=== PATIENT | male | born 1960 | race Hispanic/Latino ===

== ENCOUNTER → 2023-01-24 | Outpatient (CLI) | payer OTHER ==
[~2023-01-24] MED LIST: AMOX-427 PO; LACT1CAP58 PO
[2023-01-24 16:24] LABS: BASOPHILS % (AUTO) 0.5 % (0.0-5.0); EOSINOPHILS % (AUTO) 1.2 % (0.0-8.0); HEMATOCRIT 41.1 % (42-54); LYMPHOCYTES % (AUTO) 14.3 % (21.0-51.0); MEAN CORPUSCULAR HEMOGLOBIN 30.9 pg (27.0-33.0); MEAN CORPUSCULAR HGB CONC 32.4 g/dL (32.0-36.0); MEAN CORPUSCULAR VOLUME 95.4 fL (79-99); MONOCYTES % (AUTO) 5.9 % (3.0-13.0); NEUTROPHILS % (AUTO) 77.3 % (40.0-77.0); PLATELET COUNT (AUTO) 262 K/uL (130-400); RED BLOOD CELL COUNT(AUTO) 4.31 MIL/uL (4.50-6.20); RED CELL DISTRIBUTION WIDTH 15.2 % (11.0-15.5); WHITE BLOOD COUNT (AUTO) 10.1 K/uL (4.8-10.8)
[2023-01-24 16:42] LABS: CHOLESTEROL 196 mg/dL (<200); HDL CHOLESTEROL 65 mg/dL (29-71); LDL DIRECT 110 mg/dL (0-99); TRIGLYCERIDES 108 mg/dL (30-200)
== END | disposition home or self-care (01) ==
LOC: LAB 08:54
PROVIDERS: ATTEND Internal Medicine Cardiovascular Disease
DX: I10 Essential (primary) hypertension (principal); E78.5 Hyperlipidemia, unspecified; I73.9 Peripheral vascular disease, unspecified
CPT/HCPCS: 36415; 80061; 85025

== ENCOUNTER → 2023-04-28 | Outpatient (CLI) | payer OTHER ==
[2023-04-28 12:44] LABS: ALBUMIN 3.7 g/dL (3.5-5.0); BILIRUBIN,TOTAL 0.7 mg/dL (0.2-1.0); CREATININE 1.1 mg/dL (0.5-1.5); TOTAL PROTEIN, SERUM 7.1 g/dL (6.0-8.3)
== END | disposition home or self-care (01) ==
LOC: LAB 09:32
PROVIDERS: ATTEND Internal Medicine Cardiovascular Disease
DX: I10 Essential (primary) hypertension (principal); E78.5 Hyperlipidemia, unspecified; I73.9 Peripheral vascular disease, unspecified
CPT/HCPCS: 36415; 80053; 80061

== ENCOUNTER → 2023-12-18 | Outpatient (CLI) | payer OTHER ==
[2023-12-18 12:46] LABS: RETICULOCYTE % (AUTO) 2.97 % (0.42-2.23)
[2023-12-18 13:01] LABS: % IRON SATURATION 36.9 % (30-44)
[2023-12-18 13:04] LABS: HEMOGLOBIN A1C 5.7 % (4.0-6.0)
== END | disposition home or self-care (01) ==
LOC: LAB 08:50
PROVIDERS: ATTEND Internal Medicine Cardiovascular Disease
DX: I10 Essential (primary) hypertension (principal); D64.9 Anemia, unspecified; I73.9 Peripheral vascular disease, unspecified
CPT/HCPCS: 36415; 82270; 82728; 83036; 83540; 83550; 85045

== ENCOUNTER → 2024-03-20 | Outpatient (CLI) | payer MEDICARE ==
[2024-03-20 12:11] LABS: BASOPHILS # (AUTO) 0.03 K/uL (0.00-0.20); BASOPHILS % (AUTO) 0.3 % (0.0-5.0); HEMATOCRIT 40.2 % (42-54); IMMATURE GRANULOCYTE ABSOLUTE 0.03 K/uL (0-1); LYMPHOCYTES # (AUTO) 2.5 K/uL (1.0-4.8); LYMPHOCYTES % (AUTO) 25.4 % (21.0-51.0); MEAN CORPUSCULAR HEMOGLOBIN 27.9 pg (27.0-33.0); MEAN CORPUSCULAR HGB CONC 31.6 g/dL (32.0-36.0); MEAN CORPUSCULAR VOLUME 88.4 fL (79-99); MONOCYTES # (AUTO) 0.6 K/uL (0.1-1.0); MONOCYTES % (AUTO) 6.3 % (3.0-13.0); NEUTROPHILS # (AUTO) 6.5 K/uL (1.8-7.7); NEUTROPHILS % (AUTO) 65.7 % (40.0-77.0); PLATELET COUNT (AUTO) 253 K/uL (130-400); RED BLOOD CELL COUNT(AUTO) 4.55 MIL/uL (4.50-6.20); WHITE BLOOD COUNT (AUTO) 9.9 K/uL (4.8-10.8)
[2024-03-20 12:37] LABS: ALBUMIN 3.6 g/dL (3.5-5.0); BILIRUBIN,TOTAL 0.9 mg/dL (0.2-1.0); CREATININE 1.3 mg/dL (0.5-1.3); POTASSIUM 4.5 mmol/L (3.5-5.1); TOTAL PROTEIN, SERUM 7.2 g/dL (6.0-8.3)
== END | disposition home or self-care (01) ==
LOC: LAB 09:13
PROVIDERS: ATTEND Internal Medicine Cardiovascular Disease
DX: I73.9 Peripheral vascular disease, unspecified (principal); E78.5 Hyperlipidemia, unspecified
CPT/HCPCS: 36415; 80053; 80061; 85025

== ENCOUNTER → 2024-09-18 | Outpatient (CLI) | payer MEDICARE ==
[2024-09-18 12:16] LABS: BASOPHILS # (AUTO) 0.05 K/uL (0.00-0.20); BASOPHILS % (AUTO) 0.5 % (0.0-5.0); EOSINOPHILS # (AUTO) 0.12 K/uL (0.00-0.70); EOSINOPHILS % (AUTO) 1.2 % (0.0-8.0); HEMATOCRIT 44.6 % (42-54); IMMATURE GRANULOCYTE ABSOLUTE 0.05 K/uL (0-1); LYMPHOCYTES % (AUTO) 20.8 % (21.0-51.0); MEAN CORPUSCULAR HEMOGLOBIN 31.1 pg (27.0-33.0); MEAN CORPUSCULAR VOLUME 94.5 fL (79-99); MONOCYTES # (AUTO) 0.8 K/uL (0.1-1.0); MONOCYTES % (AUTO) 7.8 % (3.0-13.0); NEUTROPHILS # (AUTO) 6.7 K/uL (1.8-7.7); NEUTROPHILS % (AUTO) 69.2 % (40.0-77.0); PLATELET COUNT (AUTO) 254 K/uL (130-400); RED BLOOD CELL COUNT(AUTO) 4.72 MIL/uL (4.50-6.20); RED CELL DISTRIBUTION WIDTH 15.3 % (11.0-15.5); WHITE BLOOD COUNT (AUTO) 9.8 K/uL (4.8-10.8)
[2024-09-18 12:31] LABS: ALBUMIN 3.7 g/dL (3.5-5.0); BILIRUBIN,TOTAL 0.7 mg/dL (0.2-1.0); TOTAL PROTEIN, SERUM 7.6 g/dL (6.0-8.3)
== END | disposition home or self-care (01) ==
LOC: LAB 09:49
PROVIDERS: ATTEND Internal Medicine Cardiovascular Disease
DX: I10 Essential (primary) hypertension (principal); D64.9 Anemia, unspecified; E78.00 Pure hypercholesterolemia, unspecified; I73.9 Peripheral vascular disease, unspecified
CPT/HCPCS: 36415; 80053; 80061; 85025

== ENCOUNTER 2024-10-05 15:05 | Inpatient (IN) | payer MEDICARE ==
[~2024-10-05] VITALS: Ht 175.3 cm; Wt 117.2 kg
[2024-10-05 15:31] LABS: BASOPHILS # (AUTO) 0.05 K/uL (0.00-0.20); BASOPHILS % (AUTO) 0.4 % (0.0-5.0); EOSINOPHILS # (AUTO) 0.01 K/uL (0.00-0.70); EOSINOPHILS % (AUTO) 0.1 % (0.0-8.0); HEMATOCRIT 42.5 % (42-54); IMMATURE GRANULOCYTE ABSOLUTE 0.14 K/uL (0-1); LYMPHOCYTES # (AUTO) 1.2 K/uL (1.0-4.8); LYMPHOCYTES % (AUTO) 9.3 % (21.0-51.0); MEAN CORPUSCULAR HEMOGLOBIN 31.1 pg (27.0-33.0); MEAN CORPUSCULAR HGB CONC 33.4 g/dL (32.0-36.0); MEAN CORPUSCULAR VOLUME 93.2 fL (79-99); MONOCYTES # (AUTO) 0.7 K/uL (0.1-1.0); MONOCYTES % (AUTO) 5.3 % (3.0-13.0); NEUTROPHILS # (AUTO) 10.6 K/uL (1.8-7.7); NEUTROPHILS % (AUTO) 83.8 % (40.0-77.0); PLATELET COUNT (AUTO) 200 K/uL (130-400); RED BLOOD CELL COUNT(AUTO) 4.56 MIL/uL (4.50-6.20); RED CELL DISTRIBUTION WIDTH 15.5 % (11.0-15.5); WHITE BLOOD COUNT (AUTO) 12.7 K/uL (4.8-10.8)
[2024-10-05 15:46] LABS: CREATININE 2.9 mg/dL (0.5-1.3); POTASSIUM 3.2 mmol/L (3.5-5.1)
[2024-10-05 15:58] LABS: B-TYPE NATRIURETIC PEPTIDE 110 pg/mL (0-100)
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
--- NOTE | 2024-10-05 16:16 | HMCIMG ---
CT ABDOMEN WITHOUT CONTRAST. CT PELVIS WITHOUT CONTRAST. INDICATION: Abdominal pain; No relevant information related to this study was provided in patient's history by the ordering service. TECHNIQUE: Routine transaxial imaging using 5 mm slice thickness through the abdomen and pelvis without the administration of IV contrast. Thin slice reconstructions are also provided. Coronal and sagittal reformatted images acquired for interpretation. CT was performed with one or more of the following dose reduction techniques: Automated exposure control, adjustment of the mA and/or kV according to patient size, or use of iterative reconstruction technique. COMPARISON: None FINDINGS: ON NONCONTRAST IMAGING: ABDOMEN: Examination provided for interpretation at 4:13 PM on 10/05/2024. Heart size is normal. Scarring at both lung bases. No abnormal renal calcifications, hydronephrosis, perinephric inflammation, or proximal hydroureter detected. The liver is normal in size and smooth in contour without biliary duct dilation. The spleen is normal in size and attenuation. The gallbladder appears normal. The pancreas appears normal without pancreatic duct dilation. The adrenal glands appear normal. No significant abdominal, retrocrural or retroperitoneal adenopathy noted. No evidence for intra-abdominal free air or organized fluid collection. No aortic aneurysmal dilation identified. PELVIS: No abnormal calcifications within the urinary bladder or distal ureters. No evidence for free air or organized pelvic fluid collection. No significant pelvic adenopathy detected. Several diverticula along the distal colon and mild to moderate pericolonic inflammatory fat stranding associated, including 3.5 cm aggregate of air and trace fluid along the mesenteric wall of the far proximal sigmoid colon with additional scattered air densities throughout the anterior mid to upper abdomen. Several diverticula along the proximal colon. Terminal ileum appears unremarkable. The appendix appears normal. Visible osseous structures are intact. IMPRESSION: Perforated sigmoid diverticulitis as described, including findings suggesting potential evolving abscess.
[2024-10-05 16:18] LABS: SARS-CoV-2, RNA, NAAT NEGATIVE SARS CoV-2 (NEGATIVE)
[2024-10-05 16:26] LABS: INFLUENZA TYPE A Negative For Type A (NEGATIVE); INFLUENZA TYPE B Negative For Type B (NEGATIVE)
--- NOTE | 2024-10-05 16:44 | HMCIMG ---
PORTABLE CHEST RADIOGRAPH INDICATION: COUGH COMPARISON: 05/16/2017 FINDINGS: cardiac monitor leads overlie the field of view. Heart size is normal. The pulmonary vascularity and jeannie appear normal. No abnormal pulmonary parenchymal opacity or consolidation identified. Bibasilar lung linear scarring. No significant pleural effusion noted. No pneumothorax detected. IMPRESSION: No radiographic evidence for any acute cardiopulmonary process.
[2024-10-05] MEDS: 0.9%NACL 1000ML 2,000 ML IV ONE (16:55)
[2024-10-05] MEDS: 0.9%NACL 1000ML 1,000 ML IV ONE (17:15)
[2024-10-05] MEDS: ZOSYN 3.375GM +NS 50ML IV ONE (17:19)
[2024-10-05 17:20] LABS: APPEARANCE,URINE TURBID (CLEAR); BILIRUBIN,URINE NEGATIVE (NEGATIVE); COLOR,URINE ORANGE (YELLOW); GLUCOSE, URINE (UA) 50 mg/dL (NEGATIVE); KETONES,URINE NEGATIVE (NEGATIVE); LEUKOCYTE ESTERASE ,URINE 25 Leu/uL (NEGATIVE); NITRATE,URINE NEGATIVE (NEGATIVE); OCCULT BLOOD,URINE SMALL (NEGATIVE); PH,URINE 5.5 (5.0-8.0); PROTEIN,URINE 200 mg/dL (NEGATIVE); UROBILINOGEN,URINE 3 mg/dL (0.2-1.0)
[2024-10-05 17:28] LABS: ADD UA MICROSCOPIC YES
[2024-10-05 17:29] LABS: BACTERIA,URINE RARE /HPF (None Seen); MUCUS,URINE RARE LPF (None Seen); SQUAMOUS EPITHELIAL CELL,UR FEW /HPF (0-2); WBC CLUMP FEW /HPF (0-1); YEAST,URINE BUDDING FEW /HPF (None Seen)
[2024-10-05] MEDS ORDERED: chlordiazePOXIDE HCL 25 MG CAP PO PRN (18:00)
[2024-10-05] MEDS ORDERED: LORazepam 2 MG/ML 1 ML VIAL IVP PRN (18:00)
[2024-10-05] MEDS ORDERED: RENAL DOSE IV SCH (18:00)
[2024-10-05] MEDS ORDERED: PHARMACY COMMUNICATION MISC PRN (18:00)
[2024-10-05 18:01] LABS: HEMOGLOBIN A1C 7.1 % (4.0-6.0)
[2024-10-05] MEDS: 0.9% NACL 500ML IV.SOLN 500 ML IV ONE (18:02)
[2024-10-05] MEDS ORDERED: ROSU10TA72 PO (18:07)
[2024-10-05] MEDS ORDERED: EZET10TA48 PO (18:07)
[2024-10-05] MEDS ORDERED: LOSA1TAB42 PO (18:07)
[2024-10-05 18:10] LABS: BILIRUBIN,DIRECT 0.5 mg/dL (0.0-0.3); BILIRUBIN,TOTAL 1.7 mg/dL (0.2-1.0); MAGNESIUM 1.9 mg/dL (1.80-2.40); THYROID STIMULATING HORMONE 4.73 uIU/mL (0.36-3.74); TOTAL PROTEIN, SERUM 7.2 g/dL (6.0-8.3)
[2024-10-05] MEDS: PANTOPrazole 40 MG/VIAL IVP SCH (18:12)
[2024-10-05] MEDS: THIAMINE HCL 100 MG/ML 2ML VIAL IVP SCH (18:12)
[2024-10-05] MEDS: THIAMINE HCL 100 MG, FOLic ACID 5 MG/ML VIAL 1 MG, M.V.I. IV [ADULT] 10 ML in 0.9%NACL ... IV SCH (18:12)
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
[2024-10-05 18:21] LABS: ABG BASE EXCESS -3.6 mmol/L (-2.0-3.0); ABG HCO3 18.7 mmol/L (21.0-28.0); ABG OXYGEN SATURATION 94.4 % (94.0-98.0); ABG PCO2 27 mmHg (35-48); ABG PH 7.459 (7.350-7.450); CARBON MONOXIDE 0.4 % (0.5-1.5); HHb 5.6; PO2, ARTERIAL BG 70.9 mmHg (83.0-108.0); VENT MODE, BG RA (ROOM AIR)
--- NOTE | 2024-10-05 18:25 | NUR ---
JACKSON CATHETER INSERTION INSERTED JACKSON CATHETER, ONLY ABOUT 2 CC OUTPUT AFTER INSERTION BUT PATIENT DENIES PAIN PATIENT RESTING IN BED, CALL LIGHT IN REACH
[2024-10-05 18:29] VITALS: PULSE 119; PULSE 120; RESP 20; RESP 26; O2SAT 98
[2024-10-05] MEDS: BUDESONIDE 0.5 MG/2 ML INH IH SCH (18:29)
--- NOTE | 2024-10-05 18:29 | HMCIMG ---
ULTRASOUND VENOUS DOPPLER, BILATERAL LOWER EXTREMITIES INDICATION: Bilateral lower extremity pain and swelling TECHNIQUE: Routine grayscale and color Doppler ultrasound of the bilateral lower extremity veins performed. COMPARISON: No priors. FINDINGS: The demonstrated veins of the bilateral lower extremity including the common femoral vein, femoral vein, and popliteal vein are associated with normal compressibility, augmentation, and flow. Normal respiratory variation was identified. No evidence for echogenic intraluminal thrombus formation. IMPRESSION: No sonographic evidence for deep venous thrombosis within the bilateral lower extremity veins.
[2024-10-05 18:47] LABS: INR 1.02 (0.85-1.15); PROTHROMBIN TIME 11.4 SEC (9.6-11.6)
[2024-10-05] MEDS: hydroMORPHone 0.5 MG SYG (0.5MG/0.5ML) IVP PRN (19:34)
[2024-10-05] MEDS: PoTASSium chloRIDE 10MEQ/100ML 100 ML IV PRN (19:34)
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
[2024-10-05] MEDS ORDERED: 0.9%NACL 50ML IV SCH (21:00)
[2024-10-05] MEDS: ALBUMIN HUMAN 25% 100 ML IV SCH (21:33)
[2024-10-05 21:36] LABS: CREATININE,URINE RANDOM 331.27 mg/dL (30-135)
[2024-10-05 21:54] LABS: PROTEIN,URINE RANDOM 366.2 mg/dL (0-11.9)
[2024-10-05] MEDS: ZOSYN 3.375GM +NS 50ML IVPB SCH (22:01)
[2024-10-05 22:15] LABS: CREATININE 3.2 mg/dL (0.5-1.3); POTASSIUM 4.1 mmol/L (3.5-5.1)
[2024-10-05 22:47] VITALS: PULSE 112; RESP 25; O2SAT 97
[2024-10-06 01:15] VITALS: PULSE 105; RESP 19; O2SAT 96
[2024-10-06 06:40] VITALS: PULSE 111; RESP 20
[2024-10-06 06:41] VITALS: RESP 20; O2SAT 97
[2024-10-06] MEDS: ALBUMIN HUMAN 25% 100 ML IV SCH (07:02)
[2024-10-06 07:21] LABS: BASOPHILS # (AUTO) 0.03 K/uL (0.00-0.20); BASOPHILS % (AUTO) 0.2 % (0.0-5.0); EOSINOPHILS # (AUTO) 0.04 K/uL (0.00-0.70); EOSINOPHILS % (AUTO) 0.3 % (0.0-8.0); IMMATURE GRANULOCYTE ABSOLUTE 0.08 K/uL (0-1); LYMPHOCYTES # (AUTO) 1.1 K/uL (1.0-4.8); MEAN CORPUSCULAR HGB CONC 32.6 g/dL (32.0-36.0); MEAN CORPUSCULAR VOLUME 95.1 fL (79-99); MONOCYTES # (AUTO) 0.6 K/uL (0.1-1.0); MONOCYTES % (AUTO) 4.9 % (3.0-13.0); NEUTROPHILS # (AUTO) 10.7 K/uL (1.8-7.7); PLATELET COUNT (AUTO) 162 K/uL (130-400); RED BLOOD CELL COUNT(AUTO) 3.68 MIL/uL (4.50-6.20); RED CELL DISTRIBUTION WIDTH 15.8 % (11.0-15.5); WHITE BLOOD COUNT (AUTO) 12.6 K/uL (4.8-10.8)
[2024-10-06 07:42] LABS: ALBUMIN 2.6 g/dL (3.5-5.0); BILIRUBIN,TOTAL 1.8 mg/dL (0.2-1.0); CREATININE 2.4 mg/dL (0.5-1.3); MAGNESIUM 1.9 mg/dL (1.80-2.40); PHOSPHORUS 4.1 mg/dL (2.5-4.9); POTASSIUM 4.2 mmol/L (3.5-5.1); TOTAL PROTEIN, SERUM 6.1 g/dL (6.0-8.3)
[2024-10-06] MEDS: acetaMINOPHEN 325 MG TAB PO PRN (08:31)
[2024-10-06] MEDS: acetaMINOPHEN 1,000 MG/100 ML VIAL IVPB SCH (09:37)
--- NOTE | 2024-10-06 10:09 | HMCIMG ---
ULTRASOUND RENAL COMPLETE INDICATION: Renal failure TECHNIQUE: Routine ultrasound of the kidneys and urinary bladder with grayscale and color Doppler imaging was performed in real-time, and subsequently made available for review. COMPARISON: No prior studies available for comparison. FINDINGS: The right kidney measures 9.3 x 5.7 x 5.7 cm. No abnormal mass demonstrated. No evidence for hydronephrosis or shadowing stone. The left kidney measures 10.9 x 6.3 x 5.1 cm. No abnormal mass demonstrated. No evidence for hydronephrosis or shadowing stone. Empty urinary bladder secondary to Ni catheter placement. No free fluid demonstrated. IMPRESSION: Normal sonographic appearance of the kidneys.
--- NOTE | 2024-10-06 11:28 | PN ---
[facility] PROGRESS NOTE Date of Service: Oct 06, 2024 Time of Service: 11:27 SUBJECTIVE: [ ] 10/06/24 patient was seen and examined. Case discussed with the RN and by the bedside. He reports doing slightly better. Abdominal pain has largely resolved. He denies nausea vomiting fever or chills REVIEW OF SYSTEMS CONSTITUTIONAL: Fevers, chills, asthenia, malaise NEUROLOGICAL: Denies headache, amaurosis fugax, motor weakness, sensory deficit, vertigo/spinning sensation, gait abnormalities, or tremors. ENT: No hearing loss, otalgia, otorrhea, rhinitis, rhinorrhea, hoarseness, or sore throat. CARDIOVASCULAR: Denies any exertional angina, dyspnea on exertion, orthopnea, paroxysmal nocturnal dyspnea, palpitations, life-threatening arrhythmias, claudication. PULMONARY: Denies any shortness of breath, cough, phlegm/sputum, hemoptysis, pleuritic chest pain. SLEEP: Denies morning headaches, daytime somnolence or napping. Denies difficulty falling asleep, staying asleep, waking from sleep. Denies knowledge of snoring. GASTROINTESTINAL: Nausea, vomiting, abdominal pain GENITOURINARY: Denies frequency, urgency, nocturia, hematuria or incontinence (Storage/Irritative symptoms.) Low urinary stream, straining to void, urinary intermittency or hesitancy, splitting of the voiding stream, terminal dribbling. ENDOCRINOLOGIC: Denies polyuria, polydipsia, polyphagia or heat/cold intolerances. HEMATOLOGIC: Denies thrombophilia/previous clots, or coagulopathy/bleeding disorders. ONCOLOGIC: Denies personal history of malignancy. DERMATOLOGIC: Denies rashes or pruritus. PSYCHIATRIC: Denies any suicidal or homicidal ideation. Denies hallucinations. PHYSICAL EXAM GENERAL APPEARANCE: The patient is awake, alert, appears disheveled and ill, tachypneic NEUROLOGICAL: Cranial nerves II-XII grossly intact. Motor is 5/5 in bilateral upper and lower extremities proximal to distal. No sensory deficits. HEENT: Face is symmetric. Pupils are equal and reactive. Extraocular movements are intact. NECK: Supple. No JVD. No thyromegaly. No submental, submandibular, pre-/ postauricular, occipital or supraclavicular lymphadenopathy. CHEST: Normal chest expansion. No Telemetry. LUNGS: Absence of any rales, rhonchi or any wheezing. CARDIOVASCULAR: Regular. S1 and S2 normal. No appreciable rubs, murmurs or gallops. ABDOMEN: Soft, nontender, and nondistended. There is no rebound, voluntary guarding, or rigidity. : Deferred. No Ni. EXTREMITIES: 1+ pitting edema of the bilateral lower extremities, changes of psoriasis noted of the bilateral lower and upper extremities SKIN: No skin breakdown. Vital Signs (last 8hr) Date Time Temp Pulse Resp B/P (MAP) Pulse Ox O2 Delivery O2 Flow Rate FiO2 10/06/24 10:16 99.0 109 22 122/64 96 Room Air* 0 21 10/06/24 08:05 101.5 111 26 113/63 96 Nasal Cannula* 2 28 10/06/24 06:41 20 N/Cannula Low lpm 2.0 28 10/06/24 06:40 111 20 10/06/24 06:28 98.8 109 24 111/62 96 Nasal Cannula* 2 28 10/06/24 05:14 114 22 120/70 96 CPAP+ 21 LABS: Laboratory: Test 10/06/24 06:50 10/05/24 21:53 10/05/24 18:19 10/05/24 17:10 Range/Units White Blood Count 12.6 H 4.8-10.8 K/uL Red Blood Count 3.68 L 4.50-6.20 MIL/uL Hemoglobin 11.4 L 14.0-18.0 g/dL Hematocrit 35.0 L 42-54 % Mean Corpuscular Volume 95.1 79-99 fL Mean Corpuscular Hemoglobin 31.0 27.0-33.0 pg Mean Corpuscular Hemoglobin Concent 32.6 32.0-36.0 g/dL Red Cell Distribution Width 15.8 H 11.0-15.5 % Platelet Count 162 130-400 K/uL Mean Platelet Volume 9.6 7.5-10.5 fL Immature Granulocyte % (Auto) 0.6 0-1 % Neutrophils (%) (Auto) 85.0 H 40.0-77.0 % Lymphocytes (%) (Auto) 9.0 L 21.0-51.0 % Monocytes (%) (Auto) 4.9 3.0-13.0 % Eosinophils (%) (Auto) 0.3 0.0-8.0 % Basophils (%) (Auto) 0.2 0.0-5.0 % Neutrophils # (Auto) 10.7 H 1.8-7.7 K/uL Lymphocytes # (Auto) 1.1 1.0-4.8 K/uL Monocytes # (Auto) 0.6 0.1-1.0 K/uL Eosinophils # (Auto) 0.04 0.00-0.70 K/uL Basophils # (Auto) 0.03 0.00-0.20 K/uL Absolute Immature Granulocyte (auto 0.08 0-1 K/uL Nucleated Red Blood Cells 0.0 0.0-0.19 % Sodium Level 142 136-145 mmol/L Potassium Level 4.2 3.5-5.1 mmol/L Chloride Level 107 101-111 mmol/L Carbon Dioxide Level 22 21-32 mmol/L Blood Urea Nitrogen 28 H 7-18 mg/dL Creatinine 2.4 H 0.5-1.3 mg/dL Glomerular Filtration Rate Calc 29 >90 mL/min Random Glucose 165 H 70-105 mg/dL Total Calcium 8.3 L 8.5-10.1 mg/dL Phosphorus Level 4.1 2.5-4.9 mg/dL Magnesium Level 1.90 1.80-2.40 mg/dL Total Bilirubin 1.8 H 0.2-1.0 mg/dL Aspartate Amino Transf (AST/SGOT) 33 10-37 U/L Alanine Aminotransferase (ALT/SGPT) 27 12-78 U/L Alkaline Phosphatase 77 # 50-136 U/L Total Protein 6.1 6.0-8.3 g/dL Albumin 2.6 L 3.5-5.0 g/dL Lactic Acid Level 1.7 0.8-2.5 mmol/L Blood Gas Specimen Type Arterial Arterial Blood pH 7.459 H 7.350-7.450 Arterial Blood Partial Pressure CO2 27 L 35-48 mmHg Arterial Blood Partial Pressure O2 70.9 L 83.0-108.0 mmHg Arterial Blood HCO3 18.7 L 21.0-28.0 mmol/L Arterial Blood Oxygen Saturation 94.4 94.0-98.0 % Arterial Blood Base Excess -3.6 L -2.0-3.0 mmol/L Hemoglobin (Blood Gas) 13.9 13.5-17.5 g/dL Sodium (Blood Gas) 135 L 136-145 MMOL/L Bedside Potassium (Blood Gas) 3.3 L 3.4-4.5 MMOL/L Bedside Chloride (Blood Gas) 105 98-107 MMOL/L Bedside Glucose (Blood Gas) 155 H 65-95 MG/DL Bedside Ionized Calcium (Blood Gas) 1.14 L 1.15-1.33 MMOL/L Bedside Lactic Acid (Blood Gas) 1.35 H 0.36-0.75 MMOL/L Blood Gas Temperature 37.0 35.5-37.0 CELSIUS Blood Gas Vent Mode RA ROOM AIR FiO2 21.0 % Blood Gas Specimen Comment LR,RNOSCAR Urine Color ORANGE YELLOW Urine Appearance TURBID CLEAR Urine pH 5.5 5.0-8.0 Urine Specific [place] 1.023 1.001-1.031 Urine Protein 200 H NEGATIVE mg/dL Urine Glucose (UA) 50 H NEGATIVE mg/dL Urine Ketones NEGATIVE NEGATIVE mg/dL Urine Occult Blood SMALL H NEGATIVE Urine Nitrate NEGATIVE NEGATIVE Urine Bilirubin NEGATIVE NEGATIVE mg/dL Urine Urobilinogen 3 H 0.2-1.0 mg/dL Urine Leukocyte Esterase 25 H NEGATIVE Ravi/uL Urine RBC 6-10 H 0-1 /HPF Urine WBC 11-25 H 0-1 /HPF Urine WBC Clumps (Auto) FEW 0-1 /HPF Urine Squamous Epithelial Cells FEW 0-2 /HPF Urine Bacteria RARE None Seen /HPF Urine Yeast FEW None Seen /HPF Urine Random Creatinine 331.27 H 30-135 mg/dL Urine Random Total Protein 366.2 H 0-11.9 mg/dL Urine Random Sodium 26 L 40-220 mmol/l Urine Random Potassium 66 25-125 mmol/L Urine Random Chloride 27 L 110-250 mmol/L Test 10/05/24 16:31 10/05/24 15:30 10/05/24 15:22 Range/Units Hemoglobin A1c 7.1 H 4.0-6.0 % Estimated Average Glucose (eAG) 157 H 70-126 mg/dL Direct Bilirubin 0.5 H 0.0-0.3 mg/dL Troponin I High Sensitivity 15 4-75 ng/L Thyroid Stimulating Hormone (TSH) 4.73 H 0.36-3.74 uIU/mL Influenza Type A Antigen Negative For Type A NEGATIVE Influenza Type B Antigen Negative For Type B NEGATIVE SARS-CoV-2, RNA, NAAT NEGATIVE SARS CoV-2 NEGATIVE White Cell Morphology Comment See comments Prothrombin Time 11.4 9.6-11.6 SEC Prothromb Time International Ratio 1.02 0.85-1.15 Activated Partial Thromboplast Time 40.0 H 26.3-35.5 SEC B-Type Natriuretic Peptide 110 H 0-100 pg/mL Lipase 26 16-77 U/L Serum Alcohol < 2 0-10 mg/dL Current Medications Medications (Trade) Dose Ordered Sig/Tim Route PRN Reason Start Time Stop Time Status Last Admin Dose Admin Acetaminophen (TYLenol 325MG TAB) 650 mg Q6H PRN PO MILD PAIN (1-3) 10/05/24 18:30 11/04/24 18:29 Acetaminophen (acetaMINOPHEN) 1,000 mg STAT IVPB 10/06/24 09:00 11/05/24 08:59 10/06/24 09:37 1,000 MG Albumin Human 100 ml @ 100 mls/hr AD IV 10/05/24 21:00 10/06/24 06:01 DC 10/05/24 21:33 100 MLS/HR Albumin Human 100 ml @ 0 mls/hr AD IV 10/06/24 06:00 11/05/24 05:59 10/06/24 07:02 500 MLS/HR Budesonide (Pulmicort 0.5 Mg/2ml) 0.5 mg BIDRESP IH 10/05/24 18:00 11/04/24 17:59 10/06/24 06:38 0.5 MG Chlordiazepoxide HCl (LIBrium 25 MG CAP) 25 mg Q4H PRN PO ALCOHOL WITHDRAWAL PROTOCOL 10/05/24 18:00 10/12/24 17:59 Hydromorphone HCl (DiLAUDid 0.5MG INJ) 0.5 mg Q6H PRN IVP SEVERE PAIN (7-10) 10/05/24 18:00 10/10/24 17:59 10/05/24 19:34 0.5 MG Lorazepam (AtiVAN) 2 mg Q4H PRN IVP ALCOHOL WITHDRAWAL PROTOCOL 10/05/24 18:00 10/12/24 17:59 Pantoprazole Sodium (PROTonix 40MG INJ) 40 mg Q24H IVP 10/05/24 18:00 11/04/24 17:59 10/05/24 18:12 40 MG Pharmacy Profile Note (Pharmacy Communication) 1 each PROTOCOL PRN MISC ETOH Withdrawal Score changes 10/05/24 18:00 10/12/24 17:59 Piperacillin Sod/ Tazobactam Sod (Zosyn 3.375gm+NS 50ml) 3.375 gm Q8H IVPB 10/05/24 23:00 10/15/24 22:59 10/06/24 08:30 3.375 GM Potassium Chloride 100 ml @ 100 mls/hr AD PRN IV POTASSIUM PROTOCOL 10/05/24 18:00 11/04/24 17:59 10/05/24 19:34 100 MLS/HR Sodium Chloride (NS 50ml) 50 ml AD IV 10/05/24 21:00 10/05/24 17:34 DC Thiamine HCl (Vitamin B-1) 100 mg Q24H IVP 10/05/24 18:00 11/04/24 17:59 10/05/24 18:12 100 MG Thiamine HCl 100 mg/Folic Acid 1 mg/Multivitamins/ Minerals 10 ml/ Sodium Chloride 1,011.2 ml @ 100 mls/ hr Q24H IV 10/05/24 18:00 10/08/24 04:07 10/05/24 18:12 75 MLS/HR DIAGNOSTICS / RADIOLOGY: [ ] ASSESSMENT: Severe sepsis, POA, 2/2 perforated sigmoid diverticulitis Perforated sigmoid diverticulitis with developing abscess, POA Moderate lactic acidosis, POA Acute kidney injury, POA Hypokalemia, POA Mild urinary tract infection, POA Alcohol use disorder, POA Morbid obesity, POA Underlying history of hypertension, POA Hyperlipidemia, POA Suspected GREG, POA PLAN: Patient will be admitted to PCCU Continue with IV fluids, patient will receive sepsis bolus of fluid and start maintenance IV fluid with banana bag, 75 mL/hour Patient will be started on daily thiamine supplementation Patient will be kept strictly NPO We will start broad-spectrum antibiotics with IV Zosyn, renally dose Consultation has been requested with Dr. Campbell, with General surgery, appreciate recommendations Monitor lactic acid trend closely, if patient develops hypotension tonight, patient will be transferred to ICU for vasopressors Discussed patient's case with critical Care, we will watch this patient closely for the next 24 hours Ni catheter will be placed and we will monitor urine output closely Discussed patient's case with Dr. Moffett, with Nephrology, appreciate recommendations Monitor urine output closely, avoid NSAIDs, WENDIE inhibitor/ARB, avoid IV contrast until renal function improves Pain control with Tylenol and IV hydromorphone for severe pain Monitor renal function closely, All labs will be repeated in the morning Patient will be started on CPAP therapy tonight for management of suspected obstructive sleep apnea Patient will be placed on alcohol withdrawal protocol with Librium and Ativan, counseled patient to quit alcohol on discharge, patient verbalized understanding Date of service: 10/05/2024 Condition: Critical Anticipate greater than 72 hours of hospitalization for the patient, we will repeat a CT abdomen pelvis in 48-72 hours to assess abscess, patient may need IR evaluation if abscess increases in size Discussed with patient and at bedside, Andrew Najera MD Advanced Care Planning: Which of the following were discussed: Hospice care: Yes __ No _X_ Therapeutic options: Yes _X_ No __ Advance directives: Yes _X_ No __ Other discussions: Discussed with who?: Patient Voluntary nature of this service was explained to the patient? Yes _x_ No __ Amount of time spent: 20 minutes WENDY CROOK MD Oct 06, 2024 11:28
--- NOTE | 2024-10-06 11:57 | PN ---
[facility] PROGRESS NOTE Date Patient Seen: Oct 06, 2024 Time of Visit: 11:57 Supervising Physician: [Dr. Armstrong] Primary Care Physician: Attending team: [facility]ist Team Outpatient Specialists: Inpatient Consults: BIS, Critical care team general surgeon, infectious disease, nephrology PROBLEM LIST: Severe sepsis without septic shock, 2/2 UTI & perforated sigmoid diverticulitis, POA Perforated sigmoid diverticulitis with developing abscess, POA Acute renal failure, GFR 23 POA, (last GFR was 83 on 09/18/2024, prior to that GFR 61 on 03/20/2024) Acute complicated cystitis, POA Lactic acidosis, POA Hypokalemia, POA Alcohol use disorder, POA Morbid obesity, POA Uncontrolled hypertension, POA Hyperlipidemia, POA Suspected GREG, POA INTERVAL HISTORY: [Patient is evaluated at bedside. He was admitted for general body weakness, fever, chills, shortness of breaths and cough associated with left-sided abdominal pain. Sepsis code was activated in the ED at the time of his visit. Patient denies any nausea or vomiting since admission states his last meal was the night before did admit a loose stool in the morning which was nonbloody. Patient also has PERRY on admission improved with IV fluids. Did receive 3 L of NS in the ED. upon evaluation patient is resting comfortably in bed on 2 L nasal cannula. He has [id number] abdominal distention and bilateral lower quadrant pain with palpation. He was evaluated by General surgery, pending formal recommendation. He continues on Zosyn. Of note, patient states was previously on xarelto for a hx of DVT but was discontinued d/t anemia (presumed GI bleed). Currently NPO. Patient is hemodynamically stable.] REVIEW OF SYSTEMS: 12 point ROS reviewed with patient. Pertinent positives mentioned above. Otherwise negative. PHYSICAL EXAM: GENERAL: Alert, weak, awake oriented x 3 HEENT: EOMI, Sclera non icteric, moist mucosa NECK: Supple, no JVD, trachea midline LUNGS: Diminished breath sounds bilaterally. No wheezes HEART: Regular rate and rhythm. Normal S1 and S2, without murmurs ABD: Abdomen firm, generalized tenderness. Bowel sounds present. EXT: No clubbing cyanosis. +3 edema NEURO: Alert and oriented x3, follows commands, no neuro deficits noted. Vital Signs (last 8hr) Date Time Temp Pulse Resp B/P (MAP) Pulse Ox O2 Delivery O2 Flow Rate FiO2 10/06/24 10:16 99.0 109 22 122/64 96 Room Air* 0 21 10/06/24 08:05 101.5 111 26 113/63 96 Nasal Cannula* 2 28 10/06/24 06:41 20 N/Cannula Low lpm 2.0 28 10/06/24 06:40 111 20 10/06/24 06:28 98.8 109 24 111/62 96 Nasal Cannula* 2 28 10/06/24 05:14 114 22 120/70 96 CPAP+ 21 LABS: Hematology Labs: Test 10/06/24 06:50 10/05/24 15:22 Range/Units White Blood Count 12.6 H 4.8-10.8 K/uL Red Blood Count 3.68 L 4.50-6.20 MIL/uL Hemoglobin 11.4 L 14.0-18.0 g/dL Hematocrit 35.0 L 42-54 % Mean Corpuscular Volume 95.1 79-99 fL Mean Corpuscular Hemoglobin 31.0 27.0-33.0 pg Mean Corpuscular Hemoglobin Concent 32.6 32.0-36.0 g/dL Red Cell Distribution Width 15.8 H 11.0-15.5 % Platelet Count 162 130-400 K/uL Mean Platelet Volume 9.6 7.5-10.5 fL Immature Granulocyte % (Auto) 0.6 0-1 % Neutrophils (%) (Auto) 85.0 H 40.0-77.0 % Lymphocytes (%) (Auto) 9.0 L 21.0-51.0 % Monocytes (%) (Auto) 4.9 3.0-13.0 % Eosinophils (%) (Auto) 0.3 0.0-8.0 % Basophils (%) (Auto) 0.2 0.0-5.0 % Neutrophils # (Auto) 10.7 H 1.8-7.7 K/uL Lymphocytes # (Auto) 1.1 1.0-4.8 K/uL Monocytes # (Auto) 0.6 0.1-1.0 K/uL Eosinophils # (Auto) 0.04 0.00-0.70 K/uL Basophils # (Auto) 0.03 0.00-0.20 K/uL Absolute Immature Granulocyte (auto 0.08 0-1 K/uL Nucleated Red Blood Cells 0.0 0.0-0.19 % White Cell Morphology Comment See comments Chemistry Labs: Test 10/06/24 06:50 10/05/24 21:53 10/05/24 16:31 10/05/24 15:22 Range/Units Sodium Level 142 136-145 mmol/L Potassium Level 4.2 3.5-5.1 mmol/L Chloride Level 107 101-111 mmol/L Carbon Dioxide Level 22 21-32 mmol/L Blood Urea Nitrogen 28 H 7-18 mg/dL Creatinine 2.4 H 0.5-1.3 mg/dL Glomerular Filtration Rate Calc 29 >90 mL/min Random Glucose 165 H 70-105 mg/dL Total Calcium 8.3 L 8.5-10.1 mg/dL Phosphorus Level 4.1 2.5-4.9 mg/dL Magnesium Level 1.90 1.80-2.40 mg/dL Total Bilirubin 1.8 H 0.2-1.0 mg/dL Aspartate Amino Transf (AST/SGOT) 33 10-37 U/L Alanine Aminotransferase (ALT/SGPT) 27 12-78 U/L Alkaline Phosphatase 77 # 50-136 U/L Total Protein 6.1 6.0-8.3 g/dL Albumin 2.6 L 3.5-5.0 g/dL Lactic Acid Level 1.7 0.8-2.5 mmol/L Hemoglobin A1c 7.1 H 4.0-6.0 % Estimated Average Glucose (eAG) 157 H 70-126 mg/dL Direct Bilirubin 0.5 H 0.0-0.3 mg/dL Troponin I High Sensitivity 15 4-75 ng/L Thyroid Stimulating Hormone (TSH) 4.73 H 0.36-3.74 uIU/mL B-Type Natriuretic Peptide 110 H 0-100 pg/mL Lipase 26 16-77 U/L Coagulation Labs: Test 10/05/24 15:22 Range/Units Prothrombin Time 11.4 9.6-11.6 SEC Prothromb Time International Ratio 1.02 0.85-1.15 Activated Partial Thromboplast Time 40.0 H 26.3-35.5 SEC DIAGNOSTICS / RADIOLOGY RESULTS: FINDINGS: ON NONCONTRAST IMAGING: ABDOMEN: Examination provided for interpretation at 4:13 PM on 10/05/2024. Heart size is normal. Scarring at both lung bases. No abnormal renal calcifications, hydronephrosis, perinephric inflammation, or proximal hydroureter detected. The liver is normal in size and smooth in contour without biliary duct dilation. The spleen is normal in size and attenuation. The gallbladder appears normal. The pancreas appears normal without pancreatic duct dilation. The adrenal glands appear normal. No significant abdominal, retrocrural or retroperitoneal adenopathy noted. No evidence for intra-abdominal free air or organized fluid collection. No aortic aneurysmal dilation identified. PELVIS: No abnormal calcifications within the urinary bladder or distal ureters. No evidence for free air or organized pelvic fluid collection. No significant pelvic adenopathy detected. Several diverticula along the distal colon and mild to moderate pericolonic inflammatory fat stranding associated, including 3.5 cm aggregate of air and trace fluid along the mesenteric wall of the far proximal sigmoid colon with additional scattered air densities throughout the anterior mid to upper abdomen. Several diverticula along the proximal colon. Terminal ileum appears unremarkable. The appendix appears normal. Visible osseous structures are intact. IMPRESSION: Perforated sigmoid diverticulitis as described, including findings suggesting potential evolving abscess. PLAN Pending general surgery recommendation Follow KUB 1L LR bolus now Repeat labs in AM, monitor creatinine, WBC, lactic acid Order procalcitonin Continue Zosyn, start fluconazole Continue banana bag at 100 mL an hour. Monitor renal and liver function. Monitor electrolytes and treat accordingly. Keep the patient in euvolemic state. Avoid nephrotoxic medications. Follow urine and blood cultures, and temperature turning. Follow Infectious Disease physician's recommendation on antibiotic therapy. DVT and GI prophylaxis. P.r.n. medications for: Pain management, nausea, fever, hypertension. A.m. labs. NEURO: Minimize central acting medications as possible. Maintain fall precautions, adequate lighting during the day PULMONARY: Supplemental 02 as needed. Maintain aspiration precautions at all times CARDIOVASCULAR: Follow hemodynamics. Vital signs per facility protocol GI & NUTRITION: Continue with nutritional support. Continue stool softeners and laxatives as needed. KIDNEYS & ELECTROLYTES: Strict monitoring of intake, output and overall fluid balance. Avoid nephrotoxic medications to the extent possible. Medications to be dosed according to renal function. Monitor electrolytes and replace as needed ENDOCRINE: Maintain blood glucose between 100-180 at all times. Hypoglycemia protocol in place INFECTIOUS DISEASE: Trend temperature, WBC and procalcitonin level Follow cultures, deescalate antibiotics as soon as possible. Panculture if new onset fever ONCOLOGY/HEMATOLOGY/COAGULATION: Monitor for s/s of bleeding Monitor hemoglobin, coagulation studies as needed SKIN: Pressure ulcer prevention per facility protocol Specialty mattress ORTHO/REHAB: Continue PT/OT Prophylaxis: Continue GI and DVT prophylaxis Code Status: Full Resuscitation Disposition: TBD Time spent in the care of this patient exceeds 50 minutes. This does not include any time spent on procedures . LIDIA BUTLER Oct 06, 2024 11:57
[2024-10-06] MEDS ORDERED: NOREPINEPHRIN 4MG/NS 250ML 250 ML IV SCH (12:00)
--- NOTE | 2024-10-06 13:40 | PN ---
NEPHROLOGY PROGRESS NOTE Date/Time Patient Seen: Oct 06, 2024 Reason for Consultation: 13:30 SUBJECTIVE: This is a 64-year-old male with underlying history of hypertension, hyperlipidemia, obesity, chronic alcohol use, who presented to the ER for further evaluation of significant lower abdominal pain with associated fevers and chills CT of the abdomen showed perforated sigmoid diverticulitis suggesting potential evolving abscess. Pending blood culture results He continues on IV antibiotics Pending further surgery recommendations. He was noted to have elevated BUN and creatinine We has been consulted for renal failure. Renal function is improving Electrolytes are stable. He was seen in the emergency room, in no acute distress Continues to complain of abdominal pain Family at the bedside Condition is critical and guarded REVIEW OF SYSTEMS: GENERAL: Positive for abdominal pain NEUROLOGIC: Negative for any blurry vision, blind spots, double vision, facial asymmetry, dysphagia, dysarthria, hemiparesis, hemisensory deficits, vertigo, ataxia. HEENT: Negative for any head trauma, neck trauma, neck stiffness, photophobia, phonophobia, sinusitis, rhinitis. CARDIAC: Negative for any chest pain, dyspnea on exertion, paroxysmal nocturnal dyspnea, peripheral edema. PULMONARY: Negative for any shortness of breath, wheezing, COPD, or TB exposure. GASTROINTESTINAL: Negative for any abdominal pain, nausea, vomiting, bright red blood per rectum, melena. GENITOURINARY: Negative for any dysuria, hematuria, incontinence. INTEGUMENTARY: Negative for any rashes, cuts, insect bites. RHEUMATOLOGIC: Negative for any joint pains, photosensitive rashes, history of vasculitis or kidney problems. HEMATOLOGIC: Negative for any abnormal bruising, frequent infections or bleeding. Vital Signs (last 8hr) Date Time Temp Pulse Resp B/P (MAP) Pulse Ox O2 Delivery O2 Flow Rate FiO2 10/06/24 11:57 99.3 93 21 119/66 98 Room Air* 0 21 10/06/24 10:16 99.0 109 22 122/64 96 Room Air* 0 21 10/06/24 08:05 101.5 111 26 113/63 96 Nasal Cannula* 2 28 10/06/24 06:41 20 N/Cannula Low lpm 2.0 28 10/06/24 06:40 111 20 10/06/24 06:28 98.8 109 24 111/62 96 Nasal Cannula* 2 28 PHYSICAL EXAM: GENERAL: Alert and oriented x 3. No acute distress. Well-nourished. EYES: EOMI. Anicteric. HENT: Moist mucous membranes. No scleral icterus. No cervical lymphadenopathy. LUNGS: Clear to auscultation bilaterally. No accessory muscle use. CARDIOVASCULAR: Regular rate and rhythm. No murmur. No JVD. ABDOMEN: Soft, non-tender and non-distended. No palpable masses. EXTREMITIES: No edema. Non-tender. SKIN: No rashes or lesions. Warm. NEUROLOGIC: No focal neurological deficits. CN II-XII grossly intact, but not individually tested. PSYCHIATRIC: Cooperative. Appropriate mood and affect. Current Medications Medications (Trade) Dose Ordered Sig/Tim Route PRN Reason Start Time Stop Time Status Last Admin Dose Admin Acetaminophen (TYLenol 325MG TAB) 650 mg Q6H PRN PO MILD PAIN (1-3) 10/05/24 18:30 11/04/24 18:29 Acetaminophen (acetaMINOPHEN) 1,000 mg STAT IVPB 10/06/24 09:00 10/06/24 13:02 DC 10/06/24 09:37 1,000 MG Albumin Human 100 ml @ 100 mls/hr AD IV 10/05/24 21:00 10/06/24 06:01 DC 10/05/24 21:33 100 MLS/HR Albumin Human 100 ml @ 0 mls/hr AD IV 10/06/24 06:00 11/05/24 05:59 10/06/24 07:02 500 MLS/HR Budesonide (Pulmicort 0.5 Mg/2ml) 0.5 mg BIDRESP IH 10/05/24 18:00 11/04/24 17:59 10/06/24 06:38 0.5 MG Chlordiazepoxide HCl (LIBrium 25 MG CAP) 25 mg Q4H PRN PO ALCOHOL WITHDRAWAL PROTOCOL 10/05/24 18:00 10/12/24 17:59 Fluconazole/ Sodium Chloride 200 ml @ 100 mls/hr Q24H IV 10/06/24 13:00 11/05/24 12:59 Hydromorphone HCl (DiLAUDid 0.5MG INJ) 0.5 mg Q6H PRN IVP SEVERE PAIN (7-10) 10/05/24 18:00 10/10/24 17:59 10/05/24 19:34 0.5 MG Lorazepam (AtiVAN) 2 mg Q4H PRN IVP ALCOHOL WITHDRAWAL PROTOCOL 10/05/24 18:00 10/12/24 17:59 Norepinephrine 250 ml @ 44.213 mls/ hr PROTOCOL IV 10/06/24 12:00 11/05/24 11:59 Pantoprazole Sodium (PROTonix 40MG INJ) 40 mg Q24H IVP 10/05/24 18:00 11/04/24 17:59 10/05/24 18:12 40 MG Pharmacy Profile Note (Pharmacy Communication) 1 each PROTOCOL PRN MISC ETOH Withdrawal Score changes 10/05/24 18:00 10/12/24 17:59 Piperacillin Sod/ Tazobactam Sod (Zosyn 3.375gm+NS 50ml) 3.375 gm Q8H IVPB 10/05/24 23:00 10/15/24 22:59 10/06/24 08:30 3.375 GM Potassium Chloride 100 ml @ 100 mls/hr AD PRN IV POTASSIUM PROTOCOL 10/05/24 18:00 11/04/24 17:59 10/05/24 19:34 100 MLS/HR Sodium Chloride (NS 50ml) 50 ml AD IV 10/05/24 21:00 10/05/24 17:34 DC Thiamine HCl (Vitamin B-1) 100 mg Q24H IVP 10/05/24 18:00 10/06/24 11:49 DC 10/05/24 18:12 100 MG Thiamine HCl (Vitamin B-1) 300 mg Q24H IVP 10/06/24 18:00 10/09/24 17:59 Thiamine HCl 100 mg/Folic Acid 1 mg/Multivitamins/ Minerals 10 ml/ Sodium Chloride 1,011.2 ml @ 100 mls/ hr Q24H IV 10/05/24 18:00 10/08/24 04:07 10/05/24 18:12 75 MLS/HR LABORATORY: [ ] Hematology Labs: Test 10/06/24 06:50 10/05/24 15:22 Range/Units White Blood Count 12.6 H 4.8-10.8 K/uL Red Blood Count 3.68 L 4.50-6.20 MIL/uL Hemoglobin 11.4 L 14.0-18.0 g/dL Hematocrit 35.0 L 42-54 % Mean Corpuscular Volume 95.1 79-99 fL Mean Corpuscular Hemoglobin 31.0 27.0-33.0 pg Mean Corpuscular Hemoglobin Concent 32.6 32.0-36.0 g/dL Red Cell Distribution Width 15.8 H 11.0-15.5 % Platelet Count 162 130-400 K/uL Mean Platelet Volume 9.6 7.5-10.5 fL Immature Granulocyte % (Auto) 0.6 0-1 % Neutrophils (%) (Auto) 85.0 H 40.0-77.0 % Lymphocytes (%) (Auto) 9.0 L 21.0-51.0 % Monocytes (%) (Auto) 4.9 3.0-13.0 % Eosinophils (%) (Auto) 0.3 0.0-8.0 % Basophils (%) (Auto) 0.2 0.0-5.0 % Neutrophils # (Auto) 10.7 H 1.8-7.7 K/uL Lymphocytes # (Auto) 1.1 1.0-4.8 K/uL Monocytes # (Auto) 0.6 0.1-1.0 K/uL Eosinophils # (Auto) 0.04 0.00-0.70 K/uL Basophils # (Auto) 0.03 0.00-0.20 K/uL Absolute Immature Granulocyte (auto 0.08 0-1 K/uL Nucleated Red Blood Cells 0.0 0.0-0.19 % White Cell Morphology Comment See comments Chemistry Labs: Test 10/06/24 06:50 10/05/24 21:53 10/05/24 16:31 10/05/24 15:22 Range/Units Sodium Level 142 136-145 mmol/L Potassium Level 4.2 3.5-5.1 mmol/L Chloride Level 107 101-111 mmol/L Carbon Dioxide Level 22 21-32 mmol/L Blood Urea Nitrogen 28 H 7-18 mg/dL Creatinine 2.4 H 0.5-1.3 mg/dL Glomerular Filtration Rate Calc 29 >90 mL/min Random Glucose 165 H 70-105 mg/dL Total Calcium 8.3 L 8.5-10.1 mg/dL Phosphorus Level 4.1 2.5-4.9 mg/dL Magnesium Level 1.90 1.80-2.40 mg/dL Total Bilirubin 1.8 H 0.2-1.0 mg/dL Aspartate Amino Transf (AST/SGOT) 33 10-37 U/L Alanine Aminotransferase (ALT/SGPT) 27 12-78 U/L Alkaline Phosphatase 77 # 50-136 U/L Total Protein 6.1 6.0-8.3 g/dL Albumin 2.6 L 3.5-5.0 g/dL Lactic Acid Level 1.7 0.8-2.5 mmol/L Hemoglobin A1c 7.1 H 4.0-6.0 % Estimated Average Glucose (eAG) 157 H 70-126 mg/dL Direct Bilirubin 0.5 H 0.0-0.3 mg/dL Troponin I High Sensitivity 15 4-75 ng/L Thyroid Stimulating Hormone (TSH) 4.73 H 0.36-3.74 uIU/mL B-Type Natriuretic Peptide 110 H 0-100 pg/mL Lipase 26 16-77 U/L Coagulation Labs: Test 10/05/24 15:22 Range/Units Prothrombin Time 11.4 9.6-11.6 SEC Prothromb Time International Ratio 1.02 0.85-1.15 Activated Partial Thromboplast Time 40.0 H 26.3-35.5 SEC DIAGNOSTICS / RADIOLOGY: REASON: renal failue ORDERING PHYSICIAN: KATH ALEMAN PROCEDURE: RENAL - US RENAL SONOGRAM ULTRASOUND RENAL COMPLETE INDICATION: Renal failure TECHNIQUE: Routine ultrasound of the kidneys and urinary bladder with grayscale and color Doppler imaging was performed in real-time, and subsequently made available for review. COMPARISON: No prior studies available for comparison. FINDINGS: The right kidney measures 9.3 x 5.7 x 5.7 cm. No abnormal mass demonstrated. No evidence for hydronephrosis or shadowing stone. The left kidney measures 10.9 x 6.3 x 5.1 cm. No abnormal mass demonstrated. No evidence for hydronephrosis or shadowing stone. Empty urinary bladder secondary to Ni catheter placement. No free fluid demonstrated. IMPRESSION: Normal sonographic appearance of the kidneys. DICTATED BY: WILTON ZAVALA MD DATE: 10/06/24 1006 REASON: R/O dvt OF THE LOWER EXTREMITIES ORDERING PHYSICIAN: EDUARDO ABERNATHY MD PROCEDURE: VENOUS SYL - US VENOUS DOPPLER BILATERAL ULTRASOUND VENOUS DOPPLER, BILATERAL LOWER EXTREMITIES INDICATION: Bilateral lower extremity pain and swelling TECHNIQUE: Routine grayscale and color Doppler ultrasound of the bilateral lower extremity veins performed. COMPARISON: No priors. FINDINGS: The demonstrated veins of the bilateral lower extremity including the common femoral vein, femoral vein, and popliteal vein are associated with normal compressibility, augmentation, and flow. Normal respiratory variation was identified. No evidence for echogenic intraluminal thrombus formation. IMPRESSION: No sonographic evidence for deep venous thrombosis within the bilateral lower extremity veins. DICTATED BY: WILTON ZAVALA MD DATE: 10/05/241825 REASON: ABD PAIN ORDERING PHYSICIAN: MIRIAM RICE NP PROCEDURE: ABD PEL WO - CT ABDOMEN/PELVIS W/O CONTRAST CT ABDOMEN WITHOUT CONTRAST. CT PELVIS WITHOUT CONTRAST. INDICATION: Abdominal pain; No relevant information related to this study was provided in patient's history by the ordering service. TECHNIQUE: Routine transaxial imaging using 5 mm slice thickness through the abdomen and pelvis without the administration of IV contrast. Thin slice reconstructions are also provided. Coronal and sagittal reformatted images acquired for interpretation. CT was performed with one or more of the following dose reduction techniques: Automated exposure control, adjustment of the mA and/or kV according to patient size, or use of iterative reconstruction technique. COMPARISON: None FINDINGS: ON NONCONTRAST IMAGING: ABDOMEN: Examination provided for interpretation at 4:13 PM on 10/05/2024. Heart size is normal. Scarring at both lung bases. No abnormal renal calcifications, hydronephrosis, perinephric inflammation, or proximal hydroureter detected. The liver is normal in size and smooth in contour without biliary duct dilation. The spleen is normal in size and attenuation. The gallbladder appears normal. The pancreas appears normal without pancreatic duct dilation. The adrenal glands appear normal. No significant abdominal, retrocrural or retroperitoneal adenopathy noted. No evidence for intra-abdominal free air or organized fluid collection. No aortic aneurysmal dilation identified. PELVIS: No abnormal calcifications within the urinary bladder or distal ureters. No evidence for free air or organized pelvic fluid collection. No significant pelvic adenopathy detected. Several diverticula along the distal colon and mild to moderate pericolonic inflammatory fat stranding associated, including 3.5 cm aggregate of air and trace fluid along the mesenteric wall of the far proximal sigmoid colon with additional scattered air densities throughout the anterior mid to upper abdomen. Several diverticula along the proximal colon. Terminal ileum appears unremarkable. The appendix appears normal. Visible osseous structures are intact. IMPRESSION: Perforated sigmoid diverticulitis as described, including findings suggesting potential evolving abscess. DICTATED BY: WILTON ZAVALA MD DATE: 10/05/24 1611 REASON: COUGH ORDERING PHYSICIAN: UBALDO MCBRIDE MD PROCEDURE: CXR1VW - CHEST 1VW PORTABLE CHEST RADIOGRAPH INDICATION: COUGH COMPARISON: 05/16/2017 FINDINGS: environmental monitoring technician leads overlie the field of view. Heart size is normal. The pulmonary vascularity and jeannie appear normal. No abnormal pulmonary parenchymal opacity or consolidation identified. Bibasilar lung linear scarring. No significant pleural effusion noted. No pneumothorax detected. IMPRESSION: No radiographic evidence for any acute cardiopulmonary process. DICTATED BY: WILTON ZAVALA MD DATE: 10/05/24 1640 ASSESSMENT: Acute kidney injury Severe sepsis, 2/2 perforated sigmoid diverticulitis Perforated sigmoid diverticulitis with developing abscess Moderate lactic acidosis Hypokalemia Mild urinary tract infection Alcohol use disorder Morbid obesity Underlying history of hypertension Hyperlipidemia Suspected GREG PLAN: Labs, diagnostic, radiologic exams reviewed and interpreted by myself and sup ervising physician. We have reviewed external records in detail Pending further surgery recommendations Start IV thiamine 100 mg IV q.day. Continue with the renally dose antibiotics Require close monitoring of renal function and electrolytes Order CBC, CMP, and electrolytes in am BiPAP as necessary, for respiratory distress Monitor blood pressure adjust medication doses as needed Avoid hypotensive episodes May use Dilaudid 0.5 mg IV every 6 hours as needed for severe pain Monitor blood sugars Strict intake, output, and daily weight should be monitored Please renally adjust medications Avoid nephrotoxic and nonsteroidal drugs Avoid contrast if possible Will continue to monitor renal function, anemia, electrolytes Treatment plan discussed with patient Questions were answered We have discussed with the other team physicians in detail about the care plan We will continue to monitor the patient closely ATTESTATION BY PHYSICIAN I have seen and examined the patient. I reviewed the documentation, medical decision making, and treatment plan as noted by the mid-level provider above. I agree with the findings and plan of care. CAMILA CLEMENS MD, [facility] Oct 06, 2024 13:40
[2024-10-06] MEDS: LACTATED RINGERS 1000ML IV ONE (15:00)
--- NOTE | 2024-10-06 15:54 | NUR ---
SURGICAL CONSULT: DR MONTGOMERY JUST ARRIVED TO SEE/ASSESS/EVALUATE THE PT. DR ABERNATHY W/HIM AT THIS TIME.
--- NOTE | 2024-10-06 16:17 | CONS ---
CONSULT NOTE: This is a 64-year-old male with a history of high blood pressure obesity, and alcohol consumption. He came to the hospital because abdominal pain and fever. Workup showed a diverticulitis with a small perforation in the left side in air in the left para gutter. He has been in the emergency rooms is yesterday. At physical examination patient is in no severe distress. He feels better than yesterday. He is morbidly obese. Abdomen is distended there is no peritoneal signs but tenderness in the lower abdomen. Vital signs is stable however patient had fever in the last 24 hours. He is on IV antibiotics. According to the primary team he is abdomen looks less distended. We have requested a KUB in order to see if patient had ileus that requires an NG-tube. He does not feel nauseous or had vomiting. He is passing gas and he had a bowel movement. We will follow the patient closely. He should remain NPO and I told the patient the still the possibility that he may require surgery for this problem. VICKIE MONTGOMERY MD Oct 06, 2024 16:17
--- NOTE | 2024-10-06 16:56 | HMCIMG ---
ABD 1VW CLINICAL HISTORY: PERFORATED BOWEL/DISTENDED ABD COMPARISON: None FINDINGS: Single view of the abdomen was obtained. There are multiple air-filled loops of bowel. Free air is not definitely identified but could likely not be excluded on this exam. IMPRESSION: Ileus versus small bowel obstruction
--- NOTE | 2024-10-06 17:43 | NUR ---
dr lopez called and made aware of the kub results (ileus vs sbo). orders received to insert ng tube only if patient vomits
[2024-10-06 18:07] VITALS: PULSE 102; PULSE 104; RESP 19; O2SAT 98
[2024-10-06] MEDS: THIAMINE HCL 100 MG/ML 2ML VIAL IVP SCH (18:39)
--- NOTE | 2024-10-06 19:25 | NUR ---
ASSUMED PT CARE
[2024-10-06] MEDS: acetaMINOPHEN 1,000 MG/100 ML VIAL IVPB STA (19:27)
--- NOTE | 2024-10-06 20:30 | NUR ---
CALLED PHARMACY FOR THE NSYTATIN POWDER- STILL AWAITS MEDS
[2024-10-06] MEDS: HEParin 5,000 UNIT VIAL SQ SCH (21:20)
[2024-10-06] MEDS: NYSTatin 15 GM POWDER TP SCH (23:23)
--- NOTE | 2024-10-06 23:51 | NUR ---
PATIENT STILL HAVING FEVERS AFTER TYLENOL IV, PLACED PT ON ACTIVE COOLING
[2024-10-07 02:49] VITALS: PULSE 100; RESP 19; O2SAT 97
--- NOTE | 2024-10-07 06:56 | EKG ---
[facility] Test Date: 2024-10-05 Test Time: 15:23:06 Pat Name: SERGO CENTENO Department: [facility]IP Room: ED 09 Gender: M Display Director: [id number] : 1960 Requested By: EDUARDO ABERNATHY Order Number: [id number] Reading MD: Andres Black Measurements Intervals [place] Rate: 118 P: 30 NV: 165 QRS: -62 QRSD: 90 T: 35 QT: 320 QTc: 447 Interpretive Statements Sinus tachycardia Left anterior fascicular block Compared to ECG 05/16/2017 21:48:26 Left anterior fascicular block now present Sinus rhythm no longer present Electronically Signed On 10-07-2024 16:34:45 SEGMENTAL WALL INSTALLER by Andres Black Please click the below link to view image of tracing.
[2024-10-07 06:57] LABS: BASOPHILS # (AUTO) 0.04 K/uL (0.00-0.20); BASOPHILS % (AUTO) 0.3 % (0.0-5.0); EOSINOPHILS # (AUTO) 0.12 K/uL (0.00-0.70); HEMATOCRIT 34.3 % (42-54); IMMATURE GRANULOCYTE ABSOLUTE 0.12 K/uL (0-1); LYMPHOCYTES # (AUTO) 0.6 K/uL (1.0-4.8); LYMPHOCYTES % (AUTO) 4.7 % (21.0-51.0); MEAN CORPUSCULAR HEMOGLOBIN 31.7 pg (27.0-33.0); MEAN CORPUSCULAR HGB CONC 34.1 g/dL (32.0-36.0); MONOCYTES # (AUTO) 0.5 K/uL (0.1-1.0); MONOCYTES % (AUTO) 4.2 % (3.0-13.0); NEUTROPHILS % (AUTO) 88.8 % (40.0-77.0); PLATELET COUNT (AUTO) 171 K/uL (130-400); RED BLOOD CELL COUNT(AUTO) 3.69 MIL/uL (4.50-6.20); RED CELL DISTRIBUTION WIDTH 15.7 % (11.0-15.5); WHITE BLOOD COUNT (AUTO) 12.4 K/uL (4.8-10.8)
[2024-10-07 07:13] VITALS: PULSE 95; RESP 20
[2024-10-07 07:13] LABS: ALBUMIN 2.6 g/dL (3.5-5.0); BILIRUBIN,TOTAL 1.4 mg/dL (0.2-1.0); CREATININE 1.5 mg/dL (0.5-1.3); MAGNESIUM 1.9 mg/dL (1.80-2.40); PHOSPHORUS 3.7 mg/dL (2.5-4.9); POTASSIUM 3.7 mmol/L (3.5-5.1); TOTAL PROTEIN, SERUM 6.5 g/dL (6.0-8.3)
[2024-10-07 07:46] VITALS: PULSE 95; RESP 20; O2SAT 95
--- NOTE | 2024-10-07 09:12 | PN ---
[facility] PROGRESS NOTE Date of Service: Oct 07, 2024 Time of Service: 09:12 SUBJECTIVE: [ ] 10/06/24 patient was seen and examined. Case discussed with the RN and by the bedside. He reports doing slightly better. Abdominal pain has largely resolved. He denies nausea vomiting fever or chills REVIEW OF SYSTEMS CONSTITUTIONAL: Fevers, chills, asthenia, malaise NEUROLOGICAL: Denies headache, amaurosis fugax, motor weakness, sensory deficit, vertigo/spinning sensation, gait abnormalities, or tremors. ENT: No hearing loss, otalgia, otorrhea, rhinitis, rhinorrhea, hoarseness, or sore throat. CARDIOVASCULAR: Denies any exertional angina, dyspnea on exertion, orthopnea, paroxysmal nocturnal dyspnea, palpitations, life-threatening arrhythmias, claudication. PULMONARY: Denies any shortness of breath, cough, phlegm/sputum, hemoptysis, pleuritic chest pain. SLEEP: Denies morning headaches, daytime somnolence or napping. Denies difficulty falling asleep, staying asleep, waking from sleep. Denies knowledge of snoring. GASTROINTESTINAL: Nausea, vomiting, abdominal pain GENITOURINARY: Denies frequency, urgency, nocturia, hematuria or incontinence (Storage/Irritative symptoms.) Low urinary stream, straining to void, urinary intermittency or hesitancy, splitting of the voiding stream, terminal dribbling. ENDOCRINOLOGIC: Denies polyuria, polydipsia, polyphagia or heat/cold intolerances. HEMATOLOGIC: Denies thrombophilia/previous clots, or coagulopathy/bleeding disorders. ONCOLOGIC: Denies personal history of malignancy. DERMATOLOGIC: Denies rashes or pruritus. PSYCHIATRIC: Denies any suicidal or homicidal ideation. Denies hallucinations. PHYSICAL EXAM GENERAL APPEARANCE: The patient is awake, alert, appears disheveled and ill, tachypneic NEUROLOGICAL: Cranial nerves II-XII grossly intact. Motor is 5/5 in bilateral upper and lower extremities proximal to distal. No sensory deficits. HEENT: Face is symmetric. Pupils are equal and reactive. Extraocular movements are intact. NECK: Supple. No JVD. No thyromegaly. No submental, submandibular, pre- /postauricular, occipital or supraclavicular lymphadenopathy. CHEST: Normal chest expansion. No Telemetry. LUNGS: Absence of any rales, rhonchi or any wheezing. CARDIOVASCULAR: Regular. S1 and S2 normal. No appreciable rubs, murmurs or gallops. ABDOMEN: Soft, nontender, and nondistended. There is no rebound, voluntary guarding, or rigidity. : Deferred. No Ni. EXTREMITIES: 1+ pitting edema of the bilateral lower extremities, changes of psoriasis noted of the bilateral lower and upper extremities SKIN: No skin breakdown. Vital Signs (last 8hr) Date Time Temp Pulse Resp B/P (MAP) Pulse Ox O2 Delivery O2 Flow Rate FiO2 10/07/24 07:55 100.6 99 16 125/75 99 Room Air* 0 21 10/07/24 07:46 95 20 N/A Room Air 21 10/07/24 07:46 95 20 10/07/24 07:13 95 20 10/07/24 05:50 99.7 103 19 130/81 96 Room Air* 0 21 10/07/24 05:04 102.0 10/07/24 03:59 100.0 102 19 132/62 97 Room Air* 0 10/07/24 02:49 100 19 LABS: Laboratory: Test 10/07/24 06:45 10/05/24 20:10 10/05/24 18:19 10/05/24 17:10 Range/Units White Blood Count 12.4 H 4.8-10.8 K/uL Red Blood Count 3.69 L 4.50-6.20 MIL/uL Hemoglobin 11.7 L 14.0-18.0 g/dL Hematocrit 34.3 L 42-54 % Mean Corpuscular Volume 93.0 79-99 fL Mean Corpuscular Hemoglobin 31.7 27.0-33.0 pg Mean Corpuscular Hemoglobin Concent 34.1 32.0-36.0 g/dL Red Cell Distribution Width 15.7 H 11.0-15.5 % Platelet Count 171 130-400 K/uL Mean Platelet Volume 9.4 7.5-10.5 fL Immature Granulocyte % (Auto) 1.0 0-1 % Neutrophils (%) (Auto) 88.8 H 40.0-77.0 % Lymphocytes (%) (Auto) 4.7 L 21.0-51.0 % Monocytes (%) (Auto) 4.2 3.0-13.0 % Eosinophils (%) (Auto) 1.0 0.0-8.0 % Basophils (%) (Auto) 0.3 0.0-5.0 % Neutrophils # (Auto) 11.0 H 1.8-7.7 K/uL Lymphocytes # (Auto) 0.6 L 1.0-4.8 K/uL Monocytes # (Auto) 0.5 0.1-1.0 K/uL Eosinophils # (Auto) 0.12 0.00-0.70 K/uL Basophils # (Auto) 0.04 0.00-0.20 K/uL Absolute Immature Granulocyte (auto 0.12 0-1 K/uL Nucleated Red Blood Cells 0.0 0.0-0.19 % Sodium Level 142 136-145 mmol/L Potassium Level 3.7 3.5-5.1 mmol/L Chloride Level 107 101-111 mmol/L Carbon Dioxide Level 20 L 21-32 mmol/L Blood Urea Nitrogen 20 H 7-18 mg/dL Creatinine 1.5 H 0.5-1.3 mg/dL Glomerular Filtration Rate Calc 51 >90 mL/min Random Glucose 143 H 70-105 mg/dL Lactic Acid Level 0.9 0.8-2.5 mmol/L Total Calcium 8.6 8.5-10.1 mg/dL Phosphorus Level 3.7 2.5-4.9 mg/dL Magnesium Level 1.90 1.80-2.40 mg/dL Total Bilirubin 1.4 #H 0.2-1.0 mg/dL Aspartate Amino Transf (AST/SGOT) 29 10-37 U/L Alanine Aminotransferase (ALT/SGPT) 27 12-78 U/L Alkaline Phosphatase 75 50-136 U/L Total Protein 6.5 6.0-8.3 g/dL Albumin 2.6 L 3.5-5.0 g/dL Procalcitonin 2.98 H 0.05-0.5 ng/mL Urine Osmolality 312 50-1200 mOsm/kg Blood Gas Specimen Type Arterial Arterial Blood pH 7.459 H 7.350-7.450 Arterial Blood Partial Pressure CO2 27 L 35-48 mmHg Arterial Blood Partial Pressure O2 70.9 L 83.0-108.0 mmHg Arterial Blood HCO3 18.7 L 21.0-28.0 mmol/L Arterial Blood Oxygen Saturation 94.4 94.0-98.0 % Arterial Blood Base Excess -3.6 L -2.0-3.0 mmol/L Hemoglobin (Blood Gas) 13.9 13.5-17.5 g/dL Sodium (Blood Gas) 135 L 136-145 MMOL/L Bedside Potassium (Blood Gas) 3.3 L 3.4-4.5 MMOL/L Bedside Chloride (Blood Gas) 105 98-107 MMOL/L Bedside Glucose (Blood Gas) 155 H 65-95 MG/DL Bedside Ionized Calcium (Blood Gas) 1.14 L 1.15-1.33 MMOL/L Bedside Lactic Acid (Blood Gas) 1.35 H 0.36-0.75 MMOL/L Blood Gas Temperature 37.0 35.5-37.0 CELSIUS Blood Gas Vent Mode RA ROOM AIR FiO2 21.0 % Blood Gas Specimen Comment LR,RNOSCAR Urine Color ORANGE YELLOW Urine Appearance TURBID CLEAR Urine pH 5.5 5.0-8.0 Urine Specific [place] 1.023 1.001-1.031 Urine Protein 200 H NEGATIVE mg/dL Urine Glucose (UA) 50 H NEGATIVE mg/dL Urine Ketones NEGATIVE NEGATIVE mg/dL Urine Occult Blood SMALL H NEGATIVE Urine Nitrate NEGATIVE NEGATIVE Urine Bilirubin NEGATIVE NEGATIVE mg/dL Urine Urobilinogen 3 H 0.2-1.0 mg/dL Urine Leukocyte Esterase 25 H NEGATIVE Ravi/uL Urine RBC 6-10 H 0-1 /HPF Urine WBC 11-25 H 0-1 /HPF Urine WBC Clumps (Auto) FEW 0-1 /HPF Urine Squamous Epithelial Cells FEW 0-2 /HPF Urine Bacteria RARE None Seen /HPF Urine Yeast FEW None Seen /HPF Urine Random Creatinine 331.27 H 30-135 mg/dL Urine Random Total Protein 366.2 H 0-11.9 mg/dL Urine Random Sodium 26 L 40-220 mmol/l Urine Random Potassium 66 25-125 mmol/L Urine Random Chloride 27 L 110-250 mmol/L Test 10/05/24 16:31 10/05/24 15:30 10/05/24 15:22 Range/Units Hemoglobin A1c 7.1 H 4.0-6.0 % Estimated Average Glucose (eAG) 157 H 70-126 mg/dL Direct Bilirubin 0.5 H 0.0-0.3 mg/dL Troponin I High Sensitivity 15 4-75 ng/L Thyroid Stimulating Hormone (TSH) 4.73 H 0.36-3.74 uIU/mL Influenza Type A Antigen Negative For Type A NEGATIVE Influenza Type B Antigen Negative For Type B NEGATIVE SARS-CoV-2, RNA, NAAT NEGATIVE SARS CoV-2 NEGATIVE White Cell Morphology Comment See comments Prothrombin Time 11.4 9.6-11.6 SEC Prothromb Time International Ratio 1.02 0.85-1.15 Activated Partial Thromboplast Time 40.0 H 26.3-35.5 SEC B-Type Natriuretic Peptide 110 H 0-100 pg/mL Lipase 26 16-77 U/L Serum Alcohol < 2 0-10 mg/dL Current Medications Medications (Trade) Dose Ordered Sig/Tim Route PRN Reason Start Time Stop Time Status Last Admin Dose Admin Acetaminophen (TYLenol 325MG TAB) 650 mg Q6H PRN PO MILD PAIN (1-3) 10/05/24 18:30 11/04/24 18:29 10/07/24 05:04 650 MG Acetaminophen (TYLenol 650MG SUPPOSITORY) 650 mg Q4H PRN RC TEMPERATURE GREATER THAN 101.5 10/07/24 05:30 11/06/24 05:29 Acetaminophen (acetaMINOPHEN) 1,000 mg ONCE STAT IVPB 10/06/24 17:17 10/06/24 17:19 DC 10/06/24 19:27 1,000 MG Acetaminophen (acetaMINOPHEN) 1,000 mg STAT IVPB 10/06/24 09:00 10/06/24 13:02 DC 10/06/24 09:37 1,000 MG Albumin Human 100 ml @ 100 mls/hr AD IV 10/05/24 21:00 10/06/24 06:01 DC 10/05/24 21:33 100 MLS/HR Albumin Human 100 ml @ 0 mls/hr AD IV 10/06/24 06:00 11/05/24 05:59 10/06/24 07:02 500 MLS/HR Budesonide (Pulmicort 0.5 Mg/2ml) 0.5 mg BIDRESP IH 10/05/24 18:00 11/04/24 17:59 10/07/24 07:45 0.5 MG Chlordiazepoxide HCl (LIBrium 25 MG CAP) 25 mg Q4H PRN PO ALCOHOL WITHDRAWAL PROTOCOL 10/05/24 18:00 10/12/24 17:59 Fluconazole/ Sodium Chloride 200 ml @ 100 mls/hr Q24H IV 10/06/24 13:00 11/05/24 12:59 10/06/24 14:59 100 MLS/HR Heparin Sodium (Porcine) (HEParin 5,000 UNIT VIAL) 5,000 unit TID SQ 10/06/24 21:00 11/05/24 20:59 10/07/24 08:45 5,000 UNIT Hydromorphone HCl (DiLAUDid 0.5MG INJ) 0.5 mg Q6H PRN IVP SEVERE PAIN (7-10) 10/05/24 18:00 10/10/24 17:59 10/05/24 19:34 0.5 MG Lorazepam (AtiVAN) 2 mg Q4H PRN IVP ALCOHOL WITHDRAWAL PROTOCOL 10/05/24 18:00 10/12/24 17:59 Norepinephrine 250 ml @ 44.213 mls/ hr PROTOCOL IV 10/06/24 12:00 11/05/24 11:59 Nystatin (NystOP 15 GM POWDER) 1 APPLICATION BID TP 10/06/24 21:00 11/05/24 20:59 10/06/24 23:23 1 APPL Pantoprazole Sodium (PROTonix 40MG INJ) 40 mg Q24H IVP 10/05/24 18:00 11/04/24 17:59 10/06/24 18:38 40 MG Pharmacy Profile Note (Pharmacy Communication) 1 each PROTOCOL PRN MISC ETOH Withdrawal Score changes 10/05/24 18:00 10/12/24 17:59 Piperacillin Sod/ Tazobactam Sod (Zosyn 3.375gm+NS 50ml) 3.375 gm Q8H IVPB 10/05/24 23:00 10/15/24 22:59 10/07/24 07:00 3.375 GM Potassium Chloride 100 ml @ 100 mls/hr AD PRN IV POTASSIUM PROTOCOL 10/05/24 18:00 11/04/24 17:59 10/05/24 19:34 100 MLS/HR Sodium Chloride (NS 50ml) 50 ml AD IV 10/05/24 21:00 10/05/24 17:34 DC Thiamine HCl (Vitamin B-1) 100 mg Q24H IVP 10/05/24 18:00 10/06/24 11:49 DC 10/05/24 18:12 100 MG Thiamine HCl (Vitamin B-1) 300 mg Q24H IVP 10/06/24 18:00 10/09/24 17:59 10/06/24 18:39 300 MG Thiamine HCl 100 mg/Folic Acid 1 mg/Multivitamins/ Minerals 10 ml/ Sodium Chloride 1,011.2 ml @ 100 mls/ hr Q24H IV 10/05/24 18:00 10/08/24 04:07 10/06/24 19:26 100 MLS/HR DIAGNOSTICS / RADIOLOGY: [ ] ASSESSMENT: Severe sepsis, POA, 2/2 perforated sigmoid diverticulitis Perforated sigmoid diverticulitis with developing abscess, POA Moderate lactic acidosis, POA Acute kidney injury, POA Hypokalemia, POA Mild urinary tract infection, POA Alcohol use disorder, POA Morbid obesity, POA Underlying history of hypertension, POA Hyperlipidemia, POA Suspected GREG, POA PLAN: Patient will be admitted to PCCU Continue with IV fluids, patient will receive sepsis bolus of fluid and start maintenance IV fluid with banana bag, 75 mL/hour Patient will be started on daily thiamine supplementation Patient will be kept strictly NPO We will start broad-spectrum antibiotics with IV Zosyn, renally dose Consultation has been requested with Dr. Campbell, with General surgery, appreciate recommendations Monitor lactic acid trend closely, if patient develops hypotension tonight, patient will be transferred to ICU for vasopressors Discussed patient's case with critical Care, we will watch this patient closely for the next 24 hours Ni catheter will be placed and we will monitor urine output closely Discussed patient's case with Dr. Moffett, with Nephrology, appreciate recommendations Monitor urine output closely, avoid NSAIDs, WENDIE inhibitor/ARB, avoid IV contrast until renal function improves Pain control with Tylenol and IV hydromorphone for severe pain Monitor renal function closely, All labs will be repeated in the morning Patient will be started on CPAP therapy tonight for management of suspected obstructive sleep apnea Patient will be placed on alcohol withdrawal protocol with Librium and Ativan, counseled patient to quit alcohol on discharge, patient verbalized understanding Date of service: 10/05/2024 Condition: Critical Anticipate greater than 72 hours of hospitalization for the patient, we will repeat a CT abdomen pelvis in 48-72 hours to assess abscess, patient may need IR evaluation if abscess increases in size Discussed with patient and at bedside, Andrew Najera MD Advanced Care Planning: Which of the following were discussed: Hospice care: Yes __ No _X_ Therapeutic options: Yes _X_ No __ Advance directives: Yes _X_ No __ Other discussions: Discussed with who?: Patient Voluntary nature of this service was explained to the patient? Yes _x_ No __ Amount of time spent: 20 minutes BERNADETTE SAVAGE MD Oct 07, 2024 09:12
[2024-10-07] MEDS ORDERED: DEXTROSE 50%-WATER 50 ML DISP.SYRIN IV PRN (09:30)
[2024-10-07] MEDS ORDERED: GLUCAGON 1MG KIT 1 MG ML IM PRN (09:30)
[2024-10-07] MEDS ORDERED: PoTASSium chl 10% ELIXIR 20MEQ 20 MEQ/15 ML UDCUP PO PRN (09:30)
[2024-10-07] MEDS ORDERED: PoTASSium chloRIDE 20MEQ/100ML 100 ML IV PRN (09:30)
--- NOTE | 2024-10-07 09:35 | PN ---
Patient admitted with a diverticulitis with localized perforation. Patient remained in the emergency room all day. His vital signs are stable. He is still having fever to 102 max. His white count is stable 12.6. He feels better. Abdomen is less distended than yesterday. He is on IV antibiotics. There is no peritoneal signs. At this point I think that the patient should continue with the medical treatment of diverticulitis. He will need to have a CT scan repeated in order to assess the perforation. We will follow with you Vitals/Labs Vital Signs Date Time Temp Pulse Resp B/P (MAP) Pulse Ox O2 Delivery O2 Flow Rate FiO2 10/07/24 07:55 100.6 99 16 125/75 99 Room Air* 0 21 Laboratory Tests 10/07/24 06:45 VICKIE MONTGOMERY MD Oct 07, 2024 09:35
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
[2024-10-07] MEDS: INSULIN humuLIN R 100 UNIT/ML 3ML SQ SCH (11:30)
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
[2024-10-07] MEDS: acetaMINOPHEN 650 MG SUPPOSITORY RC PRN (12:31)
--- NOTE | 2024-10-07 13:11 | NUR ---
DCP: HOME SW spoke to pt's Marisa Scales [phone]. She reports prior to admission pt was driving, active and able to complete ADLS on his own. Pt uses a cane as needed for knee pain, no HH or Hd services. PCP is Aleida Quezada and uses [facility] for rx. Pt denied need for SNF or referral. Pt to [facility] with family Addendum: 10/07/24 at 1315 by MARLEEN CARRASCO SS Amended: Links added.
[2024-10-07] MEDS: LINEZOLID 600 MG/ISO-OSM 300 ML IV SCH (13:36)
--- NOTE | 2024-10-07 13:42 | PN ---
NEPHROLOGY PROGRESS NOTE Date/Time Patient Seen: Oct 07, 2024 Reason for Consultation: 13:42 SUBJECTIVE: This is a 64-year-old male with underlying history of hypertension, hyperlipidemia, obesity, chronic alcohol use, who presented to the ER for further evaluation of significant lower abdominal pain with associated fevers and chills CT of the abdomen showed perforated sigmoid diverticulitis suggesting potential evolving abscess. Blood cultures has been negative He continues on IV antibiotics No surgical interventions planned at this time He was noted to have elevated BUN and creatinine We has been consulted for renal failure. Renal function is improving Electrolytes are stable. He was seen in the emergency room, in no acute distress Family at the bedside Condition is critical and guarded REVIEW OF SYSTEMS: GENERAL: Positive for abdominal pain NEUROLOGIC: Negative for any blurry vision, blind spots, double vision, facial asymmetry, dysphagia, dysarthria, hemiparesis, hemisensory deficits, vertigo, ataxia. HEENT: Negative for any head trauma, neck trauma, neck stiffness, photophobia, phonophobia, sinusitis, rhinitis. CARDIAC: Negative for any chest pain, dyspnea on exertion, paroxysmal nocturnal dyspnea, peripheral edema. PULMONARY: Negative for any shortness of breath, wheezing, COPD, or TB exposure. GASTROINTESTINAL: Negative for any abdominal pain, nausea, vomiting, bright red blood per rectum, melena. GENITOURINARY: Negative for any dysuria, hematuria, incontinence. INTEGUMENTARY: Negative for any rashes, cuts, insect bites. RHEUMATOLOGIC: Negative for any joint pains, photosensitive rashes, history of vasculitis or kidney problems. HEMATOLOGIC: Negative for any abnormal bruising, frequent infections or bleeding. Vital Signs (last 8hr) Date Time Temp Pulse Resp B/P (MAP) Pulse Ox O2 Delivery O2 Flow Rate FiO2 10/06/24 11:57 99.3 93 21 119/66 98 Room Air* 0 21 10/06/24 10:16 99.0 109 22 122/64 96 Room Air* 0 21 10/06/24 08:05 101.5 111 26 113/63 96 Nasal Cannula* 2 28 10/06/24 06:41 20 N/Cannula Low lpm 2.0 28 10/06/24 06:40 111 20 10/06/24 06:28 98.8 109 24 111/62 96 Nasal Cannula* 2 28 PHYSICAL EXAM: GENERAL: Alert and oriented x 3. No acute distress. Well-nourished. EYES: EOMI. Anicteric. HENT: Moist mucous membranes. No scleral icterus. No cervical lymphadenopathy. LUNGS: Clear to auscultation bilaterally. No accessory muscle use. CARDIOVASCULAR: Regular rate and rhythm. No murmur. No JVD. ABDOMEN: Soft, non-tender and non-distended. No palpable masses. EXTREMITIES: No edema. Non-tender. SKIN: No rashes or lesions. Warm. NEUROLOGIC: No focal neurological deficits. CN II-XII grossly intact, but not individually tested. PSYCHIATRIC: Cooperative. Appropriate mood and affect. Current Medications Medications (Trade) Dose Ordered Sig/Tim Route PRN Reason Start Time Stop Time Status Last Admin Dose Admin Acetaminophen (TYLenol 325MG TAB) 650 mg Q6H PRN PO MILD PAIN (1-3) 10/05/24 18:30 11/04/24 18:29 Acetaminophen (acetaMINOPHEN) 1,000 mg STAT IVPB 10/06/24 09:00 10/06/24 13:02 DC 10/06/24 09:37 1,000 MG Albumin Human 100 ml @ 100 mls/hr AD IV 10/05/24 21:00 10/06/24 06:01 DC 10/05/24 21:33 100 MLS/HR Albumin Human 100 ml @ 0 mls/hr AD IV 10/06/24 06:00 11/05/24 05:59 10/06/24 07:02 500 MLS/HR Budesonide (Pulmicort 0.5 Mg/2ml) 0.5 mg BIDRESP IH 10/05/24 18:00 11/04/24 17:59 10/06/24 06:38 0.5 MG Chlordiazepoxide HCl (LIBrium 25 MG CAP) 25 mg Q4H PRN PO ALCOHOL WITHDRAWAL PROTOCOL 10/05/24 18:00 10/12/24 17:59 Fluconazole/ Sodium Chloride 200 ml @ 100 mls/hr Q24H IV 10/06/24 13:00 11/05/24 12:59 Hydromorphone HCl (DiLAUDid 0.5MG INJ) 0.5 mg Q6H PRN IVP SEVERE PAIN (7-10) 10/05/24 18:00 10/10/24 17:59 10/05/24 19:34 0.5 MG Lorazepam (AtiVAN) 2 mg Q4H PRN IVP ALCOHOL WITHDRAWAL PROTOCOL 10/05/24 18:00 10/12/24 17:59 Norepinephrine 250 ml @ 44.213 mls/ hr PROTOCOL IV 10/06/24 12:00 11/05/24 11:59 Pantoprazole Sodium (PROTonix 40MG INJ) 40 mg Q24H IVP 10/05/24 18:00 11/04/24 17:59 10/05/24 18:12 40 MG Pharmacy Profile Note (Pharmacy Communication) 1 each PROTOCOL PRN MISC ETOH Withdrawal Score changes 10/05/24 18:00 10/12/24 17:59 Piperacillin Sod/ Tazobactam Sod (Zosyn 3.375gm+NS 50ml) 3.375 gm Q8H IVPB 10/05/24 23:00 10/15/24 22:59 10/06/24 08:30 3.375 GM Potassium Chloride 100 ml @ 100 mls/hr AD PRN IV POTASSIUM PROTOCOL 10/05/24 18:00 11/04/24 17:59 10/05/24 19:34 100 MLS/HR Sodium Chloride (NS 50ml) 50 ml AD IV 10/05/24 21:00 10/05/24 17:34 DC Thiamine HCl (Vitamin B-1) 100 mg Q24H IVP 10/05/24 18:00 10/06/24 11:49 DC 10/05/24 18:12 100 MG Thiamine HCl (Vitamin B-1) 300 mg Q24H IVP 10/06/24 18:00 10/09/24 17:59 Thiamine HCl 100 mg/Folic Acid 1 mg/Multivitamins/ Minerals 10 ml/ Sodium Chloride 1,011.2 ml @ 100 mls/ hr Q24H IV 10/05/24 18:00 10/08/24 04:07 10/05/24 18:12 75 MLS/HR LABORATORY: [ ] Hematology Labs: Test 10/07/24 06:45 10/05/24 15:22 Range/Units White Blood Count 12.4 H 4.8-10.8 K/uL Red Blood Count 3.69 L 4.50-6.20 MIL/uL Hemoglobin 11.7 L 14.0-18.0 g/dL Hematocrit 34.3 L 42-54 % Mean Corpuscular Volume 93.0 79-99 fL Mean Corpuscular Hemoglobin 31.7 27.0-33.0 pg Mean Corpuscular Hemoglobin Concent 34.1 32.0-36.0 g/dL Red Cell Distribution Width 15.7 H 11.0-15.5 % Platelet Count 171 130-400 K/uL Mean Platelet Volume 9.4 7.5-10.5 fL Immature Granulocyte % (Auto) 1.0 0-1 % Neutrophils (%) (Auto) 88.8 H 40.0-77.0 % Lymphocytes (%) (Auto) 4.7 L 21.0-51.0 % Monocytes (%) (Auto) 4.2 3.0-13.0 % Eosinophils (%) (Auto) 1.0 0.0-8.0 % Basophils (%) (Auto) 0.3 0.0-5.0 % Neutrophils # (Auto) 11.0 H 1.8-7.7 K/uL Lymphocytes # (Auto) 0.6 L 1.0-4.8 K/uL Monocytes # (Auto) 0.5 0.1-1.0 K/uL Eosinophils # (Auto) 0.12 0.00-0.70 K/uL Basophils # (Auto) 0.04 0.00-0.20 K/uL Absolute Immature Granulocyte (auto 0.12 0-1 K/uL Nucleated Red Blood Cells 0.0 0.0-0.19 % White Cell Morphology Comment See comments Chemistry Labs: Test 10/07/24 11:39 10/07/24 06:45 10/05/24 16:31 10/05/24 15:22 Range/Units Whole Blood Glucose 162 H 70-110 MG/DL Bedside Glucose Comment Notified Nurse Sodium Level 142 136-145 mmol/L Potassium Level 3.7 3.5-5.1 mmol/L Chloride Level 107 101-111 mmol/L Carbon Dioxide Level 20 L 21-32 mmol/L Blood Urea Nitrogen 20 H 7-18 mg/dL Creatinine 1.5 H 0.5-1.3 mg/dL Glomerular Filtration Rate Calc 51 >90 mL/min Random Glucose 143 H 70-105 mg/dL Lactic Acid Level 0.9 0.8-2.5 mmol/L Total Calcium 8.6 8.5-10.1 mg/dL Phosphorus Level 3.7 2.5-4.9 mg/dL Magnesium Level 1.90 1.80-2.40 mg/dL Total Bilirubin 1.4 #H 0.2-1.0 mg/dL Aspartate Amino Transf (AST/SGOT) 29 10-37 U/L Alanine Aminotransferase (ALT/SGPT) 27 12-78 U/L Alkaline Phosphatase 75 50-136 U/L Total Protein 6.5 6.0-8.3 g/dL Albumin 2.6 L 3.5-5.0 g/dL Procalcitonin 2.98 H 0.05-0.5 ng/mL Hemoglobin A1c 7.1 H 4.0-6.0 % Estimated Average Glucose (eAG) 157 H 70-126 mg/dL Direct Bilirubin 0.5 H 0.0-0.3 mg/dL Troponin I High Sensitivity 15 4-75 ng/L Thyroid Stimulating Hormone (TSH) 4.73 H 0.36-3.74 uIU/mL B-Type Natriuretic Peptide 110 H 0-100 pg/mL Lipase 26 16-77 U/L Coagulation Labs: Test 10/05/24 15:22 Range/Units Prothrombin Time 11.4 9.6-11.6 SEC Prothromb Time International Ratio 1.02 0.85-1.15 Activated Partial Thromboplast Time 40.0 H 26.3-35.5 SEC DIAGNOSTICS / RADIOLOGY: REASON: PERFORATED BOWEL/DISTENDED ABD ORDERING PHYSICIAN: VICKIE MONTGOMERY MD PROCEDURE: ABD 1VW - ABD 1VW ABD 1VW CLINICAL HISTORY: PERFORATED BOWEL/DISTENDED ABD COMPARISON: None FINDINGS: Single view of the abdomen was obtained. There are multiple air-filled loops of bowel. Free air is not definitely identified but could likely not be excluded on this exam. IMPRESSION: Ileus versus small bowel obstruction DICTATED BY: MISSY FALK DO DATE: 10/06/24 1659 REASON: renal failue ORDERING PHYSICIAN: KATH ALEMAN PROCEDURE: RENAL - US RENAL SONOGRAM ULTRASOUND RENAL COMPLETE INDICATION: Renal failure TECHNIQUE: Routine ultrasound of the kidneys and urinary bladder with grayscale and color Doppler imaging was performed in real-time, and subsequently made available for review. COMPARISON: No prior studies available for comparison. FINDINGS: The right kidney measures 9.3 x 5.7 x 5.7 cm. No abnormal mass demonstrated. No evidence for hydronephrosis or shadowing stone. The left kidney measures 10.9 x 6.3 x 5.1 cm. No abnormal mass demonstrated. No evidence for hydronephrosis or shadowing stone. Empty urinary bladder secondary to Ni catheter placement. No free fluid demonstrated. IMPRESSION: Normal sonographic appearance of the kidneys. DICTATED BY: WILTON ZAVALA MD DATE: 10/06/24 1006 REASON: R/O dvt OF THE LOWER EXTREMITIES ORDERING PHYSICIAN: EDUARDO ABERNATHY MD PROCEDURE: VENOUS SYL - US VENOUS DOPPLER BILATERAL ULTRASOUND VENOUS DOPPLER, BILATERAL LOWER EXTREMITIES INDICATION: Bilateral lower extremity pain and swelling TECHNIQUE: Routine grayscale and color Doppler ultrasound of the bilateral lower extremity veins performed. COMPARISON: No priors. FINDINGS: The demonstrated veins of the bilateral lower extremity including the common femoral vein, femoral vein, and popliteal vein are associated with normal compressibility, augmentation, and flow. Normal respiratory variation was identified. No evidence for echogenic intraluminal thrombus formation. IMPRESSION: No sonographic evidence for deep venous thrombosis within the bilateral lower extremity veins. DICTATED BY: WILTON ZAVALA MD DATE: 10/05/24 1826 REASON: ABD PAIN ORDERING PHYSICIAN: MIRIAM RICE NP PROCEDURE: ABD PEL WO - CT ABDOMEN/PELVIS W/O CONTRAST CT ABDOMEN WITHOUT CONTRAST. CT PELVIS WITHOUT CONTRAST. INDICATION: Abdominal pain; No relevant information related to this study was provided in patient's history by the ordering service. TECHNIQUE: Routine transaxial imaging using 5 mm slice thickness through the abdomen and pelvis without the administration of IV contrast. Thin slice reconstructions are also provided. Coronal and sagittal reformatted images acquired for interpretation. CT was performed with one or more of the following dose reduction techniques: Automated exposure control, adjustment of the mA and/or kV according to patient size, or use of iterative reconstruction technique. COMPARISON: None FINDINGS: ON NONCONTRAST IMAGING: ABDOMEN: Examination provided for interpretation at 4:13 PM on 10/05/2024. Heart size is normal. Scarring at both lung bases. No abnormal renal calcifications, hydronephrosis, perinephric inflammation, or proximal hydroureter detected. The liver is normal in size and smooth in contour without biliary duct dilation. The spleen is normal in size and attenuation. The gallbladder appears normal. The pancreas appears normal without pancreatic duct dilation. The adrenal glands appear normal. No significant abdominal, retrocrural or retroperitoneal adenopathy noted. No evidence for intra-abdominal free air or organized fluid collection. No aortic aneurysmal dilation identified. PELVIS: No abnormal calcifications within the urinary bladder or distal ureters. No evidence for free air or organized pelvic fluid collection. No significant pelvic adenopathy detected. Several diverticula along the distal colon and mild to moderate pericolonic inflammatory fat stranding associated, including 3.5 cm aggregate of air and trace fluid along the mesenteric wall of the far proximal sigmoid colon with additional scattered air densities throughout the anterior mid to upper abdomen. Several diverticula along the proximal colon. Terminal ileum appears unremarkable. The appendix appears normal. Visible osseous structures are intact. IMPRESSION: Perforated sigmoid diverticulitis as described, including findings suggesting potential evolving abscess. DICTATED BY: WILTON ZAVALA MD DATE: 10/05/24 1611 REASON: COUGH ORDERING PHYSICIAN: UBALDO MCBRIDE MD PROCEDURE: CXR1VW - CHEST 1VW PORTABLE CHEST RADIOGRAPH INDICATION: COUGH COMPARISON: 05/16/2017 FINDINGS: surveillance system monitor leads overlie the field of view. Heart size is normal. The pulmonary vascularity and jeannie appear normal. No abnormal pulmonary parenchymal opacity or consolidation identified. Bibasilar lung linear scarring. No significant pleural effusion noted. No pneumothorax detected. IMPRESSION: No radiographic evidence for any acute cardiopulmonary process. DICTATED BY: WILTON ZAVALA MD DATE: 10/05/24 1640 ASSESSMENT: Acute kidney injury Severe sepsis, 2/2 perforated sigmoid diverticulitis Perforated sigmoid diverticulitis with developing abscess Moderate lactic acidosis Hypokalemia Mild urinary tract infection Alcohol use disorder Morbid obesity Underlying history of hypertension Hyperlipidemia Suspected GREG PLAN: Labs, diagnostic, radiologic exams reviewed and interpreted by myself and supervising physician. We have reviewed external records in detail There is no need for emergent renal replacement therapy at this time We will continue to monitor the patient closely Follow surgery recommendations Continue with the renally dose antibiotics Require close monitoring of renal function and electrolytes Order CBC, CMP, and electrolytes in am BiPAP as necessary, for respiratory distress Monitor blood pressure adjust medication doses as needed Avoid hypotensive episodes May use Dilaudid 0.5 mg IV every 6 hours as needed for severe pain Monitor blood sugars Strict intake, output, and daily weight should be monitored Please renally adjust medications Avoid nephrotoxic and nonsteroidal drugs Avoid contrast if possible Will continue to monitor renal function, anemia, electrolytes Treatment plan discussed with patient Questions were answered We have discussed with the other team physicians in detail about the care plan We will continue to monitor the patient closely ATTESTATION BY PHYSICIAN I have seen and examined the patient. I reviewed the documentation, medical decision making, and treatment plan as noted by the mid-level provider above. I agree with the findings and plan of care. CAMILA CLEMENS MD, [facility] Oct 07, 2024 13:42
--- NOTE | 2024-10-07 14:19 | NUR ---
JAYLEEN AT BEDSIDE
[2024-10-07] MEDS: LACTATED RINGERS 1000ML IV ONE (14:29)
--- NOTE | 2024-10-07 14:53 | PN ---
[facility] PROGRESS NOTE Date Patient Seen: Oct 07, 2024 Time of Visit: 14:53 Supervising Physician: [Dr. Armstrong] Primary Care Physician: Attending team: [facility]ist Team Outpatient Specialists: Inpatient Consults: BIS, Critical care team general surgeon, infectious disease, nephrology PROBLEM LIST: Severe sepsis without septic shock, 2/2 UTI & perforated sigmoid diverticulitis, POA Perforated sigmoid diverticulitis with developing abscess, POA Acute renal failure, GFR 23 POA, (last GFR was 83 on 09/18/2024, prior to that GFR 61 on 03/20/2024) Acute complicated cystitis, POA Lactic acidosis, POA Hypokalemia, POA Alcohol use disorder, POA Morbid obesity, POA Uncontrolled hypertension, POA Hyperlipidemia, POA Suspected GREG, POA INTERVAL HISTORY: [Patient is evaluated at bedside. He was admitted for general body weakness, fever, chills, shortness of breaths and cough associated with left-sided abdominal pain. Sepsis code was activated in the ED at the time of his visit. Patient denies any nausea or vomiting since admission states his last meal was the night before did admit a loose stool in the morning which was nonbloody. Patient also has PERRY on admission improved with IV fluids. Did receive 3 L of NS in the ED. upon evaluation patient is resting comfortably in bed on 2 L nasal cannula. He has [id number] abdominal distention and bilateral lower quadrant pain with palpation. He was evaluated by General surgery, pending formal recommendation. He continues on Zosyn. Of note, patient states was previously on xarelto for a hx of DVT but was discontinued d/t anemia (presumed GI bleed). Currently NPO. Patient is hemodynamically stable.] 10/07 Patient has been spiking fevers to 102F despite aggressive anti-pyretic methods. He is not in any distress. Denies abdominal pain at rest but is painful with movement and palpation. His abdomen is moderate to severely distended, worsened from previous. WBC is stable and unchanged at 12. ID has added linezolid in addition to Zosyn and fluconazole. General surgery is fo llowing and recommending medical management for now. He is hemodynamically stable without vasopressor. Creatinine is much improved from admission. Will continue aggressive fluid resuscitation and antibiotic regimen, pending further recommendation from general surgery. REVIEW OF SYSTEMS: 12 point ROS reviewed with patient. Pertinent positives mentioned above. Otherwise negative. PHYSICAL EXAM: GENERAL: Alert, weak, awake oriented x 3 HEENT: EOMI, Sclera non icteric, moist mucosa NECK: Supple, no JVD, trachea midline LUNGS: Diminished breath sounds bilaterally. No wheezes HEART: Regular rate and rhythm. Normal S1 and S2, without murmurs ABD: Abdomen firm, generalized tenderness. Bowel sounds present. EXT: No clubbing cyanosis. +3 edema NEURO: Alert and oriented x3, follows commands, no neuro deficits noted. Vital Signs (last 8hr) Date Time Temp Pulse Resp B/P (MAP) Pulse Ox O2 Delivery O2 Flow Rate FiO2 10/07/24 14:04 101.8 108 20 139/86 100 Nasal Cannula* 2.0 N/A 10/07/24 12:31 102.4 10/07/24 12:22 102.4 115 22 123/64 95 Room Air* 0 21 10/07/24 10:18 100.8 109 16 132/73 96 Room Air* 0 21 10/07/24 07:55 100.6 99 16 125/75 99 Room Air* 0 21 10/07/24 07:46 95 20 N/A Room Air 21 10/07/24 07:46 95 20 10/07/24 07:13 95 20 LABS: Hematology Labs: Test 10/07/24 06:45 10/05/24 15:22 Range/Units White Blood Count 12.4 H 4.8-10.8 K/uL Red Blood Count 3.69 L 4.50-6.20 MIL/uL Hemoglobin 11.7 L 14.0-18.0 g/dL Hematocrit 34.3 L 42-54 % Mean Corpuscular Volume 93.0 79-99 fL Mean Corpuscular Hemoglobin 31.7 27.0-33.0 pg Mean Corpuscular Hemoglobin Concent 34.1 32.0-36.0 g/dL Red Cell Distribution Width 15.7 H 11.0-15.5 % Platelet Count 171 130-400 K/uL Mean Platelet Volume 9.4 7.5-10.5 fL Immature Granulocyte % (Auto) 1.0 0-1 % Neutrophils (%) (Auto) 88.8 H 40.0-77.0 % Lymphocytes (%) (Auto) 4.7 L 21.0-51.0 % Monocytes (%) (Auto) 4.2 3.0-13.0 % Eosinophils (%) (Auto) 1.0 0.0-8.0 % Basophils (%) (Auto) 0.3 0.0-5.0 % Neutrophils # (Auto) 11.0 H 1.8-7.7 K/uL Lymphocytes # (Auto) 0.6 L 1.0-4.8 K/uL Monocytes # (Auto) 0.5 0.1-1.0 K/uL Eosinophils # (Auto) 0.12 0.00-0.70 K/uL Basophils # (Auto) 0.04 0.00-0.20 K/uL Absolute Immature Granulocyte (auto 0.12 0-1 K/uL Nucleated Red Blood Cells 0.0 0.0-0.19 % White Cell Morphology Comment See comments Chemistry Labs: Test 10/07/24 11:39 10/07/24 06:45 10/05/24 16:31 10/05/24 15:22 Range/Units Whole Blood Glucose 162 H 70-110 MG/DL Bedside Glucose Comment Notified Nurse Sodium Level 142 136-145 mmol/L Potassium Level 3.7 3.5-5.1 mmol/L Chloride Level 107 101-111 mmol/L Carbon Dioxide Level 20 L 21-32 mmol/L Blood Urea Nitrogen 20 H 7-18 mg/dL Creatinine 1.5 H 0.5-1.3 mg/dL Glomerular Filtration Rate Calc 51 >90 mL/min Random Glucose 143 H 70-105 mg/dL Lactic Acid Level 0.9 0.8-2.5 mmol/L Total Calcium 8.6 8.5-10.1 mg/dL Phosphorus Level 3.7 2.5-4.9 mg/dL Magnesium Level 1.90 1.80-2.40 mg/dL Total Bilirubin 1.4 #H 0.2-1.0 mg/dL Aspartate Amino Transf (AST/SGOT) 29 10-37 U/L Alanine Aminotransferase (ALT/SGPT) 27 12-78 U/L Alkaline Phosphatase 75 50-136 U/L Total Protein 6.5 6.0-8.3 g/dL Albumin 2.6 L 3.5-5.0 g/dL Procalcitonin 2.98 H 0.05-0.5 ng/mL Hemoglobin A1c 7.1 H 4.0-6.0 % Estimated Average Glucose (eAG) 157 H 70-126 mg/dL Direct Bilirubin 0.5 H 0.0-0.3 mg/dL Troponin I High Sensitivity 15 4-75 ng/L Thyroid Stimulating Hormone (TSH) 4.73 H 0.36-3.74 uIU/mL B-Type Natriuretic Peptide 110 H 0-100 pg/mL Lipase 26 16-77 U/L Coagulation Labs: Test 10/05/24 15:22 Range/Units Prothrombin Time 11.4 9.6-11.6 SEC Prothromb Time International Ratio 1.02 0.85-1.15 Activated Partial Thromboplast Time 40.0 H 26.3-35.5 SEC DIAGNOSTICS / RADIOLOGY RESULTS: [Reviewed] PLAN Pending general surgery recommendation Follow KUB 1L LR bolus now Repeat labs in AM, monitor creatinine, WBC, lactic acid Order procalcitonin Continue Zosyn, fluconazole and linezolid Continue banana bag at 100 mL an hour. Monitor renal and liver function. Monitor electrolytes and treat accordingly. Keep the patient in euvolemic state. Avoid nephrotoxic medications. Follow urine and blood cultures, and temperature turning. Follow Infectious Disease physician's recommendation on antibiotic therapy. DVT and GI prophylaxis. P.r.n. medications for: Pain management, nausea, fever, hypertension. A.m. labs. NEURO: Minimize central acting medications as possible. Maintain fall precautions, adequate lighting during the day PULMONARY: Supplemental 02 as needed. Maintain aspiration precautions at all times CARDIOVASCULAR: Follow hemodynamics. Vital signs per facility protocol GI & NUTRITION: Continue with nutritional support. Continue stool softeners and laxatives as needed. KIDNEYS & ELECTROLYTES: Strict monitoring of intake, output and overall fluid balance. Avoid nephrotoxic medications to the extent possible. Medications to be dosed according to renal function. Monitor electrolytes and replace as needed ENDOCRINE: Maintain blood glucose between 100-180 at all times. Hypoglycemia protocol in place INFECTIOUS DISEASE: Trend temperature, WBC and procalcitonin level Follow cultures, deescalate antibiotics as soon as possible. Panculture if new onset fever ONCOLOGY/HEMATOLOGY/COAGULATION: Monitor for s/s of bleeding Monitor hemoglobin, coagulation studies as needed SKIN: Pressure ulcer prevention per facility protocol Specialty mattress ORTHO/REHAB: Continue PT/OT Prophylaxis: Continue GI and DVT prophylaxis Code Status: Full Resuscitation Disposition: TBD Time spent in the care of this patient exceeds 50 minutes. This does not include any time spent on procedures . LIDIA BUTLER Oct 07, 2024 14:53
[2024-10-07 14:57] LABS: ABG BASE EXCESS -3.7 mmol/L (-2.0-3.0); ABG OXYGEN SATURATION 97.6 % (94.0-98.0); ABG PCO2 29 mmHg (35-48); ABG PH 7.438 (7.350-7.450); PO2, ARTERIAL BG 95.5 mmHg (83.0-108.0); VENT MODE, BG NC (ROOM AIR)
--- NOTE | 2024-10-07 15:03 | NUR ---
CALL RETURNED FROM DR. VALENTINA ELLIOTT CT W/ ORAL CONTRAST
[2024-10-07 15:04] VITALS: PULSE 107; RESP 28; O2SAT 99
--- NOTE | 2024-10-07 15:05 | NUR ---
RT WILL PLACE PT BACK ON BIPAP, ABN BICARB
--- NOTE | 2024-10-07 15:53 | PN ---
[facility] PROGRESS NOTE Date of Service: Oct 07, 2024 Time of Service: 15:41 SUBJECTIVE: 64-year-old male with underlying history of hypertension, hyperlipidemia, obesity, chronic alcohol use, who presented to the ER for further evaluation of significant lower abdominal pain with associated fevers and chills. Symptoms have been ongoing for the past two days and patient reports having nausea, vomiting and poor oral intake. Reports having pain involving the lower abdomen is moderate to severe in intensity and localized to the left lower quadrant. Patient denies any history of diverticulosis or diverticulitis. Last colonoscopy was about five years ago. Patient is unsure of the results. Patient does have underlying history of hypertension but does not recall the n yuriy of antihypertensive that he takes. Denies any previous history of cardiac or pulmonary comorbidities or renal abnormalities. On presentation to the hospital, patient was noted to be febrile with T-max of 101 F, tachycardic with heart rate of 125 and soft blood pressure with BP of 94/55. Labs [place] [address] with neutrophilia, hemoglobin of 14.2, platelet count of 909931. BMP remarkable for sodium 137, potassium 3.2, chloride of 99, CO2 of 25, creatinine of 2.9, BUN of 24, lactic acid of 4.3. Patient underwent further evaluation with CT abdomen pelvis without contrast which showed findings of per perforated sigmoid diverticulitis with signs of developing abscess. Consultation with General surgery with Dr. Campbell was requested in the ER recommended IV fluids, IV antibiotics and NPO status. Patient will be admitted under hospitalist service and will receive sepsis bolus of fluid, broad-spectrum antibiotics with IV Zosyn, and lactic acid and blood pressure will be monitored closely tonight. Condition remains critical. 10/06/24 patient was seen and examined. Case discussed with the RN and by the bedside. He reports doing slightly better. Abdominal pain has largely resolved. He denies nausea vomiting fever or chills 10/07/2024 - patient was seen in ED 9, patient is resting in the bed , patient denies pain, nausea, vomitings. Patient is currently continued on pantoprazole, Dilaudid, Zosyn, fluconazole, heparin, linezolid . Patient's vitals show temperature 101.8, pulse 108, respiratory rate 20, blood pressure 139/86, saturating at 100% on2 L nasal cannula. Patient's labs shows WBC down to 12.4 from 12.6, hemoglobin 11.7 In the chemistries show sodium 142, potassium 3.7, creatinine improved to 1.5 from 2.4, BUN 20, procalcitonin elevated at 2.98. Case is being followed by infectious Disease, Nephrology, General surgery. Infectious disease recommended starting linezolid and fluconazole on the patient, general surgery have plan to get a CT abdomen with oral contrast. Patient will be followed closely as he has high risk of decompensation. Preliminary blood culture showed Gram-negative rods, final result unclear. REVIEW OF SYSTEMS CONSTITUTIONAL: Fevers, chills, asthenia, malaise NEUROLOGICAL: Denies headache, amaurosis fugax, motor weakness, sensory deficit, vertigo/spinning sensation, gait abnormalities, or tremors. ENT: No hearing loss, otalgia, otorrhea, rhinitis, rhinorrhea, hoarseness, or sore throat. CARDIOVASCULAR: Denies any exertional angina, dyspnea on exertion, orthopnea, paroxysmal nocturnal dyspnea, palpitations, life-threatening arrhythmias, claudication. PULMONARY: Denies any shortness of breath, cough, phlegm/sputum, hemoptysis, pleuritic chest pain. SLEEP: Denies morning headaches, daytime somnolence or napping. Denies difficulty falling asleep, staying asleep, waking from sleep. Denies knowledge of snoring. GASTROINTESTINAL: Nausea, vomiting, abdominal pain GENITOURINARY: Denies frequency, urgency, nocturia, hematuria or incontinence (Storage/Irritative symptoms.) Low urinary stream, straining to void, urinary intermittency or hesitancy, splitting of the voiding stream, terminal dribbling. ENDOCRINOLOGIC: Denies polyuria, polydipsia, polyphagia or heat/cold intolerances. HEMATOLOGIC: Denies thrombophilia/previous clots, or coagulopathy/bleeding disorders. ONCOLOGIC: Denies personal history of malignancy. DERMATOLOGIC: Denies rashes or pruritus. PSYCHIATRIC: Denies any suicidal or homicidal ideation. Denies hallucinations. PHYSICAL EXAM GENERAL APPEARANCE: The patient is awake, alert, appears disheveled and ill, tachypneic NEUROLOGICAL: Cranial nerves II-XII grossly intact. Motor is 5/5 in bilateral upper and lower extremities proximal to distal. No sensory deficits. HEENT: Face is symmetric. Pupils are equal and reactive. Extraocular movements are intact. NECK: Supple. No JVD. No thyromegaly. No submental, submandibular, pre-/postauricular, occipital or supraclavicular lymphadenopathy. CHEST: Normal chest expansion. No Telemetry. LUNGS: Absence of any rales, rhonchi or any wheezing. CARDIOVASCULAR: Regular. S1 and S2 normal. No appreciable rubs, murmurs or gallops. ABDOMEN: Soft, nontender, and nondistended. There is no rebound, voluntary guarding, or rigidity. : Deferred. No Ni. EXTREMITIES: 1+ pitting edema of the bilateral lower extremities, changes of psoriasis noted of the bilateral lower and upper extremities SKIN: No skin breakdown. Vital Signs (last 8hr) Date Time Temp Pulse Resp B/P (MAP) Pulse Ox O2 Delivery O2 Flow Rate FiO2 10/07/24 15:36 99.0 114 26 139/86 97 Nasal Cannula* 2.0 N/A 10/07/24 15:04 107 28 32 10/07/24 14:04 101.8 108 20 139/86 100 Nasal Cannula* 2.0 N/A 10/07/24 12:31 102.4 10/07/24 12:22 102.4 115 22 123/64 95 Room Air* 0 21 10/07/24 10:18 100.8 109 16 132/73 96 Room Air* 0 21 10/07/24 07:55 100.6 99 16 125/75 99 Room Air* 0 21 10/07/24 07:46 95 20 N/A Room Air 21 10/07/24 07:46 95 20 LABS: Laboratory: Test 10/07/24 15:00 10/07/24 14:56 10/07/24 11:39 10/07/24 06:45 Range/Units Whole Blood Ketones Quantitative 0.9 H 0.0-0.6 mmol/L Blood Gas Specimen Type Arterial Arterial Blood pH 7.438 7.350-7.450 Arterial Blood Partial Pressure CO2 29 L 35-48 mmHg Arterial Blood Partial Pressure O2 95.5 83.0-108.0 mmHg Arterial Blood HCO3 19.0 L 21.0-28.0 mmol/L Arterial Blood Oxygen Saturation 97.6 94.0-98.0 % Arterial Blood Base Excess -3.7 L -2.0-3.0 mmol/L Blood Gas Temperature 37.0 35.5-37.0 CELSIUS Blood Gas Flow-by 3.00 0.00-15.00 L/min Blood Gas Vent Mode NC ROOM AIR FiO2 32.0 % Blood Gas Specimen Comment RR,TAZ Whole Blood Glucose 162 H 70-110 MG/DL Bedside Glucose Comment Notified Nurse White Blood Count 12.4 H 4.8-10.8 K/uL Red Blood Count 3.69 L 4.50-6.20 MIL/uL Hemoglobin 11.7 L 14.0-18.0 g/dL Hematocrit 34.3 L 42-54 % Mean Corpuscular Volume 93.0 79-99 fL Mean Corpuscular Hemoglobin 31.7 27.0-33.0 pg Mean Corpuscular Hemoglobin Concent 34.1 32.0-36.0 g/dL Red Cell Distribution Width 15.7 H 11.0-15.5 % Platelet Count 171 130-400 K/uL Mean Platelet Volume 9.4 7.5-10.5 fL Immature Granulocyte % (Auto) 1.0 0-1 % Neutrophils (%) (Auto) 88.8 H 40.0-77.0 % Lymphocytes (%) (Auto) 4.7 L 21.0-51.0 % Monocytes (%) (Auto) 4.2 3.0-13.0 % Eosinophils (%) (Auto) 1.0 0.0-8.0 % Basophils (%) (Auto) 0.3 0.0-5.0 % Neutrophils # (Auto) 11.0 H 1.8-7.7 K/uL Lymphocytes # (Auto) 0.6 L 1.0-4.8 K/uL Monocytes # (Auto) 0.5 0.1-1.0 K/uL Eosinophils # (Auto) 0.12 0.00-0.70 K/uL Basophils # (Auto) 0.04 0.00-0.20 K/uL Absolute Immature Granulocyte (auto 0.12 0-1 K/uL Nucleated Red Blood Cells 0.0 0.0-0.19 % Sodium Level 142 136-145 mmol/L Potassium Level 3.7 3.5-5.1 mmol/L Chloride Level 107 101-111 mmol/L Carbon Dioxide Level 20 L 21-32 mmol/L Blood Urea Nitrogen 20 H 7-18 mg/dL Creatinine 1.5 H 0.5-1.3 mg/dL Glomerular Filtration Rate Calc 51 >90 mL/min Random Glucose 143 H 70-105 mg/dL Lactic Acid Level 0.9 0.8-2.5 mmol/L Total Calcium 8.6 8.5-10.1 mg/dL Phosphorus Level 3.7 2.5-4.9 mg/dL Magnesium Level 1.90 1.80-2.40 mg/dL Total Bilirubin 1.4 #H 0.2-1.0 mg/dL Aspartate Amino Transf (AST/SGOT) 29 10-37 U/L Alanine Aminotransferase (ALT/SGPT) 27 12-78 U/L Alkaline Phosphatase 75 50-136 U/L Total Protein 6.5 6.0-8.3 g/dL Albumin 2.6 L 3.5-5.0 g/dL Procalcitonin 2.98 H 0.05-0.5 ng/mL Test 10/05/24 20:10 10/05/24 18:19 10/05/24 17:10 10/05/24 16:31 Range/Units Urine Osmolality 312 50-1200 mOsm/kg Hemoglobin (Blood Gas) 13.9 13.5-17.5 g/dL Sodium (Blood Gas) 135 L 136-145 MMOL/L Bedside Potassium (Blood Gas) 3.3 L 3.4-4.5 MMOL/L Bedside Chloride (Blood Gas) 105 98-107 MMOL/L Bedside Glucose (Blood Gas) 155 H 65-95 MG/DL Bedside Ionized Calcium (Blood Gas) 1.14 L 1.15-1.33 MMOL/L Bedside Lactic Acid (Blood Gas) 1.35 H 0.36-0.75 MMOL/L Urine Color ORANGE YELLOW Urine Appearance TURBID CLEAR Urine pH 5.5 5.0-8.0 Urine Specific [place] 1.023 1.001-1.031 Urine Protein 200 H NEGATIVE mg/dL Urine Glucose (UA) 50 H NEGATIVE mg/dL Urine Ketones NEGATIVE NEGATIVE mg/dL Urine Occult Blood SMALL H NEGATIVE Urine Nitrate NEGATIVE NEGATIVE Urine Bilirubin NEGATIVE NEGATIVE mg/dL Urine Urobilinogen 3 H 0.2-1.0 mg/dL Urine Leukocyte Esterase 25 H NEGATIVE Ravi/uL Urine RBC 6-10 H 0-1 /HPF Urine WBC 11-25 H 0-1 /HPF Urine WBC Clumps (Auto) FEW 0-1 /HPF Urine Squamous Epithelial Cells FEW 0-2 /HPF Urine Bacteria RARE None Seen /HPF Urine Yeast FEW None Seen /HPF Urine Random Creatinine 331.27 H 30-135 mg/dL Urine Random Total Protein 366.2 H 0-11.9 mg/dL Urine Random Sodium 26 L 40-220 mmol/l Urine Random Potassium 66 25-125 mmol/L Urine Random Chloride 27 L 110-250 mmol/L Hemoglobin A1c 7.1 H 4.0-6.0 % Estimated Average Glucose (eAG) 157 H 70-126 mg/dL Direct Bilirubin 0.5 H 0.0-0.3 mg/dL Troponin I High Sensitivity 15 4-75 ng/L Thyroid Stimulating Hormone (TSH) 4.73 H 0.36-3.74 uIU/mL Current Medications Medications (Trade) Dose Ordered Sig/Tim Route PRN Reason Start Time Stop Time Status Last Admin Dose Admin Acetaminophen (TYLenol 325MG TAB) 650 mg Q6H PRN PO MILD PAIN (1-3) 10/05/24 18:30 11/04/24 18:29 10/07/24 05:04 650 MG Acetaminophen (TYLenol 650MG SUPPOSITORY) 650 mg Q4H PRN RC TEMPERATURE GREATER THAN 101.5 10/07/24 05:30 11/06/24 05:29 10/07/24 12:31 650 MG Acetaminophen (acetaMINOPHEN) 1,000 mg ONCE STAT IVPB 10/06/24 17:17 10/06/24 17:19 DC 10/06/24 19:27 1,000 MG Acetaminophen (acetaMINOPHEN) 1,000 mg STAT IVPB 10/06/24 09:00 10/06/24 13:02 DC 10/06/24 09:37 1,000 MG Albumin Human 100 ml @ 100 mls/hr AD IV 10/05/24 21:00 10/06/24 06:01 DC 10/05/24 21:33 100 MLS/HR Albumin Human 100 ml @ 0 mls/hr AD IV 10/06/24 06:00 10/07/24 12:38 DC 10/06/24 07:02 500 MLS/HR Budesonide (Pulmicort 0.5 Mg/2ml) 0.5 mg BIDRESP IH 10/05/24 18:00 11/04/24 17:59 10/07/24 07:45 0.5 MG Chlordiazepoxide HCl (LIBrium 25 MG CAP) 25 mg Q4H PRN PO ALCOHOL WITHDRAWAL PROTOCOL 10/05/24 18:00 10/12/24 17:59 Dextrose (D50w) 50 ml AD PRN IV HYPOGLYCEMIA PROTOCOL 10/07/24 09:30 11/06/24 09:29 Fluconazole/ Sodium Chloride 200 ml @ 100 mls/hr Q24H IV 10/06/24 13:00 11/05/24 12:59 10/07/24 13:28 100 MLS/HR Glucagon (Glucagon 1mg Kit) 1 mg AD PRN IM HYPOGLYCEMIA PROTOCOL 10/07/24 09:30 11/06/24 09:29 Heparin Sodium (Porcine) (HEParin 5,000 UNIT VIAL) 5,000 unit TID SQ 10/06/24 21:00 11/05/24 20:59 10/07/24 14:52 5,000 UNIT Hydromorphone HCl (DiLAUDid 0.5MG INJ) 0.5 mg Q6H PRN IVP SEVERE PAIN (7-10) 10/05/24 18:00 10/10/24 17:59 10/05/24 19:34 0.5 MG Insulin Human Regular (humuLIN R 100 UNIT/ML 3ML) INSULIN SLIDING SCAL... ACHS SQ 10/07/24 11:30 11/06/24 11:29 Linezolid 300 ml @ 150 mls/hr Q12H IV 10/07/24 13:30 10/17/24 13:29 10/07/24 13:36 150 MLS/HR Lorazepam (AtiVAN) 2 mg Q4H PRN IVP ALCOHOL WITHDRAWAL PROTOCOL 10/05/24 18:00 10/12/24 17:59 Magnesium Sulfate 50 ml @ 0 mls/hr PROTOCOL PRN IV MAGNESIUM PROTOCOL 10/07/24 09:30 11/06/24 09:29 Norepinephrine 250 ml @ 44.213 mls/ hr PROTOCOL IV 10/06/24 12:00 11/05/24 11:59 Nystatin (NystOP 15 GM POWDER) 1 APPLICATION BID TP 10/06/24 21:00 11/05/24 20:59 10/07/24 13:25 1 APPL Pantoprazole Sodium (PROTonix 40MG INJ) 40 mg Q24H IVP 10/05/24 18:00 11/04/24 17:59 10/06/24 18:38 40 MG Pharmacy Profile Note (Pharmacy Communication) 1 each PROTOCOL PRN MISC ETOH Withdrawal Score changes 10/05/24 18:00 10/12/24 17:59 Piperacillin Sod/ Tazobactam Sod (Zosyn 3.375gm+NS 50ml) 3.375 gm Q8H IVPB 10/05/24 23:00 10/15/24 22:59 10/07/24 07:00 3.375 GM Potassium Chloride 100 ml @ 100 mls/hr AD PRN IV POTASSIUM PROTOCOL 10/07/24 09:30 11/06/24 09:29 Potassium Chloride 100 ml @ 100 mls/hr AD PRN IV POTASSIUM PROTOCOL 10/05/24 18:00 11/04/24 17:59 10/05/24 19:34 100 MLS/HR Potassium Chloride (K-Dur/Klor-Con 20meq) 20 meq AD PRN PO POTASSIUM PROTOCOL 10/07/24 09:30 11/06/24 09:29 Potassium Chloride (KCl 10% Elixir 20meq/15ml) 20 meq AD PRN PO POTASSIUM PROTOCOL 10/07/24 09:30 11/06/24 09:29 Sodium Chloride (NS 50ml) 50 ml AD IV 10/05/24 21:00 10/05/24 17:34 DC Thiamine HCl (Vitamin B-1) 100 mg Q24H IVP 10/05/24 18:00 10/06/24 11:49 DC 10/05/24 18:12 100 MG Thiamine HCl (Vitamin B-1) 300 mg Q24H IVP 10/06/24 18:00 10/09/24 17:59 10/06/24 18:39 300 MG Thiamine HCl 100 mg/Folic Acid 1 mg/Multivitamins/ Minerals 10 ml/ Sodium Chloride 1,011.2 ml @ 100 mls/ hr Q24H IV 10/05/24 18:00 10/08/24 04:07 10/06/24 19:26 100 MLS/HR DIAGNOSTICS / RADIOLOGY: PATIENT: SERGO CENTENO MR#: [id number] : 1960 SEX: M AGE: 64 LOCATION: [facility] ORDER 56 STATUS: ADM IN REPORT#: [id number] SERVICE REASON: PERFORATED BOWEL/DISTENDED ABD ORDERING PHYSICIAN: VICKIE CAMPBELL MD PROCEDURE: ABD 1VW - ABD 1VW ABD 1VW CLINICAL HISTORY: PERFORATED BOWEL/DISTENDED ABD COMPARISON: None FINDINGS: Single view of the abdomen was obtained. There are multiple air-filled loops of bowel. Free air is not definitely identified but could likely not be excluded on this exam. IMPRESSION: Ileus versus small bowel obstruction DICTATED BY: MISSY FALK DO DATE: 10/06/241652 ELECTRONICALLY SIGNED BY: MISSY FALK DO DATE: 10/06/241655 ASSESSMENT: Severe sepsis, POA, 2/2 perforated sigmoid diverticulitis Perforated sigmoid diverticulitis with developing abscess, POA Moderate lactic acidosis, POA Acute kidney injury, POA resolving Hypokalemia, POA Mild urinary tract infection, POA Alcohol use disorder, POA Morbid obesity, POA Underlying history of hypertension, POA Hyperlipidemia, POA Suspected GREG, POA PLAN: Patient will be admitted to PCCU Continue with IV fluids, patient will receive sepsis bolus of fluid and start maintenance IV fluid with banana bag, 75 mL/hour Patient will be started on daily thiamine supplementation Patient will be kept strictly NPO We will start broad-spectrum antibiotics with IV Zosyn, renally dose Consultation has been requested with Dr. Campbell, with General surgery, appreciate recommendations Monitor lactic acid trend closely, if patient develops hypotension tonight, patient will be transferred to ICU for vasopressors Discussed patient's case with critical Care, we will watch this patient closely for the next 24 hours Ni catheter will be placed and we will monitor urine output closely Discussed patient's case with Dr. Moffett, with Nephrology, appreciate recommendations Monitor urine output closely, avoid NSAIDs, WENDIE inhibitor/ARB, avoid IV contrast until renal function improves Pain control with Tylenol and IV hydromorphone for severe pain Monitor renal function closely, All labs will be repeated in the morning Patient will be started on CPAP therapy tonight for management of suspected obstructive sleep apnea Patient will be placed on alcohol withdrawal protocol with Librium and Ativan, counseled patient to quit alcohol on discharge, patient verbalized understanding Continue antibiotics linezolid, fluconazole according to Infectious Disease recommendations Follow up with surgery recommendations ATTESTATION BY PHYSICIAN I have seen and examined the patient. I reviewed the documentation, medical decision making, and treatment plan as noted by the mid-level provider above. I agree with the findings and plan of care. Brigido Whittaker MD, KEERTI K MD Oct 07, 2024 15:53
--- NOTE | 2024-10-07 16:34 | NUR ---
PT REMOVED BIPAP, STATES UNABLE TO TOLERATE
[2024-10-07] MEDS ORDERED: DIATR MEGLU/DIATRIZOATE SODIUM 30 ML BOTTLE ONE (18:30)
[2024-10-07 18:33] VITALS: PULSE 110; RESP 18; O2SAT 99
[2024-10-07 20:09] VITALS: TEMP 102.6
--- NOTE | 2024-10-07 20:10 | HMCIMG ---
ABD 1VW HISTORY: Peritoneal COMPARISON: None FINDINGS: A frontal projection of the abdomen was obtained. Small bowel dilatation is seen. Fecal material is seen in the colon. Degenerative changes of the thoracolumbar spine are noted. IMPRESSION: 1. Small bowel dilatation.
--- NOTE | 2024-10-07 21:02 | PN ---
INFECTIOUS DISEASE FOLLOWUP NOTE DATE OF SERVICE: 10/07/2024 SUBJECTIVE: The patient is seen and examined at bedside today. The patient has no fever or chills. No nausea, no vomiting, no abdominal pain. No sore throat. No rhinorrhea. No bleeding tendency. Remained on a BiPAP therapy for respiratory failure. The patient is on multiple antibiotics. No rashes or itchiness. Family was updated at the bedside. PHYSICAL EXAMINATION: VITAL SIGNS: Temperature 98.5. EYES: No icterus. Pupils equal and reactive. HENT: No oral thrush seen. Moist oral mucosa. NECK: Supple, no JVD or thyromegaly. LUNGS: Good air entry. No rales, no rhonchi. CARDIOVASCULAR: S1, S2 regular. No murmur heard. ABDOMEN: Full, soft, nontender. Bowel sound is present. CENTRAL NERVOUS SYSTEM: The patient is awake, alert, oriented x 3, bedbound debility. SKIN: No rashes, no itchiness. LYMPHATIC: No peripheral lymphadenopathy. BACK: No deformity, no pressure ulcer. MUSCULOSKELETAL: No joint swelling, erythema or tenderness. LABORATORY DATA: Blood culture, no growth. ASSESSMENT: A 64-year-old male with multiple problems, which include: * Septic shock. * Diverticulitis, perforation and abscess. * Acute renal failure. * Hypoxic respiratory failure. * Obesity. * Anemia. * Dehydration. * Alcohol abuse. PLAN: * Continue linezolid. * Continue Zosyn. * Continue fluconazole. * Continue pain management. * Continue BiPAP therapy. * Monitor electrolytes. * Continue DVT prophylaxis. TID: [id number] RECEIPT: [id number]
[2024-10-07] MEDS: atorVAStatin 40 MG TABLET PO SCH (21:03)
--- NOTE | 2024-10-07 22:04 | HMCIMG ---
CT ABDOMEN/PELVIS W/O CONTRAST HISTORY: Abdominal distention COMPARISON: 10/05/2024 TECHNIQUE: Multiple sequential axial images of the abdomen and pelvis were obtained from the dome of the diaphragm through symphysis pubis. Patient was not given contrast through intravenous route. Oral contrast was given. FINDINGS: There are bilateral interstitial fibrosis. Tiny pericardial effusion is seen. No pleural effusion is seen bilaterally. There is no evidence of parenchymal disease or pulmonary nodule of the visualized lower lungs. Degenerative changes of the thoracolumbar spine are present. The heart is not enlarged. The liver measured 20 cm. There is contrast material stomach and small bowel loops. There is sigmoid colon wall thickening with adjacent fat stranding consistent with acute sigmoid diverticulitis. Extensive adjacent mesenteric fat stranding is seen in the pelvis. There is small diverticular abscess in the left anterior pelvis measuring 3 x 3.5 cm. Amorphous air collection is seen consistent with walled off perforation. No definite free intraperitoneal air is seen. There is diverticulosis. The liver, spleen, adrenal glands and pancreas are unremarkable. There is no evidence of hydronephrosis bilaterally. No evidence of renal stone is seen. Fecal material is seen in the colon. There are normal size retroperitoneal and mesenteric lymph nodes. No ascites is seen. Atherosclerotic changes are present. Appendix is not well visualized. Pelvic sidewalls are symmetric bilaterally. Bladder is poorly distended. There is fluid-filled small bowel loops and colon. IMPRESSION: 1. There is contrast material stomach and small bowel loops. There is sigmoid colon wall thickening with adjacent fat stranding consistent with acute sigmoid diverticulitis. Extensive adjacent mesenteric fat stranding is seen in the pelvis. There is small diverticular abscess in the left anterior pelvis measuring 3 x 3.5 cm. Amorphous air collection is seen consistent with walled off perforation. No definite free intraperitoneal air is seen. There is diverticulosis. CT was performed with one or more following dose reduction techniques: automated exposure control, adjustment of the mA and kv according to patient's size, or use of a iterative reconstruction technique.
[2024-10-08] VITALS (13 sets, daily range): BP systolic 130–155; BP diastolic 78–89; PULSE 91–113; RESP 18–27; TEMP 98.2–99.7; O2SAT 98–99
--- NOTE | 2024-10-08 01:00 | NUR ---
Pt arrives. Banana bag running. Abx running. Pt aax3. Denies any N/V at this time. No abd pain at this time. Pt had diarrheal episode in RR. at bedside. Education done and pt oriented to room.
[2024-10-08 04:04] LABS: BASOPHILS # (AUTO) 0.05 K/uL (0.00-0.20); BASOPHILS % (AUTO) 0.4 % (0.0-5.0); EOSINOPHILS # (AUTO) 0.14 K/uL (0.00-0.70); HEMATOCRIT 33.5 % (42-54); IMMATURE GRANULOCYTE ABSOLUTE 0.16 K/uL (0-1); LYMPHOCYTES # (AUTO) 0.6 K/uL (1.0-4.8); LYMPHOCYTES % (AUTO) 4.2 % (21.0-51.0); MEAN CORPUSCULAR HGB CONC 33.4 g/dL (32.0-36.0); MEAN CORPUSCULAR VOLUME 92.8 fL (79-99); MONOCYTES # (AUTO) 0.8 K/uL (0.1-1.0); MONOCYTES % (AUTO) 5.6 % (3.0-13.0); NEUTROPHILS # (AUTO) 12.1 K/uL (1.8-7.7); NEUTROPHILS % (AUTO) 87.6 % (40.0-77.0); PLATELET COUNT (AUTO) 174 K/uL (130-400); RED BLOOD CELL COUNT(AUTO) 3.61 MIL/uL (4.50-6.20); RED CELL DISTRIBUTION WIDTH 15.6 % (11.0-15.5); WHITE BLOOD COUNT (AUTO) 13.9 K/uL (4.8-10.8)
[2024-10-08 04:31] LABS: CREATININE 1.5 mg/dL (0.5-1.3); POTASSIUM 3.5 mmol/L (3.5-5.1)
[2024-10-08] MEDS: LoSARTan 100 MG TABLET PO SCH (09:00)
[2024-10-08] MEDS: EZETIMIBE 10 MG TAB PO SCH (09:00)
[2024-10-08] MEDS: hydroCHLOROthiazide 25 MG TABLET PO SCH (09:00)
[2024-10-08] MEDS: PoTASSium chloRIDE 20MEQ ER 20 MEQ ERTAB PO PRN (14:41)
--- NOTE | 2024-10-08 14:46 | PN ---
[facility] PROGRESS NOTE Date of Service: Oct 08, 2024 Time of Service: 14:41 SUBJECTIVE: 64-year-old male with underlying history of hypertension, hyperlipidemia, obesity, chronic alcohol use, who presented to the ER for further evaluation of significant lower abdominal pain with associated fevers and chills. Symptoms have been ongoing for the past two days and patient reports having nausea, vomiting and poor oral intake. Reports having pain involving the lower abdomen is moderate to severe in intensity and localized to the left lower quadrant. Patient denies any history of diverticulosis or diverticulitis. Last colonoscopy was about five years ago. Patient is unsure of the results. Patient does have underlying history of hypertension but does not recall the n yuriy of antihypertensive that he takes. Denies any previous history of cardiac or pulmonary comorbidities or renal abnormalities. On presentation to the hospital, patient was noted to be febrile with T-max of 101 F, tachycardic with heart rate of 125 and soft blood pressure with BP of 94/55. [place] [address] with neutrophilia, hemoglobin of 14.2, platelet count of [id number]. BMP remarkable for sodium 137, potassium 3.2, chloride of 99, CO2 of 25, creatinine of 2.9, BUN of 24, lactic acid of 4.3. Patient underwent further evaluation with CT abdomen pelvis without contrast which showed findings of per perforated sigmoid diverticulitis with signs of developing abscess. Consultation with General surgery with Dr. Campbell was requested in the ER recommended IV fluids, IV antibiotics and NPO status. Patient will be admitted under hospitalist service and will receive sepsis bolus of fluid, broad-spectrum antibiotics with IV Zosyn, and lactic acid and blood pressure will be monitored closely tonight. Condition remains critical. 10/06/24 patient was seen and examined. Case discussed with the RN and by the bedside. He reports doing slightly better. Abdominal pain has largely resolved. He denies nausea vomiting fever or chills 10/07/2024 - patient was seen in ED 9, patient is resting in the bed , patient denies pain, nausea, vomitings. Patient is currently continued on pantoprazole, Dilaudid, Zosyn, fluconazole, heparin, linezolid . Patient's vitals show temperature 101.8, pulse 108, respiratory rate 20, blood pressure 139/86, saturating at 100% on2 L nasal cannula. Patient's labs shows WBC down to 12.4 from 12.6, hemoglobin 11.7 In the chemistries show sodium 142, potassium 3.7, creatinine improved to 1.5 from 2.4, BUN 20, procalcitonin elevated at 2.98. Case is being followed by infectious Disease, Nephrology, General surgery. Infectious disease recommended starting linezolid and fluconazole on the patient, general surgery have plan to get a CT abdomen with oral contrast. Patient will be followed closely as he has high risk of decompensation. Preliminary blood culture showed Gram-negative rods, final result unclear. 10/08/2024 - patient is seen in room 230, patient is resting in the bed comfortably, says he feels better compared to yesterday and denies nausea, vomitings. Patient had a CT abdomen pelvis with oral contrast which showed acu te sigmoid diverticulitis,3 x 3.5 cm diverticular abscess, amorphous air collection within walled-off perforation. And there is no intraperitoneal air or free air in the abdomen . Pending further directions from surgery. Patient is currently hemodynamically stable with temperature 98.8, pulse 98, blood pressure 130/83, respiratory rate 18, saturating at 99% on room air. Patient's labs shows WBC elevated to 13.9 from 12.4, hemoglobin 11.2 And chemistries show sodium 141, potassium 3.5, creatinine stable at 1.5, BUN 20. Patient is currently continuing on linezolid, fluconazole, Zosyn. Patient will be monitored closely REVIEW OF SYSTEMS CONSTITUTIONAL: Fevers, chills, asthenia, malaise NEUROLOGICAL: Denies headache, amaurosis fugax, motor weakness, sensory deficit, vertigo/spinning sensation, gait abnormalities, or tremors. ENT: No hearing loss, otalgia, otorrhea, rhinitis, rhinorrhea, hoarseness, or sore throat. CARDIOVASCULAR: Denies any exertional angina, dyspnea on exertion, orthopnea, paroxysmal nocturnal dyspnea, palpitations, life-threatening arrhythmias, claudication. PULMONARY: Denies any shortness of breath, cough, phlegm/sputum, hemoptysis, pleuritic chest pain. SLEEP: Denies morning headaches, daytime somnolence or napping. Denies difficulty falling asleep, staying asleep, waking from sleep. Denies knowledge of snoring. GASTROINTESTINAL: Nausea, vomiting, abdominal pain GENITOURINARY: Denies frequency, urgency, nocturia, hematuria or incontinence (Storage/Irritative symptoms.) Low urinary stream, straining to void, urinary intermittency or hesitancy, splitting of the voiding stream, terminal dribbling. ENDOCRINOLOGIC: Denies polyuria, polydipsia, polyphagia or heat/cold intolerances. HEMATOLOGIC: Denies thrombophilia/previous clots, or coagulopathy/bleeding disorders. ONCOLOGIC: Denies personal history of malignancy. DERMATOLOGIC: Denies rashes or pruritus. PSYCHIATRIC: Denies any suicidal or homicidal ideation. Denies hallucinations. PHYSICAL EXAM GENERAL APPEARANCE: The patient is awake, alert, appears disheveled and ill, tachypneic NEUROLOGICAL: Cranial nerves II-XII grossly intact. Motor is 5/5 in bilateral upper and lower extremities proximal to distal. No sensory deficits. HEENT: Face is symmetric. Pupils are equal and reactive. Extraocular movements are intact. NECK: Supple. No JVD. No thyromegaly. No submental, submandibular, pre- /postauricular, occipital or supraclavicular lymphadenopathy. CHEST: Normal chest expansion. No Telemetry. LUNGS: Absence of any rales, rhonchi or any wheezing. CARDIOVASCULAR: Regular. S1 and S2 normal. No appreciable rubs, murmurs or gallops. ABDOMEN: Soft, nontender, and nondistended. There is no rebound, voluntary guarding, or rigidity. : Deferred. No Ni. EXTREMITIES: 1+ pitting edema of the bilateral lower extremities, changes of psoriasis noted of the bilateral lower and upper extremities SKIN: No skin breakdown. Vital Signs (last 8hr) Date Time Temp Pulse Resp B/P (MAP) Pulse Ox O2 Delivery O2 Flow Rate FiO2 10/08/24 12:30 98.8 98 18 130/83 99 Room Air 10/08/24 08:17 98.2 102 18 133/78 97 Room Air 10/08/24 08:00 98 Nasal Cannula* 2 28 10/08/24 07:09 102 18 10/08/24 07:08 102 18 N/Cannula Low lpm 3.0 32 LABS: Laboratory: Test 10/08/24 11:56 10/08/24 03:49 10/07/24 16:16 10/07/24 15:00 Range/Units Whole Blood Glucose 123 H 70-110 MG/DL White Blood Count 13.9 H 4.8-10.8 K/uL Red Blood Count 3.61 L 4.50-6.20 MIL/uL Hemoglobin 11.2 L 14.0-18.0 g/dL Hematocrit 33.5 L 42-54 % Mean Corpuscular Volume 92.8 79-99 fL Mean Corpuscular Hemoglobin 31.0 27.0-33.0 pg Mean Corpuscular Hemoglobin Concent 33.4 32.0-36.0 g/dL Red Cell Distribution Width 15.6 H 11.0-15.5 % Platelet Count 174 130-400 K/uL Mean Platelet Volume 9.7 7.5-10.5 fL Immature Granulocyte % (Auto) 1.2 H 0-1 % Neutrophils (%) (Auto) 87.6 H 40.0-77.0 % Lymphocytes (%) (Auto) 4.2 L 21.0-51.0 % Monocytes (%) (Auto) 5.6 3.0-13.0 % Eosinophils (%) (Auto) 1.0 0.0-8.0 % Basophils (%) (Auto) 0.4 0.0-5.0 % Neutrophils # (Auto) 12.1 H 1.8-7.7 K/uL Lymphocytes # (Auto) 0.6 L 1.0-4.8 K/uL Monocytes # (Auto) 0.8 0.1-1.0 K/uL Eosinophils # (Auto) 0.14 0.00-0.70 K/uL Basophils # (Auto) 0.05 0.00-0.20 K/uL Absolute Immature Granulocyte (auto 0.16 0-1 K/uL Nucleated Red Blood Cells 0.0 0.0-0.19 % Sodium Level 141 136-145 mmol/L Potassium Level 3.5 3.5-5.1 mmol/L Chloride Level 106 101-111 mmol/L Carbon Dioxide Level 18 L 21-32 mmol/L Blood Urea Nitrogen 20 H 7-18 mg/dL Creatinine 1.5 H 0.5-1.3 mg/dL Glomerular Filtration Rate Calc 51 >90 mL/min Random Glucose 183 H 70-105 mg/dL Total Calcium 8.6 8.5-10.1 mg/dL Bedside Glucose Comment Notified Nurse Whole Blood Ketones Quantitative 0.9 H 0.0-0.6 mmol/L Test 10/07/24 14:56 10/07/24 06:45 Range/Units Blood Gas Specimen Type Arterial Arterial Blood pH 7.438 7.350-7.450 Arterial Blood Partial Pressure CO2 29 L 35-48 mmHg Arterial Blood Partial Pressure O2 95.5 83.0-108.0 mmHg Arterial Blood HCO3 19.0 L 21.0-28.0 mmol/L Arterial Blood Oxygen Saturation 97.6 94.0-98.0 % Arterial Blood Base Excess -3.7 L -2.0-3.0 mmol/L Blood Gas Temperature 37.0 35.5-37.0 CELSIUS Blood Gas Flow-by 3.00 0.00-15.00 L/min Blood Gas Vent Mode NC ROOM AIR FiO2 32.0 % Blood Gas Specimen Comment RR,TAZ Lactic Acid Level 0.9 0.8-2.5 mmol/L Phosphorus Level 3.7 2.5-4.9 mg/dL Magnesium Level 1.90 1.80-2.40 mg/dL Total Bilirubin 1.4 #H 0.2-1.0 mg/dL Aspartate Amino Transf (AST/SGOT) 29 10-37 U/L Alanine Aminotransferase (ALT/SGPT) 27 12-78 U/L Alkaline Phosphatase 75 50-136 U/L Total Protein 6.5 6.0-8.3 g/dL Albumin 2.6 L 3.5-5.0 g/dL Procalcitonin 2.98 H 0.05-0.5 ng/mL Current Medications Medications (Trade) Dose Ordered Sig/Tim Route PRN Reason Start Time Stop Time Status Last Admin Dose Admin Acetaminophen (TYLenol 325MG TAB) 650 mg Q6H PRN PO MILD PAIN (1-3) 10/05/24 18:30 11/04/24 18:29 10/07/24 19:02 650 MG Acetaminophen (TYLenol 650MG SUPPOSITORY) 650 mg Q4H PRN RC TEMPERATURE GREATER THAN 101.5 10/07/24 05:30 11/06/24 05:29 10/07/24 12:31 650 MG Acetaminophen (acetaMINOPHEN) 1,000 mg ONCE STAT IVPB 10/06/24 17:17 10/06/24 17:19 DC 10/06/24 19:27 1,000 MG Acetaminophen (acetaMINOPHEN) 1,000 mg STAT IVPB 10/06/24 09:00 10/06/24 13:02 DC 10/06/24 09:37 1,000 MG Albumin Human 100 ml @ 100 mls/hr AD IV 10/05/24 21:00 10/06/24 06:01 DC 10/05/24 21:33 100 MLS/HR Albumin Human 100 ml @ 0 mls/hr AD IV 10/06/24 06:00 10/07/24 12:38 DC 10/06/24 07:02 500 MLS/HR Atorvastatin Calcium (LIPItor 40MG) 40 mg HS PO 10/07/24 21:00 11/06/24 20:59 10/07/24 21:03 40 MG Budesonide (Pulmicort 0.5 Mg/2ml) 0.5 mg BIDRESP IH 10/05/24 18:00 11/04/24 17:59 10/08/24 07:08 0.5 MG Chlordiazepoxide HCl (LIBrium 25 MG CAP) 25 mg Q4H PRN PO ALCOHOL WITHDRAWAL PROTOCOL 10/05/24 18:00 10/12/24 17:59 Dextrose (D50w) 50 ml AD PRN IV HYPOGLYCEMIA PROTOCOL 10/07/24 09:30 11/06/24 09:29 EZETIMIBE (Zetia) 10 mg DAILY PO 10/08/24 09:00 11/07/24 08:59 Fluconazole/ Sodium Chloride 200 ml @ 100 mls/hr Q24H IV 10/06/24 13:00 11/05/24 12:59 10/08/24 12:33 100 MLS/HR Glucagon (Glucagon 1mg Kit) 1 mg AD PRN IM HYPOGLYCEMIA PROTOCOL 10/07/24 09:30 11/06/24 09:29 Heparin Sodium (Porcine) (HEParin 5,000 UNIT VIAL) 5,000 unit TID SQ 10/06/24 21:00 11/05/24 20:59 10/08/24 09:27 5,000 UNIT Hydrochlorothiazide (hydroCHLOROthiazide 25MG) 12.5 mg DAILY PO 10/08/24 09:00 11/07/24 08:59 Hydromorphone HCl (DiLAUDid 0.5MG INJ) 0.5 mg Q6H PRN IVP SEVERE PAIN (7-10) 10/05/24 18:00 10/10/24 17:59 10/05/24 19:34 0.5 MG Insulin Human Regular (humuLIN R 100 UNIT/ML 3ML) INSULIN SLIDING SCAL... ACHS SQ 10/07/24 11:30 11/06/24 11:29 Linezolid 300 ml @ 150 mls/hr Q12H IV 10/07/24 13:30 10/17/24 13:29 10/08/24 12:34 150 MLS/HR Lorazepam (AtiVAN) 2 mg Q4H PRN IVP ALCOHOL WITHDRAWAL PROTOCOL 10/05/24 18:00 10/12/24 17:59 Losartan Potassium (CozAAR 100MG TAB) 100 mg DAILY PO 10/08/24 09:00 11/07/24 08:59 Magnesium Sulfate 50 ml @ 0 mls/hr PROTOCOL PRN IV MAGNESIUM PROTOCOL 10/07/24 09:30 11/06/24 09:29 Norepinephrine 250 ml @ 44.213 mls/ hr PROTOCOL IV 10/06/24 12:00 11/05/24 11:59 Nystatin (NystOP 15 GM POWDER) 1 APPLICATION BID TP 10/06/24 21:00 11/05/24 20:59 10/07/24 21:03 1 APPL Pantoprazole Sodium (PROTonix 40MG INJ) 40 mg Q24H IVP 10/05/24 18:00 11/04/24 17:59 10/07/24 18:02 40 MG Pharmacy Profile Note (Pharmacy Communication) 1 each PROTOCOL PRN MISC ETOH Withdrawal Score changes 10/05/24 18:00 10/12/24 17:59 Piperacillin Sod/ Tazobactam Sod (Zosyn 3.375gm+NS 50ml) 3.375 gm Q8H IVPB 10/05/24 23:00 10/15/24 22:59 10/08/24 06:15 3.375 GM Potassium Chloride 100 ml @ 100 mls/hr AD PRN IV POTASSIUM PROTOCOL 10/07/24 09:30 11/06/24 09:29 Potassium Chloride 100 ml @ 100 mls/hr AD PRN IV POTASSIUM PROTOCOL 10/05/24 18:00 11/04/24 17:59 10/05/24 19:34 100 MLS/HR Potassium Chloride (K-Dur/Klor-Con 20meq) 20 meq AD PRN PO POTASSIUM PROTOCOL 10/07/24 09:30 11/06/24 09:29 Potassium Chloride (KCl 10% Elixir 20meq/15ml) 20 meq AD PRN PO POTASSIUM PROTOCOL 10/07/24 09:30 11/06/24 09:29 Sodium Chloride (NS 50ml) 50 ml AD IV 10/05/24 21:00 10/05/24 17:34 DC Thiamine HCl (Vitamin B-1) 100 mg Q24H IVP 10/05/24 18:00 10/06/24 11:49 DC 10/05/24 18:12 100 MG Thiamine HCl (Vitamin B-1) 300 mg Q24H IVP 10/06/24 18:00 10/09/24 17:59 10/07/24 18:05 300 MG Thiamine HCl 100 mg/Folic Acid 1 mg/Multivitamins/ Minerals 10 ml/ Sodium Chloride 1,011.2 ml @ 100 mls/ hr Q24H IV 10/05/24 18:00 10/08/24 04:07 DC 10/07/24 18:17 100 MLS/HR DIAGNOSTICS / RADIOLOGY: PATIENT: SERGO CENTENO MR#: [id number] : 1960 SEX: M AGE: 64 LOCATION: [facility] ORDER 17 STATUS: ADM IN REPORT#: [id number] SERVICE 16 REASON: ABD DISTENTION ORDERING PHYSICIAN: EDUARDO ABERNATHY MD PROCEDURE: ABD PEL WO - CT ABDOMEN/PELVIS W/O CONTRAST CT ABDOMEN/PELVIS W/O CONTRAST HISTORY: Abdominal distention COMPARISON: 10/05/2024 TECHNIQUE: Multiple sequential axial images of the abdomen and pelvis were obtained from the dome of the diaphragm through symphysis pubis. Patient was not given contrast through intravenous route. Oral contrast was given. FINDINGS: There are bilateral interstitial fibrosis. Tiny pericardial effusion is seen. No pleural effusion is seen bilaterally. There is no evidence of parenchymal disease or pulmonary nodule of the visualized lower lungs. Degenerative changes of the thoracolumbar spine are present. The heart is not enlarged. The liver measured 20 cm. There is contrast material stomach and small bowel loops. There is sigmoid colon wall thickening with adjacent fat stranding consistent with acute sigmoid diverticulitis. Extensive adjacent mesenteric fat stranding is seen in the pelvis. There is small diverticular abscess in the left anterior pelvis measuring 3 x 3.5 cm. Amorphous air collection is seen consistent with walled off perforation. No definite free intraperitoneal air is seen. There is diverticulosis. The liver, spleen, adrenal glands and pancreas are unremarkable. There is no evidence of hydronephrosis bilaterally. No evidence of renal stone is seen. Fecal material is seen in the colon. There are normal size retroperitoneal and mesenteric lymph nodes. No ascites is seen. Atherosclerotic changes are present. Appendix is not well visualized. Pelvic sidewalls are symmetric bilaterally. Bladder is poorly distended. There is fluid-filled small bowel loops and colon. IMPRESSION: 1. There is contrast material stomach and small bowel loops. There is sigmoid colon wall thickening with adjacent fat stranding consistent with acute sigmoid diverticulitis. Extensive adjacent mesenteric fat stranding is seen in the pelvis. There is small diverticular abscess in the left anterior pelvis measuring 3 x 3.5 cm. Amorphous air collection is seen consistent with walled off perforation. No definite free intraperitoneal air is seen. There is diverticulosis. CT was performed with one or more following dose reduction techniques: automated exposure control, adjustment of the mA and kv according to patient's size, or use of a iterative reconstruction technique. DICTATED BY: KIM MADSEN MD DATE: 10/07/242152 ELECTRONICALLY SIGNED BY: KIM MADSEN MD DATE: 10/07/242203 ASSESSMENT: Severe sepsis, POA, 2/2 perforated sigmoid diverticulitis Perforated sigmoid diverticulitis with developing abscess, POA Moderate lactic acidosis, POA Acute kidney injury, POA resolving Hypokalemia, POA Mild urinary tract infection, POA Alcohol use disorder, POA Morbid obesity, POA Underlying history of hypertension, POA Hyperlipidemia, POA Suspected GREG, POA PLAN: Patient will be admitted to PCCU Continue with IV fluids, patient will receive sepsis bolus of fluid and start maintenance IV fluid with banana bag, 75 mL/hour Patient will be started on daily thiamine supplementation Patient will be kept strictly NPO We will start broad-spectrum antibiotics with IV Zosyn, renally dose Consultation has been requested with Dr. Campbell, with General surgery, appreciate recommendations Monitor lactic acid trend closely, if patient develops hypotension tonight, patient will be transferred to ICU for vasopressors Discussed patient's case with critical Care, we will watch this patient closely for the next 24 hours Ni catheter will be placed and we will monitor urine output closely Discussed patient's case with Dr. Moffett, with Nephrology, appreciate recommendations Monitor urine output closely, avoid NSAIDs, WENDIE inhibitor/ARB, avoid IV contrast until renal function improves Pain control with Tylenol and IV hydromorphone for severe pain Monitor renal function closely, All labs will be repeated in the morning Patient will be started on CPAP therapy tonight for management of suspected obstructive sleep apnea Patient will be placed on alcohol withdrawal protocol with Librium and Ativan, counseled patient to quit alcohol on discharge, patient verbalized understanding Continue antibiotics linezolid, fluconazole according to Infectious Disease recommendations Follow up with surgery recommendations ATTESTATION BY PHYSICIAN I have seen and examined the patient. I reviewed the documentation, medical decision making, and treatment plan as noted by the mid-level provider above. I agree with the findings and plan of care. Brigido Whittaker MD, KEERTI K MD Oct 08, 2024 14:46
--- NOTE | 2024-10-08 15:00 | PN ---
This is a 64-year-old male with concerns diverticulitis with perforation and abscess formation Interval history: This 64-year-old male seen in his room resting No significant abdominal pain reported today WBCs 13.9 with a hemoglobin of 11.2 Patient currently NPO Repeat CT concerning for extensive adjacent mesenteric fat stranding within the pelvis with a small diverticular abscess in the left anterior pelvis measuring 3 x 3.5 cm. Physical exam General: Awake alert and oriented Heart: Regular rate and rhythm} Lungs: Clear to auscultation no distress Abdomen: [Soft, nontender, nondistended Assessment : This is a 64-year-old male with concerns of diverticular abscess Plan: IR to be consulted for evaluation of diverticular abscess and possible percutaneous drainage Patient to remain NPO for today Continue with the IV fluids and IV antibiotics No immediate surgical intervention at this time Nursing to report any further acute events. Thank you Vitals/Labs Vital Signs Date Time Temp Pulse Resp B/P (MAP) Pulse Ox O2 Delivery O2 Flow Rate FiO2 10/08/24 12:30 98.8 98 18 130/83 99 Room Air 10/08/24 08:00 2 28 Laboratory Tests 10/08/24 03:49 Medications Current Medications Sodium Chloride 2,000 ml @ 0 mls/hr ONCE ONCE IV Last administered on 10/05/24at 17:19; Start 10/05/24 at 17:00; Stop 10/05/24 at 17:01; Status DC Piperacillin Sod/ Tazobactam Sod 3.375 gm ONCE ONCE IV Last administered on 10/05/24at 17:19; Start 10/05/24 at 17:00; Stop 10/05/24 at 17:01; Status DC Sodium Chloride 1,000 ml @ 0 mls/hr ONCE ONCE IV; Start 10/05/24 at 17:00; Stop 10/05/24 at 17:01; Status DC Piperacillin Sod/ Tazobactam Sod 3.375 gm Q8H IVPB Last administered on 10/08/24at 14:32; Start 10/05/24 at 23:00; Stop 10/15/24 at 22:59 Sodium Chloride 50 ml AD IV; Start 10/05/24 at 21:00; Stop 10/05/24 at 17:34; Status DC Sodium Chloride 500 ml @ 0 mls/hr ONCE ONCE IV Last administered on 10/05/24at 18:02; Start 10/05/24 at 18:00; Stop 10/05/24 at 18:01; Status DC Pantoprazole Sodium 40 mg Q24H IVP Last administered on 10/07/24at 18:02; Start 10/05/24 at 18:00; Stop 11/04/24 at 17:59 Thiamine HCl 100 mg Q24H IVP Last administered on 10/05/24at 18:12; Start 10/05/24 at 18:00; Stop 10/06/24 at 11:49; Status DC Chlordiazepoxide HCl 25 mg Q4H PRN PO; Start 10/05/24 at 18:00; Stop 10/12/24 at 17:59 Lorazepam 2 mg Q4H PRN IVP; Start 10/05/24 at 18:00; Stop 10/12/24 at 17:59 Thiamine HCl 100 mg/Folic Acid 1 mg/Multivitamins/ Minerals 10 ml/ Sodium Chloride 1,011.2 ml @ 100 mls/ hr Q24H IV Last administered on 10/07/24at 18:17; Start 10/05/24 at 18:00; Stop 10/08/24 at 04:07; Status DC Pharmacy Profile Note 1 each PROTOCOL PRN MISC; Start 10/05/24 at 18:00; Stop 10/12/24 at 17:59 Budesonide 0.5 mg BIDRESP IH Last administered on 10/08/24at 07:08; Start 10/05/24 at 18:00; Stop 11/04/24 at 17:59 Potassium Chloride 100 ml @ 100 mls/hr AD PRN IV Last administered on 10/05/24at 19:34; Start 10/05/24 at 18:00; Stop 11/04/24 at 17:59 Hydromorphone HCl 0.5 mg Q6H PRN IVP Last administered on 10/05/24at 19:34; Start 10/05/24 at 18:00; Stop 10/10/24 at 17:59 Acetaminophen 650 mg Q6H PRN PO Last administered on 10/07/24at 19:02; Start 10/05/24 at 18:30; Stop 11/04/24 at 18:29 Albumin Human 100 ml @ 100 mls/hr AD IV Last administered on 10/05/24at 21:33; Start 10/05/24 at 21:00; Stop 10/06/24 at 06:01; Status DC Albumin Human 100 ml @ 0 mls/hr AD IV Last administered on 10/06/24at 07:02; Start 10/06/24 at 06:00; Stop 10/07/24 at 12:38; Status DC Acetaminophen 1,000 mg STAT IVPB Last administered on 10/06/24at 09:37; Start 10/06/24 at 09:00; Stop 10/06/24 at 13:02; Status DC Thiamine HCl 300 mg Q24H IVP Last administered on 10/07/24at 18:05; Start 10/06/24 at 18:00; Stop 10/09/24 at 17:59 Norepinephrine 250 ml @ 44.213 mls/ hr PROTOCOL IV; Start 10/06/24 at 12:00; Stop 11/05/24 at 11:59 Fluconazole/ Sodium Chloride 200 ml @ 100 mls/hr Q24H IV Last administered on 10/08/24at 12:33; Start 10/06/24 at 13:00; Stop 11/05/24 at 12:59 Nystatin 1 APPLICATION BID TP Last administered on 10/07/24at 21:03; Start 10/06/24 at 21:00; Stop 11/05/24 at 20:59 Lactated Ringer's 1,000 ml BOLUS ONCE IV Last administered on 10/06/24at 15:00; Start 10/06/24 at 15:00; Stop 10/06/24 at 15:01; Status DC Acetaminophen 1,000 mg ONCE STAT IVPB Last administered on 10/06/24at 19:27; Start 10/06/24 at 17:17; Stop 10/06/24 at 17:19; Status DC Heparin Sodium (Porcine) 5,000 unit TID SQ Last administered on 10/08/24at 14:33; Start 10/06/24 at 21:00; Stop 11/05/24 at 20:59 Acetaminophen 650 mg Q4H PRN RC Last administered on 10/07/24at 12:31; Start 10/07/24 at 05:30; Stop 11/06/24 at 05:29 Potassium Chloride 100 ml @ 100 mls/hr AD PRN IV; Start 10/07/24 at 09:30; Stop 11/06/24 at 09:29 Potassium Chloride 20 meq AD PRN PO; Start 10/07/24 at 09:30; Stop 11/06/24 at 09:29 Potassium Chloride 20 meq AD PRN PO Last administered on 10/08/24at 14:41; Start 10/07/24 at 09:30; Stop 11/06/24 at 09:29 Dextrose 50 ml AD PRN IV; Start 10/07/24 at 09:30; Stop 11/06/24 at 09:29 Glucagon 1 mg AD PRN IM; Start 10/07/24 at 09:30; Stop 11/06/24 at 09:29 Insulin Human Regular INSULIN SLIDING SCAL... ACHS SQ; Start 10/07/24 at 11:30; Stop 11/06/24 at 11:29 Magnesium Sulfate 50 ml @ 0 mls/hr PROTOCOL PRN IV; Start 10/07/24 at 09:30; Stop 11/06/24 at 09:29 Linezolid 300 ml @ 150 mls/hr Q12H IV Last administered on 10/08/24at 12:34; Start 10/07/24 at 13:30; Stop 10/17/24 at 13:29 Lactated Ringer's 1,000 ml ONCE ONCE IV Last administered on 10/07/24at 14:29; Start 10/07/24 at 14:30; Stop 10/07/24 at 14:31; Status DC EZETIMIBE 10 mg DAILY PO; Start 10/08/24 at 09:00; Stop 11/07/24 at 08:59 Hydrochlorothiazide 12.5 mg DAILY PO; Start 10/08/24 at 09:00; Stop 11/07/24 at 08:59 Atorvastatin Calcium 40 mg HS PO Last administered on 10/07/24at 21:03; Start 10/07/24 at 21:00; Stop 11/06/24 at 20:59 Losartan Potassium 100 mg DAILY PO; Start 10/08/24 at 09:00; Stop 11/07/24 at 08:59 Diatrizoate Meglum/ Diatrizoate Sod 30 ml STK-MED ONCE .ROUTE; Start 10/07/24 at 18:30; Stop 10/07/24 at 18:30; Status DC PILLO GARCIA Jr. Oct 08, 2024 15:00
--- NOTE | 2024-10-08 15:32 | NUR ---
RE:DIVERTICULAR ABSCESS DRAIN PLACEMENT BY IR DR Jase FIGUEROA NOTIFIED OF PROCEDURE AND IS UNABLE TO REVIEW IMAGES AT THIS TIME AND HE IS AT ANOTHER HOSPITAL PERFORMING PROCEDURES. DR Jase FIGUEROA STATED HE IS UNABLE TO PERFORM PROCEDURE TODAY. PROCEDURE RESCHEDULED FOR TOMORROW. Yoana MCKENNA RN NOTIFIED OF PROCEDURE OUTCOME.
--- NOTE | 2024-10-08 17:54 | PN ---
[facility] PROGRESS NOTE Date Patient Seen: Oct 08, 2024 Time of Visit: 14:46 Supervising Physician: EMILY Primary Care Physician: Attending team: [facility] Hospitalist Team Outpatient Specialists: Inpatient Consults: EMILY, Critical care team general surgeon, infectious disease, nephrology PROBLEM LIST: Severe sepsis without septic shock, 2/2 UTI & perforated sigmoid diverticulitis, POA Perforated sigmoid diverticulitis with developing abscess, POA Acute renal failure, GFR 23 POA, (last GFR was 83 on 09/18/2024, prior to that GFR 61 on 03/20/2024) Acute complicated cystitis, POA Lactic acidosis, POA Hypokalemia, POA Alcohol use disorder, POA Morbid obesity, POA Uncontrolled hypertension, POA Hyperlipidemia, POA Suspected GREG, POA INTERVAL HISTORY: [Patient is evaluated at bedside. He was admitted for general body weakness, fever, chills, shortness of breaths and cough associated with left-sided abdominal pain. Sepsis code was activated in the ED at the time of his visit. Patient denies any nausea or vomiting since admission states his last meal was the night before did admit a loose stool in the morning which was nonbloody. Patient also has PERRY on admission improved with IV fluids. Did receive 3 L of NS in the ED. upon evaluation patient is resting comfortably in bed on 2 L nasal cannula. He has [id number] abdominal distention and bilateral lower quadrant pain with palpation. He was evaluated by General surgery, pending formal recommendation. He continues on Zosyn. Of note, patient states was previously on xarelto for a hx of DVT but was discontinued d/t anemia (presumed GI bleed). Currently NPO. Patient is hemodynamically stable.] 10/07 Patient has been spiking fevers to 102F despite aggressive anti-pyretic methods. He is not in any distress. Denies abdominal pain at rest but is painful with movement and palpation. His abdomen is moderate to severely distended, worsened from previous. WBC is stable and unchanged at 12. ID has added linezolid in addition to Zosyn and fluconazole. General surgery is following and recommending medical management for now. He is hemodynamically stable without vasopressor. Creatinine is much improved from admission. Will continue aggressive fluid resuscitation and antibiotic regimen, pending further recommendation from general surgery. 10/08 Patient is a 64 year old man still on antibiotic therapy, awake , alert, denies nausea or vomiting, Abdomen very distended, tender, No fevers pending IR evaluation for possible drainage of abscess, we will continue monitoring closely and follow up surgical recommendations. REVIEW OF SYSTEMS: 12 point ROS reviewed with patient. Pertinent positives mentioned above. Otherwise negative. PHYSICAL EXAM: GENERAL: Alert, weak, awake oriented x 3 HEENT: EOMI, Sclera non icteric, moist mucosa NECK: Supple, no JVD, trachea midline LUNGS: Diminished breath sounds bilaterally. No wheezes HEART: Regular rate and rhythm. Normal S1 and S2, without murmurs ABD: Abdomen firm, generalized tenderness. Bowel sounds present. EXT: No clubbing cyanosis. +3 edema NEURO: Alert and oriented x3, follows commands, no neuro deficits noted. Vital Signs (last 8hr) Date Time Temp Pulse Resp B/P (MAP) Pulse Ox O2 Delivery O2 Flow Rate FiO2 10/08/24 16:35 98.2 92 18 139/82 99 Room Air 10/08/24 12:30 98.8 98 18 130/83 99 Room Air LABS: Hematology Labs: Test 10/08/24 03:49 Range/Units White Blood Count 13.9 H 4.8-10.8 K/uL Red Blood Count 3.61 L 4.50-6.20 MIL/uL Hemoglobin 11.2 L 14.0-18.0 g/dL Hematocrit 33.5 L 42-54 % Mean Corpuscular Volume 92.8 79-99 fL Mean Corpuscular Hemoglobin 31.0 27.0-33.0 pg Mean Corpuscular Hemoglobin Concent 33.4 32.0-36.0 g/dL Red Cell Distribution Width 15.6 H 11.0-15.5 % Platelet Count 174 130-400 K/uL Mean Platelet Volume 9.7 7.5-10.5 fL Immature Granulocyte % (Auto) 1.2 H 0-1 % Neutrophils (%) (Auto) 87.6 H 40.0-77.0 % Lymphocytes (%) (Auto) 4.2 L 21.0-51.0 % Monocytes (%) (Auto) 5.6 3.0-13.0 % Eosinophils (%) (Auto) 1.0 0.0-8.0 % Basophils (%) (Auto) 0.4 0.0-5.0 % Neutrophils # (Auto) 12.1 H 1.8-7.7 K/uL Lymphocytes # (Auto) 0.6 L 1.0-4.8 K/uL Monocytes # (Auto) 0.8 0.1-1.0 K/uL Eosinophils # (Auto) 0.14 0.00-0.70 K/uL Basophils # (Auto) 0.05 0.00-0.20 K/uL Absolute Immature Granulocyte (auto 0.16 0-1 K/uL Nucleated Red Blood Cells 0.0 0.0-0.19 % Chemistry Labs: Test 10/08/24 15:36 10/08/24 03:49 10/07/24 16:16 10/07/24 15:00 Range/Units Whole Blood Glucose 134 H 70-110 MG/DL Sodium Level 141 136-145 mmol/L Potassium Level 3.5 3.5-5.1 mmol/L Chloride Level 106 101-111 mmol/L Carbon Dioxide Level 18 L 21-32 mmol/L Blood Urea Nitrogen 20 H 7-18 mg/dL Creatinine 1.5 H 0.5-1.3 mg/dL Glomerular Filtration Rate Calc 51 >90 mL/min Random Glucose 183 H 70-105 mg/dL Total Calcium 8.6 8.5-10.1 mg/dL Bedside Glucose Comment Notified Nurse Whole Blood Ketones Quantitative 0.9 H 0.0-0.6 mmol/L Test 10/07/24 06:45 Range/Units Lactic Acid Level 0.9 0.8-2.5 mmol/L Phosphorus Level 3.7 2.5-4.9 mg/dL Magnesium Level 1.90 1.80-2.40 mg/dL Total Bilirubin 1.4 #H 0.2-1.0 mg/dL Aspartate Amino Transf (AST/SGOT) 29 10-37 U/L Alanine Aminotransferase (ALT/SGPT) 27 12-78 U/L Alkaline Phosphatase 75 50-136 U/L Total Protein 6.5 6.0-8.3 g/dL Albumin 2.6 L 3.5-5.0 g/dL Procalcitonin 2.98 H 0.05-0.5 ng/mL DIAGNOSTICS / RADIOLOGY RESULTS: [ ] PLAN Continue Zosyn, fluconazole and linezolid Monitor renal and liver function. Monitor electrolytes and treat accordingly. Avoid nephrotoxic medications. DVT and GI prophylaxis. P.r.n. medications for: Pain management NEURO: Minimize central acting medications as possible. Maintain fall precautions, adequate lighting during the day PULMONARY: Supplemental 02 as needed. Maintain aspiration precautions at all times CARDIOVASCULAR: Follow hemodynamics. Vital signs per facility protocol GI & NUTRITION: Continue with nutritional support. Continue stool softeners and laxatives as needed. KIDNEYS & ELECTROLYTES: Strict monitoring of intake, output and overall fluid balance. Avoid nephrotoxic medications to the extent possible. Medications to be dosed according to renal function. Monitor electrolytes and replace as needed ENDOCRINE: Maintain blood glucose between 100-180 at all times. Hypoglycemia protocol in place INFECTIOUS DISEASE: Trend temperature, WBC and procalcitonin level Follow cultures, deescalate antibiotics as soon as possible. Panculture if new onset fever ONCOLOGY/HEMATOLOGY/COAGULATION: Monitor for s/s of bleeding Monitor hemoglobin, coagulation studies as needed SKIN: Pressure ulcer prevention per facility protocol Specialty mattress ORTHO/REHAB: Continue PT/OT Prophylaxis: Continue GI and DVT prophylaxis Code Status: Full Resuscitation Disposition: TBD ATTESTATION BY PHYSICIAN Documentation assistance provided by a scribe, information recorded by the scribe was done at my direction and has been reviewed and validated by me." MILTON RIVERA MD I personally scribed for NICOLE ROSE MD ([email or web address]) on 10/08/24 at 17:54. Electronically submitted by Kristy Pascual ([email or web address]). NICOLE ROSE MD Oct 08, 2024 17:54
--- NOTE | 2024-10-08 21:42 | PN ---
INFECTIOUS DISEASE FOLLOWUP NOTE DATE OF SERVICE: 10/08/2024 SUBJECTIVE: The patient is seen and examined at bedside today. No fever or chills. Continued abdominal pain. No neck pain or neck swelling. Repeat CT of the abdomen shows diverticulitis with perforation and abscess. No free air found. No joint swelling, no redness. The patient tolerated antibiotic. No nausea or vomiting. No diarrhea. No dysuria or urinary frequency. PHYSICAL EXAMINATION: VITAL SIGNS: Temperature 99.0. EYES: No icterus. Pupils equal and reactive. HENT: No oral lesions seen. Moist oral mucosa. NECK: Supple. No JVD or thyromegaly. LUNGS: Good air entry. Few crackles. CARDIOVASCULAR: S1, S2 regular. No murmur heard. ABDOMEN: Obese, soft. Bowel sound is present. Tender right lower quadrant. CENTRAL NERVOUS SYSTEM: Awake, alert, oriented x 3. No focal deficits. SKIN: No rashes, no itchiness. LYMPHATIC: No peripheral lymphadenopathy. BACK: No deformity, no pressure ulcer. MUSCULOSKELETAL: No joint swelling, erythema, or tenderness. ASSESSMENT: A 64-year-old male admitted with nausea, vomiting, or abdominal pain. CURRENT PROBLEMS: Include: * Septic shock. * Diverticulitis perforation. * Intra-abdominal abscess. * Chronic alcohol abuse. * Hypoxic respiratory failure. * Morbid obesity. PLAN: * Continue linezolid. * Continue Zosyn. * Continue fluconazole. * Continue pain management. * Continue antiemetics. * Monitor electrolytes. * Continue CIWA protocol. TID: [id number] RECEIPT: [id number]
--- NOTE | 2024-10-08 21:50 | PN ---
SUBJECTIVE: This patient has renal failure, anemia, multiple other comorbidities. No fever, chills or rigors. The patient has morbid obesity. He has sepsis, perforated sigmoid diverticula with abscess development. The patient is pending surgical evaluation. The patient has underlying hypokalemia, previous alcohol abuse history of hypertension, suspected sleep apnea and hyperlipidemia. He has some abdominal pain. He remains on broad-spectrum antibiotic. He has elevated BNP. He has a history of DVT in the past. All the other system unchanged. REVIEW OF SYSTEMS: CONSTITUTIONAL: No fever or chills. HEENT: With no headache, oral ulcers, sore throat or difficulty swallowing. RESPIRATORY: With no cough, expectoration, hemoptysis, or pleuritic pain. CARDIOVASCULAR: Has shortness of breath. No orthopnea or PND. GASTROINTESTINAL: Negative for nausea, vomiting or diarrhea reported, but abdominal pain present. GENITOURINARY: Negative for dysuria or hematuria. DERMATOLOGICAL: With no rashes, pruritus or skin lesion. ENDOCRINE: No polyuria, polydipsia or polyphagia. PHYSICAL EXAMINATION: GENERAL: Pale, no other distress or deformities, lying in bed. VITAL SIGNS: Blood pressure is 130/83, pulse 98, respiratory rate is 18, afebrile. HEENT: Head is atraumatic. Pupils are round and reactive. Sclerae are anicteric. Conjunctivae not pale. Oral mucosa is not dry. NECK: Supple, No masses, bruits. Thyroid is palpable. Neck has no bruits. CHEST: Shows equal thoracic percussion note being resonant in all areas. CARDIAC: Regular rhythm, no rub, no S3, S4. No parasternal heave. ABDOMEN: With no guarding or tenderness. Bowel sounds are normoactive. No free fluid. EXTREMITIES: No edema. No cyanosis, clubbing. BACK: No tenderness. The patient's labs have been reviewed and the patient has white cell count 13,000, hemoglobin 11. Creatinine still remains elevated at 1.0, BUN of 20, low CO2 of 18. The patient's imaging studies are personally reviewed. PROBLEMS: Acute renal failure, abdominal abscess, diverticulitis, sepsis. The patient is on IV Dilaudid for pain. Intake, output, weight will be monitored. Condition is critical, guarded. Renal failure, anemia, abdominal abscess, underlying diabetes, hypertension, obesity and other comorbidities. PLAN: The patient remains on Zyvox. The patient may need to stop losartan. If the patient is n.p.o. or blood pressure decreases, blood pressure medicines to be modified. Nonsteroidal drugs to be avoided. Dose of medicine to be adjusted. IV pressors as needed. We will continue followup. Contrast to be avoided. I have discussed with other team members. We reviewed the labs, x-rays personally. Old records, external records have been reviewed and we will be following up closely. Condition is critical. TID: [id number] RECEIPT: [id number]
[2024-10-09] VITALS (19 sets, daily range): BP systolic 136–162; BP diastolic 82–99; PULSE 71–110; RESP 18–22; TEMP 97.5–99.4; O2SAT 97–100
[2024-10-09 04:04] LABS: BASOPHILS # (AUTO) 0.04 K/uL (0.00-0.20); BASOPHILS % (AUTO) 0.3 % (0.0-5.0); EOSINOPHILS # (AUTO) 0.23 K/uL (0.00-0.70); HEMATOCRIT 34.5 % (42-54); IMMATURE GRANULOCYTE ABSOLUTE 0.11 K/uL (0-1); LYMPHOCYTES # (AUTO) 0.8 K/uL (1.0-4.8); LYMPHOCYTES % (AUTO) 6.6 % (21.0-51.0); MEAN CORPUSCULAR HEMOGLOBIN 31.3 pg (27.0-33.0); MEAN CORPUSCULAR HGB CONC 33.3 g/dL (32.0-36.0); MONOCYTES # (AUTO) 0.8 K/uL (0.1-1.0); MONOCYTES % (AUTO) 7.3 % (3.0-13.0); NEUTROPHILS # (AUTO) 9.5 K/uL (1.8-7.7); NEUTROPHILS % (AUTO) 82.8 % (40.0-77.0); PLATELET COUNT (AUTO) 206 K/uL (130-400); RED BLOOD CELL COUNT(AUTO) 3.67 MIL/uL (4.50-6.20); RED CELL DISTRIBUTION WIDTH 15.9 % (11.0-15.5); WHITE BLOOD COUNT (AUTO) 11.4 K/uL (4.8-10.8)
[2024-10-09 04:23] LABS: ALBUMIN 2.3 g/dL (3.5-5.0); BILIRUBIN,TOTAL 1.5 mg/dL (0.2-1.0); CREATININE 1.5 mg/dL (0.5-1.3); PHOSPHORUS 3.4 mg/dL (2.5-4.9); POTASSIUM 3.6 mmol/L (3.5-5.1); TOTAL PROTEIN, SERUM 6.7 g/dL (6.0-8.3)
--- NOTE | 2024-10-09 09:22 | NUR ---
scheduled for CT guided drainage of abscess. medications held at this time. Patient has elevated BUN and creatinine and K of 3.6. Patient had one potassium 20meq @ 0603 and a diagnosis of acute kidney injury. Any additional potassium coverage to be held at this time.
[2024-10-09] MEDS ORDERED: MIDAZOLAM HCL 1 MG/ML 2ML VIAL ONE (11:08)
[2024-10-09] MEDS ORDERED: FENTanyl CITRate PF 50 MCG/1 ML 2ML VIAL ONE (11:08)
--- NOTE | 2024-10-09 12:18 | NUR ---
CT GD DRAINAGE CATHETER PLACEMENT PROCEDURE PERFORMED BY DR Jase FIGUEROA. PUNCTURE SITE LLQ. PATIENT TOLERATED PROCEDURE WELL. 8FR PIGTAIL CATHETER PLACED TO SIGMOID ABSCESS AND CONNECTED TO ACCORDION BAG. CATHETER SUTURED IN PLACE AND DRESSING APPLIED. SPECIMEN COLLECTED AND SENT TO LAB. END OF PROCEDURE AT 1155. REPORT GIVEN TO Shereen PRAJAPATI RN AND PATIENT TRANSPORTED TO [facility] VIA BED AT 1215. AAO X3 WITH NO C/O PAIN.
--- NOTE | 2024-10-09 13:32 | PN ---
NEPHROLOGY PROGRESS NOTE Date/Time Patient Seen: Oct 09, 2024 Reason for Consultation: 13:32 SUBJECTIVE: This is a 64-year-old male with underlying history of hypertension, hyperlipidemia, obesity, chronic alcohol use, who presented to the ER for further evaluation of significant lower abdominal pain with associated fevers and chills CT of the abdomen showed perforated sigmoid diverticulitis suggesting potential evolving abscess. Blood cultures are positive for prevotella oralis He continues on IV antibiotics as per ID S/P sigmoid abscess drain placement He was noted to have elevated BUN and creatinine We has been consulted for renal failure. Renal function is stable Electrolytes are stable. He was seen in the medical floor, in no acute distress Family at the bedside Condition is critical and guarded REVIEW OF SYSTEMS: GENERAL: Positive for abdominal pain NEUROLOGIC: Negative for any blurry vision, blind spots, double vision, facial asymmetry, dysphagia, dysarthria, hemiparesis, hemisensory deficits, vertigo, ataxia. HEENT: Negative for any head trauma, neck trauma, neck stiffness, photophobia, phonophobia, sinusitis, rhinitis. CARDIAC: Negative for any chest pain, dyspnea on exertion, paroxysmal nocturnal dyspnea, peripheral edema. PULMONARY: Negative for any shortness of breath, wheezing, COPD, or TB exposure. GASTROINTESTINAL: Negative for any abdominal pain, nausea, vomiting, bright red blood per rectum, melena. GENITOURINARY: Negative for any dysuria, hematuria, incontinence. INTEGUMENTARY: Negative for any rashes, cuts, insect bites. RHEUMATOLOGIC: Negative for any joint pains, photosensitive rashes, history of vasculitis or kidney problems. HEMATOLOGIC: Negative for any abnormal bruising, frequent infections or bleeding. Vital Signs (last 8hr) Date Time Temp Pulse Resp B/P (MAP) Pulse Ox O2 Delivery O2 Flow Rate FiO2 10/06/24 11:57 99.3 93 21 119/66 98 Room Air* 0 21 10/06/24 10:16 99.0 109 22 122/64 96 Room Air* 0 21 10/06/24 08:05 101.5 111 26 113/63 96 Nasal Cannula* 2 28 10/06/24 06:41 20 N/Cannula Low lpm 2.0 28 10/06/24 06:40 111 20 10/06/24 06:28 98.8 109 24 111/62 96 Nasal Cannula* 2 28 PHYSICAL EXAM: GENERAL: Alert and oriented x 3. No acute distress. Well-nourished. EYES: EOMI. Anicteric. HENT: Moist mucous membranes. No scleral icterus. No cervical lymphadenopathy. LUNGS: Clear to auscultation bilaterally. No accessory muscle use. CARDIOVASCULAR: Regular rate and rhythm. No murmur. No JVD. ABDOMEN: Soft, non-tender and non-distended. No palpable masses. EXTREMITIES: No edema. Non-tender. SKIN: No rashes or lesions. Warm. NEUROLOGIC: No focal neurological deficits. CN II-XII grossly intact, but not individually tested. PSYCHIATRIC: Cooperative. Appropriate mood and affect. Current Medications Medications (Trade) Dose Ordered Sig/Tim Route PRN Reason Start Time Stop Time Status Last Admin Dose Admin Acetaminophen (TYLenol 325MG TAB) 650 mg Q6H PRN PO MILD PAIN (1-3) 10/05/24 18:30 11/04/24 18:29 Acetaminophen (acetaMINOPHEN) 1,000 mg STAT IVPB 10/06/24 09:00 10/06/24 13:02 DC 10/06/24 09:37 1,000 MG Albumin Human 100 ml @ 100 mls/hr AD IV 10/05/24 21:00 10/06/24 06:01 DC 10/05/24 21:33 100 MLS/HR Albumin Human 100 ml @ 0 mls/hr AD IV 10/06/24 06:00 11/05/24 05:59 10/06/24 07:02 500 MLS/HR Budesonide (Pulmicort 0.5 Mg/2ml) 0.5 mg BIDRESP IH 10/05/24 18:00 11/04/24 17:59 10/06/24 06:38 0.5 MG Chlordiazepoxide HCl (LIBrium 25 MG CAP) 25 mg Q4H PRN PO ALCOHOL WITHDRAWAL PROTOCOL 10/05/24 18:00 10/12/24 17:59 Fluconazole/ Sodium Chloride 200 ml @ 100 mls/hr Q24H IV 10/06/24 13:00 11/05/24 12:59 Hydromorphone HCl (DiLAUDid 0.5MG INJ) 0.5 mg Q6H PRN IVP SEVERE PAIN (7-10) 10/05/24 18:00 10/10/24 17:59 10/05/24 19:34 0.5 MG Lorazepam (AtiVAN) 2 mg Q4H PRN IVP ALCOHOL WITHDRAWAL PROTOCOL 10/05/24 18:00 10/12/24 17:59 Norepinephrine 250 ml @ 44.213 mls/ hr PROTOCOL IV 10/06/24 12:00 11/05/24 11:59 Pantoprazole Sodium (PROTonix 40MG INJ) 40 mg Q24H IVP 10/05/24 18:00 11/04/24 17:59 10/05/24 18:12 40 MG Pharmacy Profile Note (Pharmacy Communication) 1 each PROTOCOL PRN MISC ETOH Withdrawal Score changes 10/05/24 18:00 10/12/24 17:59 Piperacillin Sod/ Tazobactam Sod (Zosyn 3.375gm+NS 50ml) 3.375 gm Q8H IVPB 10/05/24 23:00 10/15/24 22:59 10/06/24 08:30 3.375 GM Potassium Chloride 100 ml @ 100 mls/hr AD PRN IV POTASSIUM PROTOCOL 10/05/24 18:00 11/04/24 17:59 10/05/24 19:34 100 MLS/HR Sodium Chloride (NS 50ml) 50 ml AD IV 10/05/24 21:00 10/05/24 17:34 DC Thiamine HCl (Vitamin B-1) 100 mg Q24H IVP 10/05/24 18:00 10/06/24 11:49 DC 10/05/24 18:12 100 MG Thiamine HCl (Vitamin B-1) 300 mg Q24H IVP 10/06/24 18:00 10/09/24 17:59 Thiamine HCl 100 mg/Folic Acid 1 mg/Multivitamins/ Minerals 10 ml/ Sodium Chloride 1,011.2 ml @ 100 mls/ hr Q24H IV 10/05/24 18:00 10/08/24 04:07 10/05/24 18:12 75 MLS/HR LABORATORY: [ ] Hematology Labs: Test 10/09/24 03:28 Range/Units White Blood Count 11.4 H 4.8-10.8 K/uL Red Blood Count 3.67 L 4.50-6.20 MIL/uL Hemoglobin 11.5 L 14.0-18.0 g/dL Hematocrit 34.5 L 42-54 % Mean Corpuscular Volume 94.0 79-99 fL Mean Corpuscular Hemoglobin 31.3 27.0-33.0 pg Mean Corpuscular Hemoglobin Concent 33.3 32.0-36.0 g/dL Red Cell Distribution Width 15.9 H 11.0-15.5 % Platelet Count 206 130-400 K/uL Mean Platelet Volume 9.6 7.5-10.5 fL Immature Granulocyte % (Auto) 1.0 0-1 % Neutrophils (%) (Auto) 82.8 H 40.0-77.0 % Lymphocytes (%) (Auto) 6.6 L 21.0-51.0 % Monocytes (%) (Auto) 7.3 3.0-13.0 % Eosinophils (%) (Auto) 2.0 0.0-8.0 % Basophils (%) (Auto) 0.3 0.0-5.0 % Neutrophils # (Auto) 9.5 H 1.8-7.7 K/uL Lymphocytes # (Auto) 0.8 L 1.0-4.8 K/uL Monocytes # (Auto) 0.8 0.1-1.0 K/uL Eosinophils # (Auto) 0.23 0.00-0.70 K/uL Basophils # (Auto) 0.04 0.00-0.20 K/uL Absolute Immature Granulocyte (auto 0.11 0-1 K/uL Nucleated Red Blood Cells 0.0 0.0-0.19 % Chemistry Labs: Test 10/09/24 11:02 10/09/24 03:28 10/07/24 16:16 10/07/24 15:00 Range/Units Whole Blood Glucose 132 H 70-110 MG/DL Sodium Level 138 136-145 mmol/L Potassium Level 3.6 3.5-5.1 mmol/L Chloride Level 102 101-111 mmol/L Carbon Dioxide Level 22 21-32 mmol/L Blood Urea Nitrogen 19 H 7-18 mg/dL Creatinine 1.5 H 0.5-1.3 mg/dL Glomerular Filtration Rate Calc 51 >90 mL/min Random Glucose 155 H 70-105 mg/dL Total Calcium 8.7 8.5-10.1 mg/dL Phosphorus Level 3.4 2.5-4.9 mg/dL Magnesium Level 2.00 1.80-2.40 mg/dL Total Bilirubin 1.5 H 0.2-1.0 mg/dL Aspartate Amino Transf (AST/SGOT) 31 10-37 U/L Alanine Aminotransferase (ALT/SGPT) 30 12-78 U/L Alkaline Phosphatase 78 50-136 U/L Total Protein 6.7 6.0-8.3 g/dL Albumin 2.3 L 3.5-5.0 g/dL Bedside Glucose Comment Notified Nurse Whole Blood Ketones Quantitative 0.9 H 0.0-0.6 mmol/L DIAGNOSTICS / RADIOLOGY: REASON: ABD DISTENTION ORDERING PHYSICIAN: EDUARDO ABERNATHY MD PROCEDURE: ABD PEL WO - CT ABDOMEN/PELVIS W/O CONTRAST CT ABDOMEN/PELVIS W/O CONTRAST HISTORY: Abdominal distention COMPARISON: 10/05/2024 TECHNIQUE: Multiple sequential axial images of the abdomen and pelvis were obtained from the dome of the diaphragm through symphysis pubis. Patient was not given contrast through intravenous route. Oral contrast was given. FINDINGS: There are bilateral interstitial fibrosis. Tiny pericardial effusion is seen. No pleural effusion is seen bilaterally. There is no evidence of parenchymal disease or pulmonary nodule of the visualized lower lungs. Degenerative changes of the thoracolumbar spine are present. The heart is not enlarged. The liver measured 20 cm. There is contrast material stomach and small bowel loops. There is sigmoid colon wall thickening with adjacent fat stranding consistent with acute sigmoid diverticulitis. Extensive adjacent mesenteric fat stranding is seen in the pelvis. There is small diverticular abscess in the left anterior pelvis measuring 3 x 3.5 cm. Amorphous air collection is seen consistent with walled off perforation. No definite free intraperitoneal air is seen. There is diverticulosis. The liver, spleen, adrenal glands and pancreas are unremarkable. There is no evidence of hydronephrosis bilaterally. No evidence of renal stone is seen. Fecal material is seen in the colon. There are normal size retroperitoneal and mesenteric lymph nodes. No ascites is seen. Atherosclerotic changes are present. Appendix is not well visualized. Pelvic sidewalls are symmetric bilaterally. Bladder is poorly distended. There is fluid-filled small bowel loops and colon. IMPRESSION: 1. There is contrast material stomach and small bowel loops. There is sigmoid colon wall thickening with adjacent fat stranding consistent with acute sigmoid diverticulitis. Extensive adjacent mesenteric fat stranding is seen in the pelvis. There is small diverticular abscess in the left anterior pelvis measuring 3 x 3.5 cm. Amorphous air collection is seen consistent with walled off perforation. No definite free intraperitoneal air is seen. There is diverticulosis. CT was performed with one or more following dose reduction techniques: automated exposure control, adjustment of the mA and kv according to patient's size, or use of a iterative reconstruction technique. DICTATED BY: KIM MADSEN MD DATE: 10/07/242152 REASON: peritoneum ORDERING PHYSICIAN: LIDIA BUTLER PROCEDURE: ABD 1VW - ABD 1VW ABD 1VW HISTORY: Peritoneal COMPARISON: None FINDINGS: A frontal projection of the abdomen was obtained. Small bowel dilatation is seen. Fecal material is seen in the colon. Degenerative changes of the thoracolumbar spine are noted. IMPRESSION: 1. Small bowel dilatation. DICTATED BY: KIM MADSEN MD DATE: 10/07/242005 REASON: PERFORATED BOWEL/DISTENDED ABD ORDERING PHYSICIAN: VICKIE MONTGOMERY MD PROCEDURE: ABD 1VW - ABD 1VW ABD 1VW CLINICAL HISTORY: PERFORATED BOWEL/DISTENDED ABD COMPARISON: None FINDINGS: Single view of the abdomen was obtained. There are multiple air-filled loops of bowel. Free air is not definitely identified but could likely not be excluded on this exam. IMPRESSION: Ileus versus small bowel obstruction DICTATED BY: MISSY FALK DO DATE: 10/06/24 165 REASON: renal failue ORDERING PHYSICIAN: KATH ALEMAN PROCEDURE: RENAL - US RENAL SONOGRAM ULTRASOUND RENAL COMPLETE INDICATION: Renal failure TECHNIQUE: Routine ultrasound of the kidneys and urinary bladder with grayscale and color Doppler imaging was performed in real-time, and subsequently made available for review. COMPARISON: No prior studies available for comparison. FINDINGS: The right kidney measures 9.3 x 5.7 x 5.7 cm. No abnormal mass demonstrated. No evidence for hydronephrosis or shadowing stone. The left kidney measures 10.9 x 6.3 x 5.1 cm. No abnormal mass demonstrated. No evidence for hydronephrosis or shadowing stone. Empty urinary bladder secondary to Ni catheter placement. No free fluid demonstrated. IMPRESSION: Normal sonographic appearance of the kidneys. DICTATED BY: WILTON ZAVALA MD DATE: 10/06/24 1006 REASON: R/O dvt OF THE LOWER EXTREMITIES ORDERING PHYSICIAN: EDUARDO ABERNATHY MD PROCEDURE: VENOUS SYL - US VENOUS DOPPLER BILATERAL ULTRASOUND VENOUS DOPPLER, BILATERAL LOWER EXTREMITIES INDICATION: Bilateral lower extremity pain and swelling TECHNIQUE: Routine grayscale and color Doppler ultrasound of the bilateral lower extremity veins performed. COMPARISON: No priors. FINDINGS: The demonstrated veins of the bilateral lower extremity including the common femoral vein, femoral vein, and popliteal vein are associated with normal compressibility, augmentation, and flow. Normal respiratory variation was identified. No evidence for echogenic intraluminal thrombus formation. IMPRESSION: No sonographic evidence for deep venous thrombosis within the bilateral lower extremity veins. DICTATED BY: WILTON ZAVALA MD DATE: 10/05/241825 REASON: ABD PAIN ORDERING PHYSICIAN: MIRIAM RICE NP PROCEDURE: ABD PEL WO - CT ABDOMEN/PELVIS W/O CONTRAST CT ABDOMEN WITHOUT CONTRAST. CT PELVIS WITHOUT CONTRAST. INDICATION: Abdominal pain; No relevant information related to this study was provided in patient's history by the ordering service. TECHNIQUE: Routine transaxial imaging using 5 mm slice thickness through the abdomen and pelvis without the administration of IV contrast. Thin slice reconstructions are also provided. Coronal and sagittal reformatted images acquired for interpretation. CT was performed with one or more of the following dose reduction techniques: Automated exposure control, adjustment of the mA and/or kV according to patient size, or use of iterative reconstruction technique. COMPARISON: None FINDINGS: ON NONCONTRAST IMAGING: ABDOMEN: Examination provided for interpretation at 4:13 PM on 10/05/2024. Heart size is normal. Scarring at both lung bases. No abnormal renal calcifications, hydronephrosis, perinephric inflammation, or proximal hydroureter detected. The liver is normal in size and smooth in contour without biliary duct dilation. The spleen is normal in size and attenuation. The gallbladder appears normal. The pancreas appears normal without pancreatic duct dilation. The adrenal glands appear normal. No significant abdominal, retrocrural or retroperitoneal adenopathy noted. No evidence for intra-abdominal free air or organized fluid collection. No aortic aneurysmal dilation identified. PELVIS: No abnormal calcifications within the urinary bladder or distal ureters. No evidence for free air or organized pelvic fluid collection. No significant pelvic adenopathy detected. Several diverticula along the distal colon and mild to moderate pericolonic inflammatory fat stranding associated, including 3.5 cm aggregate of air and trace fluid along the mesenteric wall of the far proximal sigmoid colon with additional scattered air densities throughout the anterior mid to upper abdomen. Several diverticula along the proximal colon. Terminal ileum appears unremarkable. The appendix appears normal. Visible osseous structures are intact. IMPRESSION: Perforated sigmoid diverticulitis as described, including findings suggesting potential evolving abscess. DICTATED BY: WILTON ZAVALA MD DATE: 10/05/24 1611 REASON: COUGH ORDERING PHYSICIAN: UBALDO MCBRIDE MD PROCEDURE: CXR1VW - CHEST 1VW PORTABLE CHEST RADIOGRAPH INDICATION: COUGH COMPARISON: 05/16/2017 FINDINGS: laboratory monitor leads overlie the field of view. Heart size is normal. The pulmonary vascularity and jeannie appear normal. No abnormal pulmonary parenchymal opacity or consolidation identified. Bibasilar lung linear scarring. No significant pleural effusion noted. No pneumothorax detected. IMPRESSION: No radiographic evidence for any acute cardiopulmonary process. DICTATED BY: WILTON ZAVALA MD DATE: 10/05/24 1640 ASSESSMENT: Acute kidney injury Severe sepsis, 2/2 perforated sigmoid diverticulitis Perforated sigmoid diverticulitis with developing abscess Moderate lactic acidosis Hypokalemia Mild urinary tract infection Alcohol use disorder Morbid obesity Underlying history of hypertension Hyperlipidemia Suspected GREG PLAN: Labs, diagnostic, radiologic exams reviewed and interpreted by myself and supervising physician. We have reviewed external records in detail There is no need for emergent renal replacement therapy at this time We will continue to monitor the patient closely Continue with the renally dose antibiotics as per ID Require close monitoring of renal function and electrolytes Order CBC, CMP, and electrolytes in am BiPAP as necessary, for respiratory distress Monitor blood pressure adjust medication doses as needed Avoid hypotensive episodes May use Dilaudid 0.5 mg IV every 6 hours as needed for severe pain Monitor blood sugars Strict intake, output, and daily weight should be monitored Please renally adjust medications Avoid nephrotoxic and nonsteroidal drugs Avoid contrast if possible Will continue to monitor renal function, anemia, electrolytes Treatment plan discussed with patient Questions were answered We have discussed with the other team physicians in detail about the care plan We will continue to monitor the patient closely ATTESTATION BY PHYSICIAN I have seen and examined the patient. I reviewed the documentation, medical decision making, and treatment plan as noted by the mid-level provider above. I agree with the findings and plan of care. CAMILA CLEMENS MD, [facility] Oct 09, 2024 13:32
--- NOTE | 2024-10-09 16:36 | PN ---
This is a 64-year-old male with concerns of diverticulitis with perforated abscess with recent percutaneous drain placed by IR Interval history: This 64-year-old male seen in his room resting telemetry Patient with percutaneous drainage is placed Patient is still NPO pending diet WBCs 11 with a hemoglobin of No reports of abdominal pain at this time Physical exam General: Awake alert and oriented Heart: Regular rate and rhythm} Lungs: Clear to auscultation no distress Abdomen: [Soft, nontender, nondistended percutaneous drain in place Assessment : This is a 64-year-old male perforated diverticulitis with development of abscess with recent IR drain placed Plan: Patient to continue with conservative management Continue with the IV fluids and IV antibiotics No surgical intervention at this time Strict I's and O's of percutaneous drainage Patient to be allowed diet at this time Dr. Campbell to be updated in patient's status Vitals/Labs Vital Signs Date Time Temp Pulse Resp B/P (MAP) Pulse Ox O2 Delivery O2 Flow Rate FiO2 10/09/24 15:15 95 22 143/96 100 Nasal Cannula 2.0 10/09/24 12:30 98.6 10/09/24 06:47 28 Laboratory Tests 10/09/24 03:28 Medications Current Medications Sodium Chloride 2,000 ml @ 0 mls/hr ONCE ONCE IV Last administered on 10/05/24at 17:19; Start 10/05/24 at 17:00; Stop 10/05/24 at 17:01; Status DC Piperacillin Sod/ Tazobactam Sod 3.375 gm ONCE ONCE IV Last administered on 10/05/24at 17:19; Start 10/05/24 at 17:00; Stop 10/05/24 at 17:01; Status DC Sodium Chloride 1,000 ml @ 0 mls/hr ONCE ONCE IV; Start 10/05/24 at 17:00; Stop 10/05/24 at 17:01; Status DC Piperacillin Sod/ Tazobactam Sod 3.375 gm Q8H IVPB Last administered on 10/09/24at 16:21; Start 10/05/24 at 23:00; Stop 10/15/24 at 22:59 Sodium Chloride 50 ml AD IV; Start 10/05/24 at 21:00; Stop 10/05/24 at 17:34; Status DC Sodium Chloride 500 ml @ 0 mls/hr ONCE ONCE IV Last administered on 10/05/24at 18:02; Start 10/05/24 at 18:00; Stop 10/05/24 at 18:01; Status DC Pantoprazole Sodium 40 mg Q24H IVP Last administered on 10/09/24at 16:21; Start 10/05/24 at 18:00; Stop 11/04/24 at 17:59 Thiamine HCl 100 mg Q24H IVP Last administered on 10/05/24at 18:12; Start 10/05/24 at 18:00; Stop 10/06/24 at 11:49; Status DC Chlordiazepoxide HCl 25 mg Q4H PRN PO; Start 10/05/24 at 18:00; Stop 10/12/24 at 17:59 Lorazepam 2 mg Q4H PRN IVP; Start 10/05/24 at 18:00; Stop 10/12/24 at 17:59 Thiamine HCl 100 mg/Folic Acid 1 mg/Multivitamins/ Minerals 10 ml/ Sodium Chloride 1,011.2 ml @ 100 mls/ hr Q24H IV Last administered on 10/07/24at 18:17; Start 10/05/24 at 18:00; Stop 10/08/24 at 04:07; Status DC Pharmacy Profile Note 1 each PROTOCOL PRN MISC; Start 10/05/24 at 18:00; Stop 10/12/24 at 17:59 Budesonide 0.5 mg BIDRESP IH Last administered on 10/09/24at 06:46; Start 10/05/24 at 18:00; Stop 11/04/24 at 17:59 Potassium Chloride 100 ml @ 100 mls/hr AD PRN IV Last administered on 10/05/24at 19:34; Start 10/05/24 at 18:00; Stop 11/04/24 at 17:59 Hydromorphone HCl 0.5 mg Q6H PRN IVP Last administered on 10/05/24at 19:34; Start 10/05/24 at 18:00; Stop 10/10/24 at 17:59 Acetaminophen 650 mg Q6H PRN PO Last administered on 10/07/24at 19:02; Start 10/05/24 at 18:30; Stop 11/04/24 at 18:29 Albumin Human 100 ml @ 100 mls/hr AD IV Last administered on 10/05/24at 21:33; Start 10/05/24 at 21:00; Stop 10/06/24 at 06:01; Status DC Albumin Human 100 ml @ 0 mls/hr AD IV Last administered on 10/06/24at 07:02; Start 10/06/24 at 06:00; Stop 10/07/24 at 12:38; Status DC Acetaminophen 1,000 mg STAT IVPB Last administered on 10/06/24at 09:37; Start 10/06/24 at 09:00; Stop 10/06/24 at 13:02; Status DC Thiamine HCl 300 mg Q24H IVP Last administered on 10/09/24at 16:21; Start 10/06/24 at 18:00; Stop 10/09/24 at 17:59 Norepinephrine 250 ml @ 44.213 mls/ hr PROTOCOL IV; Start 10/06/24 at 12:00; Stop 11/05/24 at 11:59 Fluconazole/ Sodium Chloride 200 ml @ 100 mls/hr Q24H IV Last administered on 10/09/24at 16:20; Start 10/06/24 at 13:00; Stop 11/05/24 at 12:59 Nystatin 1 APPLICATION BID TP Last administered on 10/08/24at 20:36; Start 10/06/24 at 21:00; Stop 11/05/24 at 20:59 Lactated Ringer's 1,000 ml BOLUS ONCE IV Last administered on 10/06/24at 15:00; Start 10/06/24 at 15:00; Stop 10/06/24 at 15:01; Status DC Acetaminophen 1,000 mg ONCE STAT IVPB Last administered on 10/06/24at 19:27; Start 10/06/24 at 17:17; Stop 10/06/24 at 17:19; Status DC Heparin Sodium (Porcine) 5,000 unit TID SQ Last administered on 10/08/24at 20:13; Start 10/06/24 at 21:00; Stop 11/05/24 at 20:59 Acetaminophen 650 mg Q4H PRN RC Last administered on 10/07/24at 12:31; Start 10/07/24 at 05:30; Stop 11/06/24 at 05:29 Potassium Chloride 100 ml @ 100 mls/hr AD PRN IV; Start 10/07/24 at 09:30; Stop 11/06/24 at 09:29 Potassium Chloride 20 meq AD PRN PO; Start 10/07/24 at 09:30; Stop 11/06/24 at 09:29 Potassium Chloride 20 meq AD PRN PO Last administered on 10/09/24at 06:03; Start 10/07/24 at 09:30; Stop 11/06/24 at 09:29 Dextrose 50 ml AD PRN IV; Start 10/07/24 at 09:30; Stop 11/06/24 at 09:29 Glucagon 1 mg AD PRN IM; Start 10/07/24 at 09:30; Stop 11/06/24 at 09:29 Insulin Human Regular INSULIN SLIDING SCAL... ACHS SQ; Start 10/07/24 at 11:30; Stop 11/06/24 at 11:29 Magnesium Sulfate 50 ml @ 0 mls/hr PROTOCOL PRN IV; Start 10/07/24 at 09:30; Stop 11/06/24 at 09:29 Linezolid 300 ml @ 150 mls/hr Q12H IV Last administered on 10/09/24at 16:21; Start 10/07/24 at 13:30; Stop 10/17/24 at 13:29 Lactated Ringer's 1,000 ml ONCE ONCE IV Last administered on 10/07/24at 14:29; Start 10/07/24 at 14:30; Stop 10/07/24 at 14:31; Status DC EZETIMIBE 10 mg DAILY PO; Start 10/08/24 at 09:00; Stop 11/07/24 at 08:59 Hydrochlorothiazide 12.5 mg DAILY PO; Start 10/08/24 at 09:00; Stop 11/07/24 at 08:59 Atorvastatin Calcium 40 mg HS PO Last administered on 10/08/24at 20:11; Start 10/07/24 at 21:00; Stop 11/06/24 at 20:59 Losartan Potassium 100 mg DAILY PO; Start 10/08/24 at 09:00; Stop 11/07/24 at 08:59 Diatrizoate Meglum/ Diatrizoate Sod 30 ml STK-MED ONCE .ROUTE; Start 10/07/24 at 18:30; Stop 10/07/24 at 18:30; Status DC Fentanyl Citrate 100 mcg STK-MED ONCE .ROUTE; Start 10/09/24 at 11:08; Stop 10/09/24 at 11:08; Status DC Midazolam HCl 2 mg STK-MED ONCE .ROUTE; Start 10/09/24 at 11:08; Stop 10/09/24 at 11:08; Status DC PILLO GARCIA Jr. Oct 09, 2024 16:36
--- NOTE | 2024-10-09 16:50 | PN ---
[facility] PROGRESS NOTE Date of Service: Oct 09, 2024 Time of Service: 16:42 SUBJECTIVE: 64-year-old male with underlying history of hypertension, hyperlipidemia, obesity, chronic alcohol use, who presented to the ER for further evaluation of significant lower abdominal pain with associated fevers and chills. Symptoms have been ongoing for the past two days and patient reports having nausea, vomiting and poor oral intake. Reports having pain involving the lower abdomen is moderate to severe in intensity and localized to the left lower quadrant. Patient denies any history of diverticulosis or diverticulitis. Last colonoscopy was about five years ago. Patient is unsure of the results. Patient does have underlying history of hypertension but does not recall the n yuriy of antihypertensive that he takes. Denies any previous history of cardiac or pulmonary comorbidities or renal abnormalities. On presentation to the hospital, patient was noted to be febrile with T-max of 101 F, tachycardic with heart rate of 125 and soft blood pressure with BP of 94/55. [place] [address] with neutrophilia, hemoglobin of 14.2, platelet count of 182731. BMP remarkable for sodium 137, potassium 3.2, chloride of 99, CO2 of 25, creatinine of 2.9, BUN of 24, lactic acid of 4.3. Patient underwent further evaluation with CT abdomen pelvis without contrast which showed findings of per perforated sigmoid diverticulitis with signs of developing abscess. Consultation with General surgery with Dr. Campbell was requested in the ER recommended IV fluids, IV antibiotics and NPO status. Patient will be admitted under hospitalist service and will receive sepsis bolus of fluid, broad-spectrum antibiotics with IV Zosyn, and lactic acid and blood pressure will be monitored closely tonight. Condition remains critical. 10/06/24 patient was seen and examined. Case discussed with the RN and by the bedside. He reports doing slightly better. Abdominal pain has largely resolved. He denies nausea vomiting fever or chills 10/07/2024 - patient was seen in ED 9, patient is resting in the bed , patient denies pain, nausea, vomitings. Patient is currently continued on pantoprazole, Dilaudid, Zosyn, fluconazole, heparin, linezolid . Patient's vitals show temperature 101.8, pulse 108, respiratory rate 20, blood pressure 139/86, saturating at 100% on2 L nasal cannula. Patient's labs shows WBC down to 12.4 from 12.6, hemoglobin 11.7 In the chemistries show sodium 142, potassium 3.7, creatinine improved to 1.5 from 2.4, BUN 20, procalcitonin elevated at 2.98. Case is being followed by infectious Disease, Nephrology, General surgery. Infectious disease recommended starting linezolid and fluconazole on the patient, general surgery have plan to get a CT abdomen with oral contrast. Patient will be followed closely as he has high risk of decompensation. Preliminary blood culture showed Gram-negative rods, final result unclear. 10/08/2024 - patient is seen in room 230, patient is resting in the bed comfortably, says he feels better compared to yesterday and denies nausea, vomitings. Patient had a CT abdomen pelvis with oral contrast which showed acu te sigmoid diverticulitis,3 x 3.5 cm diverticular abscess, amorphous air collection within walled-off perforation. And there is no intraperitoneal air or free air in the abdomen . Pending further directions from surgery. Patient is currently hemodynamically stable with temperature 98.8, pulse 98, blood pressure 130/83, respiratory rate 18, saturating at 99% on room air. Patient's labs shows WBC elevated to 13.9 from 12.4, hemoglobin 11.2 And chemistries show sodium 141, potassium 3.5, creatinine stable at 1.5, BUN 20. Patient is currently continuing on linezolid, fluconazole, Zosyn. Patient will be monitored closely 10/09/2024 - patient is seen at bedside in room 230, patient is resting comfortably in the bed patient went through the percutaneous drainage by IR and the fluid is sent for culture. Patient denies any symptoms, any pain in the abdomen. Patient's blood culture yielded a prevotella oralis, patient is currently continuing on linezolid, Zosyn, fluconazole. Id is following the case closely. Patient has been started on consistent carb diet. Patient is currently hemodynamically stable with pulse 95, blood pressure 143/96, saturating at 100% on2 L oxygen. Patient's labs shows sodium 138, potassium 3.6, creatinine 1.5, BUN 19, hematology shows WBC trended down to 11.4 from 13.9, hemoglobin 11.5. Patient will be continued on conservative management without any surgical intervention at this time according to the surgeon Dr. Campbell. Patient will be followed closely. Patient downgraded to med surg REVIEW OF SYSTEMS CONSTITUTIONAL: Fevers, chills, asthenia, malaise NEUROLOGICAL: Denies headache, amaurosis fugax, motor weakness, sensory deficit, vertigo/spinning sensation, gait abnormalities, or tremors. ENT: No hearing loss, otalgia, otorrhea, rhinitis, rhinorrhea, hoarseness, or sore throat. CARDIOVASCULAR: Denies any exertional angina, dyspnea on exertion, orthopnea, paroxysmal nocturnal dyspnea, palpitations, life-threatening arrhythmias, claudication. PULMONARY: Denies any shortness of breath, cough, phlegm/sputum, hemoptysis, pleuritic chest pain. SLEEP: Denies morning headaches, daytime somnolence or napping. Denies difficulty falling asleep, staying asleep, waking from sleep. Denies knowledge of snoring. GASTROINTESTINAL: Nausea, vomiting, abdominal pain GENITOURINARY: Denies frequency, urgency, nocturia, hematuria or incontinence (Storage/Irritative symptoms.) Low urinary stream, straining to void, urinary intermittency or hesitancy, splitting of the voiding stream, terminal dribbling. ENDOCRINOLOGIC: Denies polyuria, polydipsia, polyphagia or heat/cold intolerances. HEMATOLOGIC: Denies thrombophilia/previous clots, or coagulopathy/bleeding disorders. ONCOLOGIC: Denies personal history of malignancy. DERMATOLOGIC: Denies rashes or pruritus. PSYCHIATRIC: Denies any suicidal or homicidal ideation. Denies hallucinations. PHYSICAL EXAM GENERAL APPEARANCE: The patient is awake, alert, appears disheveled and ill, tachypneic NEUROLOGICAL: Cranial nerves II-XII grossly intact. Motor is 5/5 in bilateral upper and lower extremities proximal to distal. No sensory deficits. HEENT: Face is symmetric. Pupils are equal and reactive. Extraocular movements are intact. NECK: Supple. No JVD. No thyromegaly. No submental, submandibular, pre- /postauricular, occipital or supraclavicular lymphadenopathy. CHEST: Normal chest expansion. No Telemetry. LUNGS: Absence of any rales, rhonchi or any wheezing. CARDIOVASCULAR: Regular. S1 and S2 normal. No appreciable rubs, murmurs or gallops. ABDOMEN: Soft, nontender, and nondistended. There is no rebound, voluntary guarding, or rigidity. : Deferred. No Ni. EXTREMITIES: 1+ pitting edema of the bilateral lower extremities, changes of ps oriasis noted of the bilateral lower and upper extremities SKIN: No skin breakdown. Vital Signs (last 8hr) Date Time Temp Pulse Resp B/P (MAP) Pulse Ox O2 Delivery O2 Flow Rate FiO2 10/09/24 15:15 95 22 143/96 100 Nasal Cannula 2.0 10/09/24 14:15 90 22 154/91 99 Nasal Cannula 2.0 10/09/24 13:45 94 22 160/96 100 Nasal Cannula 2.0 10/09/24 13:15 81 22 153/96 100 Nasal Cannula 2.0 10/09/24 13:00 82 22 149/94 100 Nasal Cannula 2.0 10/09/24 12:45 83 20 147/87 100 Nasal Cannula 2.0 10/09/24 12:30 98.6 92 18 136/89 98 Nasal Cannula 2.0 LABS: Laboratory: Test 10/09/24 16:01 10/09/24 03:28 Range/Units Whole Blood Glucose 108 70-110 MG/DL White Blood Count 11.4 H 4.8-10.8 K/uL Red Blood Count 3.67 L 4.50-6.20 MIL/uL Hemoglobin 11.5 L 14.0-18.0 g/dL Hematocrit 34.5 L 42-54 % Mean Corpuscular Volume 94.0 79-99 fL Mean Corpuscular Hemoglobin 31.3 27.0-33.0 pg Mean Corpuscular Hemoglobin Concent 33.3 32.0-36.0 g/dL Red Cell Distribution Width 15.9 H 11.0-15.5 % Platelet Count 206 130-400 K/uL Mean Platelet Volume 9.6 7.5-10.5 fL Immature Granulocyte % (Auto) 1.0 0-1 % Neutrophils (%) (Auto) 82.8 H 40.0-77.0 % Lymphocytes (%) (Auto) 6.6 L 21.0-51.0 % Monocytes (%) (Auto) 7.3 3.0-13.0 % Eosinophils (%) (Auto) 2.0 0.0-8.0 % Basophils (%) (Auto) 0.3 0.0-5.0 % Neutrophils # (Auto) 9.5 H 1.8-7.7 K/uL Lymphocytes # (Auto) 0.8 L 1.0-4.8 K/uL Monocytes # (Auto) 0.8 0.1-1.0 K/uL Eosinophils # (Auto) 0.23 0.00-0.70 K/uL Basophils # (Auto) 0.04 0.00-0.20 K/uL Absolute Immature Granulocyte (auto 0.11 0-1 K/uL Nucleated Red Blood Cells 0.0 0.0-0.19 % Sodium Level 138 136-145 mmol/L Potassium Level 3.6 3.5-5.1 mmol/L Chloride Level 102 101-111 mmol/L Carbon Dioxide Level 22 21-32 mmol/L Blood Urea Nitrogen 19 H 7-18 mg/dL Creatinine 1.5 H 0.5-1.3 mg/dL Glomerular Filtration Rate Calc 51 >90 mL/min Random Glucose 155 H 70-105 mg/dL Total Calcium 8.7 8.5-10.1 mg/dL Phosphorus Level 3.4 2.5-4.9 mg/dL Magnesium Level 2.00 1.80-2.40 mg/dL Total Bilirubin 1.5 H 0.2-1.0 mg/dL Aspartate Amino Transf (AST/SGOT) 31 10-37 U/L Alanine Aminotransferase (ALT/SGPT) 30 12-78 U/L Alkaline Phosphatase 78 50-136 U/L Total Protein 6.7 6.0-8.3 g/dL Albumin 2.3 L 3.5-5.0 g/dL Current Medications Medications (Trade) Dose Ordered Sig/Tim Route PRN Reason Start Time Stop Time Status Last Admin Dose Admin Acetaminophen (TYLenol 325MG TAB) 650 mg Q6H PRN PO MILD PAIN (1-3) 10/05/24 18:30 11/04/24 18:29 10/07/24 19:02 650 MG Acetaminophen (TYLenol 650MG SUPPOSITORY) 650 mg Q4H PRN RC TEMPERATURE GREATER THAN 101.5 10/07/24 05:30 11/06/24 05:29 10/07/24 12:31 650 MG Acetaminophen (acetaMINOPHEN) 1,000 mg ONCE STAT IVPB 10/06/24 17:17 10/06/24 17:19 DC 10/06/24 19:27 1,000 MG Acetaminophen (acetaMINOPHEN) 1,000 mg STAT IVPB 10/06/24 09:00 10/06/24 13:02 DC 10/06/24 09:37 1,000 MG Albumin Human 100 ml @ 100 mls/hr AD IV 10/05/24 21:00 10/06/24 06:01 DC 10/05/24 21:33 100 MLS/HR Albumin Human 100 ml @ 0 mls/hr AD IV 10/06/24 06:00 10/07/24 12:38 DC 10/06/24 07:02 500 MLS/HR Atorvastatin Calcium (LIPItor 40MG) 40 mg HS PO 10/07/24 21:00 11/06/24 20:59 10/08/24 20:11 40 MG Budesonide (Pulmicort 0.5 Mg/2ml) 0.5 mg BIDRESP IH 10/05/24 18:00 11/04/24 17:59 10/09/24 06:46 0.5 MG Chlordiazepoxide HCl (LIBrium 25 MG CAP) 25 mg Q4H PRN PO ALCOHOL WITHDRAWAL PROTOCOL 10/05/24 18:00 10/12/24 17:59 Dextrose (D50w) 50 ml AD PRN IV HYPOGLYCEMIA PROTOCOL 10/07/24 09:30 11/06/24 09:29 EZETIMIBE (Zetia) 10 mg DAILY PO 10/08/24 09:00 11/07/24 08:59 Fluconazole/ Sodium Chloride 200 ml @ 100 mls/hr Q24H IV 10/06/24 13:00 11/05/24 12:59 10/09/24 16:20 100 MLS/HR Glucagon (Glucagon 1mg Kit) 1 mg AD PRN IM HYPOGLYCEMIA PROTOCOL 10/07/24 09:30 11/06/24 09:29 Heparin Sodium (Porcine) (HEParin 5,000 UNIT VIAL) 5,000 unit TID SQ 10/06/24 21:00 11/05/24 20:59 10/08/24 20:13 5,000 UNIT Hydrochlorothiazide (hydroCHLOROthiazide 25MG) 12.5 mg DAILY PO 10/08/24 09:00 11/07/24 08:59 Hydromorphone HCl (DiLAUDid 0.5MG INJ) 0.5 mg Q6H PRN IVP SEVERE PAIN (7-10) 10/05/24 18:00 10/10/24 17:59 10/05/24 19:34 0.5 MG Insulin Human Regular (humuLIN R 100 UNIT/ML 3ML) INSULIN SLIDING SCAL... ACHS SQ 10/07/24 11:30 11/06/24 11:29 Linezolid 300 ml @ 150 mls/hr Q12H IV 10/07/24 13:30 10/17/24 13:29 10/09/24 16:21 150 MLS/HR Lorazepam (AtiVAN) 2 mg Q4H PRN IVP ALCOHOL WITHDRAWAL PROTOCOL 10/05/24 18:00 10/12/24 17:59 Losartan Potassium (CozAAR 100MG TAB) 100 mg DAILY PO 10/08/24 09:00 11/07/24 08:59 Magnesium Sulfate 50 ml @ 0 mls/hr PROTOCOL PRN IV MAGNESIUM PROTOCOL 10/07/24 09:30 11/06/24 09:29 Norepinephrine 250 ml @ 44.213 mls/ hr PROTOCOL IV 10/06/24 12:00 11/05/24 11:59 Nystatin (NystOP 15 GM POWDER) 1 APPLICATION BID TP 10/06/24 21:00 11/05/24 20:59 10/08/24 20:36 1 APPL Pantoprazole Sodium (PROTonix 40MG INJ) 40 mg Q24H IVP 10/05/24 18:00 11/04/24 17:59 10/09/24 16:21 40 MG Pharmacy Profile Note (Pharmacy Communication) 1 each PROTOCOL PRN MISC ETOH Withdrawal Score changes 10/05/24 18:00 10/12/24 17:59 Piperacillin Sod/ Tazobactam Sod (Zosyn 3.375gm+NS 50ml) 3.375 gm Q8H IVPB 10/05/24 23:00 10/15/24 22:59 10/09/24 16:21 3.375 GM Potassium Chloride 100 ml @ 100 mls/hr AD PRN IV POTASSIUM PROTOCOL 10/07/24 09:30 11/06/24 09:29 Potassium Chloride 100 ml @ 100 mls/hr AD PRN IV POTASSIUM PROTOCOL 10/05/24 18:00 11/04/24 17:59 10/05/24 19:34 100 MLS/HR Potassium Chloride (K-Dur/Klor-Con 20meq) 20 meq AD PRN PO POTASSIUM PROTOCOL 10/07/24 09:30 11/06/24 09:29 10/09/24 06:03 20 MEQ Potassium Chloride (KCl 10% Elixir 20meq/15ml) 20 meq AD PRN PO POTASSIUM PROTOCOL 10/07/24 09:30 11/06/24 09:29 Sodium Chloride (NS 50ml) 50 ml AD IV 10/05/24 21:00 10/05/24 17:34 DC Thiamine HCl (Vitamin B-1) 100 mg Q24H IVP 10/05/24 18:00 10/06/24 11:49 DC 10/05/24 18:12 100 MG Thiamine HCl (Vitamin B-1) 300 mg Q24H IVP 10/06/24 18:00 10/09/24 17:59 10/09/24 16:21 300 MG Thiamine HCl 100 mg/Folic Acid 1 mg/Multivitamins/ Minerals 10 ml/ Sodium Chloride 1,011.2 ml @ 100 mls/ hr Q24H IV 10/05/24 18:00 10/08/24 04:07 DC 10/07/24 18:17 100 MLS/HR DIAGNOSTICS / RADIOLOGY: [ ] ASSESSMENT: Severe sepsis, POA, 2/2 perforated sigmoid diverticulitis Perforated sigmoid diverticulitis with developing abscess, POA Moderate lactic acidosis, POA Acute kidney injury, POA resolving Hypokalemia, POA Mild urinary tract infection, POA Alcohol use disorder, POA Morbid obesity, POA Underlying history of hypertension, POA Hyperlipidemia, POA Suspected GREG, POA PLAN: Patient will be admitted to PCCU Continue with IV fluids, patient will receive sepsis bolus of fluid and start maintenance IV fluid with banana bag, 75 mL/hour Patient will be started on daily thiamine supplementation Patient will be kept strictly NPO We will start broad-spectrum antibiotics with IV Zosyn, renally dose Consultation has been requested with Dr. Campbell, with General surgery, appreciate recommendations Monitor lactic acid trend closely, if patient develops hypotension tonight, patient will be transferred to ICU for vasopressors Discussed patient's case with critical Care, we will watch this patient closely for the next 24 hours Ni catheter will be placed and we will monitor urine output closely Discussed patient's case with Dr. Moffett, with Nephrology, appreciate recommendations Monitor urine output closely, avoid NSAIDs, WENDIE inhibitor/ARB, avoid IV contrast until renal function improves Pain control with Tylenol and IV hydromorphone for severe pain Monitor renal function closely, All labs will be repeated in the morning Patient will be started on CPAP therapy tonight for management of suspected obstructive sleep apnea Patient will be placed on alcohol withdrawal protocol with Librium and Ativan, counseled patient to quit alcohol on discharge, patient verbalized understanding Continue antibiotics linezolid, fluconazole according to Infectious Disease recommendations Follow up with surgery recommendations ATTESTATION BY PHYSICIAN I have seen and examined the patient. I reviewed the documentation, medical decision making, and treatment plan as noted by the mid-level provider above. I agree with the findings and plan of care. Brigido Whittaker MD, KEERTI K MD Oct 09, 2024 16:50
[2024-10-09 20:12] LABS: ALBUMIN 2.5 g/dL (3.5-5.0); BILIRUBIN,TOTAL 2.2 mg/dL (0.2-1.0); CREATININE 1.5 mg/dL (0.5-1.3); POTASSIUM 3.6 mmol/L (3.5-5.1); TOTAL PROTEIN, SERUM 7.6 g/dL (6.0-8.3)
--- NOTE | 2024-10-09 22:40 | PN ---
[facility] PROGRESS NOTE Date Patient Seen: Oct 09, 2024 Time of Visit: 13:37 Supervising Physician: DR. LUCIAN LUDWIG Primary Care Physician: Attending team: [facility] Hospitalist Team Outpatient Specialists: Inpatient Consults: BIS, Critical care team general surgeon, infectious disease, nephrology PROBLEM LIST: Severe sepsis without septic shock, 2/2 UTI & perforated sigmoid diverticulitis, POA Perforated sigmoid diverticulitis with developing abscess, POA Acute renal failure, GFR 23 POA, (last GFR was 83 on 09/18/2024, prior to that GFR 61 on 03/20/2024) Acute complicated cystitis, POA Lactic acidosis, POA Hypokalemia, POA Alcohol use disorder, POA Morbid obesity, POA Uncontrolled hypertension, POA Hyperlipidemia, POA Suspected GREG, POA INTERVAL HISTORY: [Patient is evaluated at bedside. He was admitted for general body weakness, fever, chills, shortness of breaths and cough associated with left-sided abdominal pain. Sepsis code was activated in the ED at the time of his visit. Patient denies any nausea or vomiting since admission states his last meal was the night before did admit a loose stool in the morning which was nonbloody. Patient also has PERRY on admission improved with IV fluids. Did receive 3 L of NS in the ED. upon evaluation patient is resting comfortably in bed on 2 L nasal cannula. He has [id number] abdominal distention and bilateral lower quadrant pain with palpation. He was evaluated by General surgery, pending formal recommendation. He continues on Zosyn. Of note, patient states was previously on xarelto for a hx of DVT but was discontinued d/t anemia (presumed GI bleed). Currently NPO. Patient is hemodynamically stable.] 10/07 Patient has been spiking fevers to 102F despite aggressive anti-pyretic methods. He is not in any distress. Denies abdominal pain at rest but is painful with movement and palpation. His abdomen is moderate to severely distended, worsened from previous. WBC is stable and unchanged at 12. ID has added linezolid in addition to Zosyn and fluconazole. General surgery is following and recommending medical management for now. He is hemodynamically stable without vasopressor. Creatinine is much improved from admission. Will continue aggressive fluid resuscitation and antibiotic regimen, pending further recommendation from general surgery. 10/08 Patient is a 64 year old man still on antibiotic therapy, awake , alert, denies nausea or vomiting, Abdomen very distended, tender, No fevers pending IR evaluation for possible drainage of abscess, we will continue monitoring closely and follow up surgical recommendations. 10/09 Patient is a 64 year old, awake, alert, well oriented, not in distress, denies new issues continues to be on antibiotic therapy he will be follow up by surgery for further recommendations, no new issues , from pulmonary stand point of view no further recommendations plan is sign off this case. REVIEW OF SYSTEMS: 12 point ROS reviewed with patient. Pertinent positives mentioned above. Otherwise negative. PHYSICAL EXAM: GENERAL: Alert, weak, awake oriented x 3 HEENT: EOMI, Sclera non icteric, moist mucosa NECK: Supple, no JVD, trachea midline LUNGS: Diminished breath sounds bilaterally. No wheezes HEART: Regular rate and rhythm. Normal S1 and S2, without murmurs ABD: Abdomen firm, generalized tenderness. Bowel sounds present. EXT: No clubbing cyanosis. +3 edema NEURO: Alert and oriented x3, follows commands, no neuro deficits noted. Vital Signs (last 8hr) Date Time Temp Pulse Resp B/P (MAP) Pulse Ox O2 Delivery O2 Flow Rate FiO2 10/09/24 19:21 110 20 N/Cannula Low lpm 2.0 28 10/09/24 19:20 110 20 10/09/24 19:00 98.2 97 18 157/98 97 Nasal Cannula 2.5 10/09/24 16:00 99.3 71 20 162/95 99 Nasal Cannula 2.0 10/09/24 15:15 95 22 143/96 100 Nasal Cannula 2.0 LABS: Hematology Labs: Test 10/09/24 03:28 Range/Units White Blood Count 11.4 H 4.8-10.8 K/uL Red Blood Count 3.67 L 4.50-6.20 MIL/uL Hemoglobin 11.5 L 14.0-18.0 g/dL Hematocrit 34.5 L 42-54 % Mean Corpuscular Volume 94.0 79-99 fL Mean Corpuscular Hemoglobin 31.3 27.0-33.0 pg Mean Corpuscular Hemoglobin Concent 33.3 32.0-36.0 g/dL Red Cell Distribution Width 15.9 H 11.0-15.5 % Platelet Count 206 130-400 K/uL Mean Platelet Volume 9.6 7.5-10.5 fL Immature Granulocyte % (Auto) 1.0 0-1 % Neutrophils (%) (Auto) 82.8 H 40.0-77.0 % Lymphocytes (%) (Auto) 6.6 L 21.0-51.0 % Monocytes (%) (Auto) 7.3 3.0-13.0 % Eosinophils (%) (Auto) 2.0 0.0-8.0 % Basophils (%) (Auto) 0.3 0.0-5.0 % Neutrophils # (Auto) 9.5 H 1.8-7.7 K/uL Lymphocytes # (Auto) 0.8 L 1.0-4.8 K/uL Monocytes # (Auto) 0.8 0.1-1.0 K/uL Eosinophils # (Auto) 0.23 0.00-0.70 K/uL Basophils # (Auto) 0.04 0.00-0.20 K/uL Absolute Immature Granulocyte (auto 0.11 0-1 K/uL Nucleated Red Blood Cells 0.0 0.0-0.19 % Chemistry Labs: Test 10/09/24 19:24 10/09/24 19:15 10/09/24 03:28 Range/Units Whole Blood Glucose 163 #H 70-110 MG/DL Sodium Level 138 136-145 mmol/L Potassium Level 3.6 3.5-5.1 mmol/L Chloride Level 103 101-111 mmol/L Carbon Dioxide Level 22 21-32 mmol/L Blood Urea Nitrogen 22 H 7-18 mg/dL Creatinine 1.5 H 0.5-1.3 mg/dL Glomerular Filtration Rate Calc 51 >90 mL/min Random Glucose 177 H 70-105 mg/dL Total Calcium 8.9 8.5-10.1 mg/dL Total Bilirubin 2.2 #H 0.2-1.0 mg/dL Aspartate Amino Transf (AST/SGOT) 32 10-37 U/L Alanine Aminotransferase (ALT/SGPT) 35 12-78 U/L Alkaline Phosphatase 88 50-136 U/L Total Protein 7.6 6.0-8.3 g/dL Albumin 2.5 L 3.5-5.0 g/dL Phosphorus Level 3.4 2.5-4.9 mg/dL Magnesium Level 2.00 1.80-2.40 mg/dL DIAGNOSTICS / RADIOLOGY RESULTS: [ ] PLAN Plan is to sign off this case , do not hesitate to contact us if necessary Continue Zosyn, fluconazole and linezolid Avoid nephrotoxic medications. DVT and GI prophylaxis. P.r.n. medications for: Pain management NEURO: Minimize central acting medications as possible. Maintain fall precautions, adequate lighting during the day PULMONARY: Supplemental 02 as needed. Maintain aspiration precautions at all times CARDIOVASCULAR: Follow hemodynamics. Vital signs per facility protocol GI & NUTRITION: Continue with nutritional support. Continue stool softeners and laxatives as needed. KIDNEYS & ELECTROLYTES: Strict monitoring of intake, output and overall fluid balance. Avoid nephrotoxic medications to the extent possible. Medications to be dosed according to renal function. Monitor electrolytes and replace as needed ENDOCRINE: Maintain blood glucose between 100-180 at all times. Hypoglycemia protocol in place INFECTIOUS DISEASE: Trend temperature, WBC and procalcitonin level Follow cultures, deescalate antibiotics as soon as possible. Panculture if new onset fever ONCOLOGY/HEMATOLOGY/COAGULATION: Monitor for s/s of bleeding Monitor hemoglobin, coagulation studies as needed SKIN: Pressure ulcer prevention per facility protocol Specialty mattress ORTHO/REHAB: Continue PT/OT Prophylaxis: Continue GI and DVT prophylaxis Code Status: Full Resuscitation Disposition: TBD ATTESTATION BY PHYSICIAN Documentation assistance provided by a scribe, information recorded by the scribe was done at my direction and has been reviewed and validated by me." LUCIAN NEUMANN MD I personally scribed for LUCIAN NEUMANN MD ([email or web address]) on 10/09/24 at 22:40. Electronically submitted by Kristy Pascual ([email or web address]). LUCIAN NEUMANN MD Oct 09, 2024 22:40
[2024-10-10] VITALS (13 sets, daily range): BP systolic 128–151; BP diastolic 74–91; PULSE 96–119; RESP 18–23; TEMP 97.7–98.8; O2SAT 96–99
--- NOTE | 2024-10-10 00:41 | PN ---
INFECTIOUS DISEASE FOLLOWUP NOTE DATE OF SERVICE: 10/09/2024 SUBJECTIVE: The patient is seen and examined at bedside today. The patient has no fever, no chills. No sore throat, no rhinorrhea. No neck pain, no neck swelling. No depression. No suicidal ideation. No bleeding tendency. No rash is present. The patient underwent percutaneous drainage of pelvic abscess. PHYSICAL EXAMINATION: VITAL SIGNS: Temperature 97.6. EYES: No icterus. Pupils are equal and reactive. HENT: No oral lesions seen. Moist oral mucosa. NECK: Supple, no JVD or thyromegaly. LUNGS: Good air entry. No rales, no rhonchi. CARDIOVASCULAR: S1, S2 regular. No murmur heard. ABDOMEN: Obese, bowel sounds are present. ____ tenderness in the left lower quadrant ____. CENTRAL NERVOUS SYSTEM: Awake, alert, oriented x 3. No focal deficits. SKIN: No rashes, no itchiness. LYMPHATIC: No peripheral lymphadenopathy. BACK: No deformity, no pressure ulcer. MUSCULOSKELETAL: No joint swelling, erythema or tenderness. ASSESSMENT: A 64-year-old male with the following: * Septic shock. * Diverticulitis with perforation. * Intra-abdominal abscess, status post catheter placement. * Obesity. * Hypoxic respiratory failure. * Debility. PLAN: * Continue Zosyn. * Continue linezolid. * Continue fluconazole. * Continue pain management. * Monitor electrolytes. * Continue DVT prophylaxis. * Continue oxygen. TID: [id number] RECEIPT: [id number]
[2024-10-10 05:03] LABS: BASOPHILS # (AUTO) 0.04 K/uL (0.00-0.20); BASOPHILS % (AUTO) 0.4 % (0.0-5.0); EOSINOPHILS # (AUTO) 0.12 K/uL (0.00-0.70); EOSINOPHILS % (AUTO) 1.3 % (0.0-8.0); HEMATOCRIT 34.4 % (42-54); LYMPHOCYTES # (AUTO) 0.8 K/uL (1.0-4.8); LYMPHOCYTES % (AUTO) 8.1 % (21.0-51.0); MEAN CORPUSCULAR HEMOGLOBIN 31.1 pg (27.0-33.0); MEAN CORPUSCULAR HGB CONC 32.8 g/dL (32.0-36.0); MEAN CORPUSCULAR VOLUME 94.8 fL (79-99); MONOCYTES # (AUTO) 0.6 K/uL (0.1-1.0); MONOCYTES % (AUTO) 6.5 % (3.0-13.0); NEUTROPHILS # (AUTO) 7.6 K/uL (1.8-7.7); NEUTROPHILS % (AUTO) 82.6 % (40.0-77.0); PLATELET COUNT (AUTO) 251 K/uL (130-400); RED BLOOD CELL COUNT(AUTO) 3.63 MIL/uL (4.50-6.20); RED CELL DISTRIBUTION WIDTH 16.2 % (11.0-15.5); WHITE BLOOD COUNT (AUTO) 9.2 K/uL (4.8-10.8)
[2024-10-10 05:22] LABS: CREATININE 1.7 mg/dL (0.5-1.3); POTASSIUM 3.9 mmol/L (3.5-5.1)
[2024-10-10] MEDS: ZOSYN 3.375GM +NS 50ML IVPB SCH ×2 (08:40→20:52)
--- NOTE | 2024-10-10 13:00 | PN ---
NEPHROLOGY PROGRESS NOTE Date/Time Patient Seen: Oct 10, 2024 Reason for Consultation: 12:59 SUBJECTIVE: This is a 64-year-old male with underlying history of hypertension, hyperlipidemia, obesity, chronic alcohol use, who presented to the ER for further evaluation of significant lower abdominal pain with associated fevers and chills CT of the abdomen showed perforated sigmoid diverticulitis suggesting potential evolving abscess. Blood cultures are positive for prevotella oralis He continues on IV antibiotics as per ID S/P percutaneous drain by IR on 10/09 Tolerating diet well. At this time there is no surgical interventions planned. He was noted to have elevated BUN and creatinine We has been consulted for renal failure. Renal function is stable Electrolytes are stable. He was seen in the medical floor, in no acute distress Family at the bedside Condition is critical and guarded REVIEW OF SYSTEMS: GENERAL: Positive for abdominal pain NEUROLOGIC: Negative for any blurry vision, blind spots, double vision, facial asymmetry, dysphagia, dysarthria, hemiparesis, hemisensory deficits, vertigo, ataxia. HEENT: Negative for any head trauma, neck trauma, neck stiffness, photophobia, phonophobia, sinusitis, rhinitis. CARDIAC: Negative for any chest pain, dyspnea on exertion, paroxysmal nocturnal dyspnea, peripheral edema. PULMONARY: Negative for any shortness of breath, wheezing, COPD, or TB exposure. GASTROINTESTINAL: Negative for any abdominal pain, nausea, vomiting, bright red blood per rectum, melena. GENITOURINARY: Negative for any dysuria, hematuria, incontinence. INTEGUMENTARY: Negative for any rashes, cuts, insect bites. RHEUMATOLOGIC: Negative for any joint pains, photosensitive rashes, history of vasculitis or kidney problems. HEMATOLOGIC: Negative for any abnormal bruising, frequent infections or bleeding . Vital Signs (last 8hr) Date Time Temp Pulse Resp B/P (MAP) Pulse Ox O2 Delivery O2 Flow Rate FiO2 10/06/24 11:57 99.3 93 21 119/66 98 Room Air* 0 21 10/06/24 10:16 99.0 109 22 122/64 96 Room Air* 0 21 10/06/24 08:05 101.5 111 26 113/63 96 Nasal Cannula* 2 28 10/06/24 06:41 20 N/Cannula Low lpm 2.0 28 10/06/24 06:40 111 20 10/06/24 06:28 98.8 109 24 111/62 96 Nasal Cannula* 2 28 PHYSICAL EXAM: GENERAL: Alert and oriented x 3. No acute distress. Well-nourished. EYES: EOMI. Anicteric. HENT: Moist mucous membranes. No scleral icterus. No cervical lymphadenopathy. LUNGS: Clear to auscultation bilaterally. No accessory muscle use. CARDIOVASCULAR: Regular rate and rhythm. No murmur. No JVD. ABDOMEN: Soft, non-tender and non-distended. No palpable masses. EXTREMITIES: No edema. Non-tender. SKIN: No rashes or lesions. Warm. NEUROLOGIC: No focal neurological deficits. CN II-XII grossly intact, but not individually tested. PSYCHIATRIC: Cooperative. Appropriate mood and affect. Current Medications Medications (Trade) Dose Ordered Sig/Tim Route PRN Reason Start Time Stop Time Status Last Admin Dose Admin Acetaminophen (TYLenol 325MG TAB) 650 mg Q6H PRN PO MILD PAIN (1-3) 10/05/24 18:30 11/04/24 18:29 Acetaminophen (acetaMINOPHEN) 1,000 mg STAT IVPB 10/06/24 09:00 10/06/24 13:02 DC 10/06/24 09:37 1,000 MG Albumin Human 100 ml @ 100 mls/hr AD IV 10/05/24 21:00 10/06/24 06:01 DC 10/05/24 21:33 100 MLS/HR Albumin Human 100 ml @ 0 mls/hr AD IV 10/06/24 06:00 11/05/24 05:59 10/06/24 07:02 500 MLS/HR Budesonide (Pulmicort 0.5 Mg/2ml) 0.5 mg BIDRESP IH 10/05/24 18:00 11/04/24 17:59 10/06/24 06:38 0.5 MG Chlordiazepoxide HCl (LIBrium 25 MG CAP) 25 mg Q4H PRN PO ALCOHOL WITHDRAWAL PROTOCOL 10/05/24 18:00 10/12/24 17:59 Fluconazole/ Sodium Chloride 200 ml @ 100 mls/hr Q24H IV 10/06/24 13:00 11/05/24 12:59 Hydromorphone HCl (DiLAUDid 0.5MG INJ) 0.5 mg Q6H PRN IVP SEVERE PAIN (7-10) 10/05/24 18:00 10/10/24 17:59 10/05/24 19:34 0.5 MG Lorazepam (AtiVAN) 2 mg Q4H PRN IVP ALCOHOL WITHDRAWAL PROTOCOL 10/05/24 18:00 10/12/24 17:59 Norepinephrine 250 ml @ 44.213 mls/ hr PROTOCOL IV 10/06/24 12:00 11/05/24 11:59 Pantoprazole Sodium (PROTonix 40MG INJ) 40 mg Q24H IVP 10/05/24 18:00 11/04/24 17:59 10/05/24 18:12 40 MG Pharmacy Profile Note (Pharmacy Communication) 1 each PROTOCOL PRN MISC ETOH Withdrawal Score changes 10/05/24 18:00 10/12/24 17:59 Piperacillin Sod/ Tazobactam Sod (Zosyn 3.375gm+NS 50ml) 3.375 gm Q8H IVPB 10/05/24 23:00 10/15/24 22:59 10/06/24 08:30 3.375 GM Potassium Chloride 100 ml @ 100 mls/hr AD PRN IV POTASSIUM PROTOCOL 10/05/24 18:00 11/04/24 17:59 10/05/24 19:34 100 MLS/HR Sodium Chloride (NS 50ml) 50 ml AD IV 10/05/24 21:00 10/05/24 17:34 DC Thiamine HCl (Vitamin B-1) 100 mg Q24H IVP 10/05/24 18:00 10/06/24 11:49 DC 10/05/24 18:12 100 MG Thiamine HCl (Vitamin B-1) 300 mg Q24H IVP 10/06/24 18:00 10/09/24 17:59 Thiamine HCl 100 mg/Folic Acid 1 mg/Multivitamins/ Minerals 10 ml/ Sodium Chloride 1,011.2 ml @ 100 mls/ hr Q24H IV 10/05/24 18:00 10/08/24 04:07 10/05/24 18:12 75 MLS/HR LABORATORY: [ ] Hematology Labs: Test 10/10/24 04:55 Range/Units White Blood Count 9.2 4.8-10.8 K/uL Red Blood Count 3.63 L 4.50-6.20 MIL/uL Hemoglobin 11.3 L 14.0-18.0 g/dL Hematocrit 34.4 L 42-54 % Mean Corpuscular Volume 94.8 79-99 fL Mean Corpuscular Hemoglobin 31.1 27.0-33.0 pg Mean Corpuscular Hemoglobin Concent 32.8 32.0-36.0 g/dL Red Cell Distribution Width 16.2 H 11.0-15.5 % Platelet Count 251 130-400 K/uL Mean Platelet Volume 9.6 7.5-10.5 fL Immature Granulocyte % (Auto) 1.1 H 0-1 % Neutrophils (%) (Auto) 82.6 H 40.0-77.0 % Lymphocytes (%) (Auto) 8.1 L 21.0-51.0 % Monocytes (%) (Auto) 6.5 3.0-13.0 % Eosinophils (%) (Auto) 1.3 0.0-8.0 % Basophils (%) (Auto) 0.4 0.0-5.0 % Neutrophils # (Auto) 7.6 1.8-7.7 K/uL Lymphocytes # (Auto) 0.8 L 1.0-4.8 K/uL Monocytes # (Auto) 0.6 0.1-1.0 K/uL Eosinophils # (Auto) 0.12 0.00-0.70 K/uL Basophils # (Auto) 0.04 0.00-0.20 K/uL Absolute Immature Granulocyte (auto 0.10 0-1 K/uL Nucleated Red Blood Cells 0.0 0.0-0.19 % Chemistry Labs: Test 10/10/24 11:53 10/10/24 04:55 10/09/24 19:15 10/09/24 03:28 Range/Units Whole Blood Glucose 157 H 70-110 MG/DL Sodium Level 137 136-145 mmol/L Potassium Level 3.9 3.5-5.1 mmol/L Chloride Level 103 101-111 mmol/L Carbon Dioxide Level 21 21-32 mmol/L Blood Urea Nitrogen 23 H 7-18 mg/dL Creatinine 1.7 H 0.5-1.3 mg/dL Glomerular Filtration Rate Calc 44 >90 mL/min Random Glucose 174 H 70-105 mg/dL Total Calcium 8.5 8.5-10.1 mg/dL Total Bilirubin 2.2 #H 0.2-1.0 mg/dL Aspartate Amino Transf (AST/SGOT) 32 10-37 U/L Alanine Aminotransferase (ALT/SGPT) 35 12-78 U/L Alkaline Phosphatase 88 50-136 U/L Total Protein 7.6 6.0-8.3 g/dL Albumin 2.5 L 3.5-5.0 g/dL Phosphorus Level 3.4 2.5-4.9 mg/dL Magnesium Level 2.00 1.80-2.40 mg/dL DIAGNOSTICS / RADIOLOGY: REASON: ABD DISTENTION ORDERING PHYSICIAN: EDUARDO ABERNATHY MD PROCEDURE: ABD PEL WO - CT ABDOMEN/PELVIS W/O CONTRAST CT ABDOMEN/PELVIS W/O CONTRAST HISTORY: Abdominal distention COMPARISON: 10/05/2024 TECHNIQUE: Multiple sequential axial images of the abdomen and pelvis were obtained from the dome of the diaphragm through symphysis pubis. Patient was not given contrast through intravenous route. Oral contrast was given. FINDINGS: There are bilateral interstitial fibrosis. Tiny pericardial effusion is seen. No pleural effusion is seen bilaterally. There is no evidence of parenchymal disease or pulmonary nodule of the visualized lower lungs. Degenerative changes of the thoracolumbar spine are present. The heart is not enlarged. The liver measured 20 cm. There is contrast material stomach and small bowel loops. There is sigmoid colon wall thickening with adjacent fat stranding consistent with acute sigmoid diverticulitis. Extensive adjacent mesenteric fat stranding is seen in the pelvis. There is small diverticular abscess in the left anterior pelvis measuring 3 x 3.5 cm. Amorphous air collection is seen consistent with walled off perforation. No definite free intraperitoneal air is seen. There is diverticulosis. The liver, spleen, adrenal glands and pancreas are unremarkable. There is no evidence of hydronephrosis bilaterally. No evidence of renal stone is seen. Fecal material is seen in the colon. There are normal size retroperitoneal and mesenteric lymph nodes. No ascites is seen. Atherosclerotic changes are present. Appendix is not well visualized. Pelvic sidewalls are symmetric bilaterally. Bladder is poorly distended. There is fluid-filled small bowel loops and colon. IMPRESSION: 1. There is contrast material stomach and small bowel loops. There is sigmoid colon wall thickening with adjacent fat stranding consistent with acute sigmoid diverticulitis. Extensive adjacent mesenteric fat stranding is seen in the pelvis. There is small diverticular abscess in the left anterior pelvis measuring 3 x 3.5 cm. Amorphous air collection is seen consistent with walled off perforation. No definite free intraperitoneal air is seen. There is diverticulosis. CT was performed with one or more following dose reduction techniques: automated exposure control, adjustment of the mA and kv according to patient's size, or use of a iterative reconstruction technique. DICTATED BY: KIM MADSEN MD DATE: 10/07/242152 REASON: peritoneum ORDERING PHYSICIAN: LIDIA BUTLER PROCEDURE: ABD 1VW - ABD 1VW ABD 1VW HISTORY: Peritoneal COMPARISON: None FINDINGS: A frontal projection of the abdomen was obtained. Small bowel dilatation is seen. Fecal material is seen in the colon. Degenerative changes of the thoracolumbar spine are noted. IMPRESSION: 1. Small bowel dilatation. DICTATED BY: KIM MADSEN MD DATE: 10/07/242005 REASON: PERFORATED BOWEL/DISTENDED ABD ORDERING PHYSICIAN: VICKIE MONTGOMERY MD PROCEDURE: ABD 1VW - ABD 1VW ABD 1VW CLINICAL HISTORY: PERFORATED BOWEL/DISTENDED ABD COMPARISON: None FINDINGS: Single view of the abdomen was obtained. There are multiple air-filled loops of bowel. Free air is not definitely identified but could likely not be excluded on this exam. IMPRESSION: Ileus versus small bowel obstruction DICTATED BY: MISSY FALK DO DATE: 10/06/24 1653 REASON: renal failue ORDERING PHYSICIAN: KATH ALEMAN SHELLFISH MANAGER PROCEDURE: RENAL - US RENAL SONOGRAM ULTRASOUND RENAL COMPLETE INDICATION: Renal failure TECHNIQUE: Routine ultrasound of the kidneys and urinary bladder with grayscale and color Doppler imaging was performed in real-time, and subsequently made available for review. COMPARISON: No prior studies available for comparison. FINDINGS: The right kidney measures 9.3 x 5.7 x 5.7 cm. No abnormal mass demonstrated. No evidence for hydronephrosis or shadowing stone. The left kidney measures 10.9 x 6.3 x 5.1 cm. No abnormal mass demonstrated. No evidence for hydronephrosis or shadowing stone. Empty urinary bladder secondary to Ni catheter placement. No free fluid demonstrated. IMPRESSION: Normal sonographic appearance of the kidneys. DICTATED BY: WILTON ZAVALA MD DATE: 10/06/24 1006 REASON: R/O dvt OF THE LOWER EXTREMITIES ORDERING PHYSICIAN: EDUARDO ABERNATHY MD PROCEDURE: VENOUS SYL - US VENOUS DOPPLER BILATERAL ULTRASOUND VENOUS DOPPLER, BILATERAL LOWER EXTREMITIES INDICATION: Bilateral lower extremity pain and swelling TECHNIQUE: Routine grayscale and color Doppler ultrasound of the bilateral lower extremity veins performed. COMPARISON: No priors. FINDINGS: The demonstrated veins of the bilateral lower extremity including the common femoral vein, femoral vein, and popliteal vein are associated with normal compressibility, augmentation, and flow. Normal respiratory variation was identified. No evidence for echogenic intraluminal thrombus formation. IMPRESSION: No sonographic evidence for deep venous thrombosis within the bilateral lower extremity veins. DICTATED BY: WILTON ZAVALA MD DATE: 10/05/241825 REASON: ABD PAIN ORDERING PHYSICIAN: MIRIAM RICE NP PROCEDURE: ABD PEL WO - CT ABDOMEN/PELVIS W/O CONTRAST CT ABDOMEN WITHOUT CONTRAST. CT PELVIS WITHOUT CONTRAST. INDICATION: Abdominal pain; No relevant information related to this study was provided in patient's history by the ordering service. TECHNIQUE: Routine transaxial imaging using 5 mm slice thickness through the abdomen and pelvis without the administration of IV contrast. Thin slice reconstructions are also provided. Coronal and sagittal reformatted images acquired for interpretation. CT was performed with one or more of the following dose reduction techniques: Automated exposure control, adjustment of the mA and/or kV according to patient size, or use of iterative reconstruction technique. COMPARISON: None FINDINGS: ON NONCONTRAST IMAGING: ABDOMEN: Examination provided for interpretation at 4:13 PM on 10/05/2024. Heart size is normal. Scarring at both lung bases. No abnormal renal calcifications, hydronephrosis, perinephric inflammation, or proximal hydroureter detected. The liver is normal in size and smooth in contour without biliary duct dilation. The spleen is normal in size and attenuation. The gallbladder appears normal. The pancreas appears normal without pancreatic duct dilation. The adrenal glands appear normal. No significant abdominal, retrocrural or retroperitoneal adenopathy noted. No evidence for intra-abdominal free air or organized fluid collection. No aortic aneurysmal dilation identified. PELVIS: No abnormal calcifications within the urinary bladder or distal ureters. No evidence for free air or organized pelvic fluid collection. No significant pelvic adenopathy detected. Several diverticula along the distal colon and mild to moderate pericolonic inflammatory fat stranding associated, including 3.5 cm aggregate of air and trace fluid along the mesenteric wall of the far proximal sigmoid colon with additional scattered air densities throughout the anterior mid to upper abdomen. Several diverticula along the proximal colon. Terminal ileum appears unremarkable. The appendix appears normal. Visible osseous structures are intact. IMPRESSION: Perforated sigmoid diverticulitis as described, including findings suggesting potential evolving abscess. DICTATED BY: WILTON ZAVALA MD DATE: 10/05/24 1611 REASON: COUGH ORDERING PHYSICIAN: UBALDO MCBRIDE MD PROCEDURE: CXR1VW - CHEST 1VW PORTABLE CHEST RADIOGRAPH INDICATION: COUGH COMPARISON: 05/16/2017 FINDINGS: nuclear monitoring technician leads overlie the field of view. Heart size is normal. The pulmonary vascularity and jeannie appear normal. No abnormal pulmonary parenchymal opacity or consolidation identified. Bibasilar lung linear scarring. No significant pleural effusion noted. No pneumothorax detected. IMPRESSION: No radiographic evidence for any acute cardiopulmonary process. DICTATED BY: WILTON ZAVALA MD DATE: 10/05/24 1640 ASSESSMENT: Acute kidney injury Severe sepsis, 2/2 perforated sigmoid diverticulitis Perforated sigmoid diverticulitis with developing abscess Moderate lactic acidosis Hypokalemia Mild urinary tract infection Alcohol use disorder Morbid obesity Underlying history of hypertension Hyperlipidemia Suspected GREG PLAN: Labs, diagnostic, radiologic exams reviewed and interpreted by myself and supervising physician. We have reviewed external records in detail We will continue to monitor the patient closely Continue with the renally dose antibiotics as per ID Require close monitoring of renal function and electrolytes Order CBC, CMP, and electrolytes in am BiPAP as necessary, for respiratory distress Monitor blood pressure adjust medication doses as needed Avoid hypotensive episodes May use Dilaudid 0.5 mg IV every 6 hours as needed for severe pain Monitor blood sugars Strict intake, output, and daily weight should be monitored Please renally adjust medications Avoid nephrotoxic and nonsteroidal drugs Avoid contrast if possible Will continue to monitor renal function, anemia, electrolytes Treatment plan discussed with patient Questions were answered We have discussed with the other team physicians in detail about the care plan We will continue to monitor the patient closely ATTESTATION BY PHYSICIAN I have seen and examined the patient. I reviewed the documentation, medical decision making, and treatment plan as noted by the mid-level provider above. I agree with the findings and plan of care. CAMILA CLEMENS MD, ELIZABETH FNP Oct 10, 2024 13:00
--- NOTE | 2024-10-10 13:44 | PN ---
[facility] PROGRESS NOTE Date of Service: Oct 10, 2024 Time of Service: 13:32 SUBJECTIVE: 64-year-old male with underlying history of hypertension, hyperlipidemia, obesity, chronic alcohol use, who presented to the ER for further evaluation of significant lower abdominal pain with associated fevers and chills. Symptoms have been ongoing for the past two days and patient reports having nausea, vomiting and poor oral intake. Reports having pain involving the lower abdomen is moderate to severe in intensity and localized to the left lower quadrant. Patient denies any history of diverticulosis or diverticulitis. Last colonoscopy was about five years ago. Patient is unsure of the results. Patient does have underlying history of hypertension but does not recall the n yuriy of antihypertensive that he takes. Denies any previous history of cardiac or pulmonary comorbidities or renal abnormalities. On presentation to the hospital, patient was noted to be febrile with T-max of 101 F, tachycardic with heart rate of 125 and soft blood pressure with BP of 94/55. [place] [id number] with neutrophilia, hemoglobin of 14.2, platelet count of [id number]. BMP remarkable for sodium 137, potassium 3.2, chloride of 99, CO2 of 25, creatinine of 2.9, BUN of 24, lactic acid of 4.3. Patient underwent further evaluation with CT abdomen pelvis without contrast which showed findings of per perforated sigmoid diverticulitis with signs of developing abscess. Consultation with General surgery with Dr. Campbell was requested in the ER recommended IV fluids, IV antibiotics and NPO status. Patient will be admitted under hospitalist service and will receive sepsis bolus of fluid, broad-spectrum antibiotics with IV Zosyn, and lactic acid and blood pressure will be monitored closely tonight. Condition remains critical. 10/06/24 patient was seen and examined. Case discussed with the RN and by the bedside. He reports doing slightly better. Abdominal pain has largely resolved. He denies nausea vomiting fever or chills 10/07/2024 - patient was seen in ED 9, patient is resting in the bed , patient denies pain, nausea, vomitings. Patient is currently continued on pantoprazole, Dilaudid, Zosyn, fluconazole, heparin, linezolid . Patient's vitals show temperature 101.8, pulse 108, respiratory rate 20, blood pressure 139/86, saturating at 100% on2 L nasal cannula. Patient's labs shows WBC down to 12.4 from 12.6, hemoglobin 11.7 In the chemistries show sodium 142, potassium 3.7, creatinine improved to 1.5 from 2.4, BUN 20, procalcitonin elevated at 2.98. Case is being followed by infectious Disease, Nephrology, General surgery. Infectious disease recommended starting linezolid and fluconazole on the patient, general surgery have plan to get a CT abdomen with oral contrast. Patient will be followed closely as he has high risk of decompensation. Preliminary blood culture showed Gram-negative rods, final result unclear. 10/08/2024 - patient is seen in room 230, patient is resting in the bed comfortably, says he feels better compared to yesterday and denies nausea, vomitings. Patient had a CT abdomen pelvis with oral contrast which showed acu te sigmoid diverticulitis,3 x 3.5 cm diverticular abscess, amorphous air collection within walled-off perforation. And there is no intraperitoneal air or free air in the abdomen . Pending further directions from surgery. Patient is currently hemodynamically stable with temperature 98.8, pulse 98, blood pressure 130/83, respiratory rate 18, saturating at 99% on room air. Patient's labs shows WBC elevated to 13.9 from 12.4, hemoglobin 11.2 And chemistries show sodium 141, potassium 3.5, creatinine stable at 1.5, BUN 20. Patient is currently continuing on linezolid, fluconazole, Zosyn. Patient will be monitored closely 10/09/2024 - patient is seen at bedside in room 230, patient is resting comfortably in the bed patient went through the percutaneous drainage by IR and the fluid is sent for culture. Patient denies any symptoms, any pain in the abdomen. Patient's blood culture yielded a prevotella oralis, patient is currently continuing on linezolid, Zosyn, fluconazole. Id is following the case closely. Patient has been started on consistent carb diet. Patient is currently hemodynamically stable with pulse 95, blood pressure 143/96, saturating at 100% on2 L oxygen. Patient's labs shows sodium 138, potassium 3.6, creatinine 1.5, BUN 19, hematology shows WBC trended down to 11.4 from 13.9, hemoglobin 11.5. Patient will be continued on conservative management without any surgical intervention at this time according to the surgeon Dr. Campbell. Patient will be followed closely. Patient downgraded to med surg. 10/10/2024 - patient is seen bedside in room 321, patient is resting comfortably. Patient mentioned about having 1 episode of green color diarrhea. Patient was started on consistent carb diet yesterday and has been tolerating it well. Patient's vitals show temperature 97.9, pulse 103, respiratory rate 18, blood pressure 128/74, saturating at 98% on 1 L nasal cannula. Patient's labs shows WBC trended down to 9.2 from 11.4 and hemoglobin 11.3 and chemistries show sodium 137, potassium 3.9, creatinine elevated to 1.7, BUN 23. Infectious disease ordered Zosyn Q 8. Pulmonology has signed off the case with no further recommendations as he is stable from their standpoint. Awaiting further recommendations from other consults REVIEW OF SYSTEMS CONSTITUTIONAL: Fevers, chills, asthenia, malaise NEUROLOGICAL: Denies headache, amaurosis fugax, motor weakness, sensory deficit, vertigo/spinning sensation, gait abnormalities, or tremors. ENT: No hearing loss, otalgia, otorrhea, rhinitis, rhinorrhea, hoarseness, or sore throat. CARDIOVASCULAR: Denies any exertional angina, dyspnea on exertion, orthopnea, paroxysmal nocturnal dyspnea, palpitations, life-threatening arrhythmias, claudication. PULMONARY: Denies any shortness of breath, cough, phlegm/sputum, hemoptysis, pl euritic chest pain. SLEEP: Denies morning headaches, daytime somnolence or napping. Denies difficulty falling asleep, staying asleep, waking from sleep. Denies knowledge of snoring. GASTROINTESTINAL: Nausea, vomiting, abdominal pain GENITOURINARY: Denies frequency, urgency, nocturia, hematuria or incontinence (Storage/Irritative symptoms.) Low urinary stream, straining to void, urinary intermittency or hesitancy, splitting of the voiding stream, terminal dribbling. ENDOCRINOLOGIC: Denies polyuria, polydipsia, polyphagia or heat/cold intolerances. HEMATOLOGIC: Denies thrombophilia/previous clots, or coagulopathy/bleeding disorders. ONCOLOGIC: Denies personal history of malignancy. DERMATOLOGIC: Denies rashes or pruritus. PSYCHIATRIC: Denies any suicidal or homicidal ideation. Denies hallucinations. PHYSICAL EXAM GENERAL APPEARANCE: The patient is awake, alert, appears disheveled and ill, tachypneic NEUROLOGICAL: Cranial nerves II-XII grossly intact. Motor is 5/5 in bilateral upper and lower extremities proximal to distal. No sensory deficits. HEENT: Face is symmetric. Pupils are equal and reactive. Extraocular movements are intact. NECK: Supple. No JVD. No thyromegaly. No submental, submandibular, pre- /postauricular, occipital or supraclavicular lymphadenopathy. CHEST: Normal chest expansion. No Telemetry. LUNGS: Absence of any rales, rhonchi or any wheezing. CARDIOVASCULAR: Regular. S1 and S2 normal. No appreciable rubs, murmurs or gallops. ABDOMEN: Soft, nontender, and nondistended. There is no rebound, voluntary guarding, or rigidity. : Deferred. No Ni. EXTREMITIES: 1+ pitting edema of the bilateral lower extremities, changes of psoriasis noted of the bilateral lower and upper extremities SKIN: No skin breakdown. Vital Signs (last 8hr) Date Time Temp Pulse Resp B/P (MAP) Pulse Ox O2 Delivery O2 Flow Rate FiO2 10/10/24 12:13 97.9 103 18 128/74 98 Nasal Cannula 0.5 10/10/24 08:11 97.7 100 18 151/90 96 Nasal Cannula 2.5 10/10/24 07:17 103 20 LABS: Laboratory: Test 10/10/24 11:53 10/10/24 04:55 10/09/24 19:15 10/09/24 03:28 Range/Units Whole Blood Glucose 157 H 70-110 MG/DL White Blood Count 9.2 4.8-10.8 K/uL Red Blood Count 3.63 L 4.50-6.20 MIL/uL Hemoglobin 11.3 L 14.0-18.0 g/dL Hematocrit 34.4 L 42-54 % Mean Corpuscular Volume 94.8 79-99 fL Mean Corpuscular Hemoglobin 31.1 27.0-33.0 pg Mean Corpuscular Hemoglobin Concent 32.8 32.0-36.0 g/dL Red Cell Distribution Width 16.2 H 11.0-15.5 % Platelet Count 251 130-400 K/uL Mean Platelet Volume 9.6 7.5-10.5 fL Immature Granulocyte % (Auto) 1.1 H 0-1 % Neutrophils (%) (Auto) 82.6 H 40.0-77.0 % Lymphocytes (%) (Auto) 8.1 L 21.0-51.0 % Monocytes (%) (Auto) 6.5 3.0-13.0 % Eosinophils (%) (Auto) 1.3 0.0-8.0 % Basophils (%) (Auto) 0.4 0.0-5.0 % Neutrophils # (Auto) 7.6 1.8-7.7 K/uL Lymphocytes # (Auto) 0.8 L 1.0-4.8 K/uL Monocytes # (Auto) 0.6 0.1-1.0 K/uL Eosinophils # (Auto) 0.12 0.00-0.70 K/uL Basophils # (Auto) 0.04 0.00-0.20 K/uL Absolute Immature Granulocyte (auto 0.10 0-1 K/uL Nucleated Red Blood Cells 0.0 0.0-0.19 % Sodium Level 137 136-145 mmol/L Potassium Level 3.9 3.5-5.1 mmol/L Chloride Level 103 101-111 mmol/L Carbon Dioxide Level 21 21-32 mmol/L Blood Urea Nitrogen 23 H 7-18 mg/dL Creatinine 1.7 H 0.5-1.3 mg/dL Glomerular Filtration Rate Calc 44 >90 mL/min Random Glucose 174 H 70-105 mg/dL Total Calcium 8.5 8.5-10.1 mg/dL Total Bilirubin 2.2 #H 0.2-1.0 mg/dL Aspartate Amino Transf (AST/SGOT) 32 10-37 U/L Alanine Aminotransferase (ALT/SGPT) 35 12-78 U/L Alkaline Phosphatase 88 50-136 U/L Total Protein 7.6 6.0-8.3 g/dL Albumin 2.5 L 3.5-5.0 g/dL Phosphorus Level 3.4 2.5-4.9 mg/dL Magnesium Level 2.00 1.80-2.40 mg/dL Current Medications Medications (Trade) Dose Ordered Sig/Tim Route PRN Reason Start Time Stop Time Status Last Admin Dose Admin Acetaminophen (TYLenol 325MG TAB) 650 mg Q6H PRN PO MILD PAIN (1-3) 10/05/24 18:30 11/04/24 18:29 10/07/24 19:02 650 MG Acetaminophen (TYLenol 650MG SUPPOSITORY) 650 mg Q4H PRN RC TEMPERATURE GREATER THAN 101.5 10/07/24 05:30 11/06/24 05:29 10/07/24 12:31 650 MG Acetaminophen (acetaMINOPHEN) 1,000 mg ONCE STAT IVPB 10/06/24 17:17 10/06/24 17:19 DC 10/06/24 19:27 1,000 MG Acetaminophen (acetaMINOPHEN) 1,000 mg STAT IVPB 10/06/24 09:00 10/06/24 13:02 DC 10/06/24 09:37 1,000 MG Albumin Human 100 ml @ 100 mls/hr AD IV 10/05/24 21:00 10/06/24 06:01 DC 10/05/24 21:33 100 MLS/HR Albumin Human 100 ml @ 0 mls/hr AD IV 10/06/24 06:00 10/07/24 12:38 DC 10/06/24 07:02 500 MLS/HR Atorvastatin Calcium (LIPItor 40MG) 40 mg HS PO 10/07/24 21:00 11/06/24 20:59 10/09/24 21:27 40 MG Budesonide (Pulmicort 0.5 Mg/2ml) 0.5 mg BIDRESP IH 10/05/24 18:00 11/04/24 17:59 10/10/24 07:17 0.5 MG Chlordiazepoxide HCl (LIBrium 25 MG CAP) 25 mg Q4H PRN PO ALCOHOL WITHDRAWAL PROTOCOL 10/05/24 18:00 10/12/24 17:59 Dextrose (D50w) 50 ml AD PRN IV HYPOGLYCEMIA PROTOCOL 10/07/24 09:30 11/06/24 09:29 EZETIMIBE (Zetia) 10 mg DAILY PO 10/08/24 09:00 11/07/24 08:59 10/10/24 08:33 10 MG Fluconazole/ Sodium Chloride 200 ml @ 100 mls/hr Q24H IV 10/06/24 13:00 11/05/24 12:59 10/10/24 12:13 100 MLS/HR Glucagon (Glucagon 1mg Kit) 1 mg AD PRN IM HYPOGLYCEMIA PROTOCOL 10/07/24 09:30 11/06/24 09:29 Heparin Sodium (Porcine) (HEParin 5,000 UNIT VIAL) 5,000 unit TID SQ 10/06/24 21:00 11/05/24 20:59 10/10/24 08:45 5,000 UNIT Hydrochlorothiazide (hydroCHLOROthiazide 25MG) 12.5 mg DAILY PO 10/08/24 09:00 11/07/24 08:59 10/10/24 08:33 12.5 MG Hydromorphone HCl (DiLAUDid 0.5MG INJ) 0.5 mg Q6H PRN IVP SEVERE PAIN (7-10) 10/05/24 18:00 10/10/24 17:59 10/05/24 19:34 0.5 MG Insulin Human Regular (humuLIN R 100 UNIT/ML 3ML) INSULIN SLIDING SCAL... ACHS SQ 10/07/24 11:30 11/06/24 11:29 Linezolid 300 ml @ 150 mls/hr Q12H IV 10/07/24 13:30 10/17/24 13:29 10/10/24 02:44 150 MLS/HR Lorazepam (AtiVAN) 2 mg Q4H PRN IVP ALCOHOL WITHDRAWAL PROTOCOL 10/05/24 18:00 10/12/24 17:59 Losartan Potassium (CozAAR 100MG TAB) 100 mg DAILY PO 10/08/24 09:00 11/07/24 08:59 10/10/24 08:33 100 MG Magnesium Sulfate 50 ml @ 0 mls/hr PROTOCOL PRN IV MAGNESIUM PROTOCOL 10/07/24 09:30 11/06/24 09:29 Norepinephrine 250 ml @ 44.213 mls/ hr PROTOCOL IV 10/06/24 12:00 11/05/24 11:59 Nystatin (NystOP 15 GM POWDER) 1 APPLICATION BID TP 10/06/24 21:00 11/05/24 20:59 10/10/24 08:37 1 APPL Pantoprazole Sodium (PROTonix 40MG INJ) 40 mg Q24H IVP 10/05/24 18:00 11/04/24 17:59 10/09/24 16:21 40 MG Pharmacy Profile Note (Pharmacy Communication) 1 each PROTOCOL PRN MISC ETOH Withdrawal Score changes 10/05/24 18:00 10/12/24 17:59 Piperacillin Sod/ Tazobactam Sod (Zosyn 3.375gm+NS 50ml) 3.375 gm Q8H IVPB 10/10/24 08:00 10/20/24 07:59 10/10/24 08:40 3.375 GM Piperacillin Sod/ Tazobactam Sod (Zosyn 3.375gm+NS 50ml) 3.375 gm Q8H IVPB 10/05/24 23:00 10/10/24 05:21 DC 10/10/24 00:26 3.375 GM Potassium Chloride 100 ml @ 100 mls/hr AD PRN IV POTASSIUM PROTOCOL 10/07/24 09:30 11/06/24 09:29 Potassium Chloride 100 ml @ 100 mls/hr AD PRN IV POTASSIUM PROTOCOL 10/05/24 18:00 11/04/24 17:59 10/05/24 19:34 100 MLS/HR Potassium Chloride (K-Dur/Klor-Con 20meq) 20 meq AD PRN PO POTASSIUM PROTOCOL 10/07/24 09:30 11/06/24 09:29 10/09/24 21:33 20 MEQ Potassium Chloride (KCl 10% Elixir 20meq/15ml) 20 meq AD PRN PO POTASSIUM PROTOCOL 10/07/24 09:30 11/06/24 09:29 Sodium Chloride (NS 50ml) 50 ml AD IV 10/05/24 21:00 10/05/24 17:34 DC Thiamine HCl (Vitamin B-1) 100 mg Q24H IVP 10/05/24 18:00 10/06/24 11:49 DC 10/05/24 18:12 100 MG Thiamine HCl (Vitamin B-1) 300 mg Q24H IVP 10/06/24 18:00 10/09/24 17:59 DC 10/09/24 16:21 300 MG Thiamine HCl 100 mg/Folic Acid 1 mg/Multivitamins/ Minerals 10 ml/ Sodium Chloride 1,011.2 ml @ 100 mls/ hr Q24H IV 10/05/24 18:00 10/08/24 04:07 DC 10/07/24 18:17 100 MLS/HR DIAGNOSTICS / RADIOLOGY: [ ] ASSESSMENT: Severe sepsis, POA, 2/2 perforated sigmoid diverticulitis Perforated sigmoid diverticulitis with developing abscess, POA Moderate lactic acidosis, POA Acute kidney injury, POA resolving Hypokalemia, POA Mild urinary tract infection, POA Alcohol use disorder, POA Morbid obesity, POA Underlying history of hypertension, POA Hyperlipidemia, POA Status post percutaneous drain placement by IR Suspected GREG, POA PLAN: Patient will be admitted to PCCU Continue with IV fluids, patient will receive sepsis bolus of fluid and start maintenance IV fluid with banana bag, 75 mL/hour Patient will be started on daily thiamine supplementation Patient will be kept strictly NPO We will start broad-spectrum antibiotics with IV Zosyn, renally dose Consultation has been requested with Dr. Campbell, with General surgery, appreciate recommendations Monitor lactic acid trend closely, if patient develops hypotension tonight, patient will be transferred to ICU for vasopressors Discussed patient's case with critical Care, we will watch this patient closely for the next 24 hours Ni catheter will be placed and we will monitor urine output closely Discussed patient's case with Dr. Moffett, with Nephrology, appreciate recommendations Monitor urine output closely, avoid NSAIDs, WENDIE inhibitor/ARB, avoid IV contrast until renal function improves Pain control with Tylenol and IV hydromorphone for severe pain Monitor renal function closely, All labs will be repeated in the morning Patient will be started on CPAP therapy tonight for management of suspected obstructive sleep apnea Patient will be placed on alcohol withdrawal protocol with Librium and Ativan, counseled patient to quit alcohol on discharge, patient verbalized understanding Continue antibiotics Zosyn, linezolid, fluconazole according to Infectious Disease recommendations Follow up with surgery recommendations ATTESTATION BY PHYSICIAN I have seen and examined the patient. I reviewed the documentation, medical decision making, and treatment plan as noted by the mid-level provider above. I agree with the findings and plan of care. Brigido Whittaker MD, KEERTI K MD Oct 10, 2024 13:44
--- NOTE | 2024-10-10 14:22 | PN ---
This is a 64-year-old male with concerns of diverticulitis with perforated abscess with recent percutaneous drain placed by IR Interval history: This 64-year-old male seen in his room resting Patient tolerating diet Patient continues with IV antibiotics No acute events reported overnight Patient is slightly tachycardic Patient overall doing well Minimal percutaneous drainage at this time Physical exam General: Awake alert and oriented Heart: Regular rate and rhythm} Lungs: Clear to auscultation no distress Abdomen: [Soft, nontender, nondistended percutaneous drain in place Assessment : This is a 64-year-old male with concerns of diverticulitis with perforated abscess with recent percutaneous drain placed by IR Plan: No surgical intervention plan Patient to continue with IV fluids IV antibiotics Patient will still benefit from outpatient colonoscopy Patient to continue with diet as tolerated Dr. Campbell to be updated on patient's status Vitals/Labs Vital Signs Date Time Temp Pulse Resp B/P (MAP) Pulse Ox O2 Delivery O2 Flow Rate FiO2 10/10/24 12:13 97.9 103 18 128/74 98 Nasal Cannula 0.5 10/10/24 04:00 28 Laboratory Tests 10/09/24 19:15 10/10/24 04:55 Medications Current Medications Sodium Chloride 2,000 ml @ 0 mls/hr ONCE ONCE IV Last administered on 10/05/24at 17:19; Start 10/05/24 at 17:00; Stop 10/05/24 at 17:01; Status DC Piperacillin Sod/ Tazobactam Sod 3.375 gm ONCE ONCE IV Last administered on 10/05/24at 17:19; Start 10/05/24 at 17:00; Stop 10/05/24 at 17:01; Status DC Sodium Chloride 1,000 ml @ 0 mls/hr ONCE ONCE IV; Start 10/05/24 at 17:00; Stop 10/05/24 at 17:01; Status DC Piperacillin Sod/ Tazobactam Sod 3.375 gm Q8H IVPB Last administered on 10/10/24at 00:26; Start 10/05/24 at 23:00; Stop 10/10/24 at 05:21; Status DC Sodium Chloride 50 ml AD IV; Start 10/05/24 at 21:00; Stop 10/05/24 at 17:34; Status DC Sodium Chloride 500 ml @ 0 mls/hr ONCE ONCE IV Last administered on 10/05/24at 18:02; Start 10/05/24 at 18:00; Stop 10/05/24 at 18:01; Status DC Pantoprazole Sodium 40 mg Q24H IVP Last administered on 10/09/24at 16:21; Start 10/05/24 at 18:00; Stop 11/04/24 at 17:59 Thiamine HCl 100 mg Q24H IVP Last administered on 10/05/24at 18:12; Start 10/05/24 at 18:00; Stop 10/06/24 at 11:49; Status DC Chlordiazepoxide HCl 25 mg Q4H PRN PO; Start 10/05/24 at 18:00; Stop 10/12/24 at 17:59 Lorazepam 2 mg Q4H PRN IVP; Start 10/05/24 at 18:00; Stop 10/12/24 at 17:59 Thiamine HCl 100 mg/Folic Acid 1 mg/Multivitamins/ Minerals 10 ml/ Sodium Chloride 1,011.2 ml @ 100 mls/ hr Q24H IV Last administered on 10/07/24at 18:17; Start 10/05/24 at 18:00; Stop 10/08/24 at 04:07; Status DC Pharmacy Profile Note 1 each PROTOCOL PRN MISC; Start 10/05/24 at 18:00; Stop 10/12/24 at 17:59 Budesonide 0.5 mg BIDRESP IH Last administered on 10/10/24at 07:17; Start 10/05/24 at 18:00; Stop 11/04/24 at 17:59 Potassium Chloride 100 ml @ 100 mls/hr AD PRN IV Last administered on 10/05/24at 19:34; Start 10/05/24 at 18:00; Stop 11/04/24 at 17:59 Hydromorphone HCl 0.5 mg Q6H PRN IVP Last administered on 10/05/24at 19:34; Start 10/05/24 at 18:00; Stop 10/10/24 at 17:59 Acetaminophen 650 mg Q6H PRN PO Last administered on 10/07/24at 19:02; Start 10/05/24 at 18:30; Stop 11/04/24 at 18:29 Albumin Human 100 ml @ 100 mls/hr AD IV Last administered on 10/05/24at 21:33; Start 10/05/24 at 21:00; Stop 10/06/24 at 06:01; Status DC Albumin Human 100 ml @ 0 mls/hr AD IV Last administered on 10/06/24at 07:02; Start 10/06/24 at 06:00; Stop 10/07/24 at 12:38; Status DC Acetaminophen 1,000 mg STAT IVPB Last administered on 10/06/24at 09:37; Start 10/06/24 at 09:00; Stop 10/06/24 at 13:02; Status DC Thiamine HCl 300 mg Q24H IVP Last administered on 10/09/24at 16:21; Start 10/06/24 at 18:00; Stop 10/09/24 at 17:59; Status DC Norepinephrine 250 ml @ 44.213 mls/ hr PROTOCOL IV; Start 10/06/24 at 12:00; Stop 11/05/24 at 11:59 Fluconazole/ Sodium Chloride 200 ml @ 100 mls/hr Q24H IV Last administered on 10/10/24at 12:13; Start 10/06/24 at 13:00; Stop 11/05/24 at 12:59 Nystatin 1 APPLICATION BID TP Last administered on 10/10/24at 08:37; Start 10/06/24 at 21:00; Stop 11/05/24 at 20:59 Lactated Ringer's 1,000 ml BOLUS ONCE IV Last administered on 10/06/24at 15:00; Start 10/06/24 at 15:00; Stop 10/06/24 at 15:01; Status DC Acetaminophen 1,000 mg ONCE STAT IVPB Last administered on 10/06/24at 19:27; Start 10/06/24 at 17:17; Stop 10/06/24 at 17:19; Status DC Heparin Sodium (Porcine) 5,000 unit TID SQ Last administered on 10/10/24at 08:45; Start 10/06/24 at 21:00; Stop 11/05/24 at 20:59 Acetaminophen 650 mg Q4H PRN RC Last administered on 10/07/24at 12:31; Start 10/07/24 at 05:30; Stop 11/06/24 at 05:29 Potassium Chloride 100 ml @ 100 mls/hr AD PRN IV; Start 10/07/24 at 09:30; Stop 11/06/24 at 09:29 Potassium Chloride 20 meq AD PRN PO; Start 10/07/24 at 09:30; Stop 11/06/24 at 09:29 Potassium Chloride 20 meq AD PRN PO Last administered on 10/09/24at 21:33; Start 10/07/24 at 09:30; Stop 11/06/24 at 09:29 Dextrose 50 ml AD PRN IV; Start 10/07/24 at 09:30; Stop 11/06/24 at 09:29 Glucagon 1 mg AD PRN IM; Start 10/07/24 at 09:30; Stop 11/06/24 at 09:29 Insulin Human Regular INSULIN SLIDING SCAL... ACHS SQ; Start 10/07/24 at 11:30; Stop 11/06/24 at 11:29 Magnesium Sulfate 50 ml @ 0 mls/hr PROTOCOL PRN IV; Start 10/07/24 at 09:30; Stop 11/06/24 at 09:29 Linezolid 300 ml @ 150 mls/hr Q12H IV Last administered on 10/10/24at 02:44; Start 10/07/24 at 13:30; Stop 10/17/24 at 13:29 Lactated Ringer's 1,000 ml ONCE ONCE IV Last administered on 10/07/24at 14:29; Start 10/07/24 at 14:30; Stop 10/07/24 at 14:31; Status DC EZETIMIBE 10 mg DAILY PO Last administered on 10/10/24at 08:33; Start 10/08/24 at 09:00; Stop 11/07/24 at 08:59 Hydrochlorothiazide 12.5 mg DAILY PO Last administered on 10/10/24at 08:33; Start 10/08/24 at 09:00; Stop 11/07/24 at 08:59 Atorvastatin Calcium 40 mg HS PO Last administered on 10/09/24at 21:27; Start 10/07/24 at 21:00; Stop 11/06/24 at 20:59 Losartan Potassium 100 mg DAILY PO Last administered on 10/10/24at 08:33; Start 10/08/24 at 09:00; Stop 11/07/24 at 08:59 Diatrizoate Meglum/ Diatrizoate Sod 30 ml STK-MED ONCE .ROUTE; Start 10/07/24 at 18:30; Stop 10/07/24 at 18:30; Status DC Fentanyl Citrate 100 mcg STK-MED ONCE .ROUTE; Start 10/09/24 at 11:08; Stop 10/09/24 at 11:08; Status DC Midazolam HCl 2 mg STK-MED ONCE .ROUTE; Start 10/09/24 at 11:08; Stop 10/09/24 at 11:08; Status DC Piperacillin Sod/ Tazobactam Sod 3.375 gm Q8H IVPB Last administered on 10/10/24at 08:40; Start 10/10/24 at 08:00; Stop 10/20/24 at 07:59 PILLO GARCIA Jr. Oct 10, 2024 14:22
--- NOTE | 2024-10-10 17:33 | PN ---
DATE OF SERVICE: 10/10/2024 SUBJECTIVE: The patient is ____. The patient has no fever, no chills. No nausea, vomiting. Abdominal pain is better. No cough, no shortness of breath, no palpitation or orthopnea. The patient has been started on clear liquid diet. No dysuria or hematuria. Denies slurred speech and limb weakness. PHYSICAL EXAMINATION: VITAL SIGNS: Temperature today is 98.3. EYES: No icterus. Pupils equal and reactive. HENT: No oral thrush seen. Moist oral mucosa. NECK: Supple, no JVD or thyromegaly. LUNGS: Good air entry. No rales, no rhonchi. CARDIOVASCULAR: S1, S2 regular. No murmur heard. ABDOMEN: Morbidly obese, soft. Bowel sound is present. Drainage catheter in the left lower quadrant draining purulent fluid. CENTRAL NERVOUS SYSTEM: Awake, alert, oriented x3. No focal deficits. SKIN: No rashes, no itchiness. LYMPHATIC: No peripheral lymphadenopathy. BACK: No deformity, no pressure ulcer. MUSCULOSKELETAL: No joint swelling, erythema, or tenderness. ASSESSMENT: A 64-year-old male presenting with abdominal pain. Current problems include: * Septic shock, which is resolved. * Acute diverticulitis with perforation. * Intra-abdominal abscess, status post catheter placement. * Acute renal failure, which is better. * Morbid obesity. * Chronic tobacco use. * Respiratory failure. * Alcoholism. PLAN: * Continue thiamine. * Continue folic acid. * Continue linezolid. * Continue Zosyn. * Continue fluconazole. * Follow up cultures. * Continue pain management. * Continue oxygen. TID: [id number] RECEIPT: [id number]
[2024-10-10] MEDS ORDERED: ondanSETRON 4MG INJ IVP PRN (19:30)
[2024-10-10] MEDS: ondanSETRON 4MG INJ ONE (19:52)
[2024-10-11] VITALS (12 sets, daily range): BP systolic 105–155; BP diastolic 65–94; PULSE 78–112; RESP 17–21; TEMP 97.7–99.6; O2SAT 95–99
[2024-10-11 05:45] LABS: BASOPHILS # (AUTO) 0.05 K/uL (0.00-0.20); BASOPHILS % (AUTO) 0.5 % (0.0-5.0); EOSINOPHILS # (AUTO) 0.12 K/uL (0.00-0.70); EOSINOPHILS % (AUTO) 1.2 % (0.0-8.0); IMMATURE GRANULOCYTE ABSOLUTE 0.14 K/uL (0-1); LYMPHOCYTES % (AUTO) 10.1 % (21.0-51.0); MEAN CORPUSCULAR HEMOGLOBIN 31.1 pg (27.0-33.0); MEAN CORPUSCULAR HGB CONC 33.5 g/dL (32.0-36.0); MEAN CORPUSCULAR VOLUME 92.8 fL (79-99); MONOCYTES # (AUTO) 0.4 K/uL (0.1-1.0); MONOCYTES % (AUTO) 4.2 % (3.0-13.0); NEUTROPHILS # (AUTO) 8.2 K/uL (1.8-7.7); NEUTROPHILS % (AUTO) 82.6 % (40.0-77.0); PLATELET COUNT (AUTO) 343 K/uL (130-400); RED BLOOD CELL COUNT(AUTO) 3.34 MIL/uL (4.50-6.20); RED CELL DISTRIBUTION WIDTH 16.1 % (11.0-15.5)
[2024-10-11 05:54] LABS: INR 0.98 (0.85-1.15)
[2024-10-11 06:06] LABS: ALBUMIN 2.1 g/dL (3.5-5.0); BILIRUBIN,TOTAL 2.1 mg/dL (0.2-1.0); CREATININE 2.5 mg/dL (0.5-1.3); MAGNESIUM 1.7 mg/dL (1.80-2.40); POTASSIUM 3.6 mmol/L (3.5-5.1); TOTAL PROTEIN, SERUM 6.3 g/dL (6.0-8.3)
[2024-10-11 06:18] LABS: EOSINOPHILS % (MANUAL) 2 % (1-6); LYMPHOCYTES % (MANUAL) 8 % (22-44); MAN.DIFF COMMENT-IMPRESSION MANUAL DIFFERENTIAL; MONOCYTES % (MANUAL) 3 % (2-9); PLATELET MORPHOLOGY COMMENT ADEQUATE; REACTIVE LYMPHOCYTES 2 % (0-0); SEGMENTED NEUTROPHILS % 85 % (40-70); TOTAL CELLS COUNTED 100; WBC MORPHOLOGY REACTIVE LYMPHS 1+
--- NOTE | 2024-10-11 07:00 | NUR ---
PATIENT UPDATE PT HAD ONE VOMITING EPISODE LAST NIGHT AFTER EATING SOMETHING FROM THE DINNER TRAY, BLOOD SUGAR UP TO 188 COVERED PER SLIDING SCALE. MEDICATED WITH ZOFRAN AND PT ENCOURAGED TO TAKE A SHOWER, LAST BATH HE SAID WAS MONDAY LAST WEEK. ONE PIV CAME OFF. WENT AHEAD AND CALLED DR. URRUTIA FOR POSSIBLE PICC LINE PLACEMENT SINCE PT IS SUPPOSED TO BE ON 3 ANTIBIOTICS FOR A LONG TIME. AGREED WITH THE PLAN, PT SIGNED THE CONSENT, LAB DRAWN FOR PT/INR, PICC LINE TO BE INSERTED TODAY. SLEPT WELL AFTER THE SHOWER, TOLERATED THE CPAP AT HS AND WAS SWITCHED TO NASAL CANNULA THIS AM DURING WAKING HOURS. PERCUTANEOUS DRAIN FROM THE LEFT LOWER QUADRANT DRAINING BET 60 TO 100 CC'S OF PURULENT FOUL SMELLING DRAINAGE. PT STILL HAS THE JACKSON CATH IN PLACE WITHE TURBID LOOKING ORANGE COLORED URINE. NO COMPLAINTS OF ANY DISCOMFORT OVERNIGHT. AT THE BEDSIDE. VITAL SIGNS STABLE.
--- NOTE | 2024-10-11 09:11 | HMCIMG ---
CHEST 1VW HISTORY: PICC line placement COMPARISON: 10/05/2024 FINDINGS: A frontal projection of the chest was obtained. Mild bilateral pulmonary infiltrates are seen may be related to mild pulmonary vascular congestion with possible superimposed pneumonitis. The heart is borderline enlarged. Right venous catheter is seen with distal tip in the plane of the superior vena cava. No evidence of aortic calcification is seen. IMPRESSION: 1. Mild bilateral pulmonary infiltrates are seen may be related to mild pulmonary vascular congestion with possible superimposed pneumonitis.
--- NOTE | 2024-10-11 12:56 | PN ---
NEPHROLOGY PROGRESS NOTE Date/Time Patient Seen: Oct 11, 2024 Reason for Consultation: 12:55 SUBJECTIVE: This is a 64-year-old male with underlying history of hypertension, hyperlipidemia, obesity, chronic alcohol use, who presented to the ER for further evaluation of significant lower abdominal pain with associated fevers and chills CT of the abdomen showed perforated sigmoid diverticulitis suggesting potential evolving abscess. Blood cultures are positive for prevotella oralis He continues on IV antibiotics as per ID S/P percutaneous drain by IR on 10/09 Tolerating diet well. At this time there is no surgical interventions planned. He was noted to have elevated BUN and creatinine We has been consulted for renal failure. Renal function worsened today Electrolytes are stable. He continues on losartan. He was seen in the medical floor, in no acute distress Family at the bedside Condition is critical and guarded REVIEW OF SYSTEMS: GENERAL: Positive for abdominal pain NEUROLOGIC: Negative for any blurry vision, blind spots, double vision, facial asymmetry, dysphagia, dysarthria, hemiparesis, hemisensory deficits, vertigo, ataxia. HEENT: Negative for any head trauma, neck trauma, neck stiffness, photophobia, phonophobia, sinusitis, rhinitis. CARDIAC: Negative for any chest pain, dyspnea on exertion, paroxysmal nocturnal dyspnea, peripheral edema. PULMONARY: Negative for any shortness of breath, wheezing, COPD, or TB exposure. GASTROINTESTINAL: Negative for any abdominal pain, nausea, vomiting, bright red blood per rectum, melena. GENITOURINARY: Negative for any dysuria, hematuria, incontinence. INTEGUMENTARY: Negative for any rashes, cuts, insect bites. RHEUMATOLOGIC: Negative for any joint pains, photosensitive rashes, history of vasculitis or kidney problems. HEMATOLOGIC: Negative for any abnormal bruising, frequent infections or bleeding. Vital Signs (last 8hr) Date Time Temp Pulse Resp B/P (MAP) Pulse Ox O2 Delivery O2 Flow Rate FiO2 10/06/24 11:57 99.3 93 21 119/66 98 Room Air* 0 21 10/06/24 10:16 99.0 109 22 122/64 96 Room Air* 0 21 10/06/24 08:05 101.5 111 26 113/63 96 Nasal Cannula* 2 28 10/06/24 06:41 20 N/Cannula Low lpm 2.0 28 10/06/24 06:40 111 20 10/06/24 06:28 98.8 109 24 111/62 96 Nasal Cannula* 2 28 PHYSICAL EXAM: GENERAL: Alert and oriented x 3. No acute distress. Well-nourished. EYES: EOMI. Anicteric. HENT: Moist mucous membranes. No scleral icterus. No cervical lymphadenopathy. LUNGS: Clear to auscultation bilaterally. No accessory muscle use. CARDIOVASCULAR: Regular rate and rhythm. No murmur. No JVD. ABDOMEN: Soft, non-tender and non-distended. No palpable masses. EXTREMITIES: No edema. Non-tender. SKIN: No rashes or lesions. Warm. NEUROLOGIC: No focal neurological deficits. CN II-XII grossly intact, but not individually tested. PSYCHIATRIC: Cooperative. Appropriate mood and affect. Current Medications Medications (Trade) Dose Ordered Sig/Tim Route PRN Reason Start Time Stop Time Status Last Admin Dose Admin Acetaminophen (TYLenol 325MG TAB) 650 mg Q6H PRN PO MILD PAIN (1-3) 10/05/24 18:30 11/04/24 18:29 Acetaminophen (acetaMINOPHEN) 1,000 mg STAT IVPB 10/06/24 09:00 10/06/24 13:02 DC 10/06/24 09:37 1,000 MG Albumin Human 100 ml @ 100 mls/hr AD IV 10/05/24 21:00 10/06/24 06:01 DC 10/05/24 21:33 100 MLS/HR Albumin Human 100 ml @ 0 mls/hr AD IV 10/06/24 06:00 11/05/24 05:59 10/06/24 07:02 500 MLS/HR Budesonide (Pulmicort 0.5 Mg/2ml) 0.5 mg BIDRESP IH 10/05/24 18:00 11/04/24 17:59 10/06/24 06:38 0.5 MG Chlordiazepoxide HCl (LIBrium 25 MG CAP) 25 mg Q4H PRN PO ALCOHOL WITHDRAWAL PROTOCOL 10/05/24 18:00 10/12/24 17:59 Fluconazole/ Sodium Chloride 200 ml @ 100 mls/hr Q24H IV 10/06/24 13:00 11/05/24 12:59 Hydromorphone HCl (DiLAUDid 0.5MG INJ) 0.5 mg Q6H PRN IVP SEVERE PAIN (7-10) 10/05/24 18:00 10/10/24 17:59 10/05/24 19:34 0.5 MG Lorazepam (AtiVAN) 2 mg Q4H PRN IVP ALCOHOL WITHDRAWAL PROTOCOL 10/05/24 18:00 10/12/24 17:59 Norepinephrine 250 ml @ 44.213 mls/ hr PROTOCOL IV 10/06/24 12:00 11/05/24 11:59 Pantoprazole Sodium (PROTonix 40MG INJ) 40 mg Q24H IVP 10/05/24 18:00 11/04/24 17:59 10/05/24 18:12 40 MG Pharmacy Profile Note (Pharmacy Communication) 1 each PROTOCOL PRN MISC ETOH Withdrawal Score changes 10/05/24 18:00 10/12/24 17:59 Piperacillin Sod/ Tazobactam Sod (Zosyn 3.375gm+NS 50ml) 3.375 gm Q8H IVPB 10/05/24 23:00 10/15/24 22:59 10/06/24 08:30 3.375 GM Potassium Chloride 100 ml @ 100 mls/hr AD PRN IV POTASSIUM PROTOCOL 10/05/24 18:00 11/04/24 17:59 10/05/24 19:34 100 MLS/HR Sodium Chloride (NS 50ml) 50 ml AD IV 10/05/24 21:00 10/05/24 17:34 DC Thiamine HCl (Vitamin B-1) 100 mg Q24H IVP 10/05/24 18:00 10/06/24 11:49 DC 10/05/24 18:12 100 MG Thiamine HCl (Vitamin B-1) 300 mg Q24H IVP 10/06/24 18:00 10/09/24 17:59 Thiamine HCl 100 mg/Folic Acid 1 mg/Multivitamins/ Minerals 10 ml/ Sodium Chloride 1,011.2 ml @ 100 mls/ hr Q24H IV 10/05/24 18:00 10/08/24 04:07 10/05/24 18:12 75 MLS/HR LABORATORY: [ ] Hematology Labs: Test 10/11/24 05:30 Range/Units White Blood Count 10.0 4.8-10.8 K/uL Red Blood Count 3.34 L 4.50-6.20 MIL/uL Hemoglobin 10.4 L 14.0-18.0 g/dL Hematocrit 31.0 L 42-54 % Mean Corpuscular Volume 92.8 79-99 fL Mean Corpuscular Hemoglobin 31.1 27.0-33.0 pg Mean Corpuscular Hemoglobin Concent 33.5 32.0-36.0 g/dL Red Cell Distribution Width 16.1 H 11.0-15.5 % Platelet Count 343 # 130-400 K/uL Mean Platelet Volume 9.6 7.5-10.5 fL Immature Granulocyte % (Auto) 1.4 H 0-1 % Neutrophils (%) (Auto) 82.6 H 40.0-77.0 % Lymphocytes (%) (Auto) 10.1 L 21.0-51.0 % Monocytes (%) (Auto) 4.2 3.0-13.0 % Eosinophils (%) (Auto) 1.2 0.0-8.0 % Basophils (%) (Auto) 0.5 0.0-5.0 % Neutrophils # (Auto) 8.2 H 1.8-7.7 K/uL Lymphocytes # (Auto) 1.0 1.0-4.8 K/uL Monocytes # (Auto) 0.4 0.1-1.0 K/uL Eosinophils # (Auto) 0.12 0.00-0.70 K/uL Basophils # (Auto) 0.05 0.00-0.20 K/uL Absolute Immature Granulocyte (auto 0.14 0-1 K/uL Segmented Neutrophils % 85 H 40-70 % Lymphocytes % (Manual) 8 L 22-44 % Monocytes % (Manual) 3 2-9 % Eosinophils % (Manual) 2 1-6 % Nucleated Red Blood Cells 0.0 0.0-0.19 % Differential Comment MANUAL DIFFERENTIAL Reactive Lymphocytes 2 H 0-0 % White Cell Morphology Comment REACTIVE LYMPHS 1+ Platelet Morphology Comment ADEQUATE Red Blood Cell Morphology See comments Chemistry Labs: Test 10/11/24 11:50 10/11/24 05:30 Range/Units Whole Blood Glucose 118 H 70-110 MG/DL Sodium Level 135 L 136-145 mmol/L Potassium Level 3.6 3.5-5.1 mmol/L Chloride Level 101 101-111 mmol/L Carbon Dioxide Level 18 L 21-32 mmol/L Blood Urea Nitrogen 29 H 7-18 mg/dL Creatinine 2.5 H 0.5-1.3 mg/dL Glomerular Filtration Rate Calc 28 >90 mL/min Random Glucose 169 H 70-105 mg/dL Total Calcium 8.5 8.5-10.1 mg/dL Magnesium Level 1.70 L 1.80-2.40 mg/dL Total Bilirubin 2.1 H 0.2-1.0 mg/dL Aspartate Amino Transf (AST/SGOT) 31 10-37 U/L Alanine Aminotransferase (ALT/SGPT) 30 12-78 U/L Alkaline Phosphatase 90 50-136 U/L Total Protein 6.3 6.0-8.3 g/dL Albumin 2.1 L 3.5-5.0 g/dL Coagulation Labs: Test 10/11/24 05:30 Range/Units Prothrombin Time 11.0 9.6-11.6 SEC Prothromb Time International Ratio 0.98 0.85-1.15 DIAGNOSTICS / RADIOLOGY: REASON: picc LINE PLACEMENT ORDERING PHYSICIAN: MICHEAL URRUTIA MD PROCEDURE: CXR1VW - CHEST 1VW CHEST 1VW HISTORY: PICC line placement COMPARISON: 10/05/2024 FINDINGS: A frontal projection of the chest was obtained. Mild bilateral pulmonary infiltrates are seen may be related to mild pulmonary vascular congestion with possible superimposed pneumonitis. The heart is borderline enlarged. Right venous catheter is seen with distal tip in the plane of the superior vena cava. No evidence of aortic calcification is seen. IMPRESSION: 1. Mild bilateral pulmonary infiltrates are seen may be related to mild pulmonary vascular congestion with possible superimposed pneumonitis. DICTATED BY: KIM MADSEN MD DATE: 10/11/24 0908 REASON: ABD DISTENTION ORDERING PHYSICIAN: EDUARDO ABERNATHY MD PROCEDURE: ABD PEL WO - CT ABDOMEN/PELVIS W/O CONTRAST CT ABDOMEN/PELVIS W/O CONTRAST HISTORY: Abdominal distention COMPARISON: 10/05/2024 TECHNIQUE: Multiple sequential axial images of the abdomen and pelvis were obtained from the dome of the diaphragm through symphysis pubis. Patient was not given contrast through intravenous route. Oral contrast was given. FINDINGS: There are bilateral interstitial fibrosis. Tiny pericardial effusion is seen. No pleural effusion is seen bilaterally. There is no evidence of parenchymal disease or pulmonary nodule of the visualized lower lungs. Degenerative changes of the thoracolumbar spine are present. The heart is not enlarged. The liver measured 20 cm. There is contrast material stomach and small bowel loops. There is sigmoid colon wall thickening with adjacent fat stranding consistent with acute sigmoid diverticulitis. Extensive adjacent mesenteric fat stranding is seen in the pelvis. There is small diverticular abscess in the left anterior pelvis measuring 3 x 3.5 cm. Amorphous air collection is seen consistent with walled off perforation. No definite free intraperitoneal air is seen. There is diverticulosis. The liver, spleen, adrenal glands and pancreas are unremarkable. There is no evidence of hydronephrosis bilaterally. No evidence of renal stone is seen. Fecal material is seen in the colon. There are normal size retroperitoneal and mesenteric lymph nodes. No ascites is seen. Atherosclerotic changes are present. Appendix is not well visualized. Pelvic sidewalls are symmetric bilaterally. Bladder is poorly distended. There is fluid-filled small bowel loops and colon. IMPRESSION: 1. There is contrast material stomach and small bowel loops. There is sigmoid colon wall thickening with adjacent fat stranding consistent with acute sigmoid diverticulitis. Extensive adjacent mesenteric fat stranding is seen in the pelvis. There is small diverticular abscess in the left anterior pelvis measuring 3 x 3.5 cm. Amorphous air collection is seen consistent with walled off perforation. No definite free intraperitoneal air is seen. There is diverticulosis. CT was performed with one or more following dose reduction techniques: automated exposure control, adjustment of the mA and kv according to patient's size, or use of a iterative reconstruction technique. DICTATED BY: KIM MADSEN MD DATE: 10/07/242152 REASON: peritoneum ORDERING PHYSICIAN: LIDIA BUTLER PROCEDURE: ABD 1VW - ABD 1VW ABD 1VW HISTORY: Peritoneal COMPARISON: None FINDINGS: A frontal projection of the abdomen was obtained. Small bowel dilatation is seen. Fecal material is seen in the colon. Degenerative changes of the thoracolumbar spine are noted. IMPRESSION: 1. Small bowel dilatation. DICTATED BY: KIM MADSEN MD DATE: 10/07/242005 REASON: PERFORATED BOWEL/DISTENDED ABD ORDERING PHYSICIAN: VICKIE MONTGOMERY MD PROCEDURE: ABD 1VW - ABD 1VW ABD 1VW CLINICAL HISTORY: PERFORATED BOWEL/DISTENDED ABD COMPARISON: None FINDINGS: Single view of the abdomen was obtained. There are multiple air-filled loops of bowel. Free air is not definitely identified but could likely not be excluded on this exam. IMPRESSION: Ileus versus small bowel obstruction DICTATED BY: MISSY FALK DO DATE: 10/06/24 1653 REASON: renal failue ORDERING PHYSICIAN: KATH ALEMAN PROCEDURE: RENAL - US RENAL SONOGRAM ULTRASOUND RENAL COMPLETE INDICATION: Renal failure TECHNIQUE: Routine ultrasound of the kidneys and urinary bladder with grayscale and color Doppler imaging was performed in real-time, and subsequently made available for review. COMPARISON: No prior studies available for comparison. FINDINGS: The right kidney measures 9.3 x 5.7 x 5.7 cm. No abnormal mass demonstrated. No evidence for hydronephrosis or shadowing stone. The left kidney measures 10.9 x 6.3 x 5.1 cm. No abnormal mass demonstrated. No evidence for hydronephrosis or shadowing stone. Empty urinary bladder secondary to Ni catheter placement. No free fluid demonstrated. IMPRESSION: Normal sonographic appearance of the kidneys. DICTATED BY: WILTON ZAVALA MD DATE: 10/06/24 1006 REASON: R/O dvt OF THE LOWER EXTREMITIES ORDERING PHYSICIAN: EDUARDO ABERNATHY MD PROCEDURE: VENOUS SYL - US VENOUS DOPPLER BILATERAL ULTRASOUND VENOUS DOPPLER, BILATERAL LOWER EXTREMITIES INDICATION: Bilateral lower extremity pain and swelling TECHNIQUE: Routine grayscale and color Doppler ultrasound of the bilateral lower extremity veins performed. COMPARISON: No priors. FINDINGS: The demonstrated veins of the bilateral lower extremity including the common femoral vein, femoral vein, and popliteal vein are associated with normal compressibility, augmentation, and flow. Normal respiratory variation was identified. No evidence for echogenic intraluminal thrombus formation. IMPRESSION: No sonographic evidence for deep venous thrombosis within the bilateral lower extremity veins. DICTATED BY: WILTON ZAVALA MD DATE: 10/05/24 1826 REASON: ABD PAIN ORDERING PHYSICIAN: MIRIAM RICE NP PROCEDURE: ABD PEL WO - CT ABDOMEN/PELVIS W/O CONTRAST CT ABDOMEN WITHOUT CONTRAST. CT PELVIS WITHOUT CONTRAST. INDICATION: Abdominal pain; No relevant information related to this study was provided in patient's history by the ordering service. TECHNIQUE: Routine transaxial imaging using 5 mm slice thickness through the abdomen and pelvis without the administration of IV contrast. Thin slice reconstructions are also provided. Coronal and sagittal reformatted images acquired for interpretation. CT was performed with one or more of the following dose reduction techniques: Automated exposure control, adjustment of the mA and/or kV according to patient size, or use of iterative reconstruction technique. COMPARISON: None FINDINGS: ON NONCONTRAST IMAGING: ABDOMEN: Examination provided for interpretation at 4:13 PM on 10/05/2024. Heart size is normal. Scarring at both lung bases. No abnormal renal calcifications, hydronephrosis, perinephric inflammation, or proximal hydroureter detected. The liver is normal in size and smooth in contour without biliary duct dilation. The spleen is normal in size and attenuation. The gallbladder appears normal. The pancreas appears normal without pancreatic duct dilation. The adrenal glands appear normal. No significant abdominal, retrocrural or retroperitoneal adenopathy noted. No evidence for intra-abdominal free air or organized fluid collection. No aortic aneurysmal dilation identified. PELVIS: No abnormal calcifications within the urinary bladder or distal ureters. No evidence for free air or organized pelvic fluid collection. No significant pelvic adenopathy detected. Several diverticula along the distal colon and mild to moderate pericolonic inflammatory fat stranding associated, including 3.5 cm aggregate of air and trace fluid along the mesenteric wall of the far proximal sigmoid colon with additional scattered air densities throughout the anterior mid to upper abdomen. Several diverticula along the proximal colon. Terminal ileum appears unremarkable. The appendix appears normal. Visible osseous structures are intact. IMPRESSION: Perforated sigmoid diverticulitis as described, including findings suggesting potential evolving abscess. DICTATED BY: WILTON ZAVALA MD DATE: 10/05/24 1611 REASON: COUGH ORDERING PHYSICIAN: UBALDO MCBRIDE MD PROCEDURE: CXR1VW - CHEST 1VW PORTABLE CHEST RADIOGRAPH INDICATION: COUGH COMPARISON: 05/16/2017 FINDINGS: media monitor leads overlie the field of view. Heart size is normal. The pulmonary vascularity and jeannie appear normal. No abnormal pulmonary parenchymal opacity or consolidation identified. Bibasilar lung linear scarring. No significant pleural effusion noted. No pneumothorax detected. IMPRESSION: No radiographic evidence for any acute cardiopulmonary process. DICTATED BY: WILTON ZAVALA MD DATE: 10/05/24 1640 ASSESSMENT: Acute kidney injury Severe sepsis, 2/2 perforated sigmoid diverticulitis Perforated sigmoid diverticulitis with developing abscess Moderate lactic acidosis Hypokalemia Mild urinary tract infection Alcohol use disorder Morbid obesity Underlying history of hypertension Hyperlipidemia Suspected GREG PLAN: Labs, diagnostic, radiologic exams reviewed and interpreted by myself and supervising physician. We have reviewed external records in detail Discontinue losartan, use alternative antihypertensive medication May start amlodipine if needed We will continue to monitor the patient closely Continue with the renally dose antibiotics as per ID Require close monitoring of renal function and electrolytes Order CBC, CMP, and electrolytes in am BiPAP as necessary, for respiratory distress Monitor blood pressure adjust medication doses as needed Avoid hypotensive episodes May use Dilaudid 0.5 mg IV every 6 hours as needed for severe pain Monitor blood sugars Strict intake, output, and daily weight should be monitored Please renally adjust medications Avoid nephrotoxic and nonsteroidal drugs Avoid contrast if possible Will continue to monitor renal function, anemia, electrolytes Treatment plan discussed with patient Questions were answered We have discussed with the other team physicians in detail about the care plan We will continue to monitor the patient closely ATTESTATION BY PHYSICIAN I have seen and examined the patient. I reviewed the documentation, medical decision making, and treatment plan as noted by the mid-level provider above. I agree with the findings and plan of care. CAMILA CLEMENS MD, [facility] Oct 11, 2024 12:56
--- NOTE | 2024-10-11 15:50 | PN ---
Interval history: This is a 56-year-old male resting in his room comfortably Aspirated fluid cultures from percutaneous drain still pending Labs unremarkable Vitals stable Patient tolerating diet Patient continues IV fluids and IV antibiotics Physical exam General: Awake alert and oriented Heart: Regular rate and rhythm} Lungs: Clear to auscultation no distress Abdomen: [Soft, nontender, nondistended Percutaneous drain in place Assessment : This is a 64-year-old male with diverticular abscess with recent percutaneous drain placement by IR Plan: Continue with conservative management No immediate surgical intervention at this time Dr. Campbell to be updated in patient's status Surgical team to follow patient closely Nursing to report any further acute events Vitals/Labs Vital Signs Date Time Temp Pulse Resp B/P (MAP) Pulse Ox O2 Delivery O2 Flow Rate FiO2 10/11/24 12:00 99.7 92 19 121/69 97 10/11/24 07:17 N/Cannula Low lpm 28 10/11/24 04:00 2.0 Laboratory Tests 10/11/24 05:30 Medications Current Medications Sodium Chloride 2,000 ml @ 0 mls/hr ONCE ONCE IV Last administered on 10/05/24at 17:19; Start 10/05/24 at 17:00; Stop 10/05/24 at 17:01; Status DC Piperacillin Sod/ Tazobactam Sod 3.375 gm ONCE ONCE IV Last administered on 10/05/24at 17:19; Start 10/05/24 at 17:00; Stop 10/05/24 at 17:01; Status DC Sodium Chloride 1,000 ml @ 0 mls/hr ONCE ONCE IV; Start 10/05/24 at 17:00; Stop 10/05/24 at 17:01; Status DC Piperacillin Sod/ Tazobactam Sod 3.375 gm Q8H IVPB Last administered on 10/10/24at 00:26; Start 10/05/24 at 23:00; Stop 10/10/24 at 05:21; Status DC Sodium Chloride 50 ml AD IV; Start 10/05/24 at 21:00; Stop 10/05/24 at 17:34; Status DC Sodium Chloride 500 ml @ 0 mls/hr ONCE ONCE IV Last administered on 10/05/24at 18:02; Start 10/05/24 at 18:00; Stop 10/05/24 at 18:01; Status DC Pantoprazole Sodium 40 mg Q24H IVP Last administered on 10/10/24at 17:26; Start 10/05/24 at 18:00; Stop 11/04/24 at 17:59 Thiamine HCl 100 mg Q24H IVP Last administered on 10/05/24at 18:12; Start 10/05/24 at 18:00; Stop 10/06/24 at 11:49; Status DC Chlordiazepoxide HCl 25 mg Q4H PRN PO; Start 10/05/24 at 18:00; Stop 10/12/24 at 17:59 Lorazepam 2 mg Q4H PRN IVP; Start 10/05/24 at 18:00; Stop 10/12/24 at 17:59 Thiamine HCl 100 mg/Folic Acid 1 mg/Multivitamins/ Minerals 10 ml/ Sodium Chloride 1,011.2 ml @ 100 mls/ hr Q24H IV Last administered on 10/07/24at 18:17; Start 10/05/24 at 18:00; Stop 10/08/24 at 04:07; Status DC Pharmacy Profile Note 1 each PROTOCOL PRN MISC; Start 10/05/24 at 18:00; Stop 10/12/24 at 17:59 Budesonide 0.5 mg BIDRESP IH Last administered on 10/11/24at 07:15; Start 10/05/24 at 18:00; Stop 11/04/24 at 17:59 Potassium Chloride 100 ml @ 100 mls/hr AD PRN IV Last administered on 10/05/24at 19:34; Start 10/05/24 at 18:00; Stop 11/04/24 at 17:59 Hydromorphone HCl 0.5 mg Q6H PRN IVP Last administered on 10/05/24at 19:34; Start 10/05/24 at 18:00; Stop 10/10/24 at 17:59; Status DC Acetaminophen 650 mg Q6H PRN PO Last administered on 10/07/24at 19:02; Start 10/05/24 at 18:30; Stop 11/04/24 at 18:29 Albumin Human 100 ml @ 100 mls/hr AD IV Last administered on 10/05/24at 21:33; Start 10/05/24 at 21:00; Stop 10/06/24 at 06:01; Status DC Albumin Human 100 ml @ 0 mls/hr AD IV Last administered on 10/06/24at 07:02; Start 10/06/24 at 06:00; Stop 10/07/24 at 12:38; Status DC Acetaminophen 1,000 mg STAT IVPB Last administered on 10/06/24at 09:37; Start 10/06/24 at 09:00; Stop 10/06/24 at 13:02; Status DC Thiamine HCl 300 mg Q24H IVP Last administered on 10/09/24at 16:21; Start 10/06/24 at 18:00; Stop 10/09/24 at 17:59; Status DC Norepinephrine 250 ml @ 44.213 mls/ hr PROTOCOL IV; Start 10/06/24 at 12:00; Stop 11/05/24 at 11:59 Fluconazole/ Sodium Chloride 200 ml @ 100 mls/hr Q24H IV Last administered on 10/11/24at 12:59; Start 10/06/24 at 13:00; Stop 11/05/24 at 12:59 Nystatin 1 APPLICATION BID TP Last administered on 10/11/24at 11:25; Start 10/06/24 at 21:00; Stop 11/05/24 at 20:59 Lactated Ringer's 1,000 ml BOLUS ONCE IV Last administered on 10/06/24at 15:00; Start 10/06/24 at 15:00; Stop 10/06/24 at 15:01; Status DC Acetaminophen 1,000 mg ONCE STAT IVPB Last administered on 10/06/24at 19:27; Start 10/06/24 at 17:17; Stop 10/06/24 at 17:19; Status DC Heparin Sodium (Porcine) 5,000 unit TID SQ Last administered on 10/11/24at 14:59; Start 10/06/24 at 21:00; Stop 11/05/24 at 20:59 Acetaminophen 650 mg Q4H PRN RC Last administered on 10/07/24at 12:31; Start 10/07/24 at 05:30; Stop 11/06/24 at 05:29 Potassium Chloride 100 ml @ 100 mls/hr AD PRN IV; Start 10/07/24 at 09:30; Stop 11/06/24 at 09:29 Potassium Chloride 20 meq AD PRN PO; Start 10/07/24 at 09:30; Stop 11/06/24 at 09:29 Potassium Chloride 20 meq AD PRN PO Last administered on 10/09/24at 21:33; Start 10/07/24 at 09:30; Stop 11/06/24 at 09:29 Dextrose 50 ml AD PRN IV; Start 10/07/24 at 09:30; Stop 11/06/24 at 09:29 Glucagon 1 mg AD PRN IM; Start 10/07/24 at 09:30; Stop 11/06/24 at 09:29 Insulin Human Regular INSULIN SLIDING SCAL... ACHS SQ Last administered on 10/10/24at 20:50; Start 10/07/24 at 11:30; Stop 11/06/24 at 11:29 Magnesium Sulfate 50 ml @ 0 mls/hr PROTOCOL PRN IV; Start 10/07/24 at 09:30; Stop 11/06/24 at 09:29 Linezolid 300 ml @ 150 mls/hr Q12H IV Last administered on 10/11/24at 13:00; Start 10/07/24 at 13:30; Stop 10/17/24 at 13:29 Lactated Ringer's 1,000 ml ONCE ONCE IV Last administered on 10/07/24at 14:29; Start 10/07/24 at 14:30; Stop 10/07/24 at 14:31; Status DC EZETIMIBE 10 mg DAILY PO Last administered on 10/11/24at 10:53; Start 10/08/24 at 09:00; Stop 11/07/24 at 08:59 Hydrochlorothiazide 12.5 mg DAILY PO Last administered on 10/11/24at 10:52; Start 10/08/24 at 09:00; Stop 11/07/24 at 08:59 Atorvastatin Calcium 40 mg HS PO Last administered on 10/10/24at 20:51; Start 10/07/24 at 21:00; Stop 11/06/24 at 20:59 Losartan Potassium 100 mg DAILY PO Last administered on 10/11/24at 10:53; Start 10/08/24 at 09:00; Stop 11/07/24 at 08:59 Diatrizoate Meglum/ Diatrizoate Sod 30 ml STK-MED ONCE .ROUTE; Start 10/07/24 at 18:30; Stop 10/07/24 at 18:30; Status DC Fentanyl Citrate 100 mcg STK-MED ONCE .ROUTE; Start 10/09/24 at 11:08; Stop 10/09/24 at 11:08; Status DC Midazolam HCl 2 mg STK-MED ONCE .ROUTE; Start 10/09/24 at 11:08; Stop 10/09/24 at 11:08; Status DC Piperacillin Sod/ Tazobactam Sod 3.375 gm Q8H IVPB Last administered on 10/10/24at 08:40; Start 10/10/24 at 08:00; Stop 10/10/24 at 16:16; Status DC Piperacillin Sod/ Tazobactam Sod 3.375 gm Q8H IVPB Last administered on 10/11/24at 13:01; Start 10/10/24 at 21:00; Stop 10/20/24 at 20:59 Ondansetron HCl 4 mg STK-MED ONCE .ROUTE Last administered on 10/10/24at 19:52; Start 10/10/24 at 19:11; Stop 10/10/24 at 19:12; Status DC Ondansetron HCl 4 mg Q8H PRN IVP; Start 10/10/24 at 19:30; Stop 11/09/24 at 19:29 PILLO GARCIA Jr. Oct 11, 2024 15:50
--- NOTE | 2024-10-11 16:01 | PN ---
[facility] PROGRESS NOTE Date of Service: Oct 11, 2024 Time of Service: 15:54 SUBJECTIVE: 64-year-old male with underlying history of hypertension, hyperlipidemia, obesity, chronic alcohol use, who presented to the ER for further evaluation of significant lower abdominal pain with associated fevers and chills. Symptoms have been ongoing for the past two days and patient reports having nausea, vomiting and poor oral intake. Reports having pain involving the lower abdomen is moderate to severe in intensity and localized to the left lower quadrant. Patient denies any history of diverticulosis or diverticulitis. Last colonoscopy was about five years ago. Patient is unsure of the results. Patient does have underlying history of hypertension but does not recall the n yuriy of antihypertensive that he takes. Denies any previous history of cardiac or pulmonary comorbidities or renal abnormalities. On presentation to the hospital, patient was noted to be febrile with T-max of 101 F, tachycardic with heart rate of 125 and soft blood pressure with BP of 94/55. [place] [address] with neutrophilia, hemoglobin of 14.2, platelet count of 633531. BMP remarkable for sodium 137, potassium 3.2, chloride of 99, CO2 of 25, creatinine of 2.9, BUN of 24, lactic acid of 4.3. Patient underwent further evaluation with CT abdomen pelvis without contrast which showed findings of per perforated sigmoid diverticulitis with signs of developing abscess. Consultation with General surgery with Dr. Campbell was requested in the ER recommended IV fluids, IV antibiotics and NPO status. Patient will be admitted under hospitalist service and will receive sepsis bolus of fluid, broad-spectrum antibiotics with IV Zosyn, and lactic acid and blood pressure will be monitored closely tonight. Condition remains critical. 10/06/24 patient was seen and examined. Case discussed with the RN and by the bedside. He reports doing slightly better. Abdominal pain has largely resolved. He denies nausea vomiting fever or chills 10/07/2024 - patient was seen in ED 9, patient is resting in the bed , patient denies pain, nausea, vomitings. Patient is currently continued on pantoprazole, Dilaudid, Zosyn, fluconazole, heparin, linezolid . Patient's vitals show temperature 101.8, pulse 108, respiratory rate 20, blood pressure 139/86, saturating at 100% on2 L nasal cannula. Patient's labs shows WBC down to 12.4 from 12.6, hemoglobin 11.7 In the chemistries show sodium 142, potassium 3.7, creatinine improved to 1.5 from 2.4, BUN 20, procalcitonin elevated at 2.98. Case is being followed by infectious Disease, Nephrology, General surgery. Infectious disease recommended starting linezolid and fluconazole on the patient, general surgery have plan to get a CT abdomen with oral contrast. Patient will be followed closely as he has high risk of decompensation. Preliminary blood culture showed Gram-negative rods, final result unclear. 10/08/2024 - patient is seen in room 230, patient is resting in the bed comfortably, says he feels better compared to yesterday and denies nausea, vomitings. Patient had a CT abdomen pelvis with oral contrast which showed acu te sigmoid diverticulitis,3 x 3.5 cm diverticular abscess, amorphous air collection within walled-off perforation. And there is no intraperitoneal air or free air in the abdomen . Pending further directions from surgery. Patient is currently hemodynamically stable with temperature 98.8, pulse 98, blood pressure 130/83, respiratory rate 18, saturating at 99% on room air. Patient's labs shows WBC elevated to 13.9 from 12.4, hemoglobin 11.2 And chemistries show sodium 141, potassium 3.5, creatinine stable at 1.5, BUN 20. Patient is currently continuing on linezolid, fluconazole, Zosyn. Patient will be monitored closely 10/09/2024 - patient is seen at bedside in room 230, patient is resting comfortably in the bed patient went through the percutaneous drainage by IR and the fluid is sent for culture. Patient denies any symptoms, any pain in the abdomen. Patient's blood culture yielded a prevotella oralis, patient is currently continuing on linezolid, Zosyn, fluconazole. Id is following the case closely. Patient has been started on consistent carb diet. Patient is currently hemodynamically stable with pulse 95, blood pressure 143/96, saturating at 100% on2 L oxygen. Patient's labs shows sodium 138, potassium 3.6, creatinine 1.5, BUN 19, hematology shows WBC trended down to 11.4 from 13.9, hemoglobin 11.5. Patient will be continued on conservative management without any surgical intervention at this time according to the surgeon Dr. Campbell. Patient will be followed closely. Patient downgraded to med surg. 10/10/2024 - patient is seen bedside in room 321, patient is resting comfortably. Patient mentioned about having 1 episode of green color diarrhea. Patient was started on consistent carb diet yesterday and has been tolerating it well. Patient's vitals show temperature 97.9, pulse 103, respiratory rate 18, blood pressure 128/74, saturating at 98% on 1 L nasal cannula. Patient's labs shows WBC trended down to 9.2 from 11.4 and hemoglobin 11.3 and chemistries show sodium 137, potassium 3.9, creatinine elevated to 1.7, BUN 23. Infectious disease ordered Zosyn Q 8. Pulmonology has signed off the case with no further recommendations as he is stable from their standpoint. Awaiting further recommendations from other consults 10/11/2024 - patient is seen in room 321. Patient is sitting in chair when I visited the room, patient is continuing on consistent carb diet. Nurse informed about patient having 1 episode of vomiting, patient denies having nausea, pain. The IR drain had about 60 - 100 mL of drainage of abscess. Patient is currently hemodynamically stable with temperature 99.7, respiratory rate 19, pulse 92, blood pressure 121/69. Patient labs show WBC 10, hemoglobin 10.4 And chemistries show sodium 135, potassium 3.6, creatinine elevated to 2.5, BUN 29, magnesium 1.7. Abscess fluid culture reveals Gram-negative rods, Gram-positive cocci in clusters, budding yeast. Patient is currently continued on fluconazole, linezolid, Zosyn, ID is following the case closely. Waiting for further recommendations and clearance from surgery. Patient had new PICC line placed. Patient will be reassessed tomorrow. REVIEW OF SYSTEMS CONSTITUTIONAL: Fevers, chills, asthenia, malaise NEUROLOGICAL: Denies headache, amaurosis fugax, motor weakness, sensory deficit, vertigo/spinning sensation, gait abnormalities, or tremors. ENT: No hearing loss, otalgia, otorrhea, rhinitis, rhinorrhea, hoarseness, or sore throat. CARDIOVASCULAR: Denies any exertional angina, dyspnea on exertion, orthopnea, paroxysmal nocturnal dyspnea, palpitations, life-threatening arrhythmias, claudication. PULMONARY: Denies any shortness of breath, cough, phlegm/sputum, hemoptysis, pleuritic chest pain. SLEEP: Denies morning headaches, daytime somnolence or napping. Denies diff iculty falling asleep, staying asleep, waking from sleep. Denies knowledge of snoring. GASTROINTESTINAL: Nausea, vomiting, abdominal pain GENITOURINARY: Denies frequency, urgency, nocturia, hematuria or incontinence (Storage/Irritative symptoms.) Low urinary stream, straining to void, urinary intermittency or hesitancy, splitting of the voiding stream, terminal dribbling. ENDOCRINOLOGIC: Denies polyuria, polydipsia, polyphagia or heat/cold intolera nces. HEMATOLOGIC: Denies thrombophilia/previous clots, or coagulopathy/bleeding disorders. ONCOLOGIC: Denies personal history of malignancy. DERMATOLOGIC: Denies rashes or pruritus. PSYCHIATRIC: Denies any suicidal or homicidal ideation. Denies hallucinations. PHYSICAL EXAM GENERAL APPEARANCE: The patient is awake, alert, appears disheveled and ill, tachypneic NEUROLOGICAL: Cranial nerves II-XII grossly intact. Motor is 5/5 in bilateral upper and lower extremities proximal to distal. No sensory deficits. HEENT: Face is symmetric. Pupils are equal and reactive. Extraocular movements are intact. NECK: Supple. No JVD. No thyromegaly. No submental, submandibular, pre- /postauricular, occipital or supraclavicular lymphadenopathy. CHEST: Normal chest expansion. No Telemetry. LUNGS: Absence of any rales, rhonchi or any wheezing. CARDIOVASCULAR: Regular. S1 and S2 normal. No appreciable rubs, murmurs or gallops. ABDOMEN: Soft, nontender, and nondistended. There is no rebound, voluntary guarding, or rigidity. : Deferred. No Ni. EXTREMITIES: 1+ pitting edema of the bilateral lower extremities, changes of psoriasis noted of the bilateral lower and upper extremities SKIN: No skin breakdown. Vital Signs (last 8hr) Date Time Temp Pulse Resp B/P (MAP) Pulse Ox O2 Delivery O2 Flow Rate FiO2 10/11/24 12:00 99.7 92 19 121/69 97 10/11/24 08:18 98.2 78 19 155/94 100 LABS: Laboratory: Test 10/11/24 11:50 10/11/24 05:30 Range/Units Whole Blood Glucose 118 H 70-110 MG/DL White Blood Count 10.0 4.8-10.8 K/uL Red Blood Count 3.34 L 4.50-6.20 MIL/uL Hemoglobin 10.4 L 14.0-18.0 g/dL Hematocrit 31.0 L 42-54 % Mean Corpuscular Volume 92.8 79-99 fL Mean Corpuscular Hemoglobin 31.1 27.0-33.0 pg Mean Corpuscular Hemoglobin Concent 33.5 32.0-36.0 g/dL Red Cell Distribution Width 16.1 H 11.0-15.5 % Platelet Count 343 # 130-400 K/uL Mean Platelet Volume 9.6 7.5-10.5 fL Immature Granulocyte % (Auto) 1.4 H 0-1 % Neutrophils (%) (Auto) 82.6 H 40.0-77.0 % Lymphocytes (%) (Auto) 10.1 L 21.0-51.0 % Monocytes (%) (Auto) 4.2 3.0-13.0 % Eosinophils (%) (Auto) 1.2 0.0-8.0 % Basophils (%) (Auto) 0.5 0.0-5.0 % Neutrophils # (Auto) 8.2 H 1.8-7.7 K/uL Lymphocytes # (Auto) 1.0 1.0-4.8 K/uL Monocytes # (Auto) 0.4 0.1-1.0 K/uL Eosinophils # (Auto) 0.12 0.00-0.70 K/uL Basophils # (Auto) 0.05 0.00-0.20 K/uL Absolute Immature Granulocyte (auto 0.14 0-1 K/uL Segmented Neutrophils % 85 H 40-70 % Lymphocytes % (Manual) 8 L 22-44 % Monocytes % (Manual) 3 2-9 % Eosinophils % (Manual) 2 1-6 % Nucleated Red Blood Cells 0.0 0.0-0.19 % Differential Comment MANUAL DIFFERENTIAL Reactive Lymphocytes 2 H 0-0 % White Cell Morphology Comment REACTIVE LYMPHS 1+ Platelet Morphology Comment ADEQUATE Red Blood Cell Morphology See comments Prothrombin Time 11.0 9.6-11.6 SEC Prothromb Time International Ratio 0.98 0.85-1.15 Sodium Level 135 L 136-145 mmol/L Potassium Level 3.6 3.5-5.1 mmol/L Chloride Level 101 101-111 mmol/L Carbon Dioxide Level 18 L 21-32 mmol/L Blood Urea Nitrogen 29 H 7-18 mg/dL Creatinine 2.5 H 0.5-1.3 mg/dL Glomerular Filtration Rate Calc 28 >90 mL/min Random Glucose 169 H 70-105 mg/dL Total Calcium 8.5 8.5-10.1 mg/dL Magnesium Level 1.70 L 1.80-2.40 mg/dL Total Bilirubin 2.1 H 0.2-1.0 mg/dL Aspartate Amino Transf (AST/SGOT) 31 10-37 U/L Alanine Aminotransferase (ALT/SGPT) 30 12-78 U/L Alkaline Phosphatase 90 50-136 U/L Total Protein 6.3 6.0-8.3 g/dL Albumin 2.1 L 3.5-5.0 g/dL Current Medications Medications (Trade) Dose Ordered Sig/Tim Route PRN Reason Start Time Stop Time Status Last Admin Dose Admin Acetaminophen (TYLenol 325MG TAB) 650 mg Q6H PRN PO MILD PAIN (1-3) 10/05/24 18:30 11/04/24 18:29 10/07/24 19:02 650 MG Acetaminophen (TYLenol 650MG SUPPOSITORY) 650 mg Q4H PRN RC TEMPERATURE GREATER THAN 101.5 10/07/24 05:30 11/06/24 05:29 10/07/24 12:31 650 MG Acetaminophen (acetaMINOPHEN) 1,000 mg ONCE STAT IVPB 10/06/24 17:17 10/06/24 17:19 DC 10/06/24 19:27 1,000 MG Acetaminophen (acetaMINOPHEN) 1,000 mg STAT IVPB 10/06/24 09:00 10/06/24 13:02 DC 10/06/24 09:37 1,000 MG Albumin Human 100 ml @ 100 mls/hr AD IV 10/05/24 21:00 10/06/24 06:01 DC 10/05/24 21:33 100 MLS/HR Albumin Human 100 ml @ 0 mls/hr AD IV 10/06/24 06:00 10/07/24 12:38 DC 10/06/24 07:02 500 MLS/HR Atorvastatin Calcium (LIPItor 40MG) 40 mg HS PO 10/07/24 21:00 11/06/24 20:59 10/10/24 20:51 40 MG Budesonide (Pulmicort 0.5 Mg/2ml) 0.5 mg BIDRESP IH 10/05/24 18:00 11/04/24 17:59 10/11/24 07:15 0.5 MG Chlordiazepoxide HCl (LIBrium 25 MG CAP) 25 mg Q4H PRN PO ALCOHOL WITHDRAWAL PROTOCOL 10/05/24 18:00 10/12/24 17:59 Dextrose (D50w) 50 ml AD PRN IV HYPOGLYCEMIA PROTOCOL 10/07/24 09:30 11/06/24 09:29 EZETIMIBE (Zetia) 10 mg DAILY PO 10/08/24 09:00 11/07/24 08:59 10/11/24 10:53 10 MG Fluconazole/ Sodium Chloride 200 ml @ 100 mls/hr Q24H IV 10/06/24 13:00 11/05/24 12:59 10/11/24 12:59 100 MLS/HR Glucagon (Glucagon 1mg Kit) 1 mg AD PRN IM HYPOGLYCEMIA PROTOCOL 10/07/24 09:30 11/06/24 09:29 Heparin Sodium (Porcine) (HEParin 5,000 UNIT VIAL) 5,000 unit TID SQ 10/06/24 21:00 11/05/24 20:59 10/11/24 14:59 5,000 UNIT Hydrochlorothiazide (hydroCHLOROthiazide 25MG) 12.5 mg DAILY PO 10/08/24 09:00 11/07/24 08:59 10/11/24 10:52 12.5 MG Hydromorphone HCl (DiLAUDid 0.5MG INJ) 0.5 mg Q6H PRN IVP SEVERE PAIN (7-10) 10/05/24 18:00 10/10/24 17:59 DC 10/05/24 19:34 0.5 MG Insulin Human Regular (humuLIN R 100 UNIT/ML 3ML) INSULIN SLIDING SCAL... ACHS SQ 10/07/24 11:30 11/06/24 11:29 10/10/24 20:50 2 UNIT Linezolid 300 ml @ 150 mls/hr Q12H IV 10/07/24 13:30 10/17/24 13:29 10/11/24 13:00 150 MLS/HR Lorazepam (AtiVAN) 2 mg Q4H PRN IVP ALCOHOL WITHDRAWAL PROTOCOL 10/05/24 18:00 10/12/24 17:59 Losartan Potassium (CozAAR 100MG TAB) 100 mg DAILY PO 10/08/24 09:00 11/07/24 08:59 10/11/24 10:53 100 MG Magnesium Sulfate 50 ml @ 0 mls/hr PROTOCOL PRN IV MAGNESIUM PROTOCOL 10/07/24 09:30 11/06/24 09:29 Norepinephrine 250 ml @ 44.213 mls/ hr PROTOCOL IV 10/06/24 12:00 11/05/24 11:59 Nystatin (NystOP 15 GM POWDER) 1 APPLICATION BID TP 10/06/24 21:00 11/05/24 20:59 10/11/24 11:25 1 APPL Ondansetron HCl (zoFRAN 4MG INJ) 4 mg Q8H PRN IVP NAUSEA/VOMITING 10/10/24 19:30 11/09/24 19:29 Pantoprazole Sodium (PROTonix 40MG INJ) 40 mg Q24H IVP 10/05/24 18:00 11/04/24 17:59 10/10/24 17:26 40 MG Pharmacy Profile Note (Pharmacy Communication) 1 each PROTOCOL PRN MISC ETOH Withdrawal Score changes 10/05/24 18:00 10/12/24 17:59 Piperacillin Sod/ Tazobactam Sod (Zosyn 3.375gm+NS 50ml) 3.375 gm Q8H IVPB 10/10/24 08:00 10/10/24 16:16 DC 10/10/24 08:40 3.375 GM Piperacillin Sod/ Tazobactam Sod (Zosyn 3.375gm+NS 50ml) 3.375 gm Q8H IVPB 10/10/24 21:00 10/20/24 20:59 10/11/24 13:01 3.375 GM Piperacillin Sod/ Tazobactam Sod (Zosyn 3.375gm+NS 50ml) 3.375 gm Q8H IVPB 10/05/24 23:00 10/10/24 05:21 DC 10/10/24 00:26 3.375 GM Potassium Chloride 100 ml @ 100 mls/hr AD PRN IV POTASSIUM PROTOCOL 10/07/24 09:30 11/06/24 09:29 Potassium Chloride 100 ml @ 100 mls/hr AD PRN IV POTASSIUM PROTOCOL 10/05/24 18:00 11/04/24 17:59 10/05/24 19:34 100 MLS/HR Potassium Chloride (K-Dur/Klor-Con 20meq) 20 meq AD PRN PO POTASSIUM PROTOCOL 10/07/24 09:30 11/06/24 09:29 10/09/24 21:33 20 MEQ Potassium Chloride (KCl 10% Elixir 20meq/15ml) 20 meq AD PRN PO POTASSIUM PROTOCOL 10/07/24 09:30 11/06/24 09:29 Sodium Chloride (NS 50ml) 50 ml AD IV 10/05/24 21:00 10/05/24 17:34 DC Thiamine HCl (Vitamin B-1) 100 mg Q24H IVP 10/05/24 18:00 10/06/24 11:49 DC 10/05/24 18:12 100 MG Thiamine HCl (Vitamin B-1) 300 mg Q24H IVP 10/06/24 18:00 10/09/24 17:59 DC 10/09/24 16:21 300 MG Thiamine HCl 100 mg/Folic Acid 1 mg/Multivitamins/ Minerals 10 ml/ Sodium Chloride 1,011.2 ml @ 100 mls/ hr Q24H IV 10/05/24 18:00 10/08/24 04:07 DC 10/07/24 18:17 100 MLS/HR DIAGNOSTICS / RADIOLOGY: PATIENT: SERGO CENTENO MR#: [id number] : 1960 SEX: M AGE: 64 LOCATION: [facility] ORDER STATUS: ADM IN REPORT#: [id number] SERVICE [id number] REASON: picc LINE PLACEMENT ORDERING PHYSICIAN: MICHEAL URRUTIA MD PROCEDURE: CXR1VW - CHEST 1VW CHEST 1VW HISTORY: PICC line placement COMPARISON: 10/05/2024 FINDINGS: A frontal projection of the chest was obtained. Mild bilateral pulmonary infiltrates are seen may be related to mild pulmonary vascular congestion with possible superimposed pneumonitis. The heart is borderline enlarged. Right venous catheter is seen with distal tip in the plane of the superior vena cava. No evidence of aortic calcification is seen. IMPRESSION: 1. Mild bilateral pulmonary infiltrates are seen may be related to mild pulmonary vascular congestion with possible superimposed pneumonitis. DICTATED BY: KIM MADSEN MD DATE: 10/11/24907 ELECTRONICALLY SIGNED BY: KIM MADSEN MD DATE: 10/11/24910 ASSESSMENT: Severe sepsis, POA, 2/2 perforated sigmoid diverticulitis Perforated sigmoid diverticulitis with developing abscess, POA Moderate lactic acidosis, POA Acute kidney injury, POA Hypokalemia, POA Mild urinary tract infection, POA Alcohol use disorder, POA Morbid obesity, POA Underlying history of hypertension, POA Hyperlipidemia, POA Status post percutaneous drain placement by IR Suspected GREG, POA PLAN: Continue with IV fluids, patient will receive sepsis bolus of fluid and start maintenance IV fluid with banana bag, 75 mL/hour Patient will be started on daily thiamine supplementation We will start broad-spectrum antibiotics with IV Zosyn, renally dose Consultation has been requested with Dr. Campbell, with General surgery, appreciate recommendations Monitor lactic acid trend closely, if patient develops hypotension tonight, patient will be transferred to ICU for vasopressors Discussed patient's case with critical Care, we will watch this patient closely for the next 24 hours Ni catheter will be placed and we will monitor urine output closely Monitor urine output closely, avoid NSAIDs, WENDIE inhibitor/ARB, avoid IV contrast until renal function improves Pain control with Tylenol and IV hydromorphone for severe pain Patient will be started on CPAP therapy tonight for management of suspected obstructive sleep apnea Patient will be placed on alcohol withdrawal protocol with Librium and Ativan, counseled patient to quit alcohol on discharge, patient verbalized understanding Continue antibiotics Zosyn, linezolid, fluconazole according to Infectious Disease recommendations Follow up with surgery recommendations Electrolytes will be corrected ATTESTATION BY PHYSICIAN I have seen and examined the patient. I reviewed the documentation, medical decision making, and treatment plan as noted by the mid-level provider above. I agree with the findings and plan of care. Brigido Whittaker MD, KEERTI K MD Oct 11, 2024 16:01
[2024-10-11 18:18] LABS: ADD UA MICROSCOPIC YES; APPEARANCE,URINE TURBID (CLEAR); BILIRUBIN,URINE 0.5 mg/dL (NEGATIVE); COLOR,URINE YELLOW (YELLOW); GLUCOSE, URINE (UA) NEGATIVE (NEGATIVE); KETONES,URINE 10 mg/dL (NEGATIVE); LEUKOCYTE ESTERASE ,URINE 25 Leu/uL (NEGATIVE); NITRATE,URINE NEGATIVE (NEGATIVE); OCCULT BLOOD,URINE MODERATE (NEGATIVE); PH,URINE 5.5 (5.0-8.0); PROTEIN,URINE 100 mg/dL (NEGATIVE); UROBILINOGEN,URINE 0.2 mg/dL (0.2-1.0)
[2024-10-11 18:22] LABS: BACTERIA,URINE RARE /HPF (None Seen); MUCUS,URINE RARE LPF (None Seen); UNCLASSIFIED CRYSTAL 3 /HPF (None Seen); WBC CLUMP FEW /HPF (0-1); YEAST,URINE BUDDING FEW /HPF (None Seen)
[2024-10-11] MEDS: MAGNESIUM 2GM PREMIX 50ML 50 ML IV PRN (20:25)
[2024-10-12] VITALS (15 sets, daily range): BP systolic 101–130; BP diastolic 56–72; PULSE 92–99; RESP 16–22; TEMP 97.6–98.8; O2SAT 96–100
--- NOTE | 2024-10-12 04:06 | PN ---
INFECTIOUS DISEASE FOLLOWUP NOTE DATE OF SERVICE: 10/11/2024 SUBJECTIVE: The patient is seen and examined at the bedside today. The patient has no fever, no chills. No sore throat, no rhinorrhea. No bleeding tendency. No slurred speech or limb weakness. . The patient is tolerating orally. OBJECTIVE: VITAL SIGNS: Temperature today 97.3. EYES: No icterus. Pupils equal and reactive. HENT: No oral lesions seen. Moist oral mucosa. NECK: Supple. No JVD or thyromegaly. LUNGS: Good air entry. No rales, no rhonchi. CARDIOVASCULAR: S1, S2 regular. No murmur heard. ABDOMEN: Full, soft, nontender. Bowel sounds present. CENTRAL NERVOUS SYSTEM: Awake, alert, oriented x 3. No focal deficits. SKIN: No rashes, no itchiness. LYMPHATICS: No peripheral lymphadenopathy. BACK: No deformity, no pressure ulcer. GENITOURINARY: Ni catheter in place. No hematuria. ASSESSMENT: A 64-year-old male with multiple problems, which include: * Septic shock. * Intra-abdominal abscess, status post catheter placement. * perforation. * Morbid obesity. * Renal failure. * Hypoxic respiratory failure. * Debility. PLAN: * We will Continue nutritional support. * Continue GI prophylaxis. * Continue pain management. * Continue antiemetic. * Continue antibiotic. * . * Continue oxygen. * The patient will be followed up closely. TID: [id number] RECEIPT: [id number]
[2024-10-12 06:14] LABS: BASOPHILS # (AUTO) 0.05 K/uL (0.00-0.20); BASOPHILS % (AUTO) 0.5 % (0.0-5.0); EOSINOPHILS # (AUTO) 0.21 K/uL (0.00-0.70); HEMATOCRIT 30.6 % (42-54); IMMATURE GRANULOCYTE ABSOLUTE 0.25 K/uL (0-1); LYMPHOCYTES % (AUTO) 9.7 % (21.0-51.0); MEAN CORPUSCULAR HGB CONC 32.7 g/dL (32.0-36.0); MEAN CORPUSCULAR VOLUME 94.7 fL (79-99); MONOCYTES # (AUTO) 0.5 K/uL (0.1-1.0); MONOCYTES % (AUTO) 4.7 % (3.0-13.0); NEUTROPHILS # (AUTO) 8.5 K/uL (1.8-7.7); NEUTROPHILS % (AUTO) 80.7 % (40.0-77.0); PLATELET COUNT (AUTO) 373 K/uL (130-400); RED BLOOD CELL COUNT(AUTO) 3.23 MIL/uL (4.50-6.20); RED CELL DISTRIBUTION WIDTH 16.3 % (11.0-15.5); WHITE BLOOD COUNT (AUTO) 10.6 K/uL (4.8-10.8)
[2024-10-12 06:29] LABS: BILIRUBIN,TOTAL 1.8 mg/dL (0.2-1.0); CREATININE 2.6 mg/dL (0.5-1.3); MAGNESIUM 2.2 mg/dL (1.80-2.40); POTASSIUM 3.3 mmol/L (3.5-5.1); TOTAL PROTEIN, SERUM 6.4 g/dL (6.0-8.3)
--- NOTE | 2024-10-12 07:10 | NUR ---
The patient is received with report from the lens generating machine tender. He is in no distres and his is at the bedside. He has an abdominal accordian drain in place draining purilent drainage. 10 mls of NS are injected to the drain site as ordered to keep patent. The call herrera is left in reach and bed is in a low position.
--- NOTE | 2024-10-12 09:03 | HMCIMG ---
CT GUIDE NDL PLCMT IR, CT PERC DRN CATH PLCT W IMG IR INDICATION: DIVERTICULAR ABSCESS CERAMIC TILE INSTALLER: Dr. Mustafa PROCEDURE DETAILS: Informed consent was obtained after discussion of the risks, benefits and alternatives to this treatment. Sterile Prep: All elements of maximal sterile barrier technique, including hand hygiene and cutaneous antisepsis were used. A time-out was performed prior to the procedure. Anesthesia type: Moderate sedation local anesthetic Estimated blood loss: Less than 5 cc. TECHNIQUE: Imaging guidance for intervention: Fluoroscopy and CT with permanent image storage Intraprocedural or immediate post-procedural complications: None The area was prepped and draped in sterile fashion. 1% lidocaine was used for anesthesia. Initial imaging was performed to assess an appropriate entry site. Using imaging guidance, the needle was advanced into the collection with return of fluid. A J-wire was placed and the skin tract was dilated. Next, a 8 Emirati drainage catheter was advanced over the wire and formed in the collection. Specimen was obtained. The catheter was connected to suction bag. Sterile dressing applied. No immediate complication. Patient tolerated procedure well. FINDINGS: Initial CT demonstrated diverticular abscess in the left lower quadrant. Completion imaging demonstrated adequate position of drainage catheter formed in the collection. IMPRESSION: Uneventful placement of 8 Emir[place] drainage catheter in the left lower quadrant diverticular abscess using CT and fluoroscopy guidance. Specimen sent for analysis. The catheter should be flushed with 10 cc every shift
--- NOTE | 2024-10-12 12:18 | PN ---
INFECTIOUS DISEASE PROGRESS NOTE Date of Service: Oct 12, 2024 SUBJECTIVE: This is a 64-year-old male patient who was admitted to the hospital for evaluation of lower abdominal pain. Patient had a CT of the abdomen and pelvis and was found with perforated sigmoid diverticulitis with intra-abdominal abscess. General surgery was consulted. Patient underwent a percutaneous drainage catheter placement on 10/09/2024 by IR. Patient was seen and examined at bedside in room 321. Patient is awake, alert and oriented x3. Patient is sitting up on the bedside chair. The left percutaneous drain is draining moderate amount of purulent drainage. 150 CC total reported in 24 hours. The aspirate culture results came back positive for E coli. Patient is currently on Zosyn, fluconazole and linezolid IV. WBC has tr ended down to a normal level of 10.6 and patient has remained afebrile for the past 24 hours, current temperature is 97.9. No reports of nausea or vomiting. We will continue to follow patient's care. PHYSICAL EXAM EYES: Anicteric. Pupils equal and reactive. HENT: No oral thrush seen, moist Oral mucosa. NECK: Supple, no JVD or thyromegaly. LUNGS: Good air entry. No rales, no rhonchi. CARDIOVASCULAR: S1, S2 regular. No murmur heard. ABDOMEN: bowel sounds present, no organomegaly. Abdominal pain POA. Obese. Left percutaneous drain placement. CENTRAL NERVOUS SYSTEM: Awake, alert, oriented x 3. SKIN: No rashes, no swelling. LYMPHATICS: No peripheral lymphadenopathy. MUSCULOSKELETAL: No joint swelling, erythema or tenderness. EXTREMITIES: No cyanosis or clubbing. BACK: No deformity, no pressure ulcer. GENITOURINARY: No dysuria or hematuria. Vital Sign (Last 12 Hours) 10/12/24 10/12/24 10/12/24 10/12/24 00:00 01:41 04:00 07:19 Temp 98.8 98.4 Pulse 99 97 96 Resp 22 20 18 20 B/P (MAP) 128/72 125/67 Pulse Ox 100 98 O2 Delivery CPAP CPAP FiO2 21 21 10/12/24 10/12/24 10/12/24 07:21 08:00 10:18 Temp 97.9 Pulse 96 96 Resp 20 18 B/P (MAP) 114/69 Pulse Ox 99 98 O2 Delivery Room Air Nasal Cannula* O2 Flow Rate 2 FiO2 21 28 Intake & Output (last 24hrs) 10/11/24 10/11/24 10/12/24 15:00 23:00 07:00 Intake Total 200.0 ml 350.0 ml Output Total 360 ml 40 ml 550 ml Balance -360 ml 160.0 ml -200.0 ml LABS: Laboratory: Test 10/12/24 11:00 10/12/24 06:03 10/11/24 18:00 10/11/24 05:30 Range/Units Whole Blood Glucose 146 H 70-110 MG/DL White Blood Count 10.6 4.8-10.8 K/uL Red Blood Count 3.23 L 4.50-6.20 MIL/uL Hemoglobin 10.0 L 14.0-18.0 g/dL Hematocrit 30.6 L 42-54 % Mean Corpuscular Volume 94.7 79-99 fL Mean Corpuscular Hemoglobin 31.0 27.0-33.0 pg Mean Corpuscular Hemoglobin Concent 32.7 32.0-36.0 g/dL Red Cell Distribution Width 16.3 H 11.0-15.5 % Platelet Count 373 130-400 K/uL Mean Platelet Volume 9.3 7.5-10.5 fL Immature Granulocyte % (Auto) 2.4 H 0-1 % Neutrophils (%) (Auto) 80.7 H 40.0-77.0 % Lymphocytes (%) (Auto) 9.7 L 21.0-51.0 % Monocytes (%) (Auto) 4.7 3.0-13.0 % Eosinophils (%) (Auto) 2.0 0.0-8.0 % Basophils (%) (Auto) 0.5 0.0-5.0 % Neutrophils # (Auto) 8.5 H 1.8-7.7 K/uL Lymphocytes # (Auto) 1.0 1.0-4.8 K/uL Monocytes # (Auto) 0.5 0.1-1.0 K/uL Eosinophils # (Auto) 0.21 0.00-0.70 K/uL Basophils # (Auto) 0.05 0.00-0.20 K/uL Absolute Immature Granulocyte (auto 0.25 0-1 K/uL Nucleated Red Blood Cells 0.0 0.0-0.19 % Sodium Level 134 L 136-145 mmol/L Potassium Level 3.3 L 3.5-5.1 mmol/L Chloride Level 101 101-111 mmol/L Carbon Dioxide Level 17 L 21-32 mmol/L Blood Urea Nitrogen 32 H 7-18 mg/dL Creatinine 2.6 H 0.5-1.3 mg/dL Glomerular Filtration Rate Calc 26 >90 mL/min Random Glucose 140 H 70-105 mg/dL Total Calcium 8.3 L 8.5-10.1 mg/dL Phosphorus Level 4.0 2.5-4.9 mg/dL Magnesium Level 2.20 1.80-2.40 mg/dL Total Bilirubin 1.8 H 0.2-1.0 mg/dL Aspartate Amino Transf (AST/SGOT) 53 H 10-37 U/L Alanine Aminotransferase (ALT/SGPT) 39 12-78 U/L Alkaline Phosphatase 92 50-136 U/L Total Protein 6.4 6.0-8.3 g/dL Albumin 2.0 L 3.5-5.0 g/dL Urine Color YELLOW YELLOW Urine Appearance TURBID CLEAR Urine pH 5.5 5.0-8.0 Urine Specific Gratz 1.024 1.001-1.031 Urine Protein 100 H NEGATIVE mg/dL Urine Glucose (UA) NEGATIVE NEGATIVE mg/dL Urine Ketones 10 H NEGATIVE mg/dL Urine Occult Blood MODERATE H NEGATIVE Urine Nitrate NEGATIVE NEGATIVE Urine Bilirubin 0.5 H NEGATIVE mg/dL Urine Urobilinogen 0.2 0.2-1.0 mg/dL Urine Leukocyte Esterase 25 H NEGATIVE Ravi/uL Urine RBC 11-25 H 0-1 /HPF Urine WBC 11-25 H 0-1 /HPF Urine WBC Clumps (Auto) FEW 0-1 /HPF Urine Other Crystals (Auto) 3 None Seen /HPF Urine Bacteria RARE None Seen /HPF Urine Yeast FEW None Seen /HPF Segmented Neutrophils % 85 H 40-70 % Lymphocytes % (Manual) 8 L 22-44 % Monocytes % (Manual) 3 2-9 % Eosinophils % (Manual) 2 1-6 % Differential Comment MANUAL DIFFERENTIAL Reactive Lymphocytes 2 H 0-0 % White Cell Morphology Comment REACTIVE LYMPHS 1+ Platelet Morphology Comment ADEQUATE Red Blood Cell Morphology See comments Prothrombin Time 11.0 9.6-11.6 SEC Prothromb Time International Ratio 0.98 0.85-1.15 DIAGNOSTICS / RADIOLOGY: PATIENT: SERGO CENTENO MR#: [id number] : 1960 SEX: M AGE: 64 LOCATION: [facility] ORDER 32 STATUS: REG ER REPORT#: [id number] SERVICE 153 REASON: ABD PAIN ORDERING PHYSICIAN: MIRIAM RICE NP PROCEDURE: ABD PEL WO - CT ABDOMEN/PELVIS W/O CONTRAST CT ABDOMEN WITHOUT CONTRAST. CT PELVIS WITHOUT CONTRAST. INDICATION: Abdominal pain; No relevant information related to this study was provided in patient's history by the ordering service. TECHNIQUE: Routine transaxial imaging using 5 mm slice thickness through the abdomen and pelvis without the administration of IV contrast. Thin slice reconstructions are also provided. Coronal and sagittal reformatted images acquired for interpretation. CT was performed with one or more of the following dose reduction techniques: Automated exposure control, adjustment of the mA and/or kV according to patient size, or use of iterative reconstruction technique. COMPARISON: None FINDINGS: ON NONCONTRAST IMAGING: ABDOMEN: Examination provided for interpretation at 4:13 PM on 10/05/2024. Heart size is normal. Scarring at both lung bases. No abnormal renal calcifications, hydronephrosis, perinephric inflammation, or proximal hydroureter detected. The liver is normal in size and smooth in contour without biliary duct dilation. The spleen is normal in size and attenuation. The gallbladder appears normal. The pancreas appears normal without pancreatic duct dilation. The adrenal glands appear normal. No significant abdominal, retrocrural or retroperitoneal adenopathy noted. No evidence for intra-abdominal free air or organized fluid collection. No aortic aneurysmal dilation identified. PELVIS: No abnormal calcifications within the urinary bladder or distal ureters. No evidence for free air or organized pelvic fluid collection. No significant pelvic adenopathy detected. Several diverticula along the distal colon and mild to moderate pericolonic inflammatory fat stranding associated, including 3.5 cm aggregate of air and trace fluid along the mesenteric wall of the far proximal sigmoid colon with additional scattered air densities throughout the anterior mid to upper abdomen. Several diverticula along the proximal colon. Terminal ileum appears unremarkable. The appendix appears normal. Visible osseous structures are intact. IMPRESSION: Perforated sigmoid diverticulitis as described, including findings suggesting potential evolving abscess. DICTATED BY: WILTON ZAVALA MD DATE: 10/05/24 1611 ASSESSMENT: Acute hypoxic respiratory failure, requiring oxygen. Intra-abdominal abscess, with Escherichia coli infection, s/p percutaneous drainage catheter placement on 10/09/2024. Perforated sigmoid diverticulitis. Septic shock. Morbid obesity. Leukocytosis resolving. Acute renal failure PLAN: Obtain an Abscessogram on Monday. Continue linezolid. Continue Zosyn. Continue fluconazole. Continue drain care. Continue GI prophylaxis. Continue oxygen support. We will monitor electrolytes. This case was reviewed and discussed with my supervising physician and the above assessment and plan was formulated and agreed upon. ATTESTATION BY PHYSICIAN I have seen and examined the patient. I reviewed the documentation, medical decision making, and treatment plan as noted by the mid-level provider above. I agree with the findings and plan of care. MICHEAL URRUTIA MD, [facility] Oct 12, 2024 12:18
--- NOTE | 2024-10-12 15:00 | NUR ---
CALLED [facility]. M[facility]ONNELL OPERATOR [employer] FOR DR. URRUTIA TO VERIFY AN ORDER. PLACED ORDER FOR SANFORIZING MACHINE OPERATOR. NOTIFY MR. XIONG ( NURSE ASSIGNED TO PATIENT) TO OBTAINED CONSENT FOR MONDAY PROCEDURE.
--- NOTE | 2024-10-12 15:54 | PN ---
FOLLOWUP PROGRESS NOTE SUBJECTIVE: A 64-year-old male, who has had a prolonged hospital course. The patient initially presented to the hospital with significant abdominal pain. The patient was found to have diverticulitis. The patient remains on the IV antibiotics. He is status post percutaneous drain placement. He has had acute renal failure in the hospital. Creatinine has been elevated. He is being seen as a followup visit for all of the above. REVIEW OF SYSTEMS: GENERAL: The patient is feeling weak and tired. HEENT: No change in vision. No change in hearing. CARDIOVASCULAR: No current chest pains or palpitations. PULMONARY: No shortness of breath. GASTROINTESTINAL: As described above. MUSCULOSKELETAL: Complains of weakness. PHYSICAL EXAMINATION: VITAL SIGNS: Blood pressure 114/69, pulse in the 90s. GENERAL: Chronically ill male, lying in bed on medical floor. HEENT: Head is atraumatic. Pupils equal, roving to light. Oropharynx is without exudate. Nares clear. NECK: There is no JVP. There is no thyromegaly, no mass. CARDIOVASCULAR: Regular. There is no S3, S4 gallop. LUNGS: Coarse with equal thoracic movement. ABDOMEN: Soft, nondistended, nontender. EXTREMITIES: Reveal no clubbing, no cyanosis. NEUROLOGIC: He is awake. He is alert. LABORATORY DATA: Hemoglobin 10, hematocrit 30. Sodium 134, potassium 2.3, BUN 32, creatinine is 2.6. IMPRESSION: * [id number] renal dysfunction. * Perforated bowel, status post drainage. * Diabetes mellitus. * Hypertension. * Anemia. PLAN: The patient's creatinine continues to stabilize. The patient remains on the IV antibiotics. The patient also continues with the drain in place. We will continue to follow closely. The patient with multiple questions, all of which were answered. TID: [id number] RECEIPT: [id number]
--- NOTE | 2024-10-12 16:18 | PN ---
[facility] PROGRESS NOTE Date of Service: Oct 12, 2024 Time of Service: 16:15 SUBJECTIVE: 64-year-old male with underlying history of hypertension, hyperlipidemia, obesity, chronic alcohol use, who presented to the ER for further evaluation of significant lower abdominal pain with associated fevers and chills. Symptoms have been ongoing for the past two days and patient reports having nausea, vomiting and poor oral intake. Reports having pain involving the lower abdomen is moderate to severe in intensity and localized to the left lower quadrant. Patient denies any history of diverticulosis or diverticulitis. Last colonoscopy was about five years ago. Patient is unsure of the results. Patient does have underlying history of hypertension but does not recall the n yuriy of antihypertensive that he takes. Denies any previous history of cardiac or pulmonary comorbidities or renal abnormalities. On presentation to the hospital, patient was noted to be febrile with T-max of 101 F, tachycardic with heart rate of 125 and soft blood pressure with BP of 94/55. [place] [address] with neutrophilia, hemoglobin of 14.2, platelet count of [id number]. BMP remarkable for sodium 137, potassium 3.2, chloride of 99, CO2 of 25, creatinine of 2.9, BUN of 24, lactic acid of 4.3. Patient underwent further evaluation with CT abdomen pelvis without contrast which showed findings of per perforated sigmoid diverticulitis with signs of developing abscess. Consultation with General surgery with Dr. Campbell was requested in the ER recommended IV fluids, IV antibiotics and NPO status. Patient will be admitted under hospitalist service and will receive sepsis bolus of fluid, broad-spectrum antibiotics with IV Zosyn, and lactic acid and blood pressure will be monitored closely tonight. Condition remains critical. 10/06/24 patient was seen and examined. Case discussed with the RN and by the bedside. He reports doing slightly better. Abdominal pain has largely resolved. He denies nausea vomiting fever or chills 10/07/2024 - patient was seen in ED 9, patient is resting in the bed , patient denies pain, nausea, vomitings. Patient is currently continued on pantoprazole, Dilaudid, Zosyn, fluconazole, heparin, linezolid . Patient's vitals show temperature 101.8, pulse 108, respiratory rate 20, blood pressure 139/86, saturating at 100% on2 L nasal cannula. Patient's labs shows WBC down to 12.4 from 12.6, hemoglobin 11.7 In the chemistries show sodium 142, potassium 3.7, creatinine improved to 1.5 from 2.4, BUN 20, procalcitonin elevated at 2.98. Case is being followed by infectious Disease, Nephrology, General surgery. Infectious disease recommended starting linezolid and fluconazole on the patient, general surgery have plan to get a CT abdomen with oral contrast. Patient will be followed closely as he has high risk of decompensation. Preliminary blood culture showed Gram-negative rods, final result unclear. 10/08/2024 - patient is seen in room 230, patient is resting in the bed comfortably, says he feels better compared to yesterday and denies nausea, vomitings. Patient had a CT abdomen pelvis with oral contrast which showed acu te sigmoid diverticulitis,3 x 3.5 cm diverticular abscess, amorphous air collection within walled-off perforation. And there is no intraperitoneal air or free air in the abdomen . Pending further directions from surgery. Patient is currently hemodynamically stable with temperature 98.8, pulse 98, blood pressure 130/83, respiratory rate 18, saturating at 99% on room air. Patient's labs shows WBC elevated to 13.9 from 12.4, hemoglobin 11.2 And chemistries show sodium 141, potassium 3.5, creatinine stable at 1.5, BUN 20. Patient is currently continuing on linezolid, fluconazole, Zosyn. Patient will be monitored closely 10/09/2024 - patient is seen at bedside in room 230, patient is resting comfortably in the bed patient went through the percutaneous drainage by IR and the fluid is sent for culture. Patient denies any symptoms, any pain in the abdomen. Patient's blood culture yielded a prevotella oralis, patient is currently continuing on linezolid, Zosyn, fluconazole. Id is following the case closely. Patient has been started on consistent carb diet. Patient is currently hemodynamically stable with pulse 95, blood pressure 143/96, saturating at 100% on2 L oxygen. Patient's labs shows sodium 138, potassium 3.6, creatinine 1.5, BUN 19, hematology shows WBC trended down to 11.4 from 13.9, hemoglobin 11.5. Patient will be continued on conservative management without any surgical intervention at this time according to the surgeon Dr. Campbell. Patient will be followed closely. Patient downgraded to med surg. 10/10/2024 - patient is seen bedside in room 321, patient is resting comfortably. Patient mentioned about having 1 episode of green color diarrhea. Patient was started on consistent carb diet yesterday and has been tolerating it well. Patient's vitals show temperature 97.9, pulse 103, respiratory rate 18, blood pressure 128/74, saturating at 98% on 1 L nasal cannula. Patient's labs shows WBC trended down to 9.2 from 11.4 and hemoglobin 11.3 and chemistries show sodium 137, potassium 3.9, creatinine elevated to 1.7, BUN 23. Infectious disease ordered Zosyn Q 8. Pulmonology has signed off the case with no further recommendations as he is stable from their standpoint. Awaiting further recommendations from other consults 10/11/2024 - patient is seen in room 321. Patient is sitting in chair when I visited the room, patient is continuing on consistent carb diet. Nurse informed about patient having 1 episode of vomiting, patient denies having nausea, pain. The IR drain had about 60 - 100 mL of drainage of abscess. Patient is currently hemodynamically stable with temperature 99.7, respiratory rate 19, pulse 92, blood pressure 121/69. Patient labs show WBC 10, hemoglobin 10.4 And chemistries show sodium 135, potassium 3.6, creatinine elevated to 2.5, BUN 29, magnesium 1.7. Abscess fluid culture reveals Gram-negative rods, Gram-positive cocci in clusters, budding yeast. Patient is currently continued on fluconazole, linezolid, Zosyn, ID is following the case closely. Waiting for further recommendations and clearance from surgery. Patient had new PICC line placed. Patient will be reassessed tomorrow. 10/12/24 patient was seen and examined. Case discussed with the RN and by the bedside. He is doing better denies any pain tolerating diet. ID is studying abscess track REVIEW OF SYSTEMS CONSTITUTIONAL: Fevers, chills, asthenia, malaise NEUROLOGICAL: Denies headache, amaurosis fugax, motor weakness, sensory deficit, vertigo/spinning sensation, gait abnormalities, or tremors. ENT: No hearing loss, otalgia, otorrhea, rhinitis, rhinorrhea, hoarseness, or sore throat. CARDIOVASCULAR: Denies any exertional angina, dyspnea on exertion, orthopnea, paroxysmal nocturnal dyspnea, palpitations, life-threatening arrhythmias, claudication. PULMONARY: Denies any shortness of breath, cough, phlegm/sputum, hemoptysis, pleuritic chest pain. SLEEP: Denies morning headaches, daytime somnolence or napping. Denies difficulty falling asleep, staying asleep, waking from sleep. Denies knowledge of snoring. GASTROINTESTINAL: Nausea, vomiting, abdominal pain GENITOURINARY: Denies frequency, urgency, nocturia, hematuria or incontinence (Storage/Irritative symptoms.) Low urinary stream, straining to void, urinary intermittency or hesitancy, splitting of the voiding stream, terminal dribbling. ENDOCRINOLOGIC: Denies polyuria, polydipsia, polyphagia or heat/cold intolerances. HEMATOLOGIC: Denies thrombophilia/previous clots, or coagulopathy/bleeding disorders. ONCOLOGIC: Denies personal history of malignancy. DERMATOLOGIC: Denies rashes or pruritus. PSYCHIATRIC: Denies any suicidal or homicidal ideation. Denies hallucinations. PHYSICAL EXAM GENERAL APPEARANCE: The patient is awake, alert, appears disheveled and ill, tachypneic NEUROLOGICAL: Cranial nerves II-XII grossly intact. Motor is 5/5 in bilateral upper and lower extremities proximal to distal. No sensory deficits. HEENT: Face is symmetric. Pupils are equal and reactive. Extraocular movements are intact. NECK: Supple. No JVD. No thyromegaly. No submental, submandibular, pre-/postauricular, occipital or supraclavicular lymphadenopathy. CHEST: Normal chest expansion. No Telemetry. LUNGS: Absence of any rales, rhonchi or any wheezing. CARDIOVASCULAR: Regular. S1 and S2 normal. No appreciable rubs, murmurs or gallops. ABDOMEN: Soft, nontender, and nondistended. There is no rebound, voluntary guarding, or rigidity. : Deferred. No Ni. EXTREMITIES: 1+ pitting edema of the bilateral lower extremities, changes of psoriasis noted of the bilateral lower and upper extremities SKIN: No skin breakdown. Vital Signs (last 8hr) Date Time Temp Pulse Resp B/P (MAP) Pulse Ox O2 Delivery O2 Flow Rate FiO2 10/12/24 12:00 98.2 97 18 101/56 100 Room Air 21 10/12/24 10:18 98 Nasal Cannula* 2 28 LABS: Laboratory: Test 10/12/24 15:50 10/12/24 06:03 10/11/24 18:00 10/11/24 05:30 Range/Units Whole Blood Glucose 157 H 70-110 MG/DL White Blood Count 10.6 4.8-10.8 K/uL Red Blood Count 3.23 L 4.50-6.20 MIL/uL Hemoglobin 10.0 L 14.0-18.0 g/dL Hematocrit 30.6 L 42-54 % Mean Corpuscular Volume 94.7 79-99 fL Mean Corpuscular Hemoglobin 31.0 27.0-33.0 pg Mean Corpuscular Hemoglobin Concent 32.7 32.0-36.0 g/dL Red Cell Distribution Width 16.3 H 11.0-15.5 % Platelet Count 373 130-400 K/uL Mean Platelet Volume 9.3 7.5-10.5 fL Immature Granulocyte % (Auto) 2.4 H 0-1 % Neutrophils (%) (Auto) 80.7 H 40.0-77.0 % Lymphocytes (%) (Auto) 9.7 L 21.0-51.0 % Monocytes (%) (Auto) 4.7 3.0-13.0 % Eosinophils (%) (Auto) 2.0 0.0-8.0 % Basophils (%) (Auto) 0.5 0.0-5.0 % Neutrophils # (Auto) 8.5 H 1.8-7.7 K/uL Lymphocytes # (Auto) 1.0 1.0-4.8 K/uL Monocytes # (Auto) 0.5 0.1-1.0 K/uL Eosinophils # (Auto) 0.21 0.00-0.70 K/uL Basophils # (Auto) 0.05 0.00-0.20 K/uL Absolute Immature Granulocyte (auto 0.25 0-1 K/uL Nucleated Red Blood Cells 0.0 0.0-0.19 % Sodium Level 134 L 136-145 mmol/L Potassium Level 3.3 L 3.5-5.1 mmol/L Chloride Level 101 101-111 mmol/L Carbon Dioxide Level 17 L 21-32 mmol/L Blood Urea Nitrogen 32 H 7-18 mg/dL Creatinine 2.6 H 0.5-1.3 mg/dL Glomerular Filtration Rate Calc 26 >90 mL/min Random Glucose 140 H 70-105 mg/dL Total Calcium 8.3 L 8.5-10.1 mg/dL Phosphorus Level 4.0 2.5-4.9 mg/dL Magnesium Level 2.20 1.80-2.40 mg/dL Total Bilirubin 1.8 H 0.2-1.0 mg/dL Aspartate Amino Transf (AST/SGOT) 53 H 10-37 U/L Alanine Aminotransferase (ALT/SGPT) 39 12-78 U/L Alkaline Phosphatase 92 50-136 U/L Total Protein 6.4 6.0-8.3 g/dL Albumin 2.0 L 3.5-5.0 g/dL Urine Color YELLOW YELLOW Urine Appearance TURBID CLEAR Urine pH 5.5 5.0-8.0 Urine Specific [place] 1.024 1.001-1.031 Urine Protein 100 H NEGATIVE mg/dL Urine Glucose (UA) NEGATIVE NEGATIVE mg/dL Urine Ketones 10 H NEGATIVE mg/dL Urine Occult Blood MODERATE H NEGATIVE Urine Nitrate NEGATIVE NEGATIVE Urine Bilirubin 0.5 H NEGATIVE mg/dL Urine Urobilinogen 0.2 0.2-1.0 mg/dL Urine Leukocyte Esterase 25 H NEGATIVE Ravi/uL Urine RBC 11-25 H 0-1 /HPF Urine WBC 11-25 H 0-1 /HPF Urine WBC Clumps (Auto) FEW 0-1 /HPF Urine Other Crystals (Auto) 3 None Seen /HPF Urine Bacteria RARE None Seen /HPF Urine Yeast FEW None Seen /HPF Segmented Neutrophils % 85 H 40-70 % Lymphocytes % (Manual) 8 L 22-44 % Monocytes % (Manual) 3 2-9 % Eosinophils % (Manual) 2 1-6 % Differential Comment MANUAL DIFFERENTIAL Reactive Lymphocytes 2 H 0-0 % White Cell Morphology Comment REACTIVE LYMPHS 1+ Platelet Morphology Comment ADEQUATE Red Blood Cell Morphology See comments Prothrombin Time 11.0 9.6-11.6 SEC Prothromb Time International Ratio 0.98 0.85-1.15 Current Medications Medications (Trade) Dose Ordered Sig/Tim Route PRN Reason Start Time Stop Time Status Last Admin Dose Admin Acetaminophen (TYLenol 325MG TAB) 650 mg Q6H PRN PO MILD PAIN (1-3) 10/05/24 18:30 11/04/24 18:29 10/07/24 19:02 650 MG Acetaminophen (TYLenol 650MG SUPPOSITORY) 650 mg Q4H PRN RC TEMPERATURE GREATER THAN 101.5 10/07/24 05:30 11/06/24 05:29 10/07/24 12:31 650 MG Acetaminophen (acetaMINOPHEN) 1,000 mg ONCE STAT IVPB 10/06/24 17:17 10/06/24 17:19 DC 10/06/24 19:27 1,000 MG Acetaminophen (acetaMINOPHEN) 1,000 mg STAT IVPB 10/06/24 09:00 10/06/24 13:02 DC 10/06/24 09:37 1,000 MG Albumin Human 100 ml @ 100 mls/hr AD IV 10/05/24 21:00 10/06/24 06:01 DC 10/05/24 21:33 100 MLS/HR Albumin Human 100 ml @ 0 mls/hr AD IV 10/06/24 06:00 10/07/24 12:38 DC 10/06/24 07:02 500 MLS/HR Atorvastatin Calcium (LIPItor 40MG) 40 mg HS PO 10/07/24 21:00 11/06/24 20:59 10/11/24 20:16 40 MG Budesonide (Pulmicort 0.5 Mg/2ml) 0.5 mg BIDRESP IH 10/05/24 18:00 11/04/24 17:59 10/12/24 07:21 0.5 MG Chlordiazepoxide HCl (LIBrium 25 MG CAP) 25 mg Q4H PRN PO ALCOHOL WITHDRAWAL PROTOCOL 10/05/24 18:00 10/12/24 17:59 Dextrose (D50w) 50 ml AD PRN IV HYPOGLYCEMIA PROTOCOL 10/07/24 09:30 11/06/24 09:29 EZETIMIBE (Zetia) 10 mg DAILY PO 10/08/24 09:00 11/07/24 08:59 10/12/24 08:42 10 MG Fluconazole/ Sodium Chloride 200 ml @ 100 mls/hr Q24H IV 10/06/24 13:00 11/05/24 12:59 10/12/24 12:43 100 MLS/HR Glucagon (Glucagon 1mg Kit) 1 mg AD PRN IM HYPOGLYCEMIA PROTOCOL 10/07/24 09:30 11/06/24 09:29 Heparin Sodium (Porcine) (HEParin 5,000 UNIT VIAL) 5,000 unit TID SQ 10/06/24 21:00 11/05/24 20:59 10/12/24 14:19 5,000 UNIT Hydrochlorothiazide (hydroCHLOROthiazide 25MG) 12.5 mg DAILY PO 10/08/24 09:00 11/07/24 08:59 10/12/24 08:42 12.5 MG Hydromorphone HCl (DiLAUDid 0.5MG INJ) 0.5 mg Q6H PRN IVP SEVERE PAIN (7-10) 10/05/24 18:00 10/10/24 17:59 DC 10/05/24 19:34 0.5 MG Insulin Human Regular (humuLIN R 100 UNIT/ML 3ML) INSULIN SLIDING SCAL... ACHS SQ 10/07/24 11:30 11/06/24 11:29 10/10/24 20:50 2 UNIT Linezolid 300 ml @ 150 mls/hr Q12H IV 10/07/24 13:30 10/17/24 13:29 10/12/24 12:43 150 MLS/HR Lorazepam (AtiVAN) 2 mg Q4H PRN IVP ALCOHOL WITHDRAWAL PROTOCOL 10/05/24 18:00 10/12/24 17:59 Losartan Potassium (CozAAR 100MG TAB) 100 mg DAILY PO 10/08/24 09:00 10/11/24 16:10 DC 10/11/24 10:53 100 MG Magnesium Sulfate 50 ml @ 0 mls/hr PROTOCOL PRN IV MAGNESIUM PROTOCOL 10/07/24 09:30 11/06/24 09:29 10/11/24 20:25 25 MLS/HR Norepinephrine 250 ml @ 44.213 mls/ hr PROTOCOL IV 10/06/24 12:00 11/05/24 11:59 Nystatin (NystOP 15 GM POWDER) 1 APPLICATION BID TP 10/06/24 21:00 11/05/24 20:59 10/12/24 08:43 1 APPL Ondansetron HCl (zoFRAN 4MG INJ) 4 mg Q8H PRN IVP NAUSEA/VOMITING 10/10/24 19:30 11/09/24 19:29 Pantoprazole Sodium (PROTonix 40MG INJ) 40 mg Q24H IVP 10/05/24 18:00 11/04/24 17:59 10/10/24 17:26 40 MG Pharmacy Profile Note (Pharmacy Communication) 1 each PROTOCOL PRN MISC ETOH Withdrawal Score changes 10/05/24 18:00 10/12/24 17:59 Piperacillin Sod/ Tazobactam Sod (Zosyn 3.375gm+NS 50ml) 3.375 gm Q8H IVPB 10/10/24 08:00 10/10/24 16:16 DC 10/10/24 08:40 3.375 GM Piperacillin Sod/ Tazobactam Sod (Zosyn 3.375gm+NS 50ml) 3.375 gm Q8H IVPB 10/10/24 21:00 10/20/24 20:59 10/12/24 12:43 3.375 GM Piperacillin Sod/ Tazobactam Sod (Zosyn 3.375gm+NS 50ml) 3.375 gm Q8H IVPB 10/05/24 23:00 10/10/24 05:21 DC 10/10/24 00:26 3.375 GM Potassium Chloride 100 ml @ 100 mls/hr AD PRN IV POTASSIUM PROTOCOL 10/07/24 09:30 11/06/24 09:29 Potassium Chloride 100 ml @ 100 mls/hr AD PRN IV POTASSIUM PROTOCOL 10/05/24 18:00 11/04/24 17:59 10/12/24 07:19 100 MLS/HR Potassium Chloride (K-Dur/Klor-Con 20meq) 20 meq AD PRN PO POTASSIUM PROTOCOL 10/07/24 09:30 11/06/24 09:29 10/09/24 21:33 20 MEQ Potassium Chloride (KCl 10% Elixir 20meq/15ml) 20 meq AD PRN PO POTASSIUM PROTOCOL 10/07/24 09:30 11/06/24 09:29 Sodium Chloride (NS 50ml) 50 ml AD IV 10/05/24 21:00 10/05/24 17:34 DC Thiamine HCl (Vitamin B-1) 100 mg Q24H IVP 10/05/24 18:00 10/06/24 11:49 DC 10/05/24 18:12 100 MG Thiamine HCl (Vitamin B-1) 300 mg Q24H IVP 10/06/24 18:00 10/09/24 17:59 DC 10/09/24 16:21 300 MG Thiamine HCl 100 mg/Folic Acid 1 mg/Multivitamins/ Minerals 10 ml/ Sodium Chloride 1,011.2 ml @ 100 mls/ hr Q24H IV 10/05/24 18:00 10/08/24 04:07 DC 10/07/24 18:17 100 MLS/HR DIAGNOSTICS / RADIOLOGY: [ ] ASSESSMENT: Severe sepsis, POA, 2/2 perforated sigmoid diverticulitis Perforated sigmoid diverticulitis with developing abscess, POA Moderate lactic acidosis, POA Acute kidney injury, POA Hypokalemia, POA Mild urinary tract infection, POA Alcohol use disorder, POA Morbid obesity, POA Underlying history of hypertension, POA Hyperlipidemia, POA Status post percutaneous drain placement by IR Suspected GREG, POA PLAN: Continue with IV fluids, patient will receive sepsis bolus of fluid and start maintenance IV fluid with banana bag, 75 mL/hour Patient will be started on daily thiamine supplementation We will start broad-spectrum antibiotics with IV Zosyn, renally dose Consultation has been requested with Dr. Campbell, with General surgery, appreciate recommendations Monitor lactic acid trend closely, if patient develops hypotension tonight, patient will be transferred to ICU for vasopressors Discussed patient's case with critical Care, we will watch this patient closely for the next 24 hours Ni catheter will be placed and we will monitor urine output closely Monitor urine output closely, avoid NSAIDs, WENDIE inhibitor/ARB, avoid IV contrast until renal function improves Pain control with Tylenol and IV hydromorphone for severe pain Patient will be started on CPAP therapy tonight for management of suspected obstructive sleep apnea Patient will be placed on alcohol withdrawal protocol with Librium and Ativan, counseled patient to quit alcohol on discharge, patient verbalized understanding Continue antibiotics Zosyn, linezolid, fluconazole according to Infectious Disease recommendations Follow up with surgery recommendations Electrolytes will be corrected WENDY CROOK MD Oct 12, 2024 16:18
[2024-10-13] VITALS (10 sets, daily range): BP systolic 108–138; BP diastolic 67–84; PULSE 90–107; RESP 17–24; TEMP 97.6–98.7; O2SAT 97–100
[2024-10-13 05:53] LABS: BASOPHILS # (AUTO) 0.03 K/uL (0.00-0.20); BASOPHILS % (AUTO) 0.3 % (0.0-5.0); EOSINOPHILS # (AUTO) 0.18 K/uL (0.00-0.70); EOSINOPHILS % (AUTO) 1.9 % (0.0-8.0); HEMATOCRIT 28.7 % (42-54); IMMATURE GRANULOCYTE ABSOLUTE 0.25 K/uL (0-1); LYMPHOCYTES % (AUTO) 10.6 % (21.0-51.0); MEAN CORPUSCULAR HEMOGLOBIN 30.8 pg (27.0-33.0); MEAN CORPUSCULAR HGB CONC 33.1 g/dL (32.0-36.0); MEAN CORPUSCULAR VOLUME 93.2 fL (79-99); MONOCYTES # (AUTO) 0.4 K/uL (0.1-1.0); MONOCYTES % (AUTO) 3.8 % (3.0-13.0); NEUTROPHILS # (AUTO) 7.7 K/uL (1.8-7.7); NEUTROPHILS % (AUTO) 80.8 % (40.0-77.0); PLATELET COUNT (AUTO) 435 K/uL (130-400); RED BLOOD CELL COUNT(AUTO) 3.08 MIL/uL (4.50-6.20); RED CELL DISTRIBUTION WIDTH 16.4 % (11.0-15.5); WHITE BLOOD COUNT (AUTO) 9.6 K/uL (4.8-10.8)
[2024-10-13 06:10] LABS: CREATININE 2.2 mg/dL (0.5-1.3); POTASSIUM 3.4 mmol/L (3.5-5.1)
--- NOTE | 2024-10-13 12:20 | PN ---
FOLLOWUP PROGRESS NOTE SUBJECTIVE: A 64-year-old male with a history of hypertension and hypercholesterolemia, initially presented, found to have abdominal pain. The patient was found to have perforated diverticulitis. The patient is status post drainage of the abscess. He has had acute renal failure in the hospital. Creatinine has actually stabilized overnight, and the patient is being seen as a followup visit for all the above. The patient does remain on the antibiotics. REVIEW OF SYSTEMS: GENERAL: The patient is feeling weak and tired. HEENT: No change in vision. No change in hearing. CARDIOVASCULAR: There is no current chest pain or palpitations. PULMONARY: No shortness of breath. GASTROINTESTINAL: He has been started on a diet. MUSCULOSKELETAL: Complains of weakness. PHYSICAL EXAMINATION: VITAL SIGNS: Blood pressure 136/77, pulse 100s. GENERAL: He is a chronically ill male, lying in bed in the medical floor. SKIN: Head is atraumatic. Pupils equal, roving to light. Oropharynx is without exudate. Nares clear. NECK: There is no JVP. There is no thyromegaly, no mass. CARDIOVASCULAR: Regular. There is no S3, S4 gallop. LUNGS: Coarse with equal thoracic movement. ABDOMEN: Soft, nondistended, nontender. EXTREMITIES: Reveal no clubbing, no cyanosis. NEUROLOGIC: He is awake. He is alert. LABORATORY DATA: Sodium 132, potassium 3.4, BUN 28, creatinine is 2.2. Hemoglobin 9.5, hematocrit 28. IMPRESSION: * Acute on chronic renal dysfunction. * Perforated diverticulitis, status post drainage. * Electrolyte abnormalities. * Debilitation. PLAN: The patient's renal function continues to slowly improve. The patient's hydrochlorothiazide will be discontinued secondary to the hyponatremia and hypokalemia. We will continue to follow the patient closely, should the patient remains on the antibiotics, and we will follow while in the hospital. TID: [id number] RECEIPT: [id number]
--- NOTE | 2024-10-13 16:38 | PN ---
[facility] PROGRESS NOTE Date of Service: Oct 13, 2024 Time of Service: 16:37 SUBJECTIVE: 64-year-old male with underlying history of hypertension, hyperlipidemia, obesity, chronic alcohol use, who presented to the ER for further evaluation of significant lower abdominal pain with associated fevers and chills. Symptoms have been ongoing for the past two days and patient reports having nausea, vomiting and poor oral intake. Reports having pain involving the lower abdomen is moderate to severe in intensity and localized to the left lower quadrant. Patient denies any history of diverticulosis or diverticulitis. Last colonoscopy was about five years ago. Patient is unsure of the results. Patient does have underlying history of hypertension but does not recall the n yuriy of antihypertensive that he takes. Denies any previous history of cardiac or pulmonary comorbidities or renal abnormalities. On presentation to the hospital, patient was noted to be febrile with T-max of 101 F, tachycardic with heart rate of 125 and soft blood pressure with BP of 94/55. [place] [address] with neutrophilia, hemoglobin of 14.2, platelet count of 335040. BMP remarkable for sodium 137, potassium 3.2, chloride of 99, CO2 of 25, creatinine of 2.9, BUN of 24, lactic acid of 4.3. Patient underwent further evaluation with CT abdomen pelvis without contrast which showed findings of per perforated sigmoid diverticulitis with signs of developing abscess. Consultation with General surgery with Dr. Campbell was requested in the ER recommended IV fluids, IV antibiotics and NPO status. Patient will be admitted under hospitalist service and will receive sepsis bolus of fluid, broad-spectrum antibiotics with IV Zosyn, and lactic acid and blood pressure will be monitored closely tonight. Condition remains critical. 10/06/24 patient was seen and examined. Case discussed with the RN and by the bedside. He reports doing slightly better. Abdominal pain has largely resolved. He denies nausea vomiting fever or chills 10/07/2024 - patient was seen in ED 9, patient is resting in the bed , patient denies pain, nausea, vomitings. Patient is currently continued on pantoprazole, Dilaudid, Zosyn, fluconazole, heparin, linezolid . Patient's vitals show temperature 101.8, pulse 108, respiratory rate 20, blood pressure 139/86, saturating at 100% on2 L nasal cannula. Patient's labs shows WBC down to 12.4 from 12.6, hemoglobin 11.7 In the chemistries show sodium 142, potassium 3.7, creatinine improved to 1.5 from 2.4, BUN 20, procalcitonin elevated at 2.98. Case is being followed by infectious Disease, Nephrology, General surgery. Infectious disease recommended starting linezolid and fluconazole on the patient, general surgery have plan to get a CT abdomen with oral contrast. Patient will be followed closely as he has high risk of decompensation. Preliminary blood culture showed Gram-negative rods, final result unclear. 10/08/2024 - patient is seen in room 230, patient is resting in the bed comfortably, says he feels better compared to yesterday and denies nausea, vomitings. Patient had a CT abdomen pelvis with oral contrast which showed acu te sigmoid diverticulitis,3 x 3.5 cm diverticular abscess, amorphous air collection within walled-off perforation. And there is no intraperitoneal air or free air in the abdomen . Pending further directions from surgery. Patient is currently hemodynamically stable with temperature 98.8, pulse 98, blood pressure 130/83, respiratory rate 18, saturating at 99% on room air. Patient's labs shows WBC elevated to 13.9 from 12.4, hemoglobin 11.2 And chemistries show sodium 141, potassium 3.5, creatinine stable at 1.5, BUN 20. Patient is currently continuing on linezolid, fluconazole, Zosyn. Patient will be monitored closely 10/09/2024 - patient is seen at bedside in room 230, patient is resting comfortably in the bed patient went through the percutaneous drainage by IR and the fluid is sent for culture. Patient denies any symptoms, any pain in the abdomen. Patient's blood culture yielded a prevotella oralis, patient is currently continuing on linezolid, Zosyn, fluconazole. Id is following the case closely. Patient has been started on consistent carb diet. Patient is currently hemodynamically stable with pulse 95, blood pressure 143/96, saturating at 100% on2 L oxygen. Patient's labs shows sodium 138, potassium 3.6, creatinine 1.5, BUN 19, hematology shows WBC trended down to 11.4 from 13.9, hemoglobin 11.5. Patient will be continued on conservative management without any surgical intervention at this time according to the surgeon Dr. Campbell. Patient will be followed closely. Patient downgraded to med surg. 10/10/2024 - patient is seen bedside in room 321, patient is resting comfortably. Patient mentioned about having 1 episode of green color diarrhea. Patient was started on consistent carb diet yesterday and has been tolerating it well. Patient's vitals show temperature 97.9, pulse 103, respiratory rate 18, blood pressure 128/74, saturating at 98% on 1 L nasal cannula. Patient's labs shows WBC trended down to 9.2 from 11.4 and hemoglobin 11.3 and chemistries show sodium 137, potassium 3.9, creatinine elevated to 1.7, BUN 23. Infectious disease ordered Zosyn Q 8. Pulmonology has signed off the case with no further recommendations as he is stable from their standpoint. Awaiting further recommendations from other consults 10/11/2024 - patient is seen in room 321. Patient is sitting in chair when I visited the room, patient is continuing on consistent carb diet. Nurse informed about patient having 1 episode of vomiting, patient denies having nausea, pain. The IR drain had about 60 - 100 mL of drainage of abscess. Patient is currently hemodynamically stable with temperature 99.7, respiratory rate 19, pulse 92, blood pressure 121/69. Patient labs show WBC 10, hemoglobin 10.4 And chemistries show sodium 135, potassium 3.6, creatinine elevated to 2.5, BUN 29, magnesium 1.7. Abscess fluid culture reveals Gram-negative rods, Gram-positive cocci in clusters, budding yeast. Patient is currently continued on fluconazole, linezolid, Zosyn, ID is following the case closely. Waiting for further recommendations and clearance from surgery. Patient had new PICC line placed. Patient will be reassessed tomorrow. 10/12/24 patient was seen and examined. Case discussed with the RN and by the bedside. He is doing better denies any pain tolerating diet. ID is studying abscess track 10/13/24 patient was seen and examined. Case discussed with the RN and by the bedside. Is awaiting with the study ordered by ID which from likely be done tomorrow to assess abscess track. REVIEW OF SYSTEMS CONSTITUTIONAL: Fevers, chills, asthenia, malaise NEUROLOGICAL: Denies headache, amaurosis fugax, motor weakness, sensory deficit, vertigo/spinning sensation, gait abnormalities, or tremors. ENT: No hearing loss, otalgia, otorrhea, rhinitis, rhinorrhea, hoarseness, or sore throat. CARDIOVASCULAR: Denies any exertional angina, dyspnea on exertion, orthopnea, paroxysmal nocturnal dyspnea, palpitations, life-threatening arrhythmias, claudication. PULMONARY: Denies any shortness of breath, cough, phlegm/sputum, hemoptysis, pleuritic chest pain. SLEEP: Denies morning headaches, daytime somnolence or napping. Denies difficulty falling asleep, staying asleep, waking from sleep. Denies knowledge of snoring. GASTROINTESTINAL: Nausea, vomiting, abdominal pain GENITOURINARY: Denies frequency, urgency, nocturia, hematuria or incontinence (Storage/Irritative symptoms.) Low urinary stream, straining to void, urinary intermittency or hesitancy, splitting of the voiding stream, terminal dribbling. ENDOCRINOLOGIC: Denies polyuria, polydipsia, polyphagia or heat/cold intolerances. HEMATOLOGIC: Denies thrombophilia/previous clots, or coagulopathy/bleeding disorders. ONCOLOGIC: Denies personal history of malignancy. DERMATOLOGIC: Denies rashes or pruritus. PSYCHIATRIC: Denies any suicidal or homicidal ideation. Denies hallucinations. PHYSICAL EXAM GENERAL APPEARANCE: The patient is awake, alert, appears disheveled and ill, tachypneic NEUROLOGICAL: Cranial nerves II-XII grossly intact. Motor is 5/5 in bilateral upper and lower extremities proximal to distal. No sensory deficits. HEENT: Face is symmetric. Pupils are equal and reactive. Extraocular movements are intact. NECK: Supple. No JVD. No thyromegaly. No submental, submandibular, pre- /postauricular, occipital or supraclavicular lymphadenopathy. CHEST: Normal chest expansion. No Telemetry. LUNGS: Absence of any rales, rhonchi or any wheezing. CARDIOVASCULAR: Regular. S1 and S2 normal. No appreciable rubs, murmurs or gallops. ABDOMEN: Soft, nontender, and nondistended. There is no rebound, voluntary guarding, or rigidity. : Deferred. No Ni. EXTREMITIES: 1+ pitting edema of the bilateral lower extremities, changes of psoriasis noted of the bilateral lower and upper extremities SKIN: No skin breakdown. Vital Signs (last 8hr) Date Time Temp Pulse Resp B/P (MAP) Pulse Ox O2 Delivery O2 Flow Rate FiO2 10/13/24 12:27 98.4 106 17 126/74 100 LABS: Laboratory: Test 10/13/24 15:46 10/13/24 05:21 10/12/24 06:03 10/11/24 18:00 Range/Units Whole Blood Glucose 126 H 70-110 MG/DL White Blood Count 9.6 4.8-10.8 K/uL Red Blood Count 3.08 L 4.50-6.20 MIL/uL Hemoglobin 9.5 L 14.0-18.0 g/dL Hematocrit 28.7 L 42-54 % Mean Corpuscular Volume 93.2 79-99 fL Mean Corpuscular Hemoglobin 30.8 27.0-33.0 pg Mean Corpuscular Hemoglobin Concent 33.1 32.0-36.0 g/dL Red Cell Distribution Width 16.4 H 11.0-15.5 % Platelet Count 435 H 130-400 K/uL Mean Platelet Volume 9.2 7.5-10.5 fL Immature Granulocyte % (Auto) 2.6 H 0-1 % Neutrophils (%) (Auto) 80.8 H 40.0-77.0 % Lymphocytes (%) (Auto) 10.6 L 21.0-51.0 % Monocytes (%) (Auto) 3.8 3.0-13.0 % Eosinophils (%) (Auto) 1.9 0.0-8.0 % Basophils (%) (Auto) 0.3 0.0-5.0 % Neutrophils # (Auto) 7.7 1.8-7.7 K/uL Lymphocytes # (Auto) 1.0 1.0-4.8 K/uL Monocytes # (Auto) 0.4 0.1-1.0 K/uL Eosinophils # (Auto) 0.18 0.00-0.70 K/uL Basophils # (Auto) 0.03 0.00-0.20 K/uL Absolute Immature Granulocyte (auto 0.25 0-1 K/uL Nucleated Red Blood Cells 0.0 0.0-0.19 % Sodium Level 132 L 136-145 mmol/L Potassium Level 3.4 L 3.5-5.1 mmol/L Chloride Level 100 L 101-111 mmol/L Carbon Dioxide Level 18 L 21-32 mmol/L Blood Urea Nitrogen 28 H 7-18 mg/dL Creatinine 2.2 H 0.5-1.3 mg/dL Glomerular Filtration Rate Calc 32 >90 mL/min Random Glucose 139 H 70-105 mg/dL Total Calcium 8.2 L 8.5-10.1 mg/dL Phosphorus Level 4.0 2.5-4.9 mg/dL Magnesium Level 2.20 1.80-2.40 mg/dL Total Bilirubin 1.8 H 0.2-1.0 mg/dL Aspartate Amino Transf (AST/SGOT) 53 H 10-37 U/L Alanine Aminotransferase (ALT/SGPT) 39 12-78 U/L Alkaline Phosphatase 92 50-136 U/L Total Protein 6.4 6.0-8.3 g/dL Albumin 2.0 L 3.5-5.0 g/dL Urine Color YELLOW YELLOW Urine Appearance TURBID CLEAR Urine pH 5.5 5.0-8.0 Urine Specific Harris 1.024 1.001-1.031 Urine Protein 100 H NEGATIVE mg/dL Urine Glucose (UA) NEGATIVE NEGATIVE mg/dL Urine Ketones 10 H NEGATIVE mg/dL Urine Occult Blood MODERATE H NEGATIVE Urine Nitrate NEGATIVE NEGATIVE Urine Bilirubin 0.5 H NEGATIVE mg/dL Urine Urobilinogen 0.2 0.2-1.0 mg/dL Urine Leukocyte Esterase 25 H NEGATIVE Ravi/uL Urine RBC 11-25 H 0-1 /HPF Urine WBC 11-25 H 0-1 /HPF Urine WBC Clumps (Auto) FEW 0-1 /HPF Urine Other Crystals (Auto) 3 None Seen /HPF Urine Bacteria RARE None Seen /HPF Urine Yeast FEW None Seen /HPF Current Medications Medications (Trade) Dose Ordered Sig/Tim Route PRN Reason Start Time Stop Time Status Last Admin Dose Admin Acetaminophen (TYLenol 325MG TAB) 650 mg Q6H PRN PO MILD PAIN (1-3) 10/05/24 18:30 11/04/24 18:29 10/07/24 19:02 650 MG Acetaminophen (TYLenol 650MG SUPPOSITORY) 650 mg Q4H PRN RC TEMPERATURE GREATER THAN 101.5 10/07/24 05:30 11/06/24 05:29 10/07/24 12:31 650 MG Acetaminophen (acetaMINOPHEN) 1,000 mg ONCE STAT IVPB 10/06/24 17:17 10/06/24 17:19 DC 10/06/24 19:27 1,000 MG Acetaminophen (acetaMINOPHEN) 1,000 mg STAT IVPB 10/06/24 09:00 10/06/24 13:02 DC 10/06/24 09:37 1,000 MG Albumin Human 100 ml @ 100 mls/hr AD IV 10/05/24 21:00 10/06/24 06:01 DC 10/05/24 21:33 100 MLS/HR Albumin Human 100 ml @ 0 mls/hr AD IV 10/06/24 06:00 10/07/24 12:38 DC 10/06/24 07:02 500 MLS/HR Atorvastatin Calcium (LIPItor 40MG) 40 mg HS PO 10/07/24 21:00 11/06/24 20:59 10/12/24 20:00 40 MG Budesonide (Pulmicort 0.5 Mg/2ml) 0.5 mg BIDRESP IH 10/05/24 18:00 11/04/24 17:59 10/13/24 07:17 0.5 MG Chlordiazepoxide HCl (LIBrium 25 MG CAP) 25 mg Q4H PRN PO ALCOHOL WITHDRAWAL PROTOCOL 10/05/24 18:00 10/12/24 17:59 DC Dextrose (D50w) 50 ml AD PRN IV HYPOGLYCEMIA PROTOCOL 10/07/24 09:30 11/06/24 09:29 EZETIMIBE (Zetia) 10 mg DAILY PO 10/08/24 09:00 11/07/24 08:59 10/13/24 09:26 10 MG Fluconazole/ Sodium Chloride 200 ml @ 100 mls/hr Q24H IV 10/06/24 13:00 11/05/24 12:59 10/13/24 12:16 100 MLS/HR Glucagon (Glucagon 1mg Kit) 1 mg AD PRN IM HYPOGLYCEMIA PROTOCOL 10/07/24 09:30 11/06/24 09:29 Heparin Sodium (Porcine) (HEParin 5,000 UNIT VIAL) 5,000 unit TID SQ 10/06/24 21:00 11/05/24 20:59 10/13/24 15:07 5,000 UNIT Hydrochlorothiazide (hydroCHLOROthiazide 25MG) 12.5 mg DAILY PO 10/08/24 09:00 10/13/24 11:15 DC 10/13/24 09:27 12.5 MG Hydromorphone HCl (DiLAUDid 0.5MG INJ) 0.5 mg Q6H PRN IVP SEVERE PAIN (7-10) 10/05/24 18:00 10/10/24 17:59 DC 10/05/24 19:34 0.5 MG Insulin Human Regular (humuLIN R 100 UNIT/ML 3ML) INSULIN SLIDING SCAL... ACHS SQ 10/07/24 11:30 11/06/24 11:29 10/10/24 20:50 2 UNIT Linezolid 300 ml @ 150 mls/hr Q12H IV 10/07/24 13:30 10/17/24 13:29 10/13/24 15:14 150 MLS/HR Lorazepam (AtiVAN) 2 mg Q4H PRN IVP ALCOHOL WITHDRAWAL PROTOCOL 10/05/24 18:00 10/12/24 17:59 DC Losartan Potassium (CozAAR 100MG TAB) 100 mg DAILY PO 10/08/24 09:00 10/11/24 16:10 DC 10/11/24 10:53 100 MG Magnesium Sulfate 50 ml @ 0 mls/hr PROTOCOL PRN IV MAGNESIUM PROTOCOL 10/07/24 09:30 11/06/24 09:29 10/11/24 20:25 25 MLS/HR Norepinephrine 250 ml @ 44.213 mls/ hr PROTOCOL IV 10/06/24 12:00 11/05/24 11:59 Nystatin (NystOP 15 GM POWDER) 1 APPLICATION BID TP 10/06/24 21:00 11/05/24 20:59 10/13/24 09:33 1 APPL Ondansetron HCl (zoFRAN 4MG INJ) 4 mg Q8H PRN IVP NAUSEA/VOMITING 10/10/24 19:30 11/09/24 19:29 Pantoprazole Sodium (PROTonix 40MG INJ) 40 mg Q24H IVP 10/05/24 18:00 11/04/24 17:59 10/12/24 17:00 40 MG Pharmacy Profile Note (Pharmacy Communication) 1 each PROTOCOL PRN MISC ETOH Withdrawal Score changes 10/05/24 18:00 10/12/24 17:59 DC Piperacillin Sod/ Tazobactam Sod (Zosyn 3.375gm+NS 50ml) 3.375 gm Q8H IVPB 10/10/24 08:00 10/10/24 16:16 DC 10/10/24 08:40 3.375 GM Piperacillin Sod/ Tazobactam Sod (Zosyn 3.375gm+NS 50ml) 3.375 gm Q8H IVPB 10/10/24 21:00 10/20/24 20:59 10/13/24 12:15 3.375 GM Piperacillin Sod/ Tazobactam Sod (Zosyn 3.375gm+NS 50ml) 3.375 gm Q8H IVPB 10/05/24 23:00 10/10/24 05:21 DC 10/10/24 00:26 3.375 GM Potassium Chloride 100 ml @ 100 mls/hr AD PRN IV POTASSIUM PROTOCOL 10/07/24 09:30 11/06/24 09:29 Potassium Chloride 100 ml @ 100 mls/hr AD PRN IV POTASSIUM PROTOCOL 10/05/24 18:00 11/04/24 17:59 10/12/24 20:01 100 MLS/HR Potassium Chloride (K-Dur/Klor-Con 20meq) 20 meq AD PRN PO POTASSIUM PROTOCOL 10/07/24 09:30 11/06/24 09:29 10/13/24 14:59 20 MEQ Potassium Chloride (KCl 10% Elixir 20meq/15ml) 20 meq AD PRN PO POTASSIUM PROTOCOL 10/07/24 09:30 11/06/24 09:29 Sodium Chloride (NS 50ml) 50 ml AD IV 10/05/24 21:00 10/05/24 17:34 DC Thiamine HCl (Vitamin B-1) 100 mg Q24H IVP 10/05/24 18:00 10/06/24 11:49 DC 10/05/24 18:12 100 MG Thiamine HCl (Vitamin B-1) 300 mg Q24H IVP 10/06/24 18:00 10/09/24 17:59 DC 10/09/24 16:21 300 MG Thiamine HCl 100 mg/Folic Acid 1 mg/Multivitamins/ Minerals 10 ml/ Sodium Chloride 1,011.2 ml @ 100 mls/ hr Q24H IV 10/05/24 18:00 10/08/24 04:07 DC 10/07/24 18:17 100 MLS/HR DIAGNOSTICS / RADIOLOGY: [ ] ASSESSMENT: Severe sepsis, POA, 2/2 perforated sigmoid diverticulitis Perforated sigmoid diverticulitis with developing abscess, POA Moderate lactic acidosis, POA Acute kidney injury, POA Hypokalemia, POA Mild urinary tract infection, POA Alcohol use disorder, POA Morbid obesity, POA Underlying history of hypertension, POA Hyperlipidemia, POA Status post percutaneous drain placement by IR Suspected GREG, POA PLAN: Continue with IV fluids, patient will receive sepsis bolus of fluid and start maintenance IV fluid with banana bag, 75 mL/hour Patient will be started on daily thiamine supplementation We will start broad-spectrum antibiotics with IV Zosyn, renally dose Consultation has been requested with Dr. Campbell, with General surgery, appreciate recommendations Monitor lactic acid trend closely, if patient develops hypotension tonight, patient will be transferred to ICU for vasopressors Discussed patient's case with critical Care, we will watch this patient closely for the next 24 hours Ni catheter will be placed and we will monitor urine output closely Monitor urine output closely, avoid NSAIDs, WENDIE inhibitor/ARB, avoid IV contrast until renal function improves Pain control with Tylenol and IV hydromorphone for severe pain Patient will be started on CPAP therapy tonight for management of suspected obstructive sleep apnea Patient will be placed on alcohol withdrawal protocol with Librium and Ativan, counseled patient to quit alcohol on discharge, patient verbalized understanding Continue antibiotics Zosyn, linezolid, fluconazole according to Infectious Disease recommendations Follow up with surgery recommendations Electrolytes will be corrected WENDY CROOK MD Oct 13, 2024 16:38
--- NOTE | 2024-10-13 20:28 | PN ---
INFECTIOUS DISEASE PROGRESS NOTE Date of Service: Oct 13, 2024 SUBJECTIVE: This is a 64-year-old male patient who was admitted to the hospital for evaluation of lower abdominal pain. Patient had a CT of the abdomen and pelvis and was found with perforated sigmoid diverticulitis with intra-abdominal abscess. General surgery was consulted. Patient underwent a percutaneous drainage catheter placement on 10/09/2024 by IR. Patient was seen and examined at bedside in room 321. Patient is awake, alert and oriented x3. Patient is sitting up on the bedside chair. Stated he ambulated in hallways earlier. Patient is status post left percutaneous drain placement on 10/09/2024. 30 mL drainage output reported throughout the night. The aspirate culture results came back positive for E coli. Patient is currently on Zosyn, fluconazole and linezolid IV. No fever, current temperature is 98.8. We will continue to follow patient's care. PHYSICAL EXAM EYES: Anicteric. Pupils equal and reactive. HENT: No oral thrush seen, moist Oral mucosa. NECK: Supple, no JVD or thyromegaly. LUNGS: Good air entry. No rales, no rhonchi. CARDIOVASCULAR: S1, S2 regular. No murmur heard. ABDOMEN: bowel sounds present, no organomegaly. Abdominal pain POA. Obese. Left percutaneous drain placement. CENTRAL NERVOUS SYSTEM: Awake, alert, oriented x 3. SKIN: No rashes, no swelling. LYMPHATICS: No peripheral lymphadenopathy. MUSCULOSKELETAL: No joint swelling, erythema or tenderness. EXTREMITIES: No cyanosis or clubbing. BACK: No deformity, no pressure ulcer. GENITOURINARY: No dysuria or hematuria. Vital Sign (Last 12 Hours) 10/13/24 10/13/24 10/13/24 10/13/24 12:27 16:00 18:52 18:52 Temp 98.4 97.9 Pulse 106 90 100 100 Resp 17 18 18 18 B/P (MAP) 126/74 132/77 Pulse Ox 100 94 O2 Delivery N/A Room Air FiO2 21 Intake & Output (last 24hrs) 10/12/24 10/12/24 10/13/24 15:00 23:00 07:00 Intake Total 600.0 ml 1000.0 ml 350.0 ml Output Total 635 ml 760 ml Balance 600.0 ml 365.0 ml -410.0 ml LABS: Laboratory: Test 10/13/24 19:26 10/13/24 05:21 10/12/24 06:03 Range/Units Whole Blood Glucose 150 H 70-110 MG/DL White Blood Count 9.6 4.8-10.8 K/uL Red Blood Count 3.08 L 4.50-6.20 MIL/uL Hemoglobin 9.5 L 14.0-18.0 g/dL Hematocrit 28.7 L 42-54 % Mean Corpuscular Volume 93.2 79-99 fL Mean Corpuscular Hemoglobin 30.8 27.0-33.0 pg Mean Corpuscular Hemoglobin Concent 33.1 32.0-36.0 g/dL Red Cell Distribution Width 16.4 H 11.0-15.5 % Platelet Count 435 H 130-400 K/uL Mean Platelet Volume 9.2 7.5-10.5 fL Immature Granulocyte % (Auto) 2.6 H 0-1 % Neutrophils (%) (Auto) 80.8 H 40.0-77.0 % Lymphocytes (%) (Auto) 10.6 L 21.0-51.0 % Monocytes (%) (Auto) 3.8 3.0-13.0 % Eosinophils (%) (Auto) 1.9 0.0-8.0 % Basophils (%) (Auto) 0.3 0.0-5.0 % Neutrophils # (Auto) 7.7 1.8-7.7 K/uL Lymphocytes # (Auto) 1.0 1.0-4.8 K/uL Monocytes # (Auto) 0.4 0.1-1.0 K/uL Eosinophils # (Auto) 0.18 0.00-0.70 K/uL Basophils # (Auto) 0.03 0.00-0.20 K/uL Absolute Immature Granulocyte (auto 0.25 0-1 K/uL Nucleated Red Blood Cells 0.0 0.0-0.19 % Sodium Level 132 L 136-145 mmol/L Potassium Level 3.4 L 3.5-5.1 mmol/L Chloride Level 100 L 101-111 mmol/L Carbon Dioxide Level 18 L 21-32 mmol/L Blood Urea Nitrogen 28 H 7-18 mg/dL Creatinine 2.2 H 0.5-1.3 mg/dL Glomerular Filtration Rate Calc 32 >90 mL/min Random Glucose 139 H 70-105 mg/dL Total Calcium 8.2 L 8.5-10.1 mg/dL Phosphorus Level 4.0 2.5-4.9 mg/dL Magnesium Level 2.20 1.80-2.40 mg/dL Total Bilirubin 1.8 H 0.2-1.0 mg/dL Aspartate Amino Transf (AST/SGOT) 53 H 10-37 U/L Alanine Aminotransferase (ALT/SGPT) 39 12-78 U/L Alkaline Phosphatase 92 50-136 U/L Total Protein 6.4 6.0-8.3 g/dL Albumin 2.0 L 3.5-5.0 g/dL DIAGNOSTICS / RADIOLOGY: PATIENT: SERGO CENTENO MR#: [id number] : 1960 SEX: M AGE: 64 LOCATION: [facility] ORDER [id number] STATUS: [facility] REPORT#: [id number] SERVICE 1531 REASON: ABD PAIN ORDERING PHYSICIAN: MIRIAM RICE NP PROCEDURE: ABD PEL WO - CT ABDOMEN/PELVIS W/O CONTRAST CT ABDOMEN WITHOUT CONTRAST. CT PELVIS WITHOUT CONTRAST. INDICATION: Abdominal pain; No relevant information related to this study was provided in patient's history by the ordering service. TECHNIQUE: Routine transaxial imaging using 5 mm slice thickness through the abdomen and pelvis without the administration of IV contrast. Thin slice reconstructions are also provided. Coronal and sagittal reformatted images acquired for interpretation. CT was performed with one or more of the following dose reduction techniques: Automated exposure control, adjustment of the mA and/or kV according to patient size, or use of iterative reconstruction technique. COMPARISON: None FINDINGS: ON NONCONTRAST IMAGING: ABDOMEN: Examination provided for interpretation at 4:13 PM on 10/05/2024. Heart size is normal. Scarring at both lung bases. No abnormal renal calcifications, hydronephrosis, perinephric inflammation, or proximal hydroureter detected. The liver is normal in size and smooth in contour without biliary duct dilation. The spleen is normal in size and attenuation. The gallbladder appears normal. The pancreas appears normal without pancreatic duct dilation. The adrenal glands appear normal. No significant abdominal, retrocrural or retroperitoneal adenopathy noted. No evidence for intra-abdominal free air or organized fluid collection. No aortic aneurysmal dilation identified. PELVIS: No abnormal calcifications within the urinary bladder or distal ureters. No evidence for free air or organized pelvic fluid collection. No significant pelvic adenopathy detected. Several diverticula along the distal colon and mild to moderate pericolonic inflammatory fat stranding associated, including 3.5 cm aggregate of air and trace fluid along the mesenteric wall of the far proximal sigmoid colon with additional scattered air densities throughout the anterior mid to upper abdomen. Several diverticula along the proximal colon. Terminal ileum appears unremarkable. The appendix appears normal. Visible osseous structures are intact. IMPRESSION: Perforated sigmoid diverticulitis as described, including findings suggesting potential evolving abscess. DICTATED BY: WILTON ZAVALA MD DATE: 10/05/24 1611 ASSESSMENT: Acute hypoxic respiratory failure, requiring oxygen. Intra-abdominal abscess, with Escherichia coli infection, s/p percutaneous drainage catheter placement on 10/09/2024. Perforated sigmoid diverticulitis. Septic shock, resolving. Morbid obesity. Leukocytosis resolving. Acute renal failure, improving PLAN: Pending an Abscessogram for tomorrow. Continue linezolid. Continue Zosyn. Continue fluconazole. Continue drain care. Continue GI prophylaxis. Continue oxygen support. We will monitor electrolytes. This case was reviewed and discussed with my supervising physician and the above assessment and plan was formulated and agreed upon. ATTESTATION BY PHYSICIAN I have seen and examined the patient. I reviewed the documentation, medical decision making, and treatment plan as noted by the mid-level provider above. I agree with the findings and plan of care. MICHEAL URRUTIA MD, MIRTA L FNP Oct 13, 2024 20:28
[2024-10-14] VITALS (10 sets, daily range): BP systolic 126–156; BP diastolic 73–89; PULSE 89–98; RESP 18–22; TEMP 97.6–98.3; O2SAT 97–100
[2024-10-14 06:28] LABS: BASOPHILS # (AUTO) 0.04 K/uL (0.00-0.20); BASOPHILS % (AUTO) 0.5 % (0.0-5.0); EOSINOPHILS # (AUTO) 0.16 K/uL (0.00-0.70); EOSINOPHILS % (AUTO) 2.1 % (0.0-8.0); HEMATOCRIT 27.8 % (42-54); IMMATURE GRANULOCYTE ABSOLUTE 0.33 K/uL (0-1); LYMPHOCYTES # (AUTO) 0.9 K/uL (1.0-4.8); LYMPHOCYTES % (AUTO) 11.3 % (21.0-51.0); MEAN CORPUSCULAR HGB CONC 34.2 g/dL (32.0-36.0); MEAN CORPUSCULAR VOLUME 90.8 fL (79-99); MONOCYTES # (AUTO) 0.4 K/uL (0.1-1.0); MONOCYTES % (AUTO) 4.6 % (3.0-13.0); NEUTROPHILS % (AUTO) 77.3 % (40.0-77.0); PLATELET COUNT (AUTO) 480 K/uL (130-400); RED BLOOD CELL COUNT(AUTO) 3.06 MIL/uL (4.50-6.20); RED CELL DISTRIBUTION WIDTH 16.5 % (11.0-15.5); WHITE BLOOD COUNT (AUTO) 7.8 K/uL (4.8-10.8)
[2024-10-14 06:36] LABS: CREATININE 1.6 mg/dL (0.5-1.3); POTASSIUM 3.6 mmol/L (3.5-5.1)
--- NOTE | 2024-10-14 15:46 | PN ---
This is a 64-year-old male with the acute diverticulitis with diverticular abscess with recent percutaneous drain placed Interval history: 64-year-old male seen in his room Abscessogram canceled due to high output from GRAY drain Nursing reporting that recommendations will be for repeat CT on Monday to evaluate for potential drain removal versus abscessogram Labs and vitals stable No other acute events reported at this time Patient continues with IV fluids and IV antibiotics White count 7.8 with a hemoglobin of 9.5 Physical exam General: Awake alert and oriented Heart: Regular rate and rhythm} Lungs: Clear to auscultation no distress Abdomen: [Soft, nontender, nondistended percutaneous drain in place Assessment : This is a 64-year-old male with diverticulitis with diverticular abscess with recent percutaneous drain placed by IR Plan: Continue with conservative management No immediate surgical intervention planned Await for repeat CT on Monday to evaluate for potential drain removal Continue with IV fluids and IV antibiotics Dr. Campbell to be updated in patient's status and nursing to report any further acute events Vitals/Labs Vital Signs Date Time Temp Pulse Resp B/P (MAP) Pulse Ox O2 Delivery O2 Flow Rate FiO2 10/14/24 11:23 98.2 94 22 126/76 99 10/14/24 08:00 Room Air* 0 21 Laboratory Tests 10/14/24 06:02 Medications Current Medications Sodium Chloride 2,000 ml @ 0 mls/hr ONCE ONCE IV Last administered on 10/05/24at 17:19; Start 10/05/24 at 17:00; Stop 10/05/24 at 17:01; Status DC Piperacillin Sod/ Tazobactam Sod 3.375 gm ONCE ONCE IV Last administered on 10/05/24at 17:19; Start 10/05/24 at 17:00; Stop 10/05/24 at 17:01; Status DC Sodium Chloride 1,000 ml @ 0 mls/hr ONCE ONCE IV; Start 10/05/24 at 17:00; Stop 10/05/24 at 17:01; Status DC Piperacillin Sod/ Tazobactam Sod 3.375 gm Q8H IVPB Last administered on 10/10/24at 00:26; Start 10/05/24 at 23:00; Stop 10/10/24 at 05:21; Status DC Sodium Chloride 50 ml AD IV; Start 10/05/24 at 21:00; Stop 10/05/24 at 17:34; Status DC Sodium Chloride 500 ml @ 0 mls/hr ONCE ONCE IV Last administered on 10/05/24at 18:02; Start 10/05/24 at 18:00; Stop 10/05/24 at 18:01; Status DC Pantoprazole Sodium 40 mg Q24H IVP Last administered on 10/13/24at 18:02; Start 10/05/24 at 18:00; Stop 11/04/24 at 17:59 Thiamine HCl 100 mg Q24H IVP Last administered on 10/05/24at 18:12; Start 10/05/24 at 18:00; Stop 10/06/24 at 11:49; Status DC Chlordiazepoxide HCl 25 mg Q4H PRN PO; Start 10/05/24 at 18:00; Stop 10/12/24 at 17:59; Status DC Lorazepam 2 mg Q4H PRN IVP; Start 10/05/24 at 18:00; Stop 10/12/24 at 17:59; Status DC Thiamine HCl 100 mg/Folic Acid 1 mg/Multivitamins/ Minerals 10 ml/ Sodium Chloride 1,011.2 ml @ 100 mls/ hr Q24H IV Last administered on 10/07/24at 18:17; Start 10/05/24 at 18:00; Stop 10/08/24 at 04:07; Status DC Pharmacy Profile Note 1 each PROTOCOL PRN MISC; Start 10/05/24 at 18:00; Stop 10/12/24 at 17:59; Status DC Budesonide 0.5 mg BIDRESP IH Last administered on 10/14/24at 06:54; Start 10/05/24 at 18:00; Stop 11/04/24 at 17:59 Potassium Chloride 100 ml @ 100 mls/hr AD PRN IV Last administered on 10/12/24at 20:01; Start 10/05/24 at 18:00; Stop 11/04/24 at 17:59 Hydromorphone HCl 0.5 mg Q6H PRN IVP Last administered on 10/05/24at 19:34; Start 10/05/24 at 18:00; Stop 10/10/24 at 17:59; Status DC Acetaminophen 650 mg Q6H PRN PO Last administered on 10/07/24at 19:02; Start 10/05/24 at 18:30; Stop 11/04/24 at 18:29 Albumin Human 100 ml @ 100 mls/hr AD IV Last administered on 10/05/24at 21:33; Start 10/05/24 at 21:00; Stop 10/06/24 at 06:01; Status DC Albumin Human 100 ml @ 0 mls/hr AD IV Last administered on 10/06/24at 07:02; Start 10/06/24 at 06:00; Stop 10/07/24 at 12:38; Status DC Acetaminophen 1,000 mg STAT IVPB Last administered on 10/06/24at 09:37; Start 10/06/24 at 09:00; Stop 10/06/24 at 13:02; Status DC Thiamine HCl 300 mg Q24H IVP Last administered on 10/09/24at 16:21; Start 10/06/24 at 18:00; Stop 10/09/24 at 17:59; Status DC Norepinephrine 250 ml @ 44.213 mls/ hr PROTOCOL IV; Start 10/06/24 at 12:00; Stop 11/05/24 at 11:59 Fluconazole/ Sodium Chloride 200 ml @ 100 mls/hr Q24H IV Last administered on 10/14/24at 13:28; Start 10/06/24 at 13:00; Stop 11/05/24 at 12:59 Nystatin 1 APPLICATION BID TP Last administered on 10/14/24at 08:48; Start 10/06/24 at 21:00; Stop 11/05/24 at 20:59 Lactated Ringer's 1,000 ml BOLUS ONCE IV Last administered on 10/06/24at 15:00; Start 10/06/24 at 15:00; Stop 10/06/24 at 15:01; Status DC Acetaminophen 1,000 mg ONCE STAT IVPB Last administered on 10/06/24at 19:27; Start 10/06/24 at 17:17; Stop 10/06/24 at 17:19; Status DC Heparin Sodium (Porcine) 5,000 unit TID SQ Last administered on 10/14/24at 13:43; Start 10/06/24 at 21:00; Stop 11/05/24 at 20:59 Acetaminophen 650 mg Q4H PRN RC Last administered on 10/07/24at 12:31; Start 10/07/24 at 05:30; Stop 11/06/24 at 05:29 Potassium Chloride 100 ml @ 100 mls/hr AD PRN IV; Start 10/07/24 at 09:30; Stop 11/06/24 at 09:29 Potassium Chloride 20 meq AD PRN PO; Start 10/07/24 at 09:30; Stop 11/06/24 at 09:29 Potassium Chloride 20 meq AD PRN PO Last administered on 10/13/24at 14:59; Start 10/07/24 at 09:30; Stop 11/06/24 at 09:29 Dextrose 50 ml AD PRN IV; Start 10/07/24 at 09:30; Stop 11/06/24 at 09:29 Glucagon 1 mg AD PRN IM; Start 10/07/24 at 09:30; Stop 11/06/24 at 09:29 Insulin Human Regular INSULIN SLIDING SCAL... ACHS SQ Last administered on 10/10/24at 20:50; Start 10/07/24 at 11:30; Stop 11/06/24 at 11:29 Magnesium Sulfate 50 ml @ 0 mls/hr PROTOCOL PRN IV Last administered on 10/11/24at 20:25; Start 10/07/24 at 09:30; Stop 11/06/24 at 09:29 Linezolid 300 ml @ 150 mls/hr Q12H IV Last administered on 10/14/24at 13:28; Start 10/07/24 at 13:30; Stop 10/17/24 at 13:29 Lactated Ringer's 1,000 ml ONCE ONCE IV Last administered on 10/07/24at 14:29; Start 10/07/24 at 14:30; Stop 10/07/24 at 14:31; Status DC EZETIMIBE 10 mg DAILY PO Last administered on 10/14/24at 08:45; Start 10/08/24 at 09:00; Stop 11/07/24 at 08:59 Hydrochlorothiazide 12.5 mg DAILY PO Last administered on 10/13/24at 09:27; Start 10/08/24 at 09:00; Stop 10/13/24 at 11:15; Status DC Atorvastatin Calcium 40 mg HS PO Last administered on 10/13/24at 19:35; Start 10/07/24 at 21:00; Stop 11/06/24 at 20:59 Losartan Potassium 100 mg DAILY PO Last administered on 10/11/24at 10:53; Start 10/08/24 at 09:00; Stop 10/11/24 at 16:10; Status DC Diatrizoate Meglum/ Diatrizoate Sod 30 ml STK-MED ONCE .ROUTE; Start 10/07/24 at 18:30; Stop 10/07/24 at 18:30; Status DC Fentanyl Citrate 100 mcg STK-MED ONCE .ROUTE; Start 10/09/24 at 11:08; Stop 10/09/24 at 11:08; Status DC Midazolam HCl 2 mg STK-MED ONCE .ROUTE; Start 10/09/24 at 11:08; Stop 10/09/24 at 11:08; Status DC Piperacillin Sod/ Tazobactam Sod 3.375 gm Q8H IVPB Last administered on 10/10/24at 08:40; Start 10/10/24 at 08:00; Stop 10/10/24 at 16:16; Status DC Piperacillin Sod/ Tazobactam Sod 3.375 gm Q8H IVPB Last administered on 10/14/24at 14:50; Start 10/10/24 at 21:00; Stop 10/20/24 at 20:59 Ondansetron HCl 4 mg STK-MED ONCE .ROUTE Last administered on 10/10/24at 19:52; Start 10/10/24 at 19:11; Stop 10/10/24 at 19:12; Status DC Ondansetron HCl 4 mg Q8H PRN IVP; Start 10/10/24 at 19:30; Stop 11/09/24 at 19:29 PILLO GARCIA Jr. Oct 14, 2024 15:46
--- NOTE | 2024-10-14 15:46 | PN ---
NEPHROLOGY PROGRESS NOTE Date/Time Patient Seen: Oct 14, 2024 SUBJECTIVE: This is a 64-year-old male with underlying history of hypertension, hyperlipidemia, obesity, chronic alcohol use, who presented to the ER for further evaluation of significant lower abdominal pain with associated fevers and chills CT of the abdomen showed perforated sigmoid diverticulitis suggesting potential evolving abscess. Blood cultures are positive for prevotella oralis He continues on IV antibiotics as per ID S/P percutaneous drain by IR on 10/09 Tolerating diet well. At this time there is no surgical interventions planned. He was noted to have elevated BUN and creatinine We has been consulted for renal failure. Renal function is improving Electrolytes are stable. He was seen in the medical floor, in no acute distress Family at the bedside Condition is critical and guarded REVIEW OF SYSTEMS: GENERAL: Positive for abdominal pain NEUROLOGIC: Negative for any blurry vision, blind spots, double vision, facial a symmetry, dysphagia, dysarthria, hemiparesis, hemisensory deficits, vertigo, ataxia. HEENT: Negative for any head trauma, neck trauma, neck stiffness, photophobia, phonophobia, sinusitis, rhinitis. CARDIAC: Negative for any chest pain, dyspnea on exertion, paroxysmal nocturnal dyspnea, peripheral edema. PULMONARY: Negative for any shortness of breath, wheezing, COPD, or TB exposure. GASTROINTESTINAL: Negative for any abdominal pain, nausea, vomiting, bright red blood per rectum, melena. GENITOURINARY: Negative for any dysuria, hematuria, incontinence. INTEGUMENTARY: Negative for any rashes, cuts, insect bites. RHEUMATOLOGIC: Negative for any joint pains, photosensitive rashes, history of vasculitis or kidney problems. HEMATOLOGIC: Negative for any abnormal bruising, frequent infections or bleeding. Vital Signs (last 8hr) Date Time Temp Pulse Resp B/P (MAP) Pulse Ox O2 Delivery O2 Flow Rate FiO2 10/06/24 11:57 99.3 93 21 119/66 98 Room Air* 0 21 10/06/24 10:16 99.0 109 22 122/64 96 Room Air* 0 21 10/06/24 08:05 101.5 111 26 113/63 96 Nasal Cannula* 2 28 10/06/24 06:41 20 N/Cannula Low lpm 2.0 28 10/06/24 06:40 111 20 10/06/24 06:28 98.8 109 24 111/62 96 Nasal Cannula* 2 28 PHYSICAL EXAM: GENERAL: Alert and oriented x 3. No acute distress. Well-nourished. EYES: EOMI. Anicteric. HENT: Moist mucous membranes. No scleral icterus. No cervical lymphadenopathy. LUNGS: Clear to auscultation bilaterally. No accessory muscle use. CARDIOVASCULAR: Regular rate and rhythm. No murmur. No JVD. ABDOMEN: Soft, non-tender and non-distended. No palpable masses. EXTREMITIES: No edema. Non-tender. SKIN: No rashes or lesions. Warm. NEUROLOGIC: No focal neurological deficits. CN II-XII grossly intact, but not individually tested. PSYCHIATRIC: Cooperative. Appropriate mood and affect. Current Medications Medications (Trade) Dose Ordered Sig/Tim Route PRN Reason Start Time Stop Time Status Last Admin Dose Admin Acetaminophen (TYLenol 325MG TAB) 650 mg Q6H PRN PO MILD PAIN (1-3) 10/05/24 18:30 11/04/24 18:29 Acetaminophen (acetaMINOPHEN) 1,000 mg STAT IVPB 10/06/24 09:00 10/06/24 13:02 DC 10/06/24 09:37 1,000 MG Albumin Human 100 ml @ 100 mls/hr AD IV 10/05/24 21:00 10/06/24 06:01 DC 10/05/24 21:33 100 MLS/HR Albumin Human 100 ml @ 0 mls/hr AD IV 10/06/24 06:00 11/05/24 05:59 10/06/24 07:02 500 MLS/HR Budesonide (Pulmicort 0.5 Mg/2ml) 0.5 mg BIDRESP IH 10/05/24 18:00 11/04/24 17:59 10/06/24 06:38 0.5 MG Chlordiazepoxide HCl (LIBrium 25 MG CAP) 25 mg Q4H PRN PO ALCOHOL WITHDRAWAL PROTOCOL 10/05/24 18:00 10/12/24 17:59 Fluconazole/ Sodium Chloride 200 ml @ 100 mls/hr Q24H IV 10/06/24 13:00 11/05/24 12:59 Hydromorphone HCl (DiLAUDid 0.5MG INJ) 0.5 mg Q6H PRN IVP SEVERE PAIN (7-10) 10/05/24 18:00 10/10/24 17:59 10/05/24 19:34 0.5 MG Lorazepam (AtiVAN) 2 mg Q4H PRN IVP ALCOHOL WITHDRAWAL PROTOCOL 10/05/24 18:00 10/12/24 17:59 Norepinephrine 250 ml @ 44.213 mls/ hr PROTOCOL IV 10/06/24 12:00 11/05/24 11:59 Pantoprazole Sodium (PROTonix 40MG INJ) 40 mg Q24H IVP 10/05/24 18:00 11/04/24 17:59 10/05/24 18:12 40 MG Pharmacy Profile Note (Pharmacy Communication) 1 each PROTOCOL PRN MISC ETOH Withdrawal Score changes 10/05/24 18:00 10/12/24 17:59 Piperacillin Sod/ Tazobactam Sod (Zosyn 3.375gm+NS 50ml) 3.375 gm Q8H IVPB 10/05/24 23:00 10/15/24 22:59 10/06/24 08:30 3.375 GM Potassium Chloride 100 ml @ 100 mls/hr AD PRN IV POTASSIUM PROTOCOL 10/05/24 18:00 11/04/24 17:59 10/05/24 19:34 100 MLS/HR Sodium Chloride (NS 50ml) 50 ml AD IV 10/05/24 21:00 10/05/24 17:34 DC Thiamine HCl (Vitamin B-1) 100 mg Q24H IVP 10/05/24 18:00 10/06/24 11:49 DC 10/05/24 18:12 100 MG Thiamine HCl (Vitamin B-1) 300 mg Q24H IVP 10/06/24 18:00 10/09/24 17:59 Thiamine HCl 100 mg/Folic Acid 1 mg/Multivitamins/ Minerals 10 ml/ Sodium Chloride 1,011.2 ml @ 100 mls/ hr Q24H IV 10/05/24 18:00 10/08/24 04:07 10/05/24 18:12 75 MLS/HR LABORATORY: [ ] Hematology Labs: Test 10/14/24 06:02 Range/Units White Blood Count 7.8 4.8-10.8 K/uL Red Blood Count 3.06 L 4.50-6.20 MIL/uL Hemoglobin 9.5 L 14.0-18.0 g/dL Hematocrit 27.8 L 42-54 % Mean Corpuscular Volume 90.8 79-99 fL Mean Corpuscular Hemoglobin 31.0 27.0-33.0 pg Mean Corpuscular Hemoglobin Concent 34.2 32.0-36.0 g/dL Red Cell Distribution Width 16.5 H 11.0-15.5 % Platelet Count 480 H 130-400 K/uL Mean Platelet Volume 9.0 7.5-10.5 fL Immature Granulocyte % (Auto) 4.2 H 0-1 % Neutrophils (%) (Auto) 77.3 H 40.0-77.0 % Lymphocytes (%) (Auto) 11.3 L 21.0-51.0 % Monocytes (%) (Auto) 4.6 3.0-13.0 % Eosinophils (%) (Auto) 2.1 0.0-8.0 % Basophils (%) (Auto) 0.5 0.0-5.0 % Neutrophils # (Auto) 6.0 1.8-7.7 K/uL Lymphocytes # (Auto) 0.9 L 1.0-4.8 K/uL Monocytes # (Auto) 0.4 0.1-1.0 K/uL Eosinophils # (Auto) 0.16 0.00-0.70 K/uL Basophils # (Auto) 0.04 0.00-0.20 K/uL Absolute Immature Granulocyte (auto 0.33 0-1 K/uL Nucleated Red Blood Cells 0.0 0.0-0.19 % Chemistry Labs: Test 10/14/24 15:36 10/14/24 06:02 Range/Units Whole Blood Glucose 193 #H 70-110 MG/DL Sodium Level 133 L 136-145 mmol/L Potassium Level 3.6 3.5-5.1 mmol/L Chloride Level 101 101-111 mmol/L Carbon Dioxide Level 19 L 21-32 mmol/L Blood Urea Nitrogen 17 7-18 mg/dL Creatinine 1.6 H 0.5-1.3 mg/dL Glomerular Filtration Rate Calc 47 >90 mL/min Random Glucose 127 H 70-105 mg/dL Total Calcium 8.4 L 8.5-10.1 mg/dL DIAGNOSTICS / RADIOLOGY: REASON: picc LINE PLACEMENT ORDERING PHYSICIAN: MICHEAL URRUTIA MD PROCEDURE: CXR1VW - CHEST 1VW CHEST 1VW HISTORY: PICC line placement COMPARISON: 10/05/2024 FINDINGS: A frontal projection of the chest was obtained. Mild bilateral pulmonary infiltrates are seen may be related to mild pulmonary vascular congestion with possible superimposed pneumonitis. The heart is borderline enlarged. Right venous catheter is seen with distal tip in the plane of the superior vena cava. No evidence of aortic calcification is seen. IMPRESSION: 1. Mild bilateral pulmonary infiltrates are seen may be related to mild pulmonary vascular congestion with possible superimposed pneumonitis. DICTATED BY: KIM MADSEN MD DATE: 10/11/24 0908 REASON: ABD DISTENTION ORDERING PHYSICIAN: EDUARDO ABERNATHY MD PROCEDURE: ABD PEL WO - CT ABDOMEN/PELVIS W/O CONTRAST CT ABDOMEN/PELVIS W/O CONTRAST HISTORY: Abdominal distention COMPARISON: 10/05/2024 TECHNIQUE: Multiple sequential axial images of the abdomen and pelvis were obtained from the dome of the diaphragm through symphysis pubis. Patient was not given contrast through intravenous route. Oral contrast was given. FINDINGS: There are bilateral interstitial fibrosis. Tiny pericardial effusion is seen. No pleural effusion is seen bilaterally. There is no evidence of parenchymal disease or pulmonary nodule of the visualized lower lungs. Degenerative changes of the thoracolumbar spine are present. The heart is not enlarged. The liver measured 20 cm. There is contrast material stomach and small bowel loops. There is sigmoid colon wall thickening with adjacent fat stranding consistent with acute sigmoid diverticulitis. Extensive adjacent mesenteric fat stranding is seen in the pelvis. There is small diverticular abscess in the left anterior pelvis measuring 3 x 3.5 cm. Amorphous air collection is seen consistent with walled off perforation. No definite free intraperitoneal air is seen. There is diverticulosis. The liver, spleen, adrenal glands and pancreas are unremarkable. There is no evidence of hydronephrosis bilaterally. No evidence of renal stone is seen. Fecal material is seen in the colon. There are normal size retroperitoneal and mesenteric lymph nodes. No ascites is seen. Atherosclerotic changes are present. Appendix is not well visualized. Pelvic sidewalls are symmetric bilaterally. Bladder is poorly distended. There is fluid-filled small bowel loops and colon. IMPRESSION: 1. There is contrast material stomach and small bowel loops. There is sigmoid colon wall thickening with adjacent fat stranding consistent with acute sigmoid diverticulitis. Extensive adjacent mesenteric fat stranding is seen in the pelvis. There is small diverticular abscess in the left anterior pelvis measuring 3 x 3.5 cm. Amorphous air collection is seen consistent with walled off perforation. No definite free intraperitoneal air is seen. There is diverticulosis. CT was performed with one or more following dose reduction techniques: automated exposure control, adjustment of the mA and kv according to patient's size, or use of a iterative reconstruction technique. DICTATED BY: KIM MADSEN MD DATE: 10/07/242152 REASON: peritoneum ORDERING PHYSICIAN: LIDIA BUTLER PROCEDURE: ABD 1VW - ABD 1VW ABD 1VW HISTORY: Peritoneal COMPARISON: None FINDINGS: A frontal projection of the abdomen was obtained. Small bowel dilatation is seen. Fecal material is seen in the colon. Degenerative changes of the thoracolumbar spine are noted. IMPRESSION: 1. Small bowel dilatation. DICTATED BY: KIM MADSEN MD DATE: 10/07/242005 REASON: PERFORATED BOWEL/DISTENDED ABD ORDERING PHYSICIAN: VICKIE MONTGOMERY MD PROCEDURE: ABD 1VW - ABD 1VW ABD 1VW CLINICAL HISTORY: PERFORATED BOWEL/DISTENDED ABD COMPARISON: None FINDINGS: Single view of the abdomen was obtained. There are multiple air-filled loops of bowel. Free air is not definitely identified but could likely not be excluded on this exam. IMPRESSION: Ileus versus small bowel obstruction DICTATED BY: MISSY FALK DO DATE: 10/06/24 1653 REASON: renal failue ORDERING PHYSICIAN: KATH ALEMAN [employer]ODUCE WRAPPER PROCEDURE: RENAL - US RENAL SONOGRAM ULTRASOUND RENAL COMPLETE INDICATION: Renal failure TECHNIQUE: Routine ultrasound of the kidneys and urinary bladder with grayscale and color Doppler imaging was performed in real-time, and subsequently made available for review. COMPARISON: No prior studies available for comparison. FINDINGS: The right kidney measures 9.3 x 5.7 x 5.7 cm. No abnormal mass demonstrated. No evidence for hydronephrosis or shadowing stone. The left kidney measures 10.9 x 6.3 x 5.1 cm. No abnormal mass demonstrated. No evidence for hydronephrosis or shadowing stone. Empty urinary bladder secondary to Ni catheter placement. No free fluid demonstrated. IMPRESSION: Normal sonographic appearance of the kidneys. DICTATED BY: WILTON ZAVALA MD DATE: 10/06/24 1006 REASON: R/O dvt OF THE LOWER EXTREMITIES ORDERING PHYSICIAN: EDUARDO ABERNATHY MD PROCEDURE: VENOUS SYL - US VENOUS DOPPLER BILATERAL ULTRASOUND VENOUS DOPPLER, BILATERAL LOWER EXTREMITIES INDICATION: Bilateral lower extremity pain and swelling TECHNIQUE: Routine grayscale and color Doppler ultrasound of the bilateral lower extremity veins performed. COMPARISON: No priors. FINDINGS: The demonstrated veins of the bilateral lower extremity including the common femoral vein, femoral vein, and popliteal vein are associated with normal compressibility, augmentation, and flow. Normal respiratory variation was identified. No evidence for echogenic intraluminal thrombus formation. IMPRESSION: No sonographic evidence for deep venous thrombosis within the bilateral lower extremity veins. DICTATED BY: WILTON ZAVALA MD DATE: 10/05/241825 REASON: ABD PAIN ORDERING PHYSICIAN: MIRIAM RICE NP PROCEDURE: ABD PEL WO - CT ABDOMEN/PELVIS W/O CONTRAST CT ABDOMEN WITHOUT CONTRAST. CT PELVIS WITHOUT CONTRAST. INDICATION: Abdominal pain; No relevant information related to this study was provided in patient's history by the ordering service. TECHNIQUE: Routine transaxial imaging using 5 mm slice thickness through the abdomen and pelvis without the administration of IV contrast. Thin slice reconstructions are also provided. Coronal and sagittal reformatted images acquired for interpretation. CT was performed with one or more of the following dose reduction techniques: Automated exposure control, adjustment of the mA and/or kV according to patient size, or use of iterative reconstruction technique. COMPARISON: None FINDINGS: ON NONCONTRAST IMAGING: ABDOMEN: Examination provided for interpretation at 4:13 PM on 10/05/2024. Heart size is normal. Scarring at both lung bases. No abnormal renal calcifications, hydronephrosis, perinephric inflammation, or proximal hydroureter detected. The liver is normal in size and smooth in contour without biliary duct dilation. The spleen is normal in size and attenuation. The gallbladder appears normal. The pancreas appears normal without pancreatic duct dilation. The adrenal glands appear normal. No significant abdominal, retrocrural or retroperitoneal adenopathy noted. No evidence for intra-abdominal free air or organized fluid collection. No aortic aneurysmal dilation identified. PELVIS: No abnormal calcifications within the urinary bladder or distal ureters. No evidence for free air or organized pelvic fluid collection. No significant pelvic adenopathy detected. Several diverticula along the distal colon and mild to moderate pericolonic inflammatory fat stranding associated, including 3.5 cm aggregate of air and trace fluid along the mesenteric wall of the far proximal sigmoid colon with additional scattered air densities throughout the anterior mid to upper abdomen. Several diverticula along the proximal colon. Terminal ileum appears unremarkable. The appendix appears normal. Visible osseous structures are intact. IMPRESSION: Perforated sigmoid diverticulitis as described, including findings suggesting potential evolving abscess. DICTATED BY: WILTON ZAVALA MD DATE: 10/05/24 1611 REASON: COUGH ORDERING PHYSICIAN: UBALDO MCBRIDE MD PROCEDURE: CXR1VW - CHEST 1VW PORTABLE CHEST RADIOGRAPH INDICATION: COUGH COMPARISON: 05/16/2017 FINDINGS: equipment monitor phototypesetting leads overlie the field of view. Heart size is normal. The pulmonary vascularity and jeannie appear normal. No abnormal pulmonary parenchymal opacity or consolidation identified. Bibasilar lung linear scarring. No significant pleural effusion noted. No pneumothorax detected. IMPRESSION: No radiographic evidence for any acute cardiopulmonary process. DICTATED BY: WILTON ZAVALA MD DATE: 10/05/24 1640 ASSESSMENT: Acute kidney injury Severe sepsis, 2/2 perforated sigmoid diverticulitis Perforated sigmoid diverticulitis with developing abscess Moderate lactic acidosis Hypokalemia Mild urinary tract infection Alcohol use disorder Morbid obesity Underlying history of hypertension Hyperlipidemia Suspected GREG PLAN: Labs, diagnostic, radiologic exams reviewed and interpreted by myself and supervising physician. We have reviewed external records in detail We will continue to monitor the patient closely Continue with the renally dose antibiotics as per ID Require close monitoring of renal function and electrolytes Order CBC, CMP, and electrolytes in am BiPAP as necessary, for respiratory distress Monitor blood pressure adjust medication doses as needed Avoid hypotensive episodes May use Dilaudid 0.5 mg IV every 6 hours as needed for severe pain Monitor blood sugars Strict intake, output, and daily weight should be monitored Please renally adjust medications Avoid nephrotoxic and nonsteroidal drugs Avoid contrast if possible Will continue to monitor renal function, anemia, electrolytes Treatment plan discussed with patient Questions were answered We have discussed with the other team physicians in detail about the care plan We will continue to monitor the patient closely ATTESTATION BY PHYSICIAN I have seen and examined the patient. I reviewed the documentation, medical decision making, and treatment plan as noted by the mid-level provider above. I agree with the findings and plan of care. CAMILA CLEMENS MD, [facility] Oct 14, 2024 15:46
--- NOTE | 2024-10-14 17:56 | PN ---
INFECTIOUS DISEASE PROGRESS NOTE Date of Service: Oct 14, 2024 SUBJECTIVE: This is a 64-year-old male patient who was admitted to the hospital for evaluation of lower abdominal pain. Patient had a CT of the abdomen and pelvis and was found with perforated sigmoid diverticulitis with intra-abdominal abscess. General surgery was consulted. Patient underwent a percutaneous drainage catheter placement on 10/09/2024 by IR. Patient was seen and examined at bedside in room 321. Patient is awake, alert and oriented x3. Patient is sitting up on the bedside chair. We will have Physical therapy evaluate and treat. Patient is status post left percutaneous drain placement on 10/09/2024. Per report the abscessogram was canceled for today due to patient is still had 30 mL drainage output in 24 hours recommendation is to repeat CT scan of the abdomen and pelvis on Monday. We will continue on Zosyn, fluconazole and linezolid IV. No fever, current temperature is 98.2. We will continue to follow patient's care. PHYSICAL EXAM EYES: Anicteric. Pupils equal and reactive. HENT: No oral thrush seen, moist Oral mucosa. NECK: Supple, no JVD or thyromegaly. LUNGS: Good air entry. No rales, no rhonchi. CARDIOVASCULAR: S1, S2 regular. No murmur heard. ABDOMEN: bowel sounds present, no organomegaly. Abdominal pain POA. Obese. Left percutaneous drain placement. CENTRAL NERVOUS SYSTEM: Awake, alert, oriented x 3. SKIN: No rashes, no swelling. LYMPHATICS: No peripheral lymphadenopathy. MUSCULOSKELETAL: No joint swelling, erythema or tenderness. EXTREMITIES: No cyanosis or clubbing. BACK: No deformity, no pressure ulcer. GENITOURINARY: No dysuria or hematuria. Vital Sign (Last 12 Hours) 10/14/24 10/14/24 10/14/24 10/14/24 06:55 06:55 08:00 08:09 Temp 97.9 Pulse 89 89 89 Resp 20 18 19 B/P (MAP) 144/81 Pulse Ox 98 98 O2 Delivery N/A Room Air Room Air* O2 Flow Rate 0 FiO2 21 21 10/14/24 10/14/24 11:23 16:22 Temp 98.2 98.1 Pulse 94 92 Resp 22 18 B/P (MAP) 126/76 144/73 Pulse Ox 99 98 Intake & Output (last 24hrs) 10/13/24 10/13/24 10/14/24 15:00 23:00 07:00 Output Total 1010 ml 1660 ml Balance -1010 ml -1660 ml LABS: Laboratory: Test 10/14/24 15:36 10/14/24 06:02 Range/Units Whole Blood Glucose 193 #H 70-110 MG/DL White Blood Count 7.8 4.8-10.8 K/uL Red Blood Count 3.06 L 4.50-6.20 MIL/uL Hemoglobin 9.5 L 14.0-18.0 g/dL Hematocrit 27.8 L 42-54 % Mean Corpuscular Volume 90.8 79-99 fL Mean Corpuscular Hemoglobin 31.0 27.0-33.0 pg Mean Corpuscular Hemoglobin Concent 34.2 32.0-36.0 g/dL Red Cell Distribution Width 16.5 H 11.0-15.5 % Platelet Count 480 H 130-400 K/uL Mean Platelet Volume 9.0 7.5-10.5 fL Immature Granulocyte % (Auto) 4.2 H 0-1 % Neutrophils (%) (Auto) 77.3 H 40.0-77.0 % Lymphocytes (%) (Auto) 11.3 L 21.0-51.0 % Monocytes (%) (Auto) 4.6 3.0-13.0 % Eosinophils (%) (Auto) 2.1 0.0-8.0 % Basophils (%) (Auto) 0.5 0.0-5.0 % Neutrophils # (Auto) 6.0 1.8-7.7 K/uL Lymphocytes # (Auto) 0.9 L 1.0-4.8 K/uL Monocytes # (Auto) 0.4 0.1-1.0 K/uL Eosinophils # (Auto) 0.16 0.00-0.70 K/uL Basophils # (Auto) 0.04 0.00-0.20 K/uL Absolute Immature Granulocyte (auto 0.33 0-1 K/uL Nucleated Red Blood Cells 0.0 0.0-0.19 % Sodium Level 133 L 136-145 mmol/L Potassium Level 3.6 3.5-5.1 mmol/L Chloride Level 101 101-111 mmol/L Carbon Dioxide Level 19 L 21-32 mmol/L Blood Urea Nitrogen 17 7-18 mg/dL Creatinine 1.6 H 0.5-1.3 mg/dL Glomerular Filtration Rate Calc 47 >90 mL/min Random Glucose 127 H 70-105 mg/dL Total Calcium 8.4 L 8.5-10.1 mg/dL ASSESSMENT: Acute hypoxic respiratory failure, requiring oxygen. Intra-abdominal abscess, with Escherichia coli infection, s/p percutaneous drainage catheter placement on 10/09/2024. Perforated sigmoid diverticulitis. Septic shock, resolving. Morbid obesity. Leukocytosis resolving. Acute renal failure, improving PLAN: Abscessogram has been rescheduled for possible Monday. Continue Zosyn. Continue linezolid. Continue fluconazole. Continue drain care. Continue GI prophylaxis. Continue oxygen support. Physical therapy to evaluate and treat. This case was reviewed and discussed with my supervising physician and the above assessment and plan was formulated and agreed upon. ATTESTATION BY PHYSICIAN I have seen and examined the patient. I reviewed the documentation, medical decision making, and treatment plan as noted by the mid-level provider above. I agree with the findings and plan of care. MICHEAL URRUTIA MD, [facility] Oct 14, 2024 17:56
--- NOTE | 2024-10-14 20:01 | PN ---
[facility] PROGRESS NOTE Date of Service: Oct 14, 2024 Time of Service: 20:00 SUBJECTIVE: 64-year-old male with underlying history of hypertension, hyperlipidemia, obesity, chronic alcohol use, who presented to the ER for further evaluation of significant lower abdominal pain with associated fevers and chills. Symptoms have been ongoing for the past two days and patient reports having nausea, vomiting and poor oral intake. Reports having pain involving the lower abdomen is moderate to severe in intensity and localized to the left lower quadrant. Patient denies any history of diverticulosis or diverticulitis. Last colonoscopy was about five years ago. Patient is unsure of the results. Patient does have underlying history of hypertension but does not recall the n yuriy of antihypertensive that he takes. Denies any previous history of cardiac or pulmonary comorbidities or renal abnormalities. On presentation to the hospital, patient was noted to be febrile with T-max of 101 F, tachycardic with heart rate of 125 and soft blood pressure with BP of 94/55. [place] [address] with neutrophilia, hemoglobin of 14.2, platelet count of 148221. BMP remarkable for sodium 137, potassium 3.2, chloride of 99, CO2 of 25, creatinine of 2.9, BUN of 24, lactic acid of 4.3. Patient underwent further evaluation with CT abdomen pelvis without contrast which showed findings of per perforated sigmoid diverticulitis with signs of developing abscess. Consultation with General surgery with Dr. Campbell was requested in the ER recommended IV fluids, IV antibiotics and NPO status. Patient will be admitted under hospitalist service and will receive sepsis bolus of fluid, broad-spectrum antibiotics with IV Zosyn, and lactic acid and blood pressure will be monitored closely tonight. Condition remains critical. 10/06/24 patient was seen and examined. Case discussed with the RN and by the bedside. He reports doing slightly better. Abdominal pain has largely resolved. He denies nausea vomiting fever or chills 10/07/2024 - patient was seen in ED 9, patient is resting in the bed , patient denies pain, nausea, vomitings. Patient is currently continued on pantoprazole, Dilaudid, Zosyn, fluconazole, heparin, linezolid . Patient's vitals show temperature 101.8, pulse 108, respiratory rate 20, blood pressure 139/86, saturating at 100% on2 L nasal cannula. Patient's labs shows WBC down to 12.4 from 12.6, hemoglobin 11.7 In the chemistries show sodium 142, potassium 3.7, creatinine improved to 1.5 from 2.4, BUN 20, procalcitonin elevated at 2.98. Case is being followed by infectious Disease, Nephrology, General surgery. Infectious disease recommended starting linezolid and fluconazole on the patient, general surgery have plan to get a CT abdomen with oral contrast. Patient will be followed closely as he has high risk of decompensation. Preliminary blood culture showed Gram-negative rods, final result unclear. 10/08/2024 - patient is seen in room 230, patient is resting in the bed comfortably, says he feels better compared to yesterday and denies nausea, vomitings. Patient had a CT abdomen pelvis with oral contrast which showed acu te sigmoid diverticulitis,3 x 3.5 cm diverticular abscess, amorphous air collection within walled-off perforation. And there is no intraperitoneal air or free air in the abdomen . Pending further directions from surgery. Patient is currently hemodynamically stable with temperature 98.8, pulse 98, blood pressure 130/83, respiratory rate 18, saturating at 99% on room air. Patient's labs shows WBC elevated to 13.9 from 12.4, hemoglobin 11.2 And chemistries show sodium 141, potassium 3.5, creatinine stable at 1.5, BUN 20. Patient is currently continuing on linezolid, fluconazole, Zosyn. Patient will be monitored closely 10/09/2024 - patient is seen at bedside in room 230, patient is resting comfortably in the bed patient went through the percutaneous drainage by IR and the fluid is sent for culture. Patient denies any symptoms, any pain in the abdomen. Patient's blood culture yielded a prevotella oralis, patient is currently continuing on linezolid, Zosyn, fluconazole. Id is following the case closely. Patient has been started on consistent carb diet. Patient is currently hemodynamically stable with pulse 95, blood pressure 143/96, saturating at 100% on2 L oxygen. Patient's labs shows sodium 138, potassium 3.6, creatinine 1.5, BUN 19, hematology shows WBC trended down to 11.4 from 13.9, hemoglobin 11.5. Patient will be continued on conservative management without any surgical intervention at this time according to the surgeon Dr. Campbell. Patient will be followed closely. Patient downgraded to med surg. 10/10/2024 - patient is seen bedside in room 321, patient is resting comfortably. Patient mentioned about having 1 episode of green color diarrhea. Patient was started on consistent carb diet yesterday and has been tolerating it well. Patient's vitals show temperature 97.9, pulse 103, respiratory rate 18, blood pressure 128/74, saturating at 98% on 1 L nasal cannula. Patient's labs shows WBC trended down to 9.2 from 11.4 and hemoglobin 11.3 and chemistries show sodium 137, potassium 3.9, creatinine elevated to 1.7, BUN 23. Infectious disease ordered Zosyn Q 8. Pulmonology has signed off the case with no further recommendations as he is stable from their standpoint. Awaiting further recommendations from other consults 10/11/2024 - patient is seen in room 321. Patient is sitting in chair when I visited the room, patient is continuing on consistent carb diet. Nurse informed about patient having 1 episode of vomiting, patient denies having nausea, pain. The IR drain had about 60 - 100 mL of drainage of abscess. Patient is currently hemodynamically stable with temperature 99.7, respiratory rate 19, pulse 92, blood pressure 121/69. Patient labs show WBC 10, hemoglobin 10.4 And chemistries show sodium 135, potassium 3.6, creatinine elevated to 2.5, BUN 29, magnesium 1.7. Abscess fluid culture reveals Gram-negative rods, Gram-positive cocci in clusters, budding yeast. Patient is currently continued on fluconazole, linezolid, Zosyn, ID is following the case closely. Waiting for further recommendations and clearance from surgery. Patient had new PICC line placed. Patient will be reassessed tomorrow. 10/12/24 patient was seen and examined. Case discussed with the RN and by the bedside. He is doing better denies any pain tolerating diet. ID is studying abscess track 10/13/24 patient was seen and examined. Case discussed with the RN and by the bedside. Is awaiting with the study ordered by ID which from likely be done tomorrow to assess abscess track. 10/14/24 patient was seen and examined. Case discussed with the RN and by the bedside. This is a 64-year-old male with diverticulitis with diverticular abscess with recent percutaneous drain placed by IR. Await for repeat CT on Monday to evaluate for potential drain removal REVIEW OF SYSTEMS CONSTITUTIONAL: Fevers, chills, asthenia, malaise NEUROLOGICAL: Denies headache, amaurosis fugax, motor weakness, sensory deficit, vertigo/spinning sensation, gait abnormalities, or tremors. ENT: No hearing loss, otalgia, otorrhea, rhinitis, rhinorrhea, hoarseness, or sore throat. CARDIOVASCULAR: Denies any exertional angina, dyspnea on exertion, orthopnea, paroxysmal nocturnal dyspnea, palpitations, life-threatening arrhythmias, claudication. PULMONARY: Denies any shortness of breath, cough, phlegm/sputum, hemoptysis, pleuritic chest pain. SLEEP: Denies morning headaches, daytime somnolence or napping. Denies difficulty falling asleep, staying asleep, waking from sleep. Denies knowledge of snoring. GASTROINTESTINAL: Nausea, vomiting, abdominal pain GENITOURINARY: Denies frequency, urgency, nocturia, hematuria or incontinence (Storage/Irritative symptoms.) Low urinary stream, straining to void, urinary intermittency or hesitancy, splitting of the voiding stream, terminal dribbling. ENDOCRINOLOGIC: Denies polyuria, polydipsia, polyphagia or heat/cold intolerances. HEMATOLOGIC: Denies thrombophilia/previous clots, or coagulopathy/bleeding disorders. ONCOLOGIC: Denies personal history of malignancy. DERMATOLOGIC: Denies rashes or pruritus. PSYCHIATRIC: Denies any suicidal or homicidal ideation. Denies hallucinations. PHYSICAL EXAM GENERAL APPEARANCE: The patient is awake, alert, appears disheveled and ill, tachypneic NEUROLOGICAL: Cranial nerves II-XII grossly intact. Motor is 5/5 in bilateral upper and lower extremities proximal to distal. No sensory deficits. HEENT: Face is symmetric. Pupils are equal and reactive. Extraocular movements are intact. NECK: Supple. No JVD. No thyromegaly. No submental, submandibular, pre- /postauricular, occipital or supraclavicular lymphadenopathy. CHEST: Normal chest expansion. No Telemetry. LUNGS: Absence of any rales, rhonchi or any wheezing. CARDIOVASCULAR: Regular. S1 and S2 normal. No appreciable rubs, murmurs or gallops. ABDOMEN: Soft, nontender, and nondistended. There is no rebound, voluntary guarding, or rigidity. : Deferred. No Ni. EXTREMITIES: 1+ pitting edema of the bilateral lower extremities, changes of psoriasis noted of the bilateral lower and upper extremities SKIN: No skin breakdown. Vital Signs (last 8hr) Date Time Temp Pulse Resp B/P (MAP) Pulse Ox O2 Delivery O2 Flow Rate FiO2 10/14/24 16:22 98.1 92 18 144/73 98 LABS: Laboratory: Test 10/14/24 15:36 10/14/24 06:02 Range/Units Whole Blood Glucose 193 #H 70-110 MG/DL White Blood Count 7.8 4.8-10.8 K/uL Red Blood Count 3.06 L 4.50-6.20 MIL/uL Hemoglobin 9.5 L 14.0-18.0 g/dL Hematocrit 27.8 L 42-54 % Mean Corpuscular Volume 90.8 79-99 fL Mean Corpuscular Hemoglobin 31.0 27.0-33.0 pg Mean Corpuscular Hemoglobin Concent 34.2 32.0-36.0 g/dL Red Cell Distribution Width 16.5 H 11.0-15.5 % Platelet Count 480 H 130-400 K/uL Mean Platelet Volume 9.0 7.5-10.5 fL Immature Granulocyte % (Auto) 4.2 H 0-1 % Neutrophils (%) (Auto) 77.3 H 40.0-77.0 % Lymphocytes (%) (Auto) 11.3 L 21.0-51.0 % Monocytes (%) (Auto) 4.6 3.0-13.0 % Eosinophils (%) (Auto) 2.1 0.0-8.0 % Basophils (%) (Auto) 0.5 0.0-5.0 % Neutrophils # (Auto) 6.0 1.8-7.7 K/uL Lymphocytes # (Auto) 0.9 L 1.0-4.8 K/uL Monocytes # (Auto) 0.4 0.1-1.0 K/uL Eosinophils # (Auto) 0.16 0.00-0.70 K/uL Basophils # (Auto) 0.04 0.00-0.20 K/uL Absolute Immature Granulocyte (auto 0.33 0-1 K/uL Nucleated Red Blood Cells 0.0 0.0-0.19 % Sodium Level 133 L 136-145 mmol/L Potassium Level 3.6 3.5-5.1 mmol/L Chloride Level 101 101-111 mmol/L Carbon Dioxide Level 19 L 21-32 mmol/L Blood Urea Nitrogen 17 7-18 mg/dL Creatinine 1.6 H 0.5-1.3 mg/dL Glomerular Filtration Rate Calc 47 >90 mL/min Random Glucose 127 H 70-105 mg/dL Total Calcium 8.4 L 8.5-10.1 mg/dL Current Medications Medications (Trade) Dose Ordered Sig/Tim Route PRN Reason Start Time Stop Time Status Last Admin Dose Admin Acetaminophen (TYLenol 325MG TAB) 650 mg Q6H PRN PO MILD PAIN (1-3) 10/05/24 18:30 11/04/24 18:29 10/07/24 19:02 650 MG Acetaminophen (TYLenol 650MG SUPPOSITORY) 650 mg Q4H PRN RC TEMPERATURE GREATER THAN 101.5 10/07/24 05:30 11/06/24 05:29 10/07/24 12:31 650 MG Acetaminophen (acetaMINOPHEN) 1,000 mg ONCE STAT IVPB 10/06/24 17:17 10/06/24 17:19 DC 10/06/24 19:27 1,000 MG Acetaminophen (acetaMINOPHEN) 1,000 mg STAT IVPB 10/06/24 09:00 10/06/24 13:02 DC 10/06/24 09:37 1,000 MG Albumin Human 100 ml @ 100 mls/hr AD IV 10/05/24 21:00 10/06/24 06:01 DC 10/05/24 21:33 100 MLS/HR Albumin Human 100 ml @ 0 mls/hr AD IV 10/06/24 06:00 10/07/24 12:38 DC 10/06/24 07:02 500 MLS/HR Atorvastatin Calcium (LIPItor 40MG) 40 mg HS PO 10/07/24 21:00 11/06/24 20:59 10/13/24 19:35 40 MG Budesonide (Pulmicort 0.5 Mg/2ml) 0.5 mg BIDRESP IH 10/05/24 18:00 11/04/24 17:59 10/14/24 06:54 0.5 MG Chlordiazepoxide HCl (LIBrium 25 MG CAP) 25 mg Q4H PRN PO ALCOHOL WITHDRAWAL PROTOCOL 10/05/24 18:00 10/12/24 17:59 DC Dextrose (D50w) 50 ml AD PRN IV HYPOGLYCEMIA PROTOCOL 10/07/24 09:30 11/06/24 09:29 EZETIMIBE (Zetia) 10 mg DAILY PO 10/08/24 09:00 11/07/24 08:59 10/14/24 08:45 10 MG Fluconazole/ Sodium Chloride 200 ml @ 100 mls/hr Q24H IV 10/06/24 13:00 11/05/24 12:59 10/14/24 13:28 100 MLS/HR Glucagon (Glucagon 1mg Kit) 1 mg AD PRN IM HYPOGLYCEMIA PROTOCOL 10/07/24 09:30 11/06/24 09:29 Heparin Sodium (Porcine) (HEParin 5,000 UNIT VIAL) 5,000 unit TID SQ 10/06/24 21:00 11/05/24 20:59 10/14/24 13:43 5,000 UNIT Hydrochlorothiazide (hydroCHLOROthiazide 25MG) 12.5 mg DAILY PO 10/08/24 09:00 10/13/24 11:15 DC 10/13/24 09:27 12.5 MG Hydromorphone HCl (DiLAUDid 0.5MG INJ) 0.5 mg Q6H PRN IVP SEVERE PAIN (7-10) 10/05/24 18:00 10/10/24 17:59 DC 10/05/24 19:34 0.5 MG Insulin Human Regular (humuLIN R 100 UNIT/ML 3ML) INSULIN SLIDING SCAL... ACHS SQ 10/07/24 11:30 11/06/24 11:29 10/14/24 16:34 2 UNIT Linezolid 300 ml @ 150 mls/hr Q12H IV 10/07/24 13:30 10/17/24 13:29 10/14/24 13:28 150 MLS/HR Lorazepam (AtiVAN) 2 mg Q4H PRN IVP ALCOHOL WITHDRAWAL PROTOCOL 10/05/24 18:00 10/12/24 17:59 DC Losartan Potassium (CozAAR 100MG TAB) 100 mg DAILY PO 10/08/24 09:00 10/11/24 16:10 DC 10/11/24 10:53 100 MG Magnesium Sulfate 50 ml @ 0 mls/hr PROTOCOL PRN IV MAGNESIUM PROTOCOL 10/07/24 09:30 11/06/24 09:29 10/11/24 20:25 25 MLS/HR Norepinephrine 250 ml @ 44.213 mls/ hr PROTOCOL IV 10/06/24 12:00 11/05/24 11:59 Nystatin (NystOP 15 GM POWDER) 1 APPLICATION BID TP 10/06/24 21:00 11/05/24 20:59 10/14/24 08:48 1 APPL Ondansetron HCl (zoFRAN 4MG INJ) 4 mg Q8H PRN IVP NAUSEA/VOMITING 10/10/24 19:30 11/09/24 19:29 Pantoprazole Sodium (PROTonix 40MG INJ) 40 mg Q24H IVP 10/05/24 18:00 11/04/24 17:59 10/14/24 17:10 40 MG Pharmacy Profile Note (Pharmacy Communication) 1 each PROTOCOL PRN MISC ETOH Withdrawal Score changes 10/05/24 18:00 10/12/24 17:59 DC Piperacillin Sod/ Tazobactam Sod (Zosyn 3.375gm+NS 50ml) 3.375 gm Q8H IVPB 10/10/24 08:00 10/10/24 16:16 DC 10/10/24 08:40 3.375 GM Piperacillin Sod/ Tazobactam Sod (Zosyn 3.375gm+NS 50ml) 3.375 gm Q8H IVPB 10/10/24 21:00 10/20/24 20:59 10/14/24 14:50 3.375 GM Piperacillin Sod/ Tazobactam Sod (Zosyn 3.375gm+NS 50ml) 3.375 gm Q8H IVPB 10/05/24 23:00 10/10/24 05:21 DC 10/10/24 00:26 3.375 GM Potassium Chloride 100 ml @ 100 mls/hr AD PRN IV POTASSIUM PROTOCOL 10/07/24 09:30 11/06/24 09:29 Potassium Chloride 100 ml @ 100 mls/hr AD PRN IV POTASSIUM PROTOCOL 10/05/24 18:00 11/04/24 17:59 10/12/24 20:01 100 MLS/HR Potassium Chloride (K-Dur/Klor-Con 20meq) 20 meq AD PRN PO POTASSIUM PROTOCOL 10/07/24 09:30 11/06/24 09:29 10/13/24 14:59 20 MEQ Potassium Chloride (KCl 10% Elixir 20meq/15ml) 20 meq AD PRN PO POTASSIUM PROTOCOL 10/07/24 09:30 11/06/24 09:29 Sodium Chloride (NS 50ml) 50 ml AD IV 10/05/24 21:00 10/05/24 17:34 DC Thiamine HCl (Vitamin B-1) 100 mg Q24H IVP 10/05/24 18:00 10/06/24 11:49 DC 10/05/24 18:12 100 MG Thiamine HCl (Vitamin B-1) 300 mg Q24H IVP 10/06/24 18:00 10/09/24 17:59 DC 10/09/24 16:21 300 MG Thiamine HCl 100 mg/Folic Acid 1 mg/Multivitamins/ Minerals 10 ml/ Sodium Chloride 1,011.2 ml @ 100 mls/ hr Q24H IV 10/05/24 18:00 10/08/24 04:07 DC 10/07/24 18:17 100 MLS/HR DIAGNOSTICS / RADIOLOGY: [ ] ASSESSMENT: Severe sepsis, POA, 2/2 perforated sigmoid diverticulitis Perforated sigmoid diverticulitis with developing abscess, POA Moderate lactic acidosis, POA Acute kidney injury, POA Hypokalemia, POA Mild urinary tract infection, POA Alcohol use disorder, POA Morbid obesity, POA Underlying history of hypertension, POA Hyperlipidemia, POA Status post percutaneous drain placement by IR Suspected GREG, POA PLAN: Continue with IV fluids, patient will receive sepsis bolus of fluid and start maintenance IV fluid with banana bag, 75 mL/hour Patient will be started on daily thiamine supplementation We will start broad-spectrum antibiotics with IV Zosyn, renally dose Consultation has been requested with Dr. Campbell, with General surgery, appreciate recommendations Monitor lactic acid trend closely, if patient develops hypotension tonight, patient will be transferred to ICU for vasopressors Discussed patient's case with critical Care, we will watch this patient closely for the next 24 hours Ni catheter will be placed and we will monitor urine output closely Monitor urine output closely, avoid NSAIDs, WENDIE inhibitor/ARB, avoid IV contrast until renal function improves Pain control with Tylenol and IV hydromorphone for severe pain Patient will be started on CPAP therapy tonight for management of suspected obstructive sleep apnea Patient will be placed on alcohol withdrawal protocol with Librium and Ativan, counseled patient to quit alcohol on discharge, patient verbalized understanding Continue antibiotics Zosyn, linezolid, fluconazole according to Infectious Disease recommendations Follow up with surgery recommendations Electrolytes will be corrected WENDY CROOK MD Oct 14, 2024 20:01
[2024-10-15] VITALS (10 sets, daily range): BP systolic 116–155; BP diastolic 69–95; PULSE 96–108; RESP 18–20; TEMP 97.7–99.8; O2SAT 96–100
--- NOTE | 2024-10-15 11:51 | PN ---
INFECTIOUS DISEASE PROGRESS NOTE Date of Service: Oct 15, 2024 SUBJECTIVE: This is a 64-year-old male patient who was admitted to the hospital for evaluation of lower abdominal pain. Patient had a CT of the abdomen and pelvis and was found with perforated sigmoid diverticulitis with intra-abdominal abscess. General surgery was consulted. Patient underwent a percutaneous drainage catheter placement on 10/09/2024 by IR. Patient was seen and examined at bedside in room 321. Patient is awake, alert and oriented x3. Patient is status post left percu taneous drain placement on 10/09/2024. The sigmoid fluid abscess grew E coli. The blood culture is positive for prevotella oralis. Will continue on Zosyn, fluconazole and linezolid IV. Will possibly be having an abscessogram on Monday depending on the results of the repeat CT scan of the abdomen. No fever, current temperature is 98.6. We will continue to follow patient's care. PHYSICAL EXAM EYES: Anicteric. Pupils equal and reactive. HENT: No oral thrush seen, moist Oral mucosa. NECK: Supple, no JVD or thyromegaly. LUNGS: Good air entry. No rales, no rhonchi. CARDIOVASCULAR: S1, S2 regular. No murmur heard. ABDOMEN: bowel sounds present, no organomegaly. Abdominal pain POA. Obese. Left percutaneous drain placement. CENTRAL NERVOUS SYSTEM: Awake, alert, oriented x 3. SKIN: No rashes, no swelling. LYMPHATICS: No peripheral lymphadenopathy. MUSCULOSKELETAL: No joint swelling, erythema or tenderness. EXTREMITIES: No cyanosis or clubbing. BACK: No deformity, no pressure ulcer. GENITOURINARY: No dysuria or hematuria. Vital Sign (Last 12 Hours) 10/15/24 10/15/24 10/15/24 10/15/24 00:00 00:21 04:00 07:09 Temp 97.7 98.4 Pulse 105 106 100 Resp 20 20 20 18 B/P (MAP) 155/95 143/77 Pulse Ox 98 96 O2 Delivery Room Air Room Air FiO2 28 10/15/24 10/15/24 07:09 08:00 Temp 98.6 Pulse 100 104 Resp 18 20 B/P (MAP) 130/69 Pulse Ox 97 O2 Delivery N/A Room Air Room Air FiO2 21 21 Intake & Output (last 24hrs) 10/14/24 10/14/24 10/15/24 15:00 23:00 07:00 Output Total 400 ml 800 ml Balance -400 ml -800 ml LABS: Laboratory: Test 10/15/24 11:01 10/14/24 06:02 Range/Units Whole Blood Glucose 171 H 70-110 MG/DL White Blood Count 7.8 4.8-10.8 K/uL Red Blood Count 3.06 L 4.50-6.20 MIL/uL Hemoglobin 9.5 L 14.0-18.0 g/dL Hematocrit 27.8 L 42-54 % Mean Corpuscular Volume 90.8 79-99 fL Mean Corpuscular Hemoglobin 31.0 27.0-33.0 pg Mean Corpuscular Hemoglobin Concent 34.2 32.0-36.0 g/dL Red Cell Distribution Width 16.5 H 11.0-15.5 % Platelet Count 480 H 130-400 K/uL Mean Platelet Volume 9.0 7.5-10.5 fL Immature Granulocyte % (Auto) 4.2 H 0-1 % Neutrophils (%) (Auto) 77.3 H 40.0-77.0 % Lymphocytes (%) (Auto) 11.3 L 21.0-51.0 % Monocytes (%) (Auto) 4.6 3.0-13.0 % Eosinophils (%) (Auto) 2.1 0.0-8.0 % Basophils (%) (Auto) 0.5 0.0-5.0 % Neutrophils # (Auto) 6.0 1.8-7.7 K/uL Lymphocytes # (Auto) 0.9 L 1.0-4.8 K/uL Monocytes # (Auto) 0.4 0.1-1.0 K/uL Eosinophils # (Auto) 0.16 0.00-0.70 K/uL Basophils # (Auto) 0.04 0.00-0.20 K/uL Absolute Immature Granulocyte (auto 0.33 0-1 K/uL Nucleated Red Blood Cells 0.0 0.0-0.19 % Sodium Level 133 L 136-145 mmol/L Potassium Level 3.6 3.5-5.1 mmol/L Chloride Level 101 101-111 mmol/L Carbon Dioxide Level 19 L 21-32 mmol/L Blood Urea Nitrogen 17 7-18 mg/dL Creatinine 1.6 H 0.5-1.3 mg/dL Glomerular Filtration Rate Calc 47 >90 mL/min Random Glucose 127 H 70-105 mg/dL Total Calcium 8.4 L 8.5-10.1 mg/dL ASSESSMENT: Acute hypoxic respiratory failure, requiring oxygen. Intra-abdominal abscess, with Escherichia coli infection, s/p percutaneous drainage catheter placement on 10/09/2024. Perforated sigmoid diverticulitis. Septic shock, resolving. Morbid obesity. Leukocytosis resolving. Acute renal failure, improving PLAN: Continue Zosyn. Continue linezolid. Continue fluconazole. Continue drain care. Continue GI prophylaxis. Continue oxygen support. Pending Physical therapy evaluation. Abscessogram has been rescheduled for possible Monday depending on the repeat CT of the abdomen and pelvis results. This case was reviewed and discussed with my supervising physician and the above assessment and plan was formulated and agreed upon. ATTESTATION BY PHYSICIAN I have seen and examined the patient. I reviewed the documentation, medical decision making, and treatment plan as noted by the mid-level provider above. I agree with the findings and plan of care. MICHEAL URRUTIA MD, MIRTA L [facility] C[employer]ER Oct 15, 2024 11:51
--- NOTE | 2024-10-15 16:00 | NUR ---
DC JACKSON JACKSON CATH REMOVED, PENDING TO VOID.
[2024-10-15] MEDS ORDERED: doCUSate SODIUM 100 MG CAP PO SCH (18:00)
--- NOTE | 2024-10-15 18:45 | PN ---
[facility] PROGRESS NOTE Date of Service: Oct 15, 2024 Time of Service: 18:44 SUBJECTIVE: 64-year-old male with underlying history of hypertension, hyperlipidemia, obesity, chronic alcohol use, who presented to the ER for further evaluation of significant lower abdominal pain with associated fevers and chills. Symptoms have been ongoing for the past two days and patient reports having nausea, vomiting and poor oral intake. Reports having pain involving the lower abdomen is moderate to severe in intensity and localized to the left lower quadrant. Patient denies any history of diverticulosis or diverticulitis. Last colonoscopy was about five years ago. Patient is unsure of the results. Patient does have underlying history of hypertension but does not recall the n yuriy of antihypertensive that he takes. Denies any previous history of cardiac or pulmonary comorbidities or renal abnormalities. On presentation to the hospital, patient was noted to be febrile with T-max of 101 F, tachycardic with heart rate of 125 and soft blood pressure with BP of 94/55. [place] [address] with neutrophilia, hemoglobin of 14.2, platelet count of 287405. BMP remarkable for sodium 137, potassium 3.2, chloride of 99, CO2 of 25, creatinine of 2.9, BUN of 24, lactic acid of 4.3. Patient underwent further evaluation with CT abdomen pelvis without contrast which showed findings of per perforated sigmoid diverticulitis with signs of developing abscess. Consultation with General surgery with Dr. Campbell was requested in the ER recommended IV fluids, IV antibiotics and NPO status. Patient will be admitted under hospitalist service and will receive sepsis bolus of fluid, broad-spectrum antibiotics with IV Zosyn, and lactic acid and blood pressure will be monitored closely tonight. Condition remains critical. 10/06/24 patient was seen and examined. Case discussed with the RN and by the bedside. He reports doing slightly better. Abdominal pain has largely resolved. He denies nausea vomiting fever or chills 10/07/2024 - patient was seen in ED 9, patient is resting in the bed , patient denies pain, nausea, vomitings. Patient is currently continued on pantoprazole, Dilaudid, Zosyn, fluconazole, heparin, linezolid . Patient's vitals show temperature 101.8, pulse 108, respiratory rate 20, blood pressure 139/86, saturating at 100% on2 L nasal cannula. Patient's labs shows WBC down to 12.4 from 12.6, hemoglobin 11.7 In the chemistries show sodium 142, potassium 3.7, creatinine improved to 1.5 from 2.4, BUN 20, procalcitonin elevated at 2.98. Case is being followed by infectious Disease, Nephrology, General surgery. Infectious disease recommended starting linezolid and fluconazole on the patient, general surgery have plan to get a CT abdomen with oral contrast. Patient will be followed closely as he has high risk of decompensation. Preliminary blood culture showed Gram-negative rods, final result unclear. 10/08/2024 - patient is seen in room 230, patient is resting in the bed comfortably, says he feels better compared to yesterday and denies nausea, vomitings. Patient had a CT abdomen pelvis with oral contrast which showed acu te sigmoid diverticulitis,3 x 3.5 cm diverticular abscess, amorphous air collection within walled-off perforation. And there is no intraperitoneal air or free air in the abdomen . Pending further directions from surgery. Patient is currently hemodynamically stable with temperature 98.8, pulse 98, blood pressure 130/83, respiratory rate 18, saturating at 99% on room air. Patient's labs shows WBC elevated to 13.9 from 12.4, hemoglobin 11.2 And chemistries show sodium 141, potassium 3.5, creatinine stable at 1.5, BUN 20. Patient is currently continuing on linezolid, fluconazole, Zosyn. Patient will be monitored closely 10/09/2024 - patient is seen at bedside in room 230, patient is resting comfortably in the bed patient went through the percutaneous drainage by IR and the fluid is sent for culture. Patient denies any symptoms, any pain in the abdomen. Patient's blood culture yielded a prevotella oralis, patient is currently continuing on linezolid, Zosyn, fluconazole. Id is following the case closely. Patient has been started on consistent carb diet. Patient is currently hemodynamically stable with pulse 95, blood pressure 143/96, saturating at 100% on2 L oxygen. Patient's labs shows sodium 138, potassium 3.6, creatinine 1.5, BUN 19, hematology shows WBC trended down to 11.4 from 13.9, hemoglobin 11.5. Patient will be continued on conservative management without any surgical intervention at this time according to the surgeon Dr. Campbell. Patient will be followed closely. Patient downgraded to med surg. 10/10/2024 - patient is seen bedside in room 321, patient is resting comfortably. Patient mentioned about having 1 episode of green color diarrhea. Patient was started on consistent carb diet yesterday and has been tolerating it well. Patient's vitals show temperature 97.9, pulse 103, respiratory rate 18, blood pressure 128/74, saturating at 98% on 1 L nasal cannula. Patient's labs shows WBC trended down to 9.2 from 11.4 and hemoglobin 11.3 and chemistries show sodium 137, potassium 3.9, creatinine elevated to 1.7, BUN 23. Infectious disease ordered Zosyn Q 8. Pulmonology has signed off the case with no further recommendations as he is stable from their standpoint. Awaiting further recommendations from other consults 10/11/2024 - patient is seen in room 321. Patient is sitting in chair when I visited the room, patient is continuing on consistent carb diet. Nurse informed about patient having 1 episode of vomiting, patient denies having nausea, pain. The IR drain had about 60 - 100 mL of drainage of abscess. Patient is currently hemodynamically stable with temperature 99.7, respiratory rate 19, pulse 92, blood pressure 121/69. Patient labs show WBC 10, hemoglobin 10.4 And chemistries show sodium 135, potassium 3.6, creatinine elevated to 2.5, BUN 29, magnesium 1.7. Abscess fluid culture reveals Gram-negative rods, Gram-positive cocci in clusters, budding yeast. Patient is currently continued on fluconazole, linezolid, Zosyn, ID is following the case closely. Waiting for further recommendations and clearance from surgery. Patient had new PICC line placed. Patient will be reassessed tomorrow. 10/12/24 patient was seen and examined. Case discussed with the RN and by the bedside. He is doing better denies any pain tolerating diet. ID is studying abscess track 10/13/24 patient was seen and examined. Case discussed with the RN and by the bedside. Is awaiting with the study ordered by ID which from likely be done tomorrow to assess abscess track. 10/14/24 patient was seen and examined. Case discussed with the RN and by the bedside. This is a 64-year-old male with diverticulitis with diverticular abscess with recent percutaneous drain placed by IR. Await for repeat CT on Monday to evaluate for potential drain removal 10/15/24 patient was seen and examined. Case discussed with the RN and by the bedside. This is a 64-year-old male with diverticulitis with diverticular abscess with recent percutaneous drain placed by IR. Await for repeat CT on Monday to evaluate for potential drain removal/Colace ordered for constipation. REVIEW OF SYSTEMS CONSTITUTIONAL: Fevers, chills, asthenia, malaise NEUROLOGICAL: Denies headache, amaurosis fugax, motor weakness, sensory deficit, vertigo/spinning sensation, gait abnormalities, or tremors. ENT: No hearing loss, otalgia, otorrhea, rhinitis, rhinorrhea, hoarseness, or sore throat. CARDIOVASCULAR: Denies any exertional angina, dyspnea on exertion, orthopnea, paroxysmal nocturnal dyspnea, palpitations, life-threatening arrhythmias, claudication. PULMONARY: Denies any shortness of breath, cough, phlegm/sputum, hemoptysis, pleuritic chest pain. SLEEP: Denies morning headaches, daytime somnolence or napping. Denies difficulty falling asleep, staying asleep, waking from sleep. Denies knowledge of snoring. GASTROINTESTINAL: Nausea, vomiting, abdominal pain GENITOURINARY: Denies frequency, urgency, nocturia, hematuria or incontinence (Storage/Irritative symptoms.) Low urinary stream, straining to void, urinary intermittency or hesitancy, splitting of the voiding stream, terminal dribbling. ENDOCRINOLOGIC: Denies polyuria, polydipsia, polyphagia or heat/cold intolerances. HEMATOLOGIC: Denies thrombophilia/previous clots, or coagulopathy/bleeding disorders. ONCOLOGIC: Denies personal history of malignancy. DERMATOLOGIC: Denies rashes or pruritus. PSYCHIATRIC: Denies any suicidal or homicidal ideation. Denies hallucinations. PHYSICAL EXAM GENERAL APPEARANCE: The patient is awake, alert, appears disheveled and ill, tachypneic NEUROLOGICAL: Cranial nerves II-XII grossly intact. Motor is 5/5 in bilateral upper and lower extremities proximal to distal. No sensory deficits. HEENT: Face is symmetric. Pupils are equal and reactive. Extraocular movements are intact. NECK: Supple. No JVD. No thyromegaly. No submental, submandibular, pre- /postauricular, occipital or supraclavicular lymphadenopathy. CHEST: Normal chest expansion. No Telemetry. LUNGS: Absence of any rales, rhonchi or any wheezing. CARDIOVASCULAR: Regular. S1 and S2 normal. No appreciable rubs, murmurs or gallops. ABDOMEN: Soft, nontender, and nondistended. There is no rebound, voluntary guarding, or rigidity. : Deferred. No Ni. EXTREMITIES: 1+ pitting edema of the bilateral lower extremities, changes of psoriasis noted of the bilateral lower and upper extremities SKIN: No skin breakdown. Vital Signs (last 8hr) Date Time Temp Pulse Resp B/P (MAP) Pulse Ox O2 Delivery O2 Flow Rate FiO2 10/15/24 16:00 99.0 105 20 150/95 99 Room Air 21 10/15/24 12:00 99.9 108 18 116/77 98 Room Air 21 LABS: Laboratory: Test 10/15/24 16:10 10/14/24 06:02 Range/Units Whole Blood Glucose 166 H 70-110 MG/DL White Blood Count 7.8 4.8-10.8 K/uL Red Blood Count 3.06 L 4.50-6.20 MIL/uL Hemoglobin 9.5 L 14.0-18.0 g/dL Hematocrit 27.8 L 42-54 % Mean Corpuscular Volume 90.8 79-99 fL Mean Corpuscular Hemoglobin 31.0 27.0-33.0 pg Mean Corpuscular Hemoglobin Concent 34.2 32.0-36.0 g/dL Red Cell Distribution Width 16.5 H 11.0-15.5 % Platelet Count 480 H 130-400 K/uL Mean Platelet Volume 9.0 7.5-10.5 fL Immature Granulocyte % (Auto) 4.2 H 0-1 % Neutrophils (%) (Auto) 77.3 H 40.0-77.0 % Lymphocytes (%) (Auto) 11.3 L 21.0-51.0 % Monocytes (%) (Auto) 4.6 3.0-13.0 % Eosinophils (%) (Auto) 2.1 0.0-8.0 % Basophils (%) (Auto) 0.5 0.0-5.0 % Neutrophils # (Auto) 6.0 1.8-7.7 K/uL Lymphocytes # (Auto) 0.9 L 1.0-4.8 K/uL Monocytes # (Auto) 0.4 0.1-1.0 K/uL Eosinophils # (Auto) 0.16 0.00-0.70 K/uL Basophils # (Auto) 0.04 0.00-0.20 K/uL Absolute Immature Granulocyte (auto 0.33 0-1 K/uL Nucleated Red Blood Cells 0.0 0.0-0.19 % Sodium Level 133 L 136-145 mmol/L Potassium Level 3.6 3.5-5.1 mmol/L Chloride Level 101 101-111 mmol/L Carbon Dioxide Level 19 L 21-32 mmol/L Blood Urea Nitrogen 17 7-18 mg/dL Creatinine 1.6 H 0.5-1.3 mg/dL Glomerular Filtration Rate Calc 47 >90 mL/min Random Glucose 127 H 70-105 mg/dL Total Calcium 8.4 L 8.5-10.1 mg/dL Current Medications Medications (Trade) Dose Ordered Sig/Tim Route PRN Reason Start Time Stop Time Status Last Admin Dose Admin Acetaminophen (TYLenol 325MG TAB) 650 mg Q6H PRN PO MILD PAIN (1-3) 10/05/24 18:30 11/04/24 18:29 10/07/24 19:02 650 MG Acetaminophen (TYLenol 650MG SUPPOSITORY) 650 mg Q4H PRN RC TEMPERATURE GREATER THAN 101.5 10/07/24 05:30 11/06/24 05:29 10/07/24 12:31 650 MG Acetaminophen (acetaMINOPHEN) 1,000 mg ONCE STAT IVPB 10/06/24 17:17 10/06/24 17:19 DC 10/06/24 19:27 1,000 MG Acetaminophen (acetaMINOPHEN) 1,000 mg STAT IVPB 10/06/24 09:00 10/06/24 13:02 DC 10/06/24 09:37 1,000 MG Albumin Human 100 ml @ 100 mls/hr AD IV 10/05/24 21:00 10/06/24 06:01 DC 10/05/24 21:33 100 MLS/HR Albumin Human 100 ml @ 0 mls/hr AD IV 10/06/24 06:00 10/07/24 12:38 DC 10/06/24 07:02 500 MLS/HR Atorvastatin Calcium (LIPItor 40MG) 40 mg HS PO 10/07/24 21:00 11/06/24 20:59 10/14/24 21:45 40 MG Budesonide (Pulmicort 0.5 Mg/2ml) 0.5 mg BIDRESP IH 10/05/24 18:00 11/04/24 17:59 10/15/24 07:08 0.5 MG Chlordiazepoxide HCl (LIBrium 25 MG CAP) 25 mg Q4H PRN PO ALCOHOL WITHDRAWAL PROTOCOL 10/05/24 18:00 10/12/24 17:59 DC Dextrose (D50w) 50 ml AD PRN IV HYPOGLYCEMIA PROTOCOL 10/07/24 09:30 11/06/24 09:29 Docusate Sodium (COLace 100MG CAP) 100 mg BID PO 10/15/24 18:00 10/15/24 17:51 DC Docusate Sodium (COLace 100MG CAP) 100 mg BID PRN PO CONSTIPATION 10/15/24 18:00 11/14/24 17:59 EZETIMIBE (Zetia) 10 mg DAILY PO 10/08/24 09:00 11/07/24 08:59 10/15/24 09:08 10 MG Fluconazole/ Sodium Chloride 200 ml @ 100 mls/hr Q24H IV 10/15/24 21:00 11/05/24 20:59 Fluconazole/ Sodium Chloride 200 ml @ 100 mls/hr Q24H IV 10/06/24 13:00 10/15/24 11:24 DC 10/14/24 13:28 100 MLS/HR Glucagon (Glucagon 1mg Kit) 1 mg AD PRN IM HYPOGLYCEMIA PROTOCOL 10/07/24 09:30 11/06/24 09:29 Heparin Sodium (Porcine) (HEParin 5,000 UNIT VIAL) 5,000 unit TID SQ 10/06/24 21:00 11/05/24 20:59 10/15/24 13:58 5,000 UNIT Hydrochlorothiazide (hydroCHLOROthiazide 25MG) 12.5 mg DAILY PO 10/08/24 09:00 10/13/24 11:15 DC 10/13/24 09:27 12.5 MG Hydromorphone HCl (DiLAUDid 0.5MG INJ) 0.5 mg Q6H PRN IVP SEVERE PAIN (7-10) 10/05/24 18:00 10/10/24 17:59 DC 10/05/24 19:34 0.5 MG Insulin Human Regular (humuLIN R 100 UNIT/ML 3ML) INSULIN SLIDING SCAL... ACHS SQ 10/07/24 11:30 11/06/24 11:29 10/14/24 16:34 2 UNIT Linezolid 300 ml @ 150 mls/hr Q12H IV 10/07/24 13:30 10/17/24 13:29 10/15/24 14:11 150 MLS/HR Lorazepam (AtiVAN) 2 mg Q4H PRN IVP ALCOHOL WITHDRAWAL PROTOCOL 10/05/24 18:00 10/12/24 17:59 DC Losartan Potassium (CozAAR 100MG TAB) 100 mg DAILY PO 10/08/24 09:00 10/11/24 16:10 DC 10/11/24 10:53 100 MG Magnesium Sulfate 50 ml @ 0 mls/hr PROTOCOL PRN IV MAGNESIUM PROTOCOL 10/07/24 09:30 11/06/24 09:29 10/11/24 20:25 25 MLS/HR Norepinephrine 250 ml @ 44.213 mls/ hr PROTOCOL IV 10/06/24 12:00 11/05/24 11:59 Nystatin (NystOP 15 GM POWDER) 1 APPLICATION BID TP 10/06/24 21:00 11/05/24 20:59 10/15/24 09:09 1 APPL Ondansetron HCl (zoFRAN 4MG INJ) 4 mg Q8H PRN IVP NAUSEA/VOMITING 10/10/24 19:30 11/09/24 19:29 Pantoprazole Sodium (PROTonix 40MG INJ) 40 mg Q24H IVP 10/05/24 18:00 11/04/24 17:59 10/14/24 17:10 40 MG Pharmacy Profile Note (Pharmacy Communication) 1 each PROTOCOL PRN MISC ETOH Withdrawal Score changes 10/05/24 18:00 10/12/24 17:59 DC Piperacillin Sod/ Tazobactam Sod (Zosyn 3.375gm+NS 50ml) 3.375 gm Q8H IVPB 10/10/24 08:00 10/10/24 16:16 DC 10/10/24 08:40 3.375 GM Piperacillin Sod/ Tazobactam Sod (Zosyn 3.375gm+NS 50ml) 3.375 gm Q8H IVPB 10/10/24 21:00 10/20/24 20:59 10/15/24 13:56 3.375 GM Piperacillin Sod/ Tazobactam Sod (Zosyn 3.375gm+NS 50ml) 3.375 gm Q8H IVPB 10/05/24 23:00 10/10/24 05:21 DC 10/10/24 00:26 3.375 GM Potassium Chloride 100 ml @ 100 mls/hr AD PRN IV POTASSIUM PROTOCOL 10/07/24 09:30 11/06/24 09:29 Potassium Chloride 100 ml @ 100 mls/hr AD PRN IV POTASSIUM PROTOCOL 10/05/24 18:00 11/04/24 17:59 10/12/24 20:01 100 MLS/HR Potassium Chloride (K-Dur/Klor-Con 20meq) 20 meq AD PRN PO POTASSIUM PROTOCOL 10/07/24 09:30 11/06/24 09:29 10/13/24 14:59 20 MEQ Potassium Chloride (KCl 10% Elixir 20meq/15ml) 20 meq AD PRN PO POTASSIUM PROTOCOL 10/07/24 09:30 11/06/24 09:29 Sodium Chloride (NS 50ml) 50 ml AD IV 10/05/24 21:00 10/05/24 17:34 DC Thiamine HCl (Vitamin B-1) 100 mg Q24H IVP 10/05/24 18:00 10/06/24 11:49 DC 10/05/24 18:12 100 MG Thiamine HCl (Vitamin B-1) 300 mg Q24H IVP 10/06/24 18:00 10/09/24 17:59 DC 10/09/24 16:21 300 MG Thiamine HCl 100 mg/Folic Acid 1 mg/Multivitamins/ Minerals 10 ml/ Sodium Chloride 1,011.2 ml @ 100 mls/ hr Q24H IV 10/05/24 18:00 10/08/24 04:07 DC 10/07/24 18:17 100 MLS/HR DIAGNOSTICS / RADIOLOGY: [ ] ASSESSMENT: Severe sepsis, POA, 2/2 perforated sigmoid diverticulitis Perforated sigmoid diverticulitis with developing abscess, POA Moderate lactic acidosis, POA Acute kidney injury, POA Hypokalemia, POA Mild urinary tract infection, POA Alcohol use disorder, POA Morbid obesity, POA Underlying history of hypertension, POA Hyperlipidemia, POA Status post percutaneous drain placement by IR Suspected GREG, POA PLAN: Continue with IV fluids, patient will receive sepsis bolus of fluid and start maintenance IV fluid with banana bag, 75 mL/hour Patient will be started on daily thiamine supplementation We will start broad-spectrum antibiotics with IV Zosyn, renally dose Consultation has been requested with Dr. Campbell, with General surgery, appreciate recommendations Monitor lactic acid trend closely, if patient develops hypotension tonight, patient will be transferred to ICU for vasopressors Discussed patient's case with critical Care, we will watch this patient closely for the next 24 hours Ni catheter will be placed and we will monitor urine output closely Monitor urine output closely, avoid NSAIDs, WENDIE inhibitor/ARB, avoid IV contrast until renal function improves Pain control with Tylenol and IV hydromorphone for severe pain Patient will be started on CPAP therapy tonight for management of suspected obstructive sleep apnea Patient will be placed on alcohol withdrawal protocol with Librium and Ativan, counseled patient to quit alcohol on discharge, patient verbalized understanding Continue antibiotics Zosyn, linezolid, fluconazole according to Infectious Disease recommendations Follow up with surgery recommendations Electrolytes will be corrected WENDY CROOK MD Oct 15, 2024 18:45
[2024-10-15] MEDS: doCUSate SODIUM 100 MG CAP PO PRN (19:01)
[2024-10-16] VITALS (12 sets, daily range): BP systolic 137–162; BP diastolic 76–99; PULSE 86–105; RESP 16–20; TEMP 97.7–98.5; O2SAT 97–99
[2024-10-16 05:58] LABS: HEMATOCRIT 29.8 % (42-54); MEAN CORPUSCULAR HEMOGLOBIN 30.5 pg (27.0-33.0); MEAN CORPUSCULAR HGB CONC 32.9 g/dL (32.0-36.0); MEAN CORPUSCULAR VOLUME 92.8 fL (79-99); RED BLOOD CELL COUNT(AUTO) 3.21 MIL/uL (4.50-6.20); RED CELL DISTRIBUTION WIDTH 15.6 % (11.0-15.5); WHITE BLOOD COUNT (AUTO) 8.3 K/uL (4.8-10.8)
[2024-10-16 06:20] LABS: ALBUMIN 1.9 g/dL (3.5-5.0); CREATININE 1.3 mg/dL (0.5-1.3); MAGNESIUM 1.5 mg/dL (1.80-2.40); PHOSPHORUS 3.4 mg/dL (2.5-4.9); POTASSIUM 3.6 mmol/L (3.5-5.1); TOTAL PROTEIN, SERUM 6.5 g/dL (6.0-8.3)
--- NOTE | 2024-10-16 11:37 | PN ---
NEPHROLOGY PROGRESS NOTE Date/Time Patient Seen: Oct 16, 2024 Reason for Consultation: 11:37 SUBJECTIVE: This is a 64-year-old male with underlying history of hypertension, hyperlipidemia, obesity, chronic alcohol use, who presented to the ER for further evaluation of significant lower abdominal pain with associated fevers and chills CT of the abdomen showed perforated sigmoid diverticulitis suggesting potential evolving abscess. Blood cultures are positive for prevotella oralis He continues on IV antibiotics as per ID S/P percutaneous drain by IR on 10/[address] abdomen to evaluate for potential drain removal He was noted to have elevated BUN and creatinine We has been consulted for renal failure. Renal function is stable Electrolytes are stable. He was seen in the medical floor, in no acute distress Family at the bedside Condition is critical and guarded REVIEW OF SYSTEMS: GENERAL: Positive for abdominal pain NEUROLOGIC: Negative for any blurry vision, blind spots, double vision, facial asymmetry, dysphagia, dysarthria, hemiparesis, hemisensory deficits, vertigo, ataxia. HEENT: Negative for any head trauma, neck trauma, neck stiffness, photophobia, phonophobia, sinusitis, rhinitis. CARDIAC: Negative for any chest pain, dyspnea on exertion, paroxysmal nocturnal dyspnea, peripheral edema. PULMONARY: Negative for any shortness of breath, wheezing, COPD, or TB exposure. GASTROINTESTINAL: Negative for any abdominal pain, nausea, vomiting, bright red blood per rectum, melena. GENITOURINARY: Negative for any dysuria, hematuria, incontinence. INTEGUMENTARY: Negative for any rashes, cuts, insect bites. RHEUMATOLOGIC: Negative for any joint pains, photosensitive rashes, history of vasculitis or kidney problems. HEMATOLOGIC: Negative for any abnormal bruising, frequent infections or bleeding. Vital Signs (last 8hr) Date Time Temp Pulse Resp B/P (MAP) Pulse Ox O2 Delivery O2 Flow Rate FiO2 10/06/24 11:57 99.3 93 21 119/66 98 Room Air* 0 21 10/06/24 10:16 99.0 109 22 122/64 96 Room Air* 0 21 10/06/24 08:05 101.5 111 26 113/63 96 Nasal Cannula* 2 28 10/06/24 06:41 20 N/Cannula Low lpm 2.0 28 10/06/24 06:40 111 20 2/9/25 06:28 98.8 109 24 111/62 96 Nasal Cannula* 2 28 PHYSICAL EXAM: GENERAL: Alert and oriented x 3. No acute distress. Well-nourished. EYES: EOMI. Anicteric. HENT: Moist mucous membranes. No scleral icterus. No cervical lymphadenopathy. LUNGS: Clear to auscultation bilaterally. No accessory muscle use. CARDIOVASCULAR: Regular rate and rhythm. No murmur. No JVD. ABDOMEN: Soft, non-tender and non-distended. No palpable masses. EXTREMITIES: No edema. Non-tender. SKIN: No rashes or lesions. Warm. NEUROLOGIC: No focal neurological deficits. CN II-XII grossly intact, but not individually tested. PSYCHIATRIC: Cooperative. Appropriate mood and affect. Current Medications Medications (Trade) Dose Ordered Sig/Tim Route PRN Reason Start Time Stop Time Status Last Admin Dose Admin Acetaminophen (TYLenol 325MG TAB) 650 mg Q6H PRN PO MILD PAIN (1-3) 10/05/24 18:30 11/04/24 18:29 Acetaminophen (acetaMINOPHEN) 1,000 mg STAT IVPB 10/06/24 09:00 10/06/24 13:02 DC 10/06/24 09:37 1,000 MG Albumin Human 100 ml @ 100 mls/hr AD IV 10/05/24 21:00 10/06/24 06:01 DC 10/05/24 21:33 100 MLS/HR Albumin Human 100 ml @ 0 mls/hr AD IV 10/06/24 06:00 11/05/24 05:59 10/06/24 07:02 500 MLS/HR Budesonide (Pulmicort 0.5 Mg/2ml) 0.5 mg BIDRESP IH 10/05/24 18:00 11/04/24 17:59 10/06/24 06:38 0.5 MG Chlordiazepoxide HCl (LIBrium 25 MG CAP) 25 mg Q4H PRN PO ALCOHOL WITHDRAWAL PROTOCOL 10/05/24 18:00 10/12/24 17:59 Fluconazole/ Sodium Chloride 200 ml @ 100 mls/hr Q24H IV 10/06/24 13:00 11/05/24 12:59 Hydromorphone HCl (DiLAUDid 0.5MG INJ) 0.5 mg Q6H PRN IVP SEVERE PAIN (7-10) 10/05/24 18:00 10/10/24 17:59 10/05/24 19:34 0.5 MG Lorazepam (AtiVAN) 2 mg Q4H PRN IVP ALCOHOL WITHDRAWAL PROTOCOL 10/05/24 18:00 10/12/24 17:59 Norepinephrine 250 ml @ 44.213 mls/ hr PROTOCOL IV 10/06/24 12:00 11/05/24 11:59 Pantoprazole Sodium (PROTonix 40MG INJ) 40 mg Q24H IVP 10/05/24 18:00 11/04/24 17:59 10/05/24 18:12 40 MG Pharmacy Profile Note (Pharmacy Communication) 1 each PROTOCOL PRN MISC ETOH Withdrawal Score changes 10/05/24 18:00 10/12/24 17:59 Piperacillin Sod/ Tazobactam Sod (Zosyn 3.375gm+NS 50ml) 3.375 gm Q8H IVPB 10/05/24 23:00 10/15/24 22:59 10/06/24 08:30 3.375 GM Potassium Chloride 100 ml @ 100 mls/hr AD PRN IV POTASSIUM PROTOCOL 10/05/24 18:00 11/04/24 17:59 10/05/24 19:34 100 MLS/HR Sodium Chloride (NS 50ml) 50 ml AD IV 10/05/24 21:00 10/05/24 17:34 DC Thiamine HCl (Vitamin B-1) 100 mg Q24H IVP 10/05/24 18:00 10/06/24 11:49 DC 10/05/24 18:12 100 MG Thiamine HCl (Vitamin B-1) 300 mg Q24H IVP 10/06/24 18:00 10/09/24 17:59 Thiamine HCl 100 mg/Folic Acid 1 mg/Multivitamins/ Minerals 10 ml/ Sodium Chloride 1,011.2 ml @ 100 mls/ hr Q24H IV 10/05/24 18:00 10/08/24 04:07 10/05/24 18:12 75 MLS/HR LABORATORY: [ ] Hematology Labs: Test 10/16/24 05:33 Range/Units White Blood Count 8.3 4.8-10.8 K/uL Red Blood Count 3.21 L 4.50-6.20 MIL/uL Hemoglobin 9.8 L 14.0-18.0 g/dL Hematocrit 29.8 L 42-54 % Mean Corpuscular Volume 92.8 79-99 fL Mean Corpuscular Hemoglobin 30.5 27.0-33.0 pg Mean Corpuscular Hemoglobin Concent 32.9 32.0-36.0 g/dL Red Cell Distribution Width 15.6 H 11.0-15.5 % Platelet Count 551 H 130-400 K/uL Mean Platelet Volume 8.5 7.5-10.5 fL Nucleated Red Blood Cells 0.0 0.0-0.19 % Chemistry Labs: Test 10/16/24 05:33 10/16/24 05:14 Range/Units Sodium Level 135 L 136-145 mmol/L Potassium Level 3.6 3.5-5.1 mmol/L Chloride Level 101 101-111 mmol/L Carbon Dioxide Level 22 21-32 mmol/L Blood Urea Nitrogen 9 7-18 mg/dL Creatinine 1.3 0.5-1.3 mg/dL Glomerular Filtration Rate Calc 61 >90 mL/min Random Glucose 136 H 70-105 mg/dL Total Calcium 8.6 8.5-10.1 mg/dL Phosphorus Level 3.4 2.5-4.9 mg/dL Magnesium Level 1.50 L 1.80-2.40 mg/dL Total Bilirubin 1.0 0.2-1.0 mg/dL Aspartate Amino Transf (AST/SGOT) 79 H 10-37 U/L Alanine Aminotransferase (ALT/SGPT) 70 12-78 U/L Alkaline Phosphatase 120 50-136 U/L Total Protein 6.5 6.0-8.3 g/dL Albumin 1.9 L 3.5-5.0 g/dL Whole Blood Glucose 142 H 70-110 MG/DL DIAGNOSTICS / RADIOLOGY: REASON: picc LINE PLACEMENT ORDERING PHYSICIAN: MICHEAL URRUTIA MD PROCEDURE: CXR1VW - CHEST 1VW CHEST 1VW HISTORY: PICC line placement COMPARISON: 10/05/2024 FINDINGS: A frontal projection of the chest was obtained. Mild bilateral pulmonary infiltrates are seen may be related to mild pulmonary vascular congestion with possible superimposed pneumonitis. The heart is borderline enlarged. Right venous catheter is seen with distal tip in the plane of the superior vena cava. No evidence of aortic calcification is seen. IMPRESSION: 1. Mild bilateral pulmonary infiltrates are seen may be related to mild pulmonary vascular congestion with possible superimposed pneumonitis. DICTATED BY: KIM MADSEN MD DATE: 10/11/24907 REASON: ABD DISTENTION ORDERING PHYSICIAN: EDUARDO ABERNATHY MD PROCEDURE: ABD PEL WO - CT ABDOMEN/PELVIS W/O CONTRAST CT ABDOMEN/PELVIS W/O CONTRAST HISTORY: Abdominal distention COMPARISON: 10/05/2024 TECHNIQUE: Multiple sequential axial images of the abdomen and pelvis were obtained from the dome of the diaphragm through symphysis pubis. Patient was not given contrast through intravenous route. Oral contrast was given. FINDINGS: There are bilateral interstitial fibrosis. Tiny pericardial effusion is seen. No pleural effusion is seen bilaterally. There is no evidence of parenchymal disease or pulmonary nodule of the visualized lower lungs. Degenerative changes of the thoracolumbar spine are present. The heart is not enlarged. The liver measured 20 cm. There is contrast material stomach and small bowel loops. There is sigmoid colon wall thickening with adjacent fat stranding consistent with acute sigmoid diverticulitis. Extensive adjacent mesenteric fat stranding is seen in the pelvis. There is small diverticular abscess in the left anterior pelvis measuring 3 x 3.5 cm. Amorphous air collection is seen consistent with walled off perforation. No definite free intraperitoneal air is seen. There is diverticulosis. The liver, spleen, adrenal glands and pancreas are unremarkable. There is no evidence of hydronephrosis bilaterally. No evidence of renal stone is seen. Fecal material is seen in the colon. There are normal size retroperitoneal and mesenteric lymph nodes. No ascites is seen. Atherosclerotic changes are present. Appendix is not well visualized. Pelvic sidewalls are symmetric bilaterally. Bladder is poorly distended. There is fluid-filled small bowel loops and colon. IMPRESSION: 1. There is contrast material stomach and small bowel loops. There is sigmoid colon wall thickening with adjacent fat stranding consistent with acute sigmoid diverticulitis. Extensive adjacent mesenteric fat stranding is seen in the pelvis. There is small diverticular abscess in the left anterior pelvis measuring 3 x 3.5 cm. Amorphous air collection is seen consistent with walled off perforation. No definite free intraperitoneal air is seen. There is diverticulosis. CT was performed with one or more following dose reduction techniques: automated exposure control, adjustment of the mA and kv according to patient's size, or use of a iterative reconstruction technique. DICTATED BY: KIM MADSEN MD DATE: 10/07/242152 REASON: peritoneum ORDERING PHYSICIAN: LIDIA BUTLER PROCEDURE: ABD 1VW - ABD 1VW ABD 1VW HISTORY: Peritoneal COMPARISON: None FINDINGS: A frontal projection of the abdomen was obtained. Small bowel dilatation is seen. Fecal material is seen in the colon. Degenerative changes of the thoracolumbar spine are noted. IMPRESSION: 1. Small bowel dilatation. DICTATED BY: KIM MADSEN MD DATE: 10/07/242005 REASON: PERFORATED BOWEL/DISTENDED ABD ORDERING PHYSICIAN: VICKIE MONTGOMERY MD PROCEDURE: ABD 1VW - ABD 1VW ABD 1VW CLINICAL HISTORY: PERFORATED BOWEL/DISTENDED ABD COMPARISON: None FINDINGS: Single view of the abdomen was obtained. There are multiple air-filled loops of bowel. Free air is not definitely identified but could likely not be excluded on this exam. IMPRESSION: Ileus versus small bowel obstruction DICTATED BY: MISSY FALK DO DATE: 10/06/241652 REASON: renal failue ORDERING PHYSICIAN: KATH ALEMAN [employer] PROCEDURE: RENAL - US RENAL SONOGRAM ULTRASOUND RENAL COMPLETE INDICATION: Renal failure TECHNIQUE: Routine ultrasound of the kidneys and urinary bladder with grayscale and color Doppler imaging was performed in real-time, and subsequently made available for review. COMPARISON: No prior studies available for comparison. FINDINGS: The right kidney measures 9.3 x 5.7 x 5.7 cm. No abnormal mass demonstrated. No evidence for hydronephrosis or shadowing stone. The left kidney measures 10.9 x 6.3 x 5.1 cm. No abnormal mass demonstrated. No evidence for hydronephrosis or shadowing stone. Empty urinary bladder secondary to Ni catheter placement. No free fluid demonstrated. IMPRESSION: Normal sonographic appearance of the kidneys. DICTATED BY: WILTON ZAVALA MD DATE: 10/06/24 1006 REASON: R/O dvt OF THE LOWER EXTREMITIES ORDERING PHYSICIAN: EDUARDO ABERNATHY MD PROCEDURE: VENOUS SYL - US VENOUS DOPPLER BILATERAL ULTRASOUND VENOUS DOPPLER, BILATERAL LOWER EXTREMITIES INDICATION: Bilateral lower extremity pain and swelling TECHNIQUE: Routine grayscale and color Doppler ultrasound of the bilateral lower extremity veins performed. COMPARISON: No priors. FINDINGS: The demonstrated veins of the bilateral lower extremity including the common femoral vein, femoral vein, and popliteal vein are associated with normal compressibility, augmentation, and flow. Normal respiratory variation was identified. No evidence for echogenic intraluminal thrombus formation. IMPRESSION: No sonographic evidence for deep venous thrombosis within the bilateral lower extremity veins. DICTATED BY: WILTON ZAVALA MD DATE: 10/05/24 1826 REASON: ABD PAIN ORDERING PHYSICIAN: MIRIAM RICE NP PROCEDURE: ABD PEL WO - CT ABDOMEN/PELVIS W/O CONTRAST CT ABDOMEN WITHOUT CONTRAST. CT PELVIS WITHOUT CONTRAST. INDICATION: Abdominal pain; No relevant information related to this study was provided in patient's history by the ordering service. TECHNIQUE: Routine transaxial imaging using 5 mm slice thickness through the abdomen and pelvis without the administration of IV contrast. Thin slice reconstructions are also provided. Coronal and sagittal reformatted images acquired for interpretation. CT was performed with one or more of the following dose reduction techniques: Automated exposure control, adjustment of the mA and/or kV according to patient size, or use of iterative reconstruction technique. COMPARISON: None FINDINGS: ON NONCONTRAST IMAGING: ABDOMEN: Examination provided for interpretation at 4:13 PM on 10/05/2024. Heart size is normal. Scarring at both lung bases. No abnormal renal calcifications, hydronephrosis, perinephric inflammation, or proximal hydroureter detected. The liver is normal in size and smooth in contour without biliary duct dilation. The spleen is normal in size and attenuation. The gallbladder appears normal. The pancreas appears normal without pancreatic duct dilation. The adrenal glands appear normal. No significant abdominal, retrocrural or retroperitoneal adenopathy noted. No evidence for intra-abdominal free air or organized fluid collection. No aortic aneurysmal dilation identified. PELVIS: No abnormal calcifications within the urinary bladder or distal ureters. No evidence for free air or organized pelvic fluid collection. No significant pelvic adenopathy detected. Several diverticula along the distal colon and mild to moderate pericolonic inflammatory fat stranding associated, including 3.5 cm aggregate of air and trace fluid along the mesenteric wall of the far proximal sigmoid colon with additional scattered air densities throughout the anterior mid to upper abdomen. Several diverticula along the proximal colon. Terminal ileum appears unremarkable. The appendix appears normal. Visible osseous structures are intact. IMPRESSION: Perforated sigmoid diverticulitis as described, including findings suggesting potential evolving abscess. 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 Heart size is normal. The pulmonary vascularity and jeannie appear normal. No abnormal pulmonary parenchymal opacity or consolidation identified. Bibasilar lung linear scarring. No significant pleural effusion noted. No pneumothorax detected. IMPRESSION: No radiographic evidence for any acute cardiopulmonary process. DICTATED BY: WILTON ZAVALA MD DATE: 10/05/24 1640 ASSESSMENT: Acute kidney injury Severe sepsis, 2/2 perforated sigmoid diverticulitis Perforated sigmoid diverticulitis with developing abscess Moderate lactic acidosis Hypokalemia Mild urinary tract infection Alcohol use disorder Morbid obesity Underlying history of hypertension Hyperlipidemia Suspected GRGE PLAN: Labs, diagnostic, radiologic exams reviewed and interpreted by myself and supervising physician. We have reviewed external records in detail We will continue to monitor the patient closely Continue with the renally dose antibiotics as per ID Require close monitoring of renal function and electrolytes Order CBC, CMP, and electrolytes in am BiPAP as necessary, for respiratory distress Monitor blood pressure adjust medication doses as needed Avoid hypotensive episodes May use Dilaudid 0.5 mg IV every 6 hours as needed for severe pain Monitor blood sugars Strict intake, output, and daily weight should be monitored Please renally adjust medications Avoid nephrotoxic and nonsteroidal drugs Avoid contrast if possible Will continue to monitor renal function, anemia, electrolytes Treatment plan discussed with patient Questions were answered We have discussed with the other team physicians in detail about the care plan We will continue to monitor the patient closely ATTESTATION BY PHYSICIAN I have seen and examined the patient. I reviewed the documentation, medical decision making, and treatment plan as noted by the mid-level provider above. I agree with the findings and plan of care. CAMILA CLEMENS MD, [facility] Oct 16, 2024 11:37
[2024-10-16] MEDS ORDERED: DIATR MEGLU/DIATRIZOATE SODIUM 30 ML BOTTLE ONE (15:33)
--- NOTE | 2024-10-16 15:46 | NUR ---
Nutritional Note: Visited pt with at bedside. Pt reported not having N/V, difficulty chewing or swallowing, NKFA, and no recent visit with PCP. Pt reported PO intake of 60%, good appetite, and last BM 10/16/24. Pt reported UBW of 260 lbs and no recent weight loss. Pts reported she cooks meals at home and prepares regular [place] food. Pt stated he has never been dx with diabetes. Pt was agreeable to a chilled Glucerna supplement in chocolate to increase oral intake. Pt is low risk for PCM due to moderate oral intake. Nutritional concerns: < 60% PO intake. Recommendations: - Continue Consistent Carb Diet 60 g (1500 1700) - Order chilled Glucerna supplement qd BID AM and Dinner trays -Consider MVI QD -Monitor PO intake -Encourage PO intake as able -Order vit. D, vit b12 labs to rule out deficiencies -Order lipid panel -Monitor BM -Monitor wts -Reweigh as able -Monitor care goals RD to follow + available for consult per protocol Signed by Dietetic Student Katie Armendariz Addendum: 10/16/24 at [address] Amended: Links added.
--- NOTE | 2024-10-16 15:47 | NUR ---
ORAL CONTRAST FOR CT TAKEN TO FLOOR AT 4PM PT HAD LUNCH, FLOOR AWARE 4 HOURS NPO PRIOR TO EXAM
[2024-10-16 16:37] LABS: CHOLESTEROL 102 mg/dL (<200); HDL CHOLESTEROL 24 mg/dL (29-71); LDL DIRECT 55 mg/dL (0-99); TRIGLYCERIDES 169 mg/dL (30-200)
--- NOTE | 2024-10-16 20:02 | PN ---
[facility] PROGRESS NOTE Date of Service: Oct 16, 2024 Time of Service: 19:57 SUBJECTIVE: 64-year-old male with underlying history of hypertension, hyperlipidemia, obesity, chronic alcohol use, who presented to the ER for further evaluation of significant lower abdominal pain with associated fevers and chills. Symptoms have been ongoing for the past two days and patient reports having nausea, vomiting and poor oral intake. Reports having pain involving the lower abdomen is moderate to severe in intensity and localized to the left lower quadrant. Patient denies any history of diverticulosis or diverticulitis. Last colonoscopy was about five years ago. Patient is unsure of the results. Patient does have underlying history of hypertension but does not recall the n yuriy of antihypertensive that he takes. Denies any previous history of cardiac or pulmonary comorbidities or renal abnormalities. On presentation to the hospital, patient was noted to be febrile with T-max of 101 F, tachycardic with heart rate of 125 and soft blood pressure with BP of 94/55. [place] [address] with neutrophilia, hemoglobin of 14.2, platelet count of 151171. BMP remarkable for sodium 137, potassium 3.2, chloride of 99, CO2 of 25, creatinine of 2.9, BUN of 24, lactic acid of 4.3. Patient underwent further evaluation with CT abdomen pelvis without contrast which showed findings of per perforated sigmoid diverticulitis with signs of developing abscess. Consultation with General surgery with Dr. Campbell was requested in the ER recommended IV fluids, IV antibiotics and NPO status. Patient will be admitted under hospitalist service and will receive sepsis bolus of fluid, broad-spectrum antibiotics with IV Zosyn, and lactic acid and blood pressure will be monitored closely tonight. Condition remains critical. 10/06/24 patient was seen and examined. Case discussed with the RN and by the bedside. He reports doing slightly better. Abdominal pain has largely resolved. He denies nausea vomiting fever or chills 10/07/2024 - patient was seen in ED 9, patient is resting in the bed , patient denies pain, nausea, vomitings. Patient is currently continued on pantoprazole, Dilaudid, Zosyn, fluconazole, heparin, linezolid . Patient's vitals show temperature 101.8, pulse 108, respiratory rate 20, blood pressure 139/86, saturating at 100% on2 L nasal cannula. Patient's labs shows WBC down to 12.4 from 12.6, hemoglobin 11.7 In the chemistries show sodium 142, potassium 3.7, creatinine improved to 1.5 from 2.4, BUN 20, procalcitonin elevated at 2.98. Case is being followed by infectious Disease, Nephrology, General surgery. Infectious disease recommended starting linezolid and fluconazole on the patient, general surgery have plan to get a CT abdomen with oral contrast. Patient will be followed closely as he has high risk of decompensation. Preliminary blood culture showed Gram-negative rods, final result unclear. 10/08/2024 - patient is seen in room 230, patient is resting in the bed comfortably, says he feels better compared to yesterday and denies nausea, vomitings. Patient had a CT abdomen pelvis with oral contrast which showed acu te sigmoid diverticulitis,3 x 3.5 cm diverticular abscess, amorphous air collection within walled-off perforation. And there is no intraperitoneal air or free air in the abdomen . Pending further directions from surgery. Patient is currently hemodynamically stable with temperature 98.8, pulse 98, blood pressure 130/83, respiratory rate 18, saturating at 99% on room air. Patient's labs shows WBC elevated to 13.9 from 12.4, hemoglobin 11.2 And chemistries show sodium 141, potassium 3.5, creatinine stable at 1.5, BUN 20. Patient is currently continuing on linezolid, fluconazole, Zosyn. Patient will be monitored closely 10/09/2024 - patient is seen at bedside in room 230, patient is resting comfortably in the bed patient went through the percutaneous drainage by IR and the fluid is sent for culture. Patient denies any symptoms, any pain in the abdomen. Patient's blood culture yielded a prevotella oralis, patient is currently continuing on linezolid, Zosyn, fluconazole. Id is following the case closely. Patient has been started on consistent carb diet. Patient is currently hemodynamically stable with pulse 95, blood pressure 143/96, saturating at 100% on2 L oxygen. Patient's labs shows sodium 138, potassium 3.6, creatinine 1.5, BUN 19, hematology shows WBC trended down to 11.4 from 13.9, hemoglobin 11.5. Patient will be continued on conservative management without any surgical intervention at this time according to the surgeon Dr. Campbell. Patient will be followed closely. Patient downgraded to med surg. 10/10/2024 - patient is seen bedside in room 321, patient is resting comfortably. Patient mentioned about having 1 episode of green color diarrhea. Patient was started on consistent carb diet yesterday and has been tolerating it well. Patient's vitals show temperature 97.9, pulse 103, respiratory rate 18, blood pressure 128/74, saturating at 98% on 1 L nasal cannula. Patient's labs shows WBC trended down to 9.2 from 11.4 and hemoglobin 11.3 and chemistries show sodium 137, potassium 3.9, creatinine elevated to 1.7, BUN 23. Infectious disease ordered Zosyn Q 8. Pulmonology has signed off the case with no further recommendations as he is stable from their standpoint. Awaiting further recommendations from other consults 10/11/2024 - patient is seen in room 321. Patient is sitting in chair when I visited the room, patient is continuing on consistent carb diet. Nurse informed about patient having 1 episode of vomiting, patient denies having nausea, pain. The IR drain had about 60 - 100 mL of drainage of abscess. Patient is currently hemodynamically stable with temperature 99.7, respiratory rate 19, pulse 92, blood pressure 121/69. Patient labs show WBC 10, hemoglobin 10.4 And chemistries show sodium 135, potassium 3.6, creatinine elevated to 2.5, BUN 29, magnesium 1.7. Abscess fluid culture reveals Gram-negative rods, Gram-positive cocci in clusters, budding yeast. Patient is currently continued on fluconazole, linezolid, Zosyn, ID is following the case closely. Waiting for further recommendations and clearance from surgery. Patient had new PICC line placed. Patient will be reassessed tomorrow. 10/12/24 patient was seen and examined. Case discussed with the RN and by the bedside. He is doing better denies any pain tolerating diet. ID is studying abscess track 10/13/24 patient was seen and examined. Case discussed with the RN and by the bedside. Is awaiting with the study ordered by ID which from likely be done tomorrow to assess abscess track. 10/14/24 patient was seen and examined. Case discussed with the RN and by the bedside. This is a 64-year-old male with diverticulitis with diverticular abscess with recent percutaneous drain placed by IR. Await for repeat CT on Monday to evaluate for potential drain removal 10/15/24 patient was seen and examined. Case discussed with the RN and by the bedside. This is a 64-year-old male with diverticulitis with diverticular abscess with recent percutaneous drain placed by IR. Await for repeat CT on Monday to evaluate for potential drain removal/Colace ordered for constipation. 10/16/24 patient was seen and examined. Case discussed with the RN and by the bedside. This is a 64-year-old male with diverticulitis with diverticular abscess with recent percutaneous drain placed by IR. Due to decrease in drain out put planned CT to assess abscess has been cancelled /await further recommendations from surgery REVIEW OF SYSTEMS CONSTITUTIONAL: Fevers, chills, asthenia, malaise NEUROLOGICAL: Denies headache, amaurosis fugax, motor weakness, sensory defi cit, vertigo/spinning sensation, gait abnormalities, or tremors. ENT: No hearing loss, otalgia, otorrhea, rhinitis, rhinorrhea, hoarseness, or sore throat. CARDIOVASCULAR: Denies any exertional angina, dyspnea on exertion, orthopnea, paroxysmal nocturnal dyspnea, palpitations, life-threatening arrhythmias, claudication. PULMONARY: Denies any shortness of breath, cough, phlegm/sputum, hemoptysis, pleuritic chest pain. SLEEP: Denies morning headaches, daytime somnolence or napping. Denies difficulty falling asleep, staying asleep, waking from sleep. Denies knowledge of snoring. GASTROINTESTINAL: Nausea, vomiting, abdominal pain GENITOURINARY: Denies frequency, urgency, nocturia, hematuria or incontinence (Storage/Irritative symptoms.) Low urinary stream, straining to void, urinary intermittency or hesitancy, splitting of the voiding stream, terminal dribbling. ENDOCRINOLOGIC: Denies polyuria, polydipsia, polyphagia or heat/cold intolerances. HEMATOLOGIC: Denies thrombophilia/previous clots, or coagulopathy/bleeding disorders. ONCOLOGIC: Denies personal history of malignancy. DERMATOLOGIC: Denies rashes or pruritus. PSYCHIATRIC: Denies any suicidal or homicidal ideation. Denies hallucinations. PHYSICAL EXAM GENERAL APPEARANCE: The patient is awake, alert, appears disheveled and ill, tachypneic NEUROLOGICAL: Cranial nerves II-XII grossly intact. Motor is 5/5 in bilateral upper and lower extremities proximal to distal. No sensory deficits. HEENT: Face is symmetric. Pupils are equal and reactive. Extraocular movements are intact. NECK: Supple. No JVD. No thyromegaly. No submental, submandibular, pre- /postauricular, occipital or supraclavicular lymphadenopathy. CHEST: Normal chest expansion. No Telemetry. LUNGS: Absence of any rales, rhonchi or any wheezing. CARDIOVASCULAR: Regular. S1 and S2 normal. No appreciable rubs, murmurs or gallops. ABDOMEN: Soft, nontender, and nondistended. There is no rebound, voluntary guarding, or rigidity. : Deferred. No Ni. EXTREMITIES: 1+ pitting edema of the bilateral lower extremities, changes of psoriasis noted of the bilateral lower and upper extremities SKIN: No skin breakdown. Vital Signs (last 8hr) Date Time Temp Pulse Resp B/P (MAP) Pulse Ox O2 Delivery O2 Flow Rate FiO2 10/16/24 18:57 94 20 10/16/24 18:57 94 20 N/A Room Air 21 10/16/24 16:00 98.4 96 19 144/78 99 Room Air 10/16/24 12:00 98.1 102 19 144/76 99 Room Air LABS: Laboratory: Test 10/16/24 15:50 10/16/24 05:33 Range/Units Whole Blood Glucose 126 H 70-110 MG/DL White Blood Count 8.3 4.8-10.8 K/uL Red Blood Count 3.21 L 4.50-6.20 MIL/uL Hemoglobin 9.8 L 14.0-18.0 g/dL Hematocrit 29.8 L 42-54 % Mean Corpuscular Volume 92.8 79-99 fL Mean Corpuscular Hemoglobin 30.5 27.0-33.0 pg Mean Corpuscular Hemoglobin Concent 32.9 32.0-36.0 g/dL Red Cell Distribution Width 15.6 H 11.0-15.5 % Platelet Count 551 H 130-400 K/uL Mean Platelet Volume 8.5 7.5-10.5 fL Nucleated Red Blood Cells 0.0 0.0-0.19 % Sodium Level 135 L 136-145 mmol/L Potassium Level 3.6 3.5-5.1 mmol/L Chloride Level 101 101-111 mmol/L Carbon Dioxide Level 22 21-32 mmol/L Blood Urea Nitrogen 9 7-18 mg/dL Creatinine 1.3 0.5-1.3 mg/dL Glomerular Filtration Rate Calc 61 >90 mL/min Random Glucose 136 H 70-105 mg/dL Total Calcium 8.6 8.5-10.1 mg/dL Phosphorus Level 3.4 2.5-4.9 mg/dL Magnesium Level 1.50 L 1.80-2.40 mg/dL Total Bilirubin 1.0 0.2-1.0 mg/dL Aspartate Amino Transf (AST/SGOT) 79 H 10-37 U/L Alanine Aminotransferase (ALT/SGPT) 70 12-78 U/L Alkaline Phosphatase 120 50-136 U/L Total Protein 6.5 6.0-8.3 g/dL Albumin 1.9 L 3.5-5.0 g/dL Triglycerides Level 169 30-200 mg/dL Cholesterol Level 102 <200 mg/dL LDL Cholesterol 55 0-99 mg/dL HDL Cholesterol 24 L 29-71 mg/dL Vitamin B12 Level 797 193-986 pg/mL Current Medications Medications (Trade) Dose Ordered Sig/Tim Route PRN Reason Start Time Stop Time Status Last Admin Dose Admin Acetaminophen (TYLenol 325MG TAB) 650 mg Q6H PRN PO MILD PAIN (1-3) 10/05/24 18:30 11/04/24 18:29 10/07/24 19:02 650 MG Acetaminophen (TYLenol 650MG SUPPOSITORY) 650 mg Q4H PRN RC TEMPERATURE GREATER THAN 101.5 10/07/24 05:30 11/06/24 05:29 10/07/24 12:31 650 MG Acetaminophen (acetaMINOPHEN) 1,000 mg ONCE STAT IVPB 10/06/24 17:17 10/06/24 17:19 DC 10/06/24 19:27 1,000 MG Acetaminophen (acetaMINOPHEN) 1,000 mg STAT IVPB 10/06/24 09:00 10/06/24 13:02 DC 10/06/24 09:37 1,000 MG Albumin Human 100 ml @ 100 mls/hr AD IV 10/05/24 21:00 10/06/24 06:01 DC 10/05/24 21:33 100 MLS/HR Albumin Human 100 ml @ 0 mls/hr AD IV 10/06/24 06:00 10/07/24 12:38 DC 10/06/24 07:02 500 MLS/HR Atorvastatin Calcium (LIPItor 40MG) 40 mg HS PO 10/07/24 21:00 11/06/24 20:59 10/15/24 20:45 40 MG Budesonide (Pulmicort 0.5 Mg/2ml) 0.5 mg BIDRESP IH 10/05/24 18:00 11/04/24 17:59 10/16/24 18:57 0.5 MG Chlordiazepoxide HCl (LIBrium 25 MG CAP) 25 mg Q4H PRN PO ALCOHOL WITHDRAWAL PROTOCOL 10/05/24 18:00 10/12/24 17:59 DC Dextrose (D50w) 50 ml AD PRN IV HYPOGLYCEMIA PROTOCOL 10/07/24 09:30 11/06/24 09:29 Docusate Sodium (COLace 100MG CAP) 100 mg BID PO 10/15/24 18:00 10/15/24 17:51 DC Docusate Sodium (COLace 100MG CAP) 100 mg BID PRN PO CONSTIPATION 10/15/24 18:00 11/14/24 17:59 10/15/24 19:01 100 MG EZETIMIBE (Zetia) 10 mg DAILY PO 10/08/24 09:00 11/07/24 08:59 10/16/24 08:39 10 MG Fluconazole/ Sodium Chloride 200 ml @ 100 mls/hr Q24H IV 10/15/24 21:00 11/05/24 20:59 10/15/24 20:45 100 MLS/HR Fluconazole/ Sodium Chloride 200 ml @ 100 mls/hr Q24H IV 10/06/24 13:00 10/15/24 11:24 DC 10/14/24 13:28 100 MLS/HR Glucagon (Glucagon 1mg Kit) 1 mg AD PRN IM HYPOGLYCEMIA PROTOCOL 10/07/24 09:30 11/06/24 09:29 Heparin Sodium (Porcine) (HEParin 5,000 UNIT VIAL) 5,000 unit TID SQ 10/06/24 21:00 11/05/24 20:59 10/16/24 13:13 5,000 UNIT Hydrochlorothiazide (hydroCHLOROthiazide 25MG) 12.5 mg DAILY PO 10/08/24 09:00 10/13/24 11:15 DC 10/13/24 09:27 12.5 MG Hydromorphone HCl (DiLAUDid 0.5MG INJ) 0.5 mg Q6H PRN IVP SEVERE PAIN (7-10) 10/05/24 18:00 10/10/24 17:59 DC 10/05/24 19:34 0.5 MG Insulin Human Regular (humuLIN R 100 UNIT/ML 3ML) INSULIN SLIDING SCAL... ACHS SQ 10/07/24 11:30 11/06/24 11:29 10/14/24 16:34 2 UNIT Linezolid 300 ml @ 150 mls/hr Q12H IV 10/07/24 13:30 10/17/24 13:29 10/16/24 13:02 150 MLS/HR Lorazepam (AtiVAN) 2 mg Q4H PRN IVP ALCOHOL WITHDRAWAL PROTOCOL 10/05/24 18:00 10/12/24 17:59 DC Losartan Potassium (CozAAR 100MG TAB) 100 mg DAILY PO 10/08/24 09:00 10/11/24 16:10 DC 10/11/24 10:53 100 MG Magnesium Sulfate 50 ml @ 0 mls/hr PROTOCOL PRN IV MAGNESIUM PROTOCOL 10/07/24 09:30 11/06/24 09:29 10/16/24 07:25 25 MLS/HR Norepinephrine 250 ml @ 44.213 mls/ hr PROTOCOL IV 10/06/24 12:00 11/05/24 11:59 Nystatin (NystOP 15 GM POWDER) 1 APPLICATION BID TP 10/06/24 21:00 11/05/24 20:59 10/16/24 08:39 1 APPL Ondansetron HCl (zoFRAN 4MG INJ) 4 mg Q8H PRN IVP NAUSEA/VOMITING 10/10/24 19:30 11/09/24 19:29 Pantoprazole Sodium (PROTonix 40MG INJ) 40 mg Q24H IVP 10/05/24 18:00 11/04/24 17:59 10/16/24 18:16 40 MG Pharmacy Profile Note (Pharmacy Communication) 1 each PROTOCOL PRN MISC ETOH Withdrawal Score changes 10/05/24 18:00 10/12/24 17:59 DC Piperacillin Sod/ Tazobactam Sod (Zosyn 3.375gm+NS 50ml) 3.375 gm Q8H IVPB 10/10/24 08:00 10/10/24 16:16 DC 10/10/24 08:40 3.375 GM Piperacillin Sod/ Tazobactam Sod (Zosyn 3.375gm+NS 50ml) 3.375 gm Q8H IVPB 10/10/24 21:00 10/20/24 20:59 10/16/24 13:02 3.375 GM Piperacillin Sod/ Tazobactam Sod (Zosyn 3.375gm+NS 50ml) 3.375 gm Q8H IVPB 10/05/24 23:00 10/10/24 05:21 DC 10/10/24 00:26 3.375 GM Potassium Chloride 100 ml @ 100 mls/hr AD PRN IV POTASSIUM PROTOCOL 10/07/24 09:30 11/06/24 09:29 Potassium Chloride 100 ml @ 100 mls/hr AD PRN IV POTASSIUM PROTOCOL 10/05/24 18:00 11/04/24 17:59 10/12/24 20:01 100 MLS/HR Potassium Chloride (K-Dur/Klor-Con 20meq) 20 meq AD PRN PO POTASSIUM PROTOCOL 10/07/24 09:30 11/06/24 09:29 10/16/24 07:24 20 MEQ Potassium Chloride (KCl 10% Elixir 20meq/15ml) 20 meq AD PRN PO POTASSIUM PROTOCOL 10/07/24 09:30 11/06/24 09:29 Sodium Chloride (NS 50ml) 50 ml AD IV 10/05/24 21:00 10/05/24 17:34 DC Thiamine HCl (Vitamin B-1) 100 mg Q24H IVP 10/05/24 18:00 10/06/24 11:49 DC 10/05/24 18:12 100 MG Thiamine HCl (Vitamin B-1) 300 mg Q24H IVP 10/06/24 18:00 10/09/24 17:59 DC 10/09/24 16:21 300 MG Thiamine HCl 100 mg/Folic Acid 1 mg/Multivitamins/ Minerals 10 ml/ Sodium Chloride 1,011.2 ml @ 100 mls/ hr Q24H IV 10/05/24 18:00 10/08/24 04:07 DC 10/07/24 18:17 100 MLS/HR DIAGNOSTICS / RADIOLOGY: [ ] ASSESSMENT: Severe sepsis, POA, 2/2 perforated sigmoid diverticulitis Perforated sigmoid diverticulitis with developing abscess, POA Moderate lactic acidosis, POA Acute kidney injury, POA Hypokalemia, POA Mild urinary tract infection, POA Alcohol use disorder, POA Morbid obesity, POA Underlying history of hypertension, POA Hyperlipidemia, POA Status post percutaneous drain placement by IR Suspected GREG, POA PLAN: Continue with IV fluids, Patient on daily thiamine supplementation Antibiotics per ID Dr. Campbell, with General surgery, appreciate recommendations Monitor lactic acid trend closely, if patient develops hypotension tonight, patient will be transferred to ICU for vasopressors Monitor urine output closely, avoid NSAIDs, WENDIE inhibitor/ARB, avoid IV contrast until renal function improves Pain control with Tylenol and IV hydromorphone for severe pain on CPAP therapy tonight for management of suspected obstructive sleep apnea on alcohol withdrawal protocol with Librium and Ativan, counseled patient to quit alcohol on discharge, patient verbalized understanding Follow up with surgery recommendations Electrolytes will be corrected WENDY CROOK MD Oct 16, 2024 20:02
--- NOTE | 2024-10-16 20:07 | NUR ---
A-FIB RECEIVED CALL FROM TELEMETRY PT HAD RUN OF A-FIB FOR 7 SEC [address] PAGED HOSPITALIST PHYSICIAN IN PRIVATE PRACTICE PENDING CALL FROM DAMEON STEVENS NP 2027 RECEIVED CALL FROM DAMEON SMITH MADE AWARE OF A-FIB, N/O GIVEN AND CARRIED OUT. Addendum: 10/16/24 at 4 by ANDRES AARON LVN LVN note entered in error
--- NOTE | 2024-10-16 20:16 | PN ---
INFECTIOUS DISEASE PROGRESS NOTE Date of Service: Oct 16, 2024 SUBJECTIVE: This is a 64-year-old male patient who was admitted to the hospital for evaluation of lower abdominal pain. Patient had a CT of the abdomen and pelvis and was found with perforated sigmoid diverticulitis with intra-abdominal abscess. General surgery was consulted. Patient underwent a percutaneous drainage catheter placement on 10/09/2024 by IR. Patient was seen and examined at bedside in room 321. Patient is awake, alert and oriented x3. Patient is status post left percu taneous drain placement on 10/09/2024. 40 cc output reported throughout the night. We will repeat CT scan of the abdomen and pelvis to re-evaluate abscess. Will continue on Zosyn, fluconazole and linezolid IV. Patient is afebrile, temperature 97.9 and a WBC of 8.3. We will continue to follow patient's care. PHYSICAL EXAM EYES: Anicteric. Pupils equal and reactive. HENT: No oral thrush seen, moist Oral mucosa. NECK: Supple, no JVD or thyromegaly. LUNGS: Good air entry. No rales, no rhonchi. CARDIOVASCULAR: S1, S2 regular. No murmur heard. ABDOMEN: bowel sounds present, no organomegaly. Abdominal pain POA. Obese. Left percutaneous drain placement. CENTRAL NERVOUS SYSTEM: Awake, alert, oriented x 3. SKIN: No rashes, no swelling. LYMPHATICS: No peripheral lymphadenopathy. MUSCULOSKELETAL: No joint swelling, erythema or tenderness. EXTREMITIES: No cyanosis or clubbing. BACK: No deformity, no pressure ulcer. GENITOURINARY: No dysuria or hematuria. Vital Sign (Last 12 Hours) 10/16/24 10/16/24 10/16/24 10/16/24 08:41 12:00 16:00 18:57 Temp 98.1 98.4 Pulse 102 96 94 Resp 19 19 20 B/P (MAP) 144/76 144/78 Pulse Ox 98 99 99 O2 Delivery Room Air* Room Air Room Air N/A Room Air O2 Flow Rate 0 FiO2 21 21 10/16/24 18:57 Pulse 94 Resp 20 Intake & Output (last 24hrs) 10/15/24 10/15/24 10/16/24 15:00 23:00 07:00 Intake Total 1800 ml Output Total 1000 ml Balance 800 ml LABS: Laboratory: Test 10/16/24 15:50 10/16/24 05:33 Range/Units Whole Blood Glucose 126 H 70-110 MG/DL White Blood Count 8.3 4.8-10.8 K/uL Red Blood Count 3.21 L 4.50-6.20 MIL/uL Hemoglobin 9.8 L 14.0-18.0 g/dL Hematocrit 29.8 L 42-54 % Mean Corpuscular Volume 92.8 79-99 fL Mean Corpuscular Hemoglobin 30.5 27.0-33.0 pg Mean Corpuscular Hemoglobin Concent 32.9 32.0-36.0 g/dL Red Cell Distribution Width 15.6 H 11.0-15.5 % Platelet Count 551 H 130-400 K/uL Mean Platelet Volume 8.5 7.5-10.5 fL Nucleated Red Blood Cells 0.0 0.0-0.19 % Sodium Level 135 L 136-145 mmol/L Potassium Level 3.6 3.5-5.1 mmol/L Chloride Level 101 101-111 mmol/L Carbon Dioxide Level 22 21-32 mmol/L Blood Urea Nitrogen 9 7-18 mg/dL Creatinine 1.3 0.5-1.3 mg/dL Glomerular Filtration Rate Calc 61 >90 mL/min Random Glucose 136 H 70-105 mg/dL Total Calcium 8.6 8.5-10.1 mg/dL Phosphorus Level 3.4 2.5-4.9 mg/dL Magnesium Level 1.50 L 1.80-2.40 mg/dL Total Bilirubin 1.0 0.2-1.0 mg/dL Aspartate Amino Transf (AST/SGOT) 79 H 10-37 U/L Alanine Aminotransferase (ALT/SGPT) 70 12-78 U/L Alkaline Phosphatase 120 50-136 U/L Total Protein 6.5 6.0-8.3 g/dL Albumin 1.9 L 3.5-5.0 g/dL Triglycerides Level 169 30-200 mg/dL Cholesterol Level 102 <200 mg/dL LDL Cholesterol 55 0-99 mg/dL HDL Cholesterol 24 L 29-71 mg/dL Vitamin B12 Level 797 193-986 pg/mL ASSESSMENT: Acute hypoxic respiratory failure, resolved. Intra-abdominal abscess, with Escherichia coli infection, s/p percutaneous drainage catheter placement on 10/09/2024. Perforated sigmoid diverticulitis. Septic shock, resolved. Morbid obesity. Leukocytosis resolved. Acute renal failure, improving PLAN: Continue Zosyn. Continue linezolid. Continue fluconazole. Continue drain care. Continue GI prophylaxis. Continue oxygen support. Continue Physical therapy. Will repeat CT of the abdomen and pelvis to reevaluate abscess.. This case was reviewed and discussed with my supervising physician and the above assessment and plan was formulated and agreed upon. ATTESTATION BY PHYSICIAN I have seen and examined the patient. I reviewed the documentation, medical decision making, and treatment plan as noted by the mid-level provider above. I agree with the findings and plan of care. MICHEAL URRUTIA MD, [facility] Oct 16, 2024 20:16
[2024-10-16] MEDS ORDERED: metoPROLOL tartRATE 25 MG TAB PO ONE (21:00)
--- NOTE | 2024-10-16 21:20 | NUR ---
CT RECEIVED CALL FROM KATHI AT CT HE WILL BE CANCELLING CURRENT ORDER FOR CT A/P WITH AND W/O CONTRAST AND ASK I ENTER ANOTHER ORDER FOR CT A/P WITH AND W/O CONTRAST.
[2024-10-16] MEDS ORDERED: IOHEXOL 350 MG/ML 100ML INFUS..BTL IV ONE (21:50)
[2024-10-17] VITALS (10 sets, daily range): BP systolic 131–152; BP diastolic 85–92; PULSE 92–106; RESP 18–20; TEMP 97.5–98.2; O2SAT 94–99
[2024-10-17 05:59] LABS: HEMATOCRIT 30.3 % (42-54); MEAN CORPUSCULAR HEMOGLOBIN 31.3 pg (27.0-33.0); MEAN CORPUSCULAR VOLUME 94.7 fL (79-99); RED BLOOD CELL COUNT(AUTO) 3.2 MIL/uL (4.50-6.20); RED CELL DISTRIBUTION WIDTH 15.5 % (11.0-15.5); WHITE BLOOD COUNT (AUTO) 8.2 K/uL (4.8-10.8)
[2024-10-17 06:42] LABS: CREATININE 1.2 mg/dL (0.5-1.3); MAGNESIUM 1.7 mg/dL (1.80-2.40); PHOSPHORUS 4.1 mg/dL (2.5-4.9); POTASSIUM 3.6 mmol/L (3.5-5.1)
--- NOTE | 2024-10-17 09:22 | HMCIMG ---
CT ABDOMEN/PELVIS W/WO CONTRAS REASON: EVALUATION OF ABSCESS COMPARISON: 10/07/2024 TECHNIQUE: Images are obtained from lung bases to the symphysis pubis before and after IV contrast, 100 cc Omnipaque 350. Oral contrast was administered as well. FINDINGS: Lung bases are clear. There are no focal liver lesions. There are normal-appearing kidneys.. Spleen and pancreas appear unremarkable. The gallbladder appears normal as well. There are moderately distended proximal small bowel loops. There is a transition zone in the mid abdomen, the distal small bowel loops are normal caliber. Findings are consistent with partial mechanical small bowel obstruction. There is a pigtail drainage catheter in the root of the mesentery to the left of midline. There is complete drainage of the associated abscess. There is a second abscess present just superiorly and anteriorly, this measures 3.1 x 2.1 x 3.1 cm. Colon appears unremarkable. There is no evidence of free fluid or intraperitoneal air. Aorta and retroperitoneum appear normal as do pelvic soft tissue structures. The anterior abdominal wall is intact. Osseous structures appear unremarkable. IMPRESSION: 1. Moderately dilated proximal and mid small bowel loops, there is a transition zone, findings are consistent with a partial mechanical obstruction. 2. There is a pigtail drainage catheter in place, the associated abscess has resolved completely. 3. There is a second small abscess just anterior and superior to the residual collection, measuring 2.1 x 3[address] was performed with one or more following dose reduction techniques: automated exposure control, adjustment of the mA and kv according to patient's size, or use of a iterative reconstruction technique.
--- NOTE | 2024-10-17 12:51 | PN ---
INFECTIOUS DISEASE PROGRESS NOTE Date of Service: Oct 17, 2024 SUBJECTIVE: This is a 64-year-old male patient who was admitted to the hospital for evaluation of lower abdominal pain. Patient had a CT of the abdomen and pelvis and was found with perforated sigmoid diverticulitis with intra-abdominal abscess. General surgery was consulted. Patient underwent a percutaneous drainage catheter placement on 10/09/2024 by IR. Patient was seen and examined at bedside in room 321. Patient is awake, alert and oriented x3. Patient is status post left percu taneous drain placement on 10/09/2024. The CT of the abdomen and pelvis was repeated to re-evaluate abscess and it shows with a previous abscess has completely resolved, there is however a 2nd small abscess measuring 2.1 cm x 3.1cm. Pending surgery recommendations. Will continue on Zosyn, fluconazole and linezolid IV. No fever reported this morning, temperature 97.9 and the WBC of 8.2. No reports of nausea or vomiting. We will continue to follow patient's care. PHYSICAL EXAM EYES: Anicteric. Pupils equal and reactive. HENT: No oral thrush seen, moist Oral mucosa. NECK: Supple, no JVD or thyromegaly. LUNGS: Good air entry. No rales, no rhonchi. CARDIOVASCULAR: S1, S2 regular. No murmur heard. ABDOMEN: bowel sounds present, no organomegaly. Abdominal pain POA. Obese. Left percutaneous drain placement. CENTRAL NERVOUS SYSTEM: Awake, alert, oriented x 3. SKIN: No rashes, no swelling. LYMPHATICS: No peripheral lymphadenopathy. MUSCULOSKELETAL: No joint swelling, erythema or tenderness. EXTREMITIES: No cyanosis or clubbing. BACK: No deformity, no pressure ulcer. GENITOURINARY: No dysuria or hematuria. Vital Sign (Last 12 Hours) 10/17/24 10/17/24 10/17/24 10/17/24 04:00 06:31 06:31 06:32 Temp 98.2 Pulse 94 99 98 98 Resp 18 20 20 20 B/P (MAP) 152/92 Pulse Ox 98 O2 Delivery Room Air N/A Room Air FiO2 21 10/17/24 10/17/24 10/17/24 08:00 08:09 12:00 Temp 97.5 97.9 Pulse 100 106 Resp 20 20 B/P (MAP) 141/86 131/85 Pulse Ox 94 94 94 O2 Delivery Room Air Room Air* Room Air O2 Flow Rate 0 FiO2 21 Intake & Output (last 24hrs) 10/16/24 10/16/24 10/17/24 15:00 23:00 07:00 Output Total 0 ml Balance 0 ml LABS: Laboratory: Test 10/17/24 11:05 10/17/24 05:45 10/16/24 05:33 Range/Units Whole Blood Glucose 183 #H 70-110 MG/DL White Blood Count 8.2 4.8-10.8 K/uL Red Blood Count 3.20 L 4.50-6.20 MIL/uL Hemoglobin 10.0 L 14.0-18.0 g/dL Hematocrit 30.3 L 42-54 % Mean Corpuscular Volume 94.7 79-99 fL Mean Corpuscular Hemoglobin 31.3 27.0-33.0 pg Mean Corpuscular Hemoglobin Concent 33.0 32.0-36.0 g/dL Red Cell Distribution Width 15.5 11.0-15.5 % Platelet Count 491 H 130-400 K/uL Mean Platelet Volume 8.4 7.5-10.5 fL Nucleated Red Blood Cells 0.0 0.0-0.19 % Sodium Level 136 136-145 mmol/L Potassium Level 3.6 3.5-5.1 mmol/L Chloride Level 101 101-111 mmol/L Carbon Dioxide Level 25 21-32 mmol/L Blood Urea Nitrogen 7 7-18 mg/dL Creatinine 1.2 0.5-1.3 mg/dL Glomerular Filtration Rate Calc 67 >90 mL/min Random Glucose 115 H 70-105 mg/dL Total Calcium 8.6 8.5-10.1 mg/dL Phosphorus Level 4.1 2.5-4.9 mg/dL Magnesium Level 1.70 L 1.80-2.40 mg/dL Total Bilirubin 1.0 0.2-1.0 mg/dL Aspartate Amino Transf (AST/SGOT) 79 H 10-37 U/L Alanine Aminotransferase (ALT/SGPT) 70 12-78 U/L Alkaline Phosphatase 120 50-136 U/L Total Protein 6.5 6.0-8.3 g/dL Albumin 1.9 L 3.5-5.0 g/dL Triglycerides Level 169 30-200 mg/dL Cholesterol Level 102 <200 mg/dL LDL Cholesterol 55 0-99 mg/dL HDL Cholesterol 24 L 29-71 mg/dL Vitamin B12 Level 797 193-986 pg/mL Vitamin D 25-Hydroxy 16.7 30.0-100.0 ng/mL ASSESSMENT: Acute hypoxic respiratory failure, resolved. Intra-abdominal abscess, with Escherichia coli infection, s/p percutaneous drainage catheter placement on 10/09/2024. Perforated sigmoid diverticulitis. Septic shock, resolved. Morbid obesity. Leukocytosis resolved. Acute renal failure, improving PLAN: Continue Zosyn. Continue linezolid. Continue fluconazole. Continue drain care. Continue GI prophylaxis. Continue oxygen support. Continue Physical therapy. Pending General surgery recommendations on the percutaneous drain and the new abscess formation. This case was reviewed and discussed with my supervising physician and the above assessment and plan was formulated and agreed upon. ATTESTATION BY PHYSICIAN I have seen and examined the patient. I reviewed the documentation, medical decision making, and treatment plan as noted by the mid-level provider above. I agree with the findings and plan of care. MICHEAL URRUTIA MD, MIRTA L TECHNICIAN INVENTORY SPECIALIST Oct 17, 2024 12:51
--- NOTE | 2024-10-17 14:41 | PN ---
NEPHROLOGY PROGRESS NOTE Date/Time Patient Seen: Oct 17, 2024 Reason for Consultation: 14:40 SUBJECTIVE: This is a 64-year-old male with underlying history of hypertension, hyperlipidemia, obesity, chronic alcohol use, who presented to the ER for further evaluation of significant lower abdominal pain with associated fevers and chills CT of the abdomen showed perforated sigmoid diverticulitis suggesting potential evolving abscess. Blood cultures are positive for prevotella oralis He continues on IV antibiotics as per ID S/P percutaneous drain by IR on 10/[address] abdomen to evaluate for potential drain removal He was noted to have elevated BUN and creatinine We has been consulted for renal failure. Renal function electrolytes are stable. CT of the abdomen showed pigtail drainage catheter in place, the associated abscess has resolved completely. Pending further surgery recommendations He was seen in the medical floor, in no acute distress Family at the bedside Condition is critical and guarded REVIEW OF SYSTEMS: GENERAL: Positive for abdominal pain NEUROLOGIC: Negative for any blurry vision, blind spots, double vision, facial asymmetry, dysphagia, dysarthria, hemiparesis, hemisensory deficits, vertigo, ataxia. HEENT: Negative for any head trauma, neck trauma, neck stiffness, photophobia, phonophobia, sinusitis, rhinitis. CARDIAC: Negative for any chest pain, dyspnea on exertion, paroxysmal nocturnal dyspnea, peripheral edema. PULMONARY: Negative for any shortness of breath, wheezing, COPD, or TB exposure. GASTROINTESTINAL: Negative for any abdominal pain, nausea, vomiting, bright red blood per rectum, melena. GENITOURINARY: Negative for any dysuria, hematuria, incontinence. INTEGUMENTARY: Negative for any rashes, cuts, insect bites. RHEUMATOLOGIC: Negative for any joint pains, photosensitive rashes, history of vasculitis or kidney problems. HEMATOLOGIC: Negative for any abnormal bruising, frequent infections or bleeding. Vital Signs (last 8hr) Date Time Temp Pulse Resp B/P (MAP) Pulse Ox O2 Delivery O2 Flow Rate FiO2 10/06/24 11:57 99.3 93 21 119/66 98 Room Air* 0 21 10/06/24 10:16 99.0 109 22 122/64 96 Room Air* 0 21 10/06/24 08:05 101.5 111 26 113/63 96 Nasal Cannula* 2 28 10/06/24 06:41 20 N/Cannula Low lpm 2.0 28 10/06/24 06:40 111 20 10/06/24 06:28 98.8 109 24 111/62 96 Nasal Cannula* 2 28 PHYSICAL EXAM: GENERAL: Alert and oriented x 3. No acute distress. Well-nourished. EYES: EOMI. Anicteric. HENT: Moist mucous membranes. No scleral icterus. No cervical lymphadenopathy. LUNGS: Clear to auscultation bilaterally. No accessory muscle use. CARDIOVASCULAR: Regular rate and rhythm. No murmur. No JVD. ABDOMEN: Soft, non-tender and non-distended. No palpable masses. EXTREMITIES: No edema. Non-tender. SKIN: No rashes or lesions. Warm. NEUROLOGIC: No focal neurological deficits. CN II-XII grossly intact, but not individually tested. PSYCHIATRIC: Cooperative. Appropriate mood and affect. Current Medications Medications (Trade) Dose Ordered Sig/Tim Route PRN Reason Start Time Stop Time Status Last Admin Dose Admin Acetaminophen (TYLenol 325MG TAB) 650 mg Q6H PRN PO MILD PAIN (1-3) 10/05/24 18:30 11/04/24 18:29 Acetaminophen (acetaMINOPHEN) 1,000 mg STAT IVPB 10/06/24 09:00 10/06/24 13:02 DC 10/06/24 09:37 1,000 MG Albumin Human 100 ml @ 100 mls/hr AD IV 10/05/24 21:00 10/06/24 06:01 DC 10/05/24 21:33 100 MLS/HR Albumin Human 100 ml @ 0 mls/hr AD IV 10/06/24 06:00 11/05/24 05:59 10/06/24 07:02 500 MLS/HR Budesonide (Pulmicort 0.5 Mg/2ml) 0.5 mg BIDRESP IH 10/05/24 18:00 11/04/24 17:59 10/06/24 06:38 0.5 MG Chlordiazepoxide HCl (LIBrium 25 MG CAP) 25 mg Q4H PRN PO ALCOHOL WITHDRAWAL PROTOCOL 10/05/24 18:00 10/12/24 17:59 Fluconazole/ Sodium Chloride 200 ml @ 100 mls/hr Q24H IV 10/06/24 13:00 11/05/24 12:59 Hydromorphone HCl (DiLAUDid 0.5MG INJ) 0.5 mg Q6H PRN IVP SEVERE PAIN (7-10) 10/05/24 18:00 10/10/24 17:59 10/05/24 19:34 0.5 MG Lorazepam (AtiVAN) 2 mg Q4H PRN IVP ALCOHOL WITHDRAWAL PROTOCOL 10/05/24 18:00 10/12/24 17:59 Norepinephrine 250 ml @ 44.213 mls/ hr PROTOCOL IV 10/06/24 12:00 11/05/24 11:59 Pantoprazole Sodium (PROTonix 40MG INJ) 40 mg Q24H IVP 10/05/24 18:00 11/04/24 17:59 10/05/24 18:12 40 MG Pharmacy Profile Note (Pharmacy Communication) 1 each PROTOCOL PRN MISC ETOH Withdrawal Score changes 10/05/24 18:00 10/12/24 17:59 Piperacillin Sod/ Tazobactam Sod (Zosyn 3.375gm+NS 50ml) 3.375 gm Q8H IVPB 10/05/24 23:00 10/15/24 22:59 10/06/24 08:30 3.375 GM Potassium Chloride 100 ml @ 100 mls/hr AD PRN IV POTASSIUM PROTOCOL 10/05/24 18:00 11/04/24 17:59 10/05/24 19:34 100 MLS/HR Sodium Chloride (NS 50ml) 50 ml AD IV 10/05/24 21:00 10/05/24 17:34 DC Thiamine HCl (Vitamin B-1) 100 mg Q24H IVP 10/05/24 18:00 10/06/24 11:49 DC 10/05/24 18:12 100 MG Thiamine HCl (Vitamin B-1) 300 mg Q24H IVP 10/06/24 18:00 10/09/24 17:59 Thiamine HCl 100 mg/Folic Acid 1 mg/Multivitamins/ Minerals 10 ml/ Sodium Chloride 1,011.2 ml @ 100 mls/ hr Q24H IV 10/05/24 18:00 10/08/24 04:07 10/05/24 18:12 75 MLS/HR LABORATORY: [ ] Hematology Labs: Test 10/17/24 05:45 Range/Units White Blood Count 8.2 4.8-10.8 K/uL Red Blood Count 3.20 L 4.50-6.20 MIL/uL Hemoglobin 10.0 L 14.0-18.0 g/dL Hematocrit 30.3 L 42-54 % Mean Corpuscular Volume 94.7 79-99 fL Mean Corpuscular Hemoglobin 31.3 27.0-33.0 pg Mean Corpuscular Hemoglobin Concent 33.0 32.0-36.0 g/dL Red Cell Distribution Width 15.5 11.0-15.5 % Platelet Count 491 H 130-400 K/uL Mean Platelet Volume 8.4 7.5-10.5 fL Nucleated Red Blood Cells 0.0 0.0-0.19 % Chemistry Labs: Test 10/17/24 11:05 10/17/24 05:45 10/16/24 05:33 Range/Units Whole Blood Glucose 183 #H 70-110 MG/DL Sodium Level 136 136-145 mmol/L Potassium Level 3.6 3.5-5.1 mmol/L Chloride Level 101 101-111 mmol/L Carbon Dioxide Level 25 21-32 mmol/L Blood Urea Nitrogen 7 7-18 mg/dL Creatinine 1.2 0.5-1.3 mg/dL Glomerular Filtration Rate Calc 67 >90 mL/min Random Glucose 115 H 70-105 mg/dL Total Calcium 8.6 8.5-10.1 mg/dL Phosphorus Level 4.1 2.5-4.9 mg/dL Magnesium Level 1.70 L 1.80-2.40 mg/dL Total Bilirubin 1.0 0.2-1.0 mg/dL Aspartate Amino Transf (AST/SGOT) 79 H 10-37 U/L Alanine Aminotransferase (ALT/SGPT) 70 12-78 U/L Alkaline Phosphatase 120 50-136 U/L Total Protein 6.5 6.0-8.3 g/dL Albumin 1.9 L 3.5-5.0 g/dL Triglycerides Level 169 30-200 mg/dL Cholesterol Level 102 <200 mg/dL LDL Cholesterol 55 0-99 mg/dL HDL Cholesterol 24 L 29-71 mg/dL Vitamin B12 Level 797 193-986 pg/mL Vitamin D 25-Hydroxy 16.7 30.0-100.0 ng/mL DIAGNOSTICS / RADIOLOGY: REASON: EVALUATION OF ABSCESS ORDERING PHYSICIAN: MICHEAL URRUTIA MD PROCEDURE: ABD PELWWO - CT ABDOMEN/PELVIS W/WO CONTRAS CT ABDOMEN/PELVIS W/WO CONTRAS REASON: EVALUATION OF ABSCESS COMPARISON: 10/07/2024 TECHNIQUE: Images are obtained from lung bases to the symphysis pubis before and after IV contrast, 100 cc Omnipaque 350. Oral contrast was administered as well. FINDINGS: Lung bases are clear. There are no focal liver lesions. There are normal-appearing kidneys.. Spleen and pancreas appear unremarkable. The gallbladder appears normal as well. There are moderately distended proximal small bowel loops. There is a transition zone in the mid abdomen, the distal small bowel loops are normal caliber. Findings are consistent with partial mechanical small bowel obstruction. There is a pigtail drainage catheter in the root of the mesentery to the left of midline. There is complete drainage of the associated abscess. There is a second abscess present just superiorly and anteriorly, this measures 3.1 x 2.1 x 3.1 cm. Colon appears unremarkable. There is no evidence of free fluid or intraperitoneal air. Aorta and retroperitoneum appear normal as do pelvic soft tissue structures. The anterior abdominal wall is intact. Osseous structures appear unremarkable. IMPRESSION: 1. Moderately dilated proximal and mid small bowel loops, there is a transition zone, findings are consistent with a partial mechanical obstruction. 2. There is a pigtail drainage catheter in place, the associated abscess has resolved completely. 3. There is a second small abscess just anterior and superior to the residual collection, measuring 2.1 x 3[address] was performed with one or more following dose reduction techniques: automated exposure control, adjustment of the mA and kv according to patient's size, or use of a iterative reconstruction technique. DICTATED BY: DI CONDE MD DATE: 10/17/24 0914 REASON: picc LINE PLACEMENT ORDERING PHYSICIAN: MICHEAL URRUTIA MD PROCEDURE: CXR1VW - CHEST 1VW CHEST 1VW HISTORY: PICC line placement COMPARISON: 10/05/2024 FINDINGS: A frontal projection of the chest was obtained. Mild bilateral pulmonary infiltrates are seen may be related to mild pulmonary vascular congestion with possible superimposed pneumonitis. The heart is borderline enlarged. Right venous catheter is seen with distal tip in the plane of the superior vena cava. No evidence of aortic calcification is seen. IMPRESSION: 1. Mild bilateral pulmonary infiltrates are seen may be related to mild pulmonary vascular congestion with possible superimposed pneumonitis. DICTATED BY: TAW,KIM W MD DATE: 10/11/24 0908 REASON: ABD DISTENTION ORDERING PHYSICIAN: EDUARDO ABERNATHY MD PROCEDURE: ABD PEL WO - CT ABDOMEN/PELVIS W/O CONTRAST CT ABDOMEN/PELVIS W/O CONTRAST HISTORY: Abdominal distention COMPARISON: 10/05/2024 TECHNIQUE: Multiple sequential axial images of the abdomen and pelvis were obtained from the dome of the diaphragm through symphysis pubis. Patient was not given contrast through intravenous route. Oral contrast was given. FINDINGS: There are bilateral interstitial fibrosis. Tiny pericardial effusion is seen. No pleural effusion is seen bilaterally. There is no evidence of parenchymal disease or pulmonary nodule of the visualized lower lungs. Degenerative changes of the thoracolumbar spine are present. The heart is not enlarged. The liver measured 20 cm. There is contrast material stomach and small bowel loops. There is sigmoid colon wall thickening with adjacent fat stranding consistent with acute sigmoid diverticulitis. Extensive adjacent mesenteric fat stranding is seen in the pelvis. There is small diverticular abscess in the left anterior pelvis measuring 3 x 3.5 cm. Amorphous air collection is seen consistent with walled off perforation. No definite free intraperitoneal air is seen. There is diverticulosis. The liver, spleen, adrenal glands and pancreas are unremarkable. There is no evidence of hydronephrosis bilaterally. No evidence of renal stone is seen. Fecal material is seen in the colon. There are normal size retroperitoneal and mesenteric lymph nodes. No ascites is seen. Atherosclerotic changes are present. Appendix is not well visualized. Pelvic sidewalls are symmetric bilaterally. Bladder is poorly distended. There is fluid-filled small bowel loops and colon. IMPRESSION: 1. There is contrast material stomach and small bowel loops. There is sigmoid colon wall thickening with adjacent fat stranding consistent with acute sigmoid diverticulitis. Extensive adjacent mesenteric fat stranding is seen in the pelvis. There is small diverticular abscess in the left anterior pelvis measuring 3 x 3.5 cm. Amorphous air collection is seen consistent with walled off perforation. No definite free intraperitoneal air is seen. There is diverticulosis. CT was performed with one or more following dose reduction techniques: automated exposure control, adjustment of the mA and kv according to patient's size, or use of a iterative reconstruction technique. DICTATED BY: KIM MADSEN MD DATE: 10/07/24 2153 REASON: peritoneum ORDERING PHYSICIAN: LIDIA BUTLER PROCEDURE: ABD 1VW - ABD 1VW ABD 1VW HISTORY: Peritoneal COMPARISON: None FINDINGS: A frontal projection of the abdomen was obtained. Small bowel dilatation is seen. Fecal material is seen in the colon. Degenerative changes of the thoracolumbar spine are noted. IMPRESSION: 1. Small bowel dilatation. DICTATED BY: KIM MADSEN MD DATE: 10/07/242005 REASON: PERFORATED BOWEL/DISTENDED ABD ORDERING PHYSICIAN: VICKIE MONTGOMERY MD PROCEDURE: ABD 1VW - ABD 1VW ABD 1VW CLINICAL HISTORY: PERFORATED BOWEL/DISTENDED ABD COMPARISON: None FINDINGS: Single view of the abdomen was obtained. There are multiple air-filled loops of bowel. Free air is not definitely identified but could likely not be excluded on this exam. IMPRESSION: Ileus versus small bowel obstruction DICTATED BY: MISSY FALK DO DATE: 10/06/24 165 REASON: renal failue ORDERING PHYSICIAN: KATH ALEMAN MANAGER FIELD SERVICE PROCEDURE: RENAL - US RENAL SONOGRAM ULTRASOUND RENAL COMPLETE INDICATION: Renal failure TECHNIQUE: Routine ultrasound of the kidneys and urinary bladder with grayscale and color Doppler imaging was performed in real-time, and subsequently made available for review. COMPARISON: No prior studies available for comparison. FINDINGS: The right kidney measures 9.3 x 5.7 x 5.7 cm. No abnormal mass demonstrated. No evidence for hydronephrosis or shadowing stone. The left kidney measures 10.9 x 6.3 x 5.1 cm. No abnormal mass demonstrated. No evidence for hydronephrosis or shadowing stone. Empty urinary bladder secondary to Ni catheter placement. No free fluid demonstrated. IMPRESSION: Normal sonographic appearance of the kidneys. DICTATED BY: WILTON ZAVALA MD DATE: 10/06/24 1006 REASON: R/O dvt OF THE LOWER EXTREMITIES ORDERING PHYSICIAN: EDUARDO ABERNATHY MD PROCEDURE: VENOUS SYL - US VENOUS DOPPLER BILATERAL ULTRASOUND VENOUS DOPPLER, BILATERAL LOWER EXTREMITIES INDICATION: Bilateral lower extremity pain and swelling TECHNIQUE: Routine grayscale and color Doppler ultrasound of the bilateral lower extremity veins performed. COMPARISON: No priors. FINDINGS: The demonstrated veins of the bilateral lower extremity including the common femoral vein, femoral vein, and popliteal vein are associated with normal compressibility, augmentation, and flow. Normal respiratory variation was identified. No evidence for echogenic intraluminal thrombus formation. IMPRESSION: No sonographic evidence for deep venous thrombosis within the bilateral lower extremity veins. DICTATED BY: WILTON ZAVALA MD DATE: 10/05/24 1826 REASON: ABD PAIN ORDERING PHYSICIAN: MIRIAM RICE NP PROCEDURE: ABD PEL WO - CT ABDOMEN/PELVIS W/O CONTRAST CT ABDOMEN WITHOUT CONTRAST. CT PELVIS WITHOUT CONTRAST. INDICATION: Abdominal pain; No relevant information related to this study was provided in patient's history by the ordering service. TECHNIQUE: Routine transaxial imaging using 5 mm slice thickness through the abdomen and pelvis without the administration of IV contrast. Thin slice reconstructions are also provided. Coronal and sagittal reformatted images acquired for interpretation. CT was performed with one or more of the following dose reduction techniques: Automated exposure control, adjustment of the mA and/or kV according to patient size, or use of iterative reconstruction technique. COMPARISON: None FINDINGS: ON NONCONTRAST IMAGING: ABDOMEN: Examination provided for interpretation at 4:13 PM on 10/05/2024. Heart size is normal. Scarring at both lung bases. No abnormal renal calcifications, hydronephrosis, perinephric inflammation, or proximal hydroureter detected. The liver is normal in size and smooth in contour without biliary duct dilation. The spleen is normal in size and attenuation. The gallbladder appears normal. The pancreas appears normal without pancreatic duct dilation. The adrenal glands appear normal. No significant abdominal, retrocrural or retroperitoneal adenopathy noted. No evidence for intra-abdominal free air or organized fluid collection. No aortic aneurysmal dilation identified. PELVIS: No abnormal calcifications within the urinary bladder or distal ureters. No evidence for free air or organized pelvic fluid collection. No significant pelvic adenopathy detected. Several diverticula along the distal colon and mild to moderate pericolonic inflammatory fat stranding associated, including 3.5 cm aggregate of air and trace fluid along the mesenteric wall of the far proximal sigmoid colon with additional scattered air densities throughout the anterior mid to upper abdomen. Several diverticula along the proximal colon. Terminal ileum appears unremarkable. The appendix appears normal. Visible osseous structures are intact. IMPRESSION: Perforated sigmoid diverticulitis as described, including findings suggesting potential evolving abscess. DICTATED BY: WILTON ZAVALA MD DATE: 10/05/24 1611 REASON: COUGH ORDERING PHYSICIAN: UBALDO MCBRIDE MD PROCEDURE: CXR1VW - CHEST 1VW PORTABLE CHEST RADIOGRAPH INDICATION: COUGH COMPARISON: 05/16/2017 FINDINGS: sustainability project manager leads overlie the field of view. Heart size is normal. The pulmonary vascularity and jeannie appear normal. No abnormal pulmonary parenchymal opacity or consolidation identified. Bibasilar lung linear scarring. No significant pleural effusion noted. No pneumothorax detected. IMPRESSION: No radiographic evidence for any acute cardiopulmonary process. DICTATED BY: WILTON ZAVALA MD DATE: 10/05/24 1640 ASSESSMENT: Acute kidney injury Severe sepsis, 2/2 perforated sigmoid diverticulitis Perforated sigmoid diverticulitis with developing abscess Moderate lactic acidosis Hypokalemia Mild urinary tract infection Alcohol use disorder Morbid obesity Underlying history of hypertension Hyperlipidemia Suspected GREG PLAN: Labs, diagnostic, radiologic exams reviewed and interpreted by myself and supervising physician. We have reviewed external records in detail Pending further surgery recommendations We will continue to monitor the patient closely Continue with the renally dose antibiotics as per ID Require close monitoring of renal function and electrolytes Order CBC, CMP, and electrolytes in am BiPAP as necessary, for respiratory distress Monitor blood pressure adjust medication doses as needed Avoid hypotensive episodes May use Dilaudid 0.5 mg IV every 6 hours as needed for severe pain Monitor blood sugars Strict intake, output, and daily weight should be monitored Please renally adjust medications Avoid nephrotoxic and nonsteroidal drugs Avoid contrast if possible Will continue to monitor renal function, anemia, electrolytes Treatment plan discussed with patient Questions were answered We have discussed with the other team physicians in detail about the care plan We will continue to monitor the patient closely ATTESTATION BY PHYSICIAN I have seen and examined the patient. I reviewed the documentation, medical decision making, and treatment plan as noted by the mid-level provider above. I agree with the findings and plan of care. CAMILA CLEMENS MD, [facility] Oct 17, 2024 14:41
--- NOTE | 2024-10-17 14:48 | NUR ---
RE: DRAINAGE CATHETER REMOVAL DR Alec CONDE NOTIFIED AND IMAGES REVIEWED. CATHETER APPROVED FOR REMOVAL. LLQ DRAINAGE CATHETER REMOVED AT BEDSIDE WITH STERILE TECHNIQUE. DRESSING APPLIED. DRESSING DRY AND INTACT. PATIENT TOLERATED PROCEDURE WELL AND REPORT GIVEN TO STEVE MEANS.
--- NOTE | 2024-10-17 15:47 | PN ---
[facility] PROGRESS NOTE Date of Service: Oct 17, 2024 Time of Service: 15:40 SUBJECTIVE: 64-year-old male with underlying history of hypertension, hyperlipidemia, obesity, chronic alcohol use, who presented to the ER for further evaluation of significant lower abdominal pain with associated fevers and chills. Symptoms have been ongoing for the past two days and patient reports having nausea, vomiting and poor oral intake. Reports having pain involving the lower abdomen is moderate to severe in intensity and localized to the left lower quadrant. Patient denies any history of diverticulosis or diverticulitis. Last colonoscopy was about five years ago. Patient is unsure of the results. Patient does have underlying history of hypertension but does not recall the n yuriy of antihypertensive that he takes. Denies any previous history of cardiac or pulmonary comorbidities or renal abnormalities. On presentation to the hospital, patient was noted to be febrile with T-max of 101 F, tachycardic with heart rate of 125 and soft blood pressure with BP of 94/55. [place] [address] with neutrophilia, hemoglobin of 14.2, platelet count of 199237. BMP remarkable for sodium 137, potassium 3.2, chloride of 99, CO2 of 25, creatinine of 2.9, BUN of 24, lactic acid of 4.3. Patient underwent further evaluation with CT abdomen pelvis without contrast which showed findings of per perforated sigmoid diverticulitis with signs of developing abscess. Consultation with General surgery with Dr. Campbell was requested in the ER recommended IV fluids, IV antibiotics and NPO status. Patient will be admitted under hospitalist service and will receive sepsis bolus of fluid, broad-spectrum antibiotics with IV Zosyn, and lactic acid and blood pressure will be monitored closely tonight. Condition remains critical. 10/06/24 patient was seen and examined. Case discussed with the RN and by the bedside. He reports doing slightly better. Abdominal pain has largely resolved. He denies nausea vomiting fever or chills 10/07/2024 - patient was seen in ED 9, patient is resting in the bed , patient denies pain, nausea, vomitings. Patient is currently continued on pantoprazole, Dilaudid, Zosyn, fluconazole, heparin, linezolid . Patient's vitals show temperature 101.8, pulse 108, respiratory rate 20, blood pressure 139/86, saturating at 100% on2 L nasal cannula. Patient's labs shows WBC down to 12.4 from 12.6, hemoglobin 11.7 In the chemistries show sodium 142, potassium 3.7, creatinine improved to 1.5 from 2.4, BUN 20, procalcitonin elevated at 2.98. Case is being followed by infectious Disease, Nephrology, General surgery. Infectious disease recommended starting linezolid and fluconazole on the patient, general surgery have plan to get a CT abdomen with oral contrast. Patient will be followed closely as he has high risk of decompensation. Preliminary blood culture showed Gram-negative rods, final result unclear. 10/08/2024 - patient is seen in room 230, patient is resting in the bed comfortably, says he feels better compared to yesterday and denies nausea, vomitings. Patient had a CT abdomen pelvis with oral contrast which showed acu te sigmoid diverticulitis,3 x 3.5 cm diverticular abscess, amorphous air collection within walled-off perforation. And there is no intraperitoneal air or free air in the abdomen . Pending further directions from surgery. Patient is currently hemodynamically stable with temperature 98.8, pulse 98, blood pressure 130/83, respiratory rate 18, saturating at 99% on room air. Patient's labs shows WBC elevated to 13.9 from 12.4, hemoglobin 11.2 And chemistries show sodium 141, potassium 3.5, creatinine stable at 1.5, BUN 20. Patient is currently continuing on linezolid, fluconazole, Zosyn. Patient will be monitored closely 10/09/2024 - patient is seen at bedside in room 230, patient is resting comfortably in the bed patient went through the percutaneous drainage by IR and the fluid is sent for culture. Patient denies any symptoms, any pain in the abdomen. Patient's blood culture yielded a prevotella oralis, patient is currently continuing on linezolid, Zosyn, fluconazole. Id is following the case closely. Patient has been started on consistent carb diet. Patient is currently hemodynamically stable with pulse 95, blood pressure 143/96, saturating at 100% on2 L oxygen. Patient's labs shows sodium 138, potassium 3.6, creatinine 1.5, BUN 19, hematology shows WBC trended down to 11.4 from 13.9, hemoglobin 11.5. Patient will be continued on conservative management without any surgical intervention at this time according to the surgeon Dr. Campbell. Patient will be followed closely. Patient downgraded to med surg. 10/10/2024 - patient is seen bedside in room 321, patient is resting comfortably. Patient mentioned about having 1 episode of green color diarrhea. Patient was started on consistent carb diet yesterday and has been tolerating it well. Patient's vitals show temperature 97.9, pulse 103, respiratory rate 18, blood pressure 128/74, saturating at 98% on 1 L nasal cannula. Patient's labs shows WBC trended down to 9.2 from 11.4 and hemoglobin 11.3 and chemistries show sodium 137, potassium 3.9, creatinine elevated to 1.7, BUN 23. Infectious disease ordered Zosyn Q 8. Pulmonology has signed off the case with no further recommendations as he is stable from their standpoint. Awaiting further recommendations from other consults 10/11/2024 - patient is seen in room 321. Patient is sitting in chair when I visited the room, patient is continuing on consistent carb diet. Nurse informed about patient having 1 episode of vomiting, patient denies having nausea, pain. The IR drain had about 60 - 100 mL of drainage of abscess. Patient is currently hemodynamically stable with temperature 99.7, respiratory rate 19, pulse 92, blood pressure 121/69. Patient labs show WBC 10, hemoglobin 10.4 And chemistries show sodium 135, potassium 3.6, creatinine elevated to 2.5, BUN 29, magnesium 1.7. Abscess fluid culture reveals Gram-negative rods, Gram-positive cocci in clusters, budding yeast. Patient is currently continued on fluconazole, linezolid, Zosyn, ID is following the case closely. Waiting for further recommendations and clearance from surgery. Patient had new PICC line placed. Patient will be reassessed tomorrow. 10/12/24 patient was seen and examined. Case discussed with the RN and by the bedside. He is doing better denies any pain tolerating diet. ID is studying abscess track 10/13/24 patient was seen and examined. Case discussed with the RN and by the bedside. Is awaiting with the study ordered by ID which from likely be done tomorrow to assess abscess track. 10/14/24 patient was seen and examined. Case discussed with the RN and by the bedside. This is a 64-year-old male with diverticulitis with diverticular abscess with recent percutaneous drain placed by IR. Await for repeat CT on Monday to evaluate for potential drain removal 10/15/24 patient was seen and examined. Case discussed with the RN and by the bedside. This is a 64-year-old male with diverticulitis with diverticular abscess with recent percutaneous drain placed by IR. Await for repeat CT on Monday to evaluate for potential drain removal/Colace ordered for constipation. 10/16/24 patient was seen and examined. Case discussed with the RN and by the bedside. This is a 64-year-old male with diverticulitis with diverticular abscess with recent percutaneous drain placed by IR. Due to decrease in drain out put planned CT to assess abscess has been cancelled /await further recommendations from surgery 10/17/24 The patient was examined at bedside. He reported improved pain and denies any new symptoms, including nausea vomiting fever chills or abdominal discomfort. He is participating in physical therapy. CT scan of abdomen and pelvis from yesterday revealed a new small abscess anterior and superior to the previous collection. Previous diverticular abscess has been resolved. Awaiting surgical team to take all and treatment plan for the new abscess. Id following up on the antibiotics and management plan. The pigtail drainage catheter has been removed today by intervention Radiology team. REVIEW OF SYSTEMS CONSTITUTIONAL: Fevers, chills, asthenia, malaise NEUROLOGICAL: Denies headache, amaurosis fugax, motor weakness, sensory deficit, vertigo/spinning sensation, gait abnormalities, or tremors. ENT: No hearing loss, otalgia, otorrhea, rhinitis, rhinorrhea, hoarseness, or sore throat. CARDIOVASCULAR: Denies any exertional angina, dyspnea on exertion, orthopnea, paroxysmal nocturnal dyspnea, palpitations, life-threatening arrhythmias, claudication. PULMONARY: Denies any shortness of breath, cough, phlegm/sputum, hemoptysis, pleuritic chest pain. SLEEP: Denies morning headaches, daytime somnolence or napping. Denies difficulty falling asleep, staying asleep, waking from sleep. Denies knowledge of snoring. GASTROINTESTINAL: Nausea, vomiting, abdominal pain GENITOURINARY: Denies frequency, urgency, nocturia, hematuria or incontinence (Storage/Irritative symptoms.) Low urinary stream, straining to void, urinary intermittency or hesitancy, splitting of the voiding stream, terminal dribbling. ENDOCRINOLOGIC: Denies polyuria, polydipsia, polyphagia or heat/cold intolerances. HEMATOLOGIC: Denies thrombophilia/previous clots, or coagulopathy/bleeding disorders. ONCOLOGIC: Denies personal history of malignancy. DERMATOLOGIC: Denies rashes or pruritus. PSYCHIATRIC: Denies any suicidal or homicidal ideation. Denies hallucinations. PHYSICAL EXAM GENERAL APPEARANCE: The patient is awake, alert, appears disheveled and ill, tachypneic NEUROLOGICAL: Cranial nerves II-XII grossly intact. Motor is 5/5 in bilateral upper and lower extremities proximal to distal. No sensory deficits. HEENT: Face is symmetric. Pupils are equal and reactive. Extraocular movements are intact. NECK: Supple. No JVD. No thyromegaly. No submental, submandibular, pre-/postauricular, occipital or supraclavicular lymphadenopathy. CHEST: Normal chest expansion. No Telemetry. LUNGS: Absence of any rales, rhonchi or any wheezing. CARDIOVASCULAR: Regular. S1 and S2 normal. No appreciable rubs, murmurs or gallops. ABDOMEN: Soft, nontender, and nondistended. There is no rebound, voluntary guarding, or rigidity. : Deferred. No Ni. EXTREMITIES: 1+ pitting edema of the bilateral lower extremities, changes of psoriasis noted of the bilateral lower and upper extremities SKIN: No skin breakdown. Vital Signs (last 8hr) Date Time Temp Pulse Resp B/P (MAP) Pulse Ox O2 Delivery O2 Flow Rate FiO2 10/17/24 12:00 97.9 106 20 131/85 94 Room Air 10/17/24 08:09 94 Room Air* 0 21 10/17/24 08:00 97.5 100 20 141/86 94 Room Air LABS: Laboratory: Test 10/17/24 11:05 10/17/24 05:45 10/16/24 05:33 Range/Units Whole Blood Glucose 183 #H 70-110 MG/DL White Blood Count 8.2 4.8-10.8 K/uL Red Blood Count 3.20 L 4.50-6.20 MIL/uL Hemoglobin 10.0 L 14.0-18.0 g/dL Hematocrit 30.3 L 42-54 % Mean Corpuscular Volume 94.7 79-99 fL Mean Corpuscular Hemoglobin 31.3 27.0-33.0 pg Mean Corpuscular Hemoglobin Concent 33.0 32.0-36.0 g/dL Red Cell Distribution Width 15.5 11.0-15.5 % Platelet Count 491 H 130-400 K/uL Mean Platelet Volume 8.4 7.5-10.5 fL Nucleated Red Blood Cells 0.0 0.0-0.19 % Sodium Level 136 136-145 mmol/L Potassium Level 3.6 3.5-5.1 mmol/L Chloride Level 101 101-111 mmol/L Carbon Dioxide Level 25 21-32 mmol/L Blood Urea Nitrogen 7 7-18 mg/dL Creatinine 1.2 0.5-1.3 mg/dL Glomerular Filtration Rate Calc 67 >90 mL/min Random Glucose 115 H 70-105 mg/dL Total Calcium 8.6 8.5-10.1 mg/dL Phosphorus Level 4.1 2.5-4.9 mg/dL Magnesium Level 1.70 L 1.80-2.40 mg/dL Total Bilirubin 1.0 0.2-1.0 mg/dL Aspartate Amino Transf (AST/SGOT) 79 H 10-37 U/L Alanine Aminotransferase (ALT/SGPT) 70 12-78 U/L Alkaline Phosphatase 120 50-136 U/L Total Protein 6.5 6.0-8.3 g/dL Albumin 1.9 L 3.5-5.0 g/dL Triglycerides Level 169 30-200 mg/dL Cholesterol Level 102 <200 mg/dL LDL Cholesterol 55 0-99 mg/dL HDL Cholesterol 24 L 29-71 mg/dL Vitamin B12 Level 797 193-986 pg/mL Vitamin D 25-Hydroxy 16.7 30.0-100.0 ng/mL Current Medications Medications (Trade) Dose Ordered Sig/Tim Route PRN Reason Start Time Stop Time Status Last Admin Dose Admin Acetaminophen (TYLenol 325MG TAB) 650 mg Q6H PRN PO MILD PAIN (1-3) 10/05/24 18:30 11/04/24 18:29 10/07/24 19:02 650 MG Acetaminophen (TYLenol 650MG SUPPOSITORY) 650 mg Q4H PRN RC TEMPERATURE GREATER THAN 101.5 10/07/24 05:30 11/06/24 05:29 10/07/24 12:31 650 MG Acetaminophen (acetaMINOPHEN) 1,000 mg ONCE STAT IVPB 10/06/24 17:17 10/06/24 17:19 DC 10/06/24 19:27 1,000 MG Acetaminophen (acetaMINOPHEN) 1,000 mg STAT IVPB 10/06/24 09:00 10/06/24 13:02 DC 10/06/24 09:37 1,000 MG Albumin Human 100 ml @ 100 mls/hr AD IV 10/05/24 21:00 10/06/24 06:01 DC 10/05/24 21:33 100 MLS/HR Albumin Human 100 ml @ 0 mls/hr AD IV 10/06/24 06:00 10/07/24 12:38 DC 10/06/24 07:02 500 MLS/HR Atorvastatin Calcium (LIPItor 40MG) 40 mg HS PO 10/07/24 21:00 11/06/24 20:59 10/16/24 21:17 40 MG Budesonide (Pulmicort 0.5 Mg/2ml) 0.5 mg BIDRESP IH 10/05/24 18:00 11/04/24 17:59 10/17/24 06:30 0.5 MG Chlordiazepoxide HCl (LIBrium 25 MG CAP) 25 mg Q4H PRN PO ALCOHOL WITHDRAWAL PROTOCOL 10/05/24 18:00 10/12/24 17:59 DC Dextrose (D50w) 50 ml AD PRN IV HYPOGLYCEMIA PROTOCOL 10/07/24 09:30 11/06/24 09:29 Docusate Sodium (COLace 100MG CAP) 100 mg BID PO 10/15/24 18:00 10/15/24 17:51 DC Docusate Sodium (COLace 100MG CAP) 100 mg BID PRN PO CONSTIPATION 10/15/24 18:00 11/14/24 17:59 10/15/24 19:01 100 MG EZETIMIBE (Zetia) 10 mg DAILY PO 10/08/24 09:00 11/07/24 08:59 10/17/24 08:04 10 MG Fluconazole/ Sodium Chloride 200 ml @ 100 mls/hr Q24H IV 10/15/24 21:00 11/05/24 20:59 10/16/24 21:17 100 MLS/HR Fluconazole/ Sodium Chloride 200 ml @ 100 mls/hr Q24H IV 10/06/24 13:00 10/15/24 11:24 DC 10/14/24 13:28 100 MLS/HR Glucagon (Glucagon 1mg Kit) 1 mg AD PRN IM HYPOGLYCEMIA PROTOCOL 10/07/24 09:30 11/06/24 09:29 Heparin Sodium (Porcine) (HEParin 5,000 UNIT VIAL) 5,000 unit TID SQ 10/06/24 21:00 11/05/24 20:59 10/17/24 13:17 5,000 UNIT Hydrochlorothiazide (hydroCHLOROthiazide 25MG) 12.5 mg DAILY PO 10/08/24 09:00 10/13/24 11:15 DC 10/13/24 09:27 12.5 MG Hydromorphone HCl (DiLAUDid 0.5MG INJ) 0.5 mg Q6H PRN IVP SEVERE PAIN (7-10) 10/05/24 18:00 10/10/24 17:59 DC 10/05/24 19:34 0.5 MG Insulin Human Regular (humuLIN R 100 UNIT/ML 3ML) INSULIN SLIDING SCAL... ACHS SQ 10/07/24 11:30 11/06/24 11:29 10/17/24 13:17 2 UNIT Linezolid 300 ml @ 150 mls/hr Q12H IV 10/07/24 13:30 10/17/24 13:29 DC 10/17/24 01:03 150 MLS/HR Lorazepam (AtiVAN) 2 mg Q4H PRN IVP ALCOHOL WITHDRAWAL PROTOCOL 10/05/24 18:00 10/12/24 17:59 DC Losartan Potassium (CozAAR 100MG TAB) 100 mg DAILY PO 10/08/24 09:00 10/11/24 16:10 DC 10/11/24 10:53 100 MG Magnesium Sulfate 50 ml @ 0 mls/hr PROTOCOL PRN IV MAGNESIUM PROTOCOL 10/07/24 09:30 11/06/24 09:29 10/16/24 07:25 25 MLS/HR Norepinephrine 250 ml @ 44.213 mls/ hr PROTOCOL IV 10/06/24 12:00 11/05/24 11:59 Nystatin (NystOP 15 GM POWDER) 1 APPLICATION BID TP 10/06/24 21:00 11/05/24 20:59 10/17/24 08:05 1 APPL Ondansetron HCl (zoFRAN 4MG INJ) 4 mg Q8H PRN IVP NAUSEA/VOMITING 10/10/24 19:30 11/09/24 19:29 Pantoprazole Sodium (PROTonix 40MG INJ) 40 mg Q24H IVP 10/05/24 18:00 11/04/24 17:59 10/16/24 18:16 40 MG Pharmacy Profile Note (Pharmacy Communication) 1 each PROTOCOL PRN MISC ETOH Withdrawal Score changes 10/05/24 18:00 10/12/24 17:59 DC Piperacillin Sod/ Tazobactam Sod (Zosyn 3.375gm+NS 50ml) 3.375 gm Q8H IVPB 10/10/24 08:00 10/10/24 16:16 DC 10/10/24 08:40 3.375 GM Piperacillin Sod/ Tazobactam Sod (Zosyn 3.375gm+NS 50ml) 3.375 gm Q8H IVPB 10/10/24 21:00 10/20/24 20:59 10/17/24 13:09 3.375 GM Piperacillin Sod/ Tazobactam Sod (Zosyn 3.375gm+NS 50ml) 3.375 gm Q8H IVPB 10/05/24 23:00 10/10/24 05:21 DC 10/10/24 00:26 3.375 GM Potassium Chloride 100 ml @ 100 mls/hr AD PRN IV POTASSIUM PROTOCOL 10/07/24 09:30 11/06/24 09:29 Potassium Chloride 100 ml @ 100 mls/hr AD PRN IV POTASSIUM PROTOCOL 10/05/24 18:00 11/04/24 17:59 10/12/24 20:01 100 MLS/HR Potassium Chloride (K-Dur/Klor-Con 20meq) 20 meq AD PRN PO POTASSIUM PROTOCOL 10/07/24 09:30 11/06/24 09:29 10/16/24 07:24 20 MEQ Potassium Chloride (KCl 10% Elixir 20meq/15ml) 20 meq AD PRN PO POTASSIUM PROTOCOL 10/07/24 09:30 11/06/24 09:29 Sodium Chloride (NS 50ml) 50 ml AD IV 10/05/24 21:00 10/05/24 17:34 DC Thiamine HCl (Vitamin B-1) 100 mg Q24H IVP 10/05/24 18:00 10/06/24 11:49 DC 10/05/24 18:12 100 MG Thiamine HCl (Vitamin B-1) 300 mg Q24H IVP 10/06/24 18:00 10/09/24 17:59 DC 10/09/24 16:21 300 MG Thiamine HCl 100 mg/Folic Acid 1 mg/Multivitamins/ Minerals 10 ml/ Sodium Chloride 1,011.2 ml @ 100 mls/ hr Q24H IV 10/05/24 18:00 10/08/24 04:07 DC 10/07/24 18:17 100 MLS/HR DIAGNOSTICS / RADIOLOGY: [ ] PATIENT: SERGO CENTENO MR#: [id number] : 1960 SEX: M AGE: 64 LOCATION: [facility] ORDER 28 STATUS: ADM IN REPORT#: [id number] SERVICE 26 REASON: EVALUATION OF ABSCESS ORDERING PHYSICIAN: MICHEAL URRUTIA MD PROCEDURE: ABD PELWWO - CT ABDOMEN/PELVIS W/WO CONTRAS CT ABDOMEN/PELVIS W/WO CONTRAS REASON: EVALUATION OF ABSCESS COMPARISON: 10/07/2024 TECHNIQUE: Images are obtained from lung bases to the symphysis pubis before and after IV contrast, 100 cc Omnipaque 350. Oral contrast was administered as well. FINDINGS: Lung bases are clear. There are no focal liver lesions. There are normal-appearing kidneys.. Spleen and pancreas appear unremarkable. The gallbladder appears normal as well. There are moderately distended proximal small bowel loops. There is a transition zone in the mid abdomen, the distal small bowel loops are normal caliber. Findings are consistent with partial mechanical small bowel obstruction. There is a pigtail drainage catheter in the root of the mesentery to the left of midline. There is complete drainage of the associated abscess. There is a second abscess present just superiorly and anteriorly, this measures 3.1 x 2.1 x 3.1 cm. Colon appears unremarkable. There is no evidence of free fluid or intraperitoneal air. Aorta and retroperitoneum appear normal as do pelvic soft tissue structures. The anterior abdominal wall is intact. Osseous structures appear unremarkable. IMPRESSION: 1. Moderately dilated proximal and mid small bowel loops, there is a transition zone, findings are consistent with a partial mechanical obstruction. 2. There is a pigtail drainage catheter in place, the associated abscess has resolved completely. 3. There is a second small abscess just anterior and superior to the residual collection, measuring 2.1 x 3[address] was performed with one or more following dose reduction techniques: automated exposure control, adjustment of the mA and kv according to patient's size, or use of a iterative reconstruction technique. DICTATED BY: DI CONDE MD DATE: 10/17/24913 ELECTRONICALLY SIGNED BY: DI CONDE MD DATE: 10/17/24921 ASSESSMENT: Severe sepsis, POA, 2/2 perforated sigmoid diverticulitis Perforated sigmoid diverticulitis with developing abscess, POA Moderate lactic acidosis, POA Acute kidney injury, POA Hypokalemia, POA Mild urinary tract infection, POA Alcohol use disorder, POA Morbid obesity, POA Underlying history of hypertension, POA Hyperlipidemia, POA Status post percutaneous drain placement by IR Suspected GREG, POA PLAN: Continue with IV fluids, Patient on daily thiamine supplementation Antibiotics per ID Continue Zosyn IV Continue IV fluconazole Monitor blood culture results and adjust antibiotics if needed. Follow daily WBC is, and clinical status. Dr. Campbell, with General surgery, appreciate recommendations CT scan showed a new abscess which is small 2.1 x 3.18 x1.6 cm. Drainage catheter has been removed as previous sepsis has resolved. Coordinate between surgery and ID to determine need for further intervention repeat drainage versus conservative management. Monitor for worsening signs of obstruction that is worsening pain, distention or vomiting. NPO if patient develops worsening symptoms. ABD x-ray p.r.n. if symptoms worsen. Monitor lactic acid trend closely, if patient develops hypotension tonight, patient will be transferred to ICU for vasopressors Replace electrolytes as per facility protocol Monitor urine output closely, avoid NSAIDs, WENDIE inhibitor/ARB, avoid IV contrast until renal function improves Pain control with Tylenol and IV hydromorphone for severe pain on CPAP therapy tonight for management of suspected obstructive sleep apnea on alcohol withdrawal protocol with Librium and Ativan, counseled patient to quit alcohol on discharge, patient verbalized understanding Follow up with surgery recommendations Continue PPI with pantoprazole 40 mg IV Q 24 H Continue daily PT to prevent deconditioning. Encourage ambulation and mobility. DVT prophylaxis should be continued ATTESTATION BY PHYSICIAN I have seen and examined the patient. I reviewed the documentation, medical decision making, and treatment plan as noted by the resident above. I agree with the findings and plan of care. Andrew Collier MD, RAGHAVA R MD Oct 17, 2024 15:47
--- NOTE | 2024-10-17 17:08 | PN ---
This is a 64-year-old male with concerns of diverticular abscess with percutaneous drain placement recently removed continue with IV antibiotics Interval history This 64-year-old male seen in his room resting Recent CT showing you collection measuring 2.1 x 3.1 x 3.1 cm just anterior and superior to the previous collection Patient continues IV fluids and IV antibiotics WBCs 8.2 with a stable hemoglobin Patient with no abdominal pain and tolerating diet From surgical standpoint patient is to continue with IV fluids and IV antibiotics Before discharge patient will need re-evaluation by IR for 2nd collection noted on CT Patient will still require outpatient colonoscopy 6-8 weeks after completion of antibiotic therapy No immediate surgical intervention planned at this time Dr. Campbell to be updated in patient's status and surgical team will continue to follow patient closely. Thank you Vitals/Labs Vital Signs Date Time Temp Pulse Resp B/P (MAP) Pulse Ox O2 Delivery O2 Flow Rate FiO2 10/17/24 12:00 97.9 106 20 131/85 94 Room Air 10/17/24 08:09 0 21 Laboratory Tests 10/17/24 05:45 Medications Current Medications Sodium Chloride 2,000 ml @ 0 mls/hr ONCE ONCE IV Last administered on 10/05/24at 17:19; Start 10/05/24 at 17:00; Stop 10/05/24 at 17:01; Status DC Piperacillin Sod/ Tazobactam Sod 3.375 gm ONCE ONCE IV Last administered on 10/05/24at 17:19; Start 10/05/24 at 17:00; Stop 10/05/24 at 17:01; Status DC Sodium Chloride 1,000 ml @ 0 mls/hr ONCE ONCE IV; Start 10/05/24 at 17:00; Stop 10/05/24 at 17:01; Status DC Piperacillin Sod/ Tazobactam Sod 3.375 gm Q8H IVPB Last administered on 10/10/24at 00:26; Start 10/05/24 at 23:00; Stop 10/10/24 at 05:21; Status DC Sodium Chloride 50 ml AD IV; Start 10/05/24 at 21:00; Stop 10/05/24 at 17:34; Status DC Sodium Chloride 500 ml @ 0 mls/hr ONCE ONCE IV Last administered on 10/05/24at 18:02; Start 10/05/24 at 18:00; Stop 10/05/24 at 18:01; Status DC Pantoprazole Sodium 40 mg Q24H IVP Last administered on 10/16/24at 18:16; Start 10/05/24 at 18:00; Stop 11/04/24 at 17:59 Thiamine HCl 100 mg Q24H IVP Last administered on 10/05/24at 18:12; Start 10/05/24 at 18:00; Stop 10/06/24 at 11:49; Status DC Chlordiazepoxide HCl 25 mg Q4H PRN PO; Start 10/05/24 at 18:00; Stop 10/12/24 at 17:59; Status DC Lorazepam 2 mg Q4H PRN IVP; Start 10/05/24 at 18:00; Stop 10/12/24 at 17:59; Status DC Thiamine HCl 100 mg/Folic Acid 1 mg/Multivitamins/ Minerals 10 ml/ Sodium Chloride 1,011.2 ml @ 100 mls/ hr Q24H IV Last administered on 10/07/24at 18:17; Start 10/05/24 at 18:00; Stop 10/08/24 at 04:07; Status DC Pharmacy Profile Note 1 each PROTOCOL PRN MISC; Start 10/05/24 at 18:00; Stop 10/12/24 at 17:59; Status DC Budesonide 0.5 mg BIDRESP IH Last administered on 10/17/24at 06:30; Start 10/05/24 at 18:00; Stop 11/04/24 at 17:59 Potassium Chloride 100 ml @ 100 mls/hr AD PRN IV Last administered on 10/12/24at 20:01; Start 10/05/24 at 18:00; Stop 11/04/24 at 17:59 Hydromorphone HCl 0.5 mg Q6H PRN IVP Last administered on 10/05/24at 19:34; Start 10/05/24 at 18:00; Stop 10/10/24 at 17:59; Status DC Acetaminophen 650 mg Q6H PRN PO Last administered on 10/07/24at 19:02; Start 10/05/24 at 18:30; Stop 11/04/24 at 18:29 Albumin Human 100 ml @ 100 mls/hr AD IV Last administered on 10/05/24at 21:33; Start 10/05/24 at 21:00; Stop 10/06/24 at 06:01; Status DC Albumin Human 100 ml @ 0 mls/hr AD IV Last administered on 10/06/24at 07:02; Start 10/06/24 at 06:00; Stop 10/07/24 at 12:38; Status DC Acetaminophen 1,000 mg STAT IVPB Last administered on 10/06/24at 09:37; Start 10/06/24 at 09:00; Stop 10/06/24 at 13:02; Status DC Thiamine HCl 300 mg Q24H IVP Last administered on 10/09/24at 16:21; Start 10/06/24 at 18:00; Stop 10/09/24 at 17:59; Status DC Norepinephrine 250 ml @ 44.213 mls/ hr PROTOCOL IV; Start 10/06/24 at 12:00; Stop 11/05/24 at 11:59 Fluconazole/ Sodium Chloride 200 ml @ 100 mls/hr Q24H IV Last administered on 10/14/24at 13:28; Start 10/06/24 at 13:00; Stop 10/15/24 at 11:24; Status DC Nystatin 1 APPLICATION BID TP Last administered on 10/17/24at 08:05; Start 10/06/24 at 21:00; Stop 11/05/24 at 20:59 Lactated Ringer's 1,000 ml BOLUS ONCE IV Last administered on 10/06/24at 15:00; Start 10/06/24 at 15:00; Stop 10/06/24 at 15:01; Status DC Acetaminophen 1,000 mg ONCE STAT IVPB Last administered on 10/06/24at 19:27; Start 10/06/24 at 17:17; Stop 10/06/24 at 17:19; Status DC Heparin Sodium (Porcine) 5,000 unit TID SQ Last administered on 10/17/24at 13:17; Start 10/06/24 at 21:00; Stop 11/05/24 at 20:59 Acetaminophen 650 mg Q4H PRN RC Last administered on 10/07/24at 12:31; Start 10/07/24 at 05:30; Stop 11/06/24 at 05:29 Potassium Chloride 100 ml @ 100 mls/hr AD PRN IV; Start 10/07/24 at 09:30; Stop 11/06/24 at 09:29 Potassium Chloride 20 meq AD PRN PO; Start 10/07/24 at 09:30; Stop 11/06/24 at 09:29 Potassium Chloride 20 meq AD PRN PO Last administered on 10/17/24at 15:37; Start 10/07/24 at 09:30; Stop 11/06/24 at 09:29 Dextrose 50 ml AD PRN IV; Start 10/07/24 at 09:30; Stop 11/06/24 at 09:29 Glucagon 1 mg AD PRN IM; Start 10/07/24 at 09:30; Stop 11/06/24 at 09:29 Insulin Human Regular INSULIN SLIDING SCAL... ACHS SQ Last administered on 10/17/24at 13:17; Start 10/07/24 at 11:30; Stop 11/06/24 at 11:29 Magnesium Sulfate 50 ml @ 0 mls/hr PROTOCOL PRN IV Last administered on 10/17/24at 15:38; Start 10/07/24 at 09:30; Stop 11/06/24 at 09:29 Linezolid 300 ml @ 150 mls/hr Q12H IV Last administered on 10/17/24at 01:03; Start 10/07/24 at 13:30; Stop 10/17/24 at 13:29; Status DC Lactated Ringer's 1,000 ml ONCE ONCE IV Last administered on 10/07/24at 14:29; Start 10/07/24 at 14:30; Stop 10/07/24 at 14:31; Status DC EZETIMIBE 10 mg DAILY PO Last administered on 10/17/24at 08:04; Start 10/08/24 at 09:00; Stop 11/07/24 at 08:59 Hydrochlorothiazide 12.5 mg DAILY PO Last administered on 10/13/24at 09:27; Start 10/08/24 at 09:00; Stop 10/13/24 at 11:15; Status DC Atorvastatin Calcium 40 mg HS PO Last administered on 10/16/24at 21:17; Start 10/07/24 at 21:00; Stop 11/06/24 at 20:59 Losartan Potassium 100 mg DAILY PO Last administered on 10/11/24at 10:53; Start 10/08/24 at 09:00; Stop 10/11/24 at 16:10; Status DC Diatrizoate Meglum/ Diatrizoate Sod 30 ml STK-MED ONCE .ROUTE; Start 10/07/24 at 18:30; Stop 10/07/24 at 18:30; Status DC Fentanyl Citrate 100 mcg STK-MED ONCE .ROUTE; Start 10/09/24 at 11:08; Stop 10/09/24 at 11:08; Status DC Midazolam HCl 2 mg STK-MED ONCE .ROUTE; Start 10/09/24 at 11:08; Stop 10/09/24 at 11:08; Status DC Piperacillin Sod/ Tazobactam Sod 3.375 gm Q8H IVPB Last administered on 10/10/24at 08:40; Start 10/10/24 at 08:00; Stop 10/10/24 at 16:16; Status DC Piperacillin Sod/ Tazobactam Sod 3.375 gm Q8H IVPB Last administered on 10/17/24at 13:09; Start 10/10/24 at 21:00; Stop 10/20/24 at 20:59 Ondansetron HCl 4 mg STK-MED ONCE .ROUTE Last administered on 10/10/24at 19:52; Start 10/10/24 at 19:11; Stop 10/10/24 at 19:12; Status DC Ondansetron HCl 4 mg Q8H PRN IVP; Start 10/10/24 at 19:30; Stop 11/09/24 at 19:29 Fluconazole/ Sodium Chloride 200 ml @ 100 mls/hr Q24H IV Last administered on 10/16/24at 21:17; Start 10/15/24 at 21:00; Stop 11/05/24 at 20:59 Docusate Sodium 100 mg BID PO; Start 10/15/24 at 18:00; Stop 10/15/24 at 17:51; Status DC Docusate Sodium 100 mg BID PRN PO Last administered on 10/15/24at 19:01; Start 10/15/24 at 18:00; Stop 11/14/24 at 17:59 Diatrizoate Meglum/ Diatrizoate Sod 30 ml STK-MED ONCE .ROUTE; Start 10/16/24 at 15:33; Stop 10/16/24 at 15:34; Status DC Metoprolol Tartrate 12.5 mg ONCE ONCE PO; Start 10/16/24 at 21:00; Stop 10/16/24 at 20:59; Status DC Iohexol 35,000 mg STK-MED ONCE IV; Start 10/16/24 at 21:50; Stop 10/16/24 at 21:51; Status DC PILLO GARCIA Jr. Oct 17, 2024 17:08
--- NOTE | 2024-10-17 19:07 | NUR ---
DC PLAN RECEIVED [employer]IGGER FOR [facility]. PACKET MADE AND SENT. Addendum: 10/17/24 at 1909 by MARTINA DENNIS RN CM Amended: Links added.
[2024-10-18] VITALS (11 sets, daily range): BP systolic 136–150; BP diastolic 83–91; PULSE 89–100; RESP 15–20; TEMP 97.5–98.1; O2SAT 95–99
[2024-10-18 05:52] LABS: HEMATOCRIT 26.6 % (42-54); MEAN CORPUSCULAR HEMOGLOBIN 31.6 pg (27.0-33.0); MEAN CORPUSCULAR HGB CONC 33.5 g/dL (32.0-36.0); MEAN CORPUSCULAR VOLUME 94.3 fL (79-99); RED BLOOD CELL COUNT(AUTO) 2.82 MIL/uL (4.50-6.20); RED CELL DISTRIBUTION WIDTH 15.4 % (11.0-15.5); WHITE BLOOD COUNT (AUTO) 6.9 K/uL (4.8-10.8)
[2024-10-18 06:05] LABS: PROTHROMBIN TIME 11.2 SEC (9.6-11.6)
[2024-10-18 06:06] LABS: PARTIAL THROMBOPLASTIN TIME 32.8 SEC (26.3-35.5)
[2024-10-18 06:09] LABS: ALBUMIN 1.8 g/dL (3.5-5.0); BILIRUBIN,TOTAL 0.6 mg/dL (0.2-1.0); MAGNESIUM 1.6 mg/dL (1.80-2.40); PHOSPHORUS 3.5 mg/dL (2.5-4.9); POTASSIUM 3.4 mmol/L (3.5-5.1); TOTAL PROTEIN, SERUM 5.7 g/dL (6.0-8.3)
--- NOTE | 2024-10-18 09:24 | NUR ---
RE: DRAIN PLACEMENT BY IR DR Jase FIGUEROA NOTIFIED AND REVIEWED IMAGES. THE FLUID COLLECTION IS SMALL AND SURROUNDED BY BOWEL. DR Jase FIGUEROA STATED THERE IS NO SAFE ACCESS. Addendum: 10/18/24 at 0928 by GUERITA HALLMAN RN RN CONTINUATION TO PREVIOUS NOTE: PROCEDURE CANCELLED AND STEVE PETTIT NOTIFED OR PROCEDURE OUTCOME.
[2024-10-18] MEDS ORDERED: MAGNESIUM 2GM PREMIX 50ML 50 ML IV PRN (10:00)
--- NOTE | 2024-10-18 12:21 | NUR ---
[address] [id number] PATIENT ACCEPTED 10/19/24 AT 10 AM. GAVE INFO TO PATIENT AND FAMILY INCLUDING MAP, ADDRESS, PHONE, APPOINTMENT TIME AND DATE. COPY PLACED IN CHART. NURSE NOTIFIED. Addendum: 10/18/24 at 1224 by MARTINA DENNIS RN CM Amended: Links added.
--- NOTE | 2024-10-18 13:07 | PN ---
NEPHROLOGY PROGRESS NOTE Date/Time Patient Seen: Oct 18, 2024 Reason for Consultation: 13:05 SUBJECTIVE: This is a 64-year-old male with underlying history of hypertension, hyperlipidemia, obesity, chronic alcohol use, who presented to the ER for further evaluation of significant lower abdominal pain with associated fevers and chills CT of the abdomen showed perforated sigmoid diverticulitis suggesting potential evolving abscess. Blood cultures are positive for prevotella oralis He continues on IV antibiotics as per ID S/P percutaneous drain by IR on 10/[address] of the abdomen showed pigtail drainage catheter in place, the associated abscess has resolved completely. He was noted to have elevated BUN and creatinine We has been consulted for renal failure. Renal function and electrolytes are stable. He was seen in the medical floor, in no acute distress Family at the bedside Condition is critical and guarded REVIEW OF SYSTEMS: GENERAL: Positive for abdominal pain NEUROLOGIC: Negative for any blurry vision, blind spots, double vision, facial asymmetry, dysphagia, dysarthria, hemiparesis, hemisensory deficits, vertigo, ataxia. HEENT: Negative for any head trauma, neck trauma, neck stiffness, photophobia, phonophobia, sinusitis, rhinitis. CARDIAC: Negative for any chest pain, dyspnea on exertion, paroxysmal nocturnal dyspnea, peripheral edema. PULMONARY: Negative for any shortness of breath, wheezing, COPD, or TB exposure. GASTROINTESTINAL: Negative for any abdominal pain, nausea, vomiting, bright red blood per rectum, melena. GENITOURINARY: Negative for any dysuria, hematuria, incontinence. INTEGUMENTARY: Negative for any rashes, cuts, insect bites. RHEUMATOLOGIC: Negative for any joint pains, photosensitive rashes, history of vasculitis or kidney problems. HEMATOLOGIC: Negative for any abnormal bruising, frequent infections or bleeding. Vital Signs (last 8hr) Date Time Temp Pulse Resp B/P (MAP) Pulse Ox O2 Delivery O2 Flow Rate FiO2 10/06/24 11:57 99.3 93 21 119/66 98 Room Air* 0 21 10/06/24 10:16 99.0 109 22 122/64 96 Room Air* 0 21 10/06/24 08:05 101.5 111 26 113/63 96 Nasal Cannula* 2 28 10/06/24 06:41 20 N/Cannula Low lpm 2.0 28 10/06/24 06:40 111 20 10/06/24 06:28 98.8 109 24 111/62 96 Nasal Cannula* 2 28 PHYSICAL EXAM: GENERAL: Alert and oriented x 3. No acute distress. Well-nourished. EYES: EOMI. Anicteric. HENT: Moist mucous membranes. No scleral icterus. No cervical lymphadenopathy. LUNGS: Clear to auscultation bilaterally. No accessory muscle use. CARDIOVASCULAR: Regular rate and rhythm. No murmur. No JVD. ABDOMEN: Soft, non-tender and non-distended. No palpable masses. EXTREMITIES: No edema. Non-tender. SKIN: No rashes or lesions. Warm. NEUROLOGIC: No focal neurological deficits. CN II-XII grossly intact, but not individually tested. PSYCHIATRIC: Cooperative. Appropriate mood and affect. Current Medications Medications (Trade) Dose Ordered Sig/Tim Route PRN Reason Start Time Stop Time Status Last Admin Dose Admin Acetaminophen (TYLenol 325MG TAB) 650 mg Q6H PRN PO MILD PAIN (1-3) 10/05/24 18:30 11/04/24 18:29 Acetaminophen (acetaMINOPHEN) 1,000 mg STAT IVPB 10/06/24 09:00 10/06/24 13:02 DC 10/06/24 09:37 1,000 MG Albumin Human 100 ml @ 100 mls/hr AD IV 10/05/24 21:00 10/06/24 06:01 DC 10/05/24 21:33 100 MLS/HR Albumin Human 100 ml @ 0 mls/hr AD IV 10/06/24 06:00 11/05/24 05:59 10/06/24 07:02 500 MLS/HR Budesonide (Pulmicort 0.5 Mg/2ml) 0.5 mg BIDRESP IH 10/05/24 18:00 11/04/24 17:59 10/06/24 06:38 0.5 MG Chlordiazepoxide HCl (LIBrium 25 MG CAP) 25 mg Q4H PRN PO ALCOHOL WITHDRAWAL PROTOCOL 10/05/24 18:00 10/12/24 17:59 Fluconazole/ Sodium Chloride 200 ml @ 100 mls/hr Q24H IV 10/06/24 13:00 11/05/24 12:59 Hydromorphone HCl (DiLAUDid 0.5MG INJ) 0.5 mg Q6H PRN IVP SEVERE PAIN (7-10) 10/05/24 18:00 10/10/24 17:59 10/05/24 19:34 0.5 MG Lorazepam (AtiVAN) 2 mg Q4H PRN IVP ALCOHOL WITHDRAWAL PROTOCOL 10/05/24 18:00 10/12/24 17:59 Norepinephrine 250 ml @ 44.213 mls/ hr PROTOCOL IV 10/06/24 12:00 11/05/24 11:59 Pantoprazole Sodium (PROTonix 40MG INJ) 40 mg Q24H IVP 10/05/24 18:00 11/04/24 17:59 10/05/24 18:12 40 MG Pharmacy Profile Note (Pharmacy Communication) 1 each PROTOCOL PRN MISC ETOH Withdrawal Score changes 10/05/24 18:00 10/12/24 17:59 Piperacillin Sod/ Tazobactam Sod (Zosyn 3.375gm+NS 50ml) 3.375 gm Q8H IVPB 10/05/24 23:00 10/15/24 22:59 10/06/24 08:30 3.375 GM Potassium Chloride 100 ml @ 100 mls/hr AD PRN IV POTASSIUM PROTOCOL 10/05/24 18:00 11/04/24 17:59 10/05/24 19:34 100 MLS/HR Sodium Chloride (NS 50ml) 50 ml AD IV 10/05/24 21:00 10/05/24 17:34 DC Thiamine HCl (Vitamin B-1) 100 mg Q24H IVP 10/05/24 18:00 10/06/24 11:49 DC 10/05/24 18:12 100 MG Thiamine HCl (Vitamin B-1) 300 mg Q24H IVP 10/06/24 18:00 10/09/24 17:59 Thiamine HCl 100 mg/Folic Acid 1 mg/Multivitamins/ Minerals 10 ml/ Sodium Chloride 1,011.2 ml @ 100 mls/ hr Q24H IV 10/05/24 18:00 10/08/24 04:07 10/05/24 18:12 75 MLS/HR LABORATORY: [ ] Hematology Labs: Test 10/18/24 05:36 Range/Units White Blood Count 6.9 4.8-10.8 K/uL Red Blood Count 2.82 L 4.50-6.20 MIL/uL Hemoglobin 8.9 L 14.0-18.0 g/dL Hematocrit 26.6 L 42-54 % Mean Corpuscular Volume 94.3 79-99 fL Mean Corpuscular Hemoglobin 31.6 27.0-33.0 pg Mean Corpuscular Hemoglobin Concent 33.5 32.0-36.0 g/dL Red Cell Distribution Width 15.4 11.0-15.5 % Platelet Count 445 H 130-400 K/uL Mean Platelet Volume 8.3 7.5-10.5 fL Nucleated Red Blood Cells 0.0 0.0-0.19 % Chemistry Labs: Test 10/18/24 11:05 10/18/24 05:36 Range/Units Whole Blood Glucose 113 H 70-110 MG/DL Sodium Level 136 136-145 mmol/L Potassium Level 3.4 L 3.5-5.1 mmol/L Chloride Level 104 101-111 mmol/L Carbon Dioxide Level 23 21-32 mmol/L Blood Urea Nitrogen 5 L 7-18 mg/dL Creatinine 1.0 0.5-1.3 mg/dL Glomerular Filtration Rate Calc 83 >90 mL/min Random Glucose 99 70-105 mg/dL Total Calcium 7.5 L 8.5-10.1 mg/dL Phosphorus Level 3.5 2.5-4.9 mg/dL Magnesium Level 1.60 L 1.80-2.40 mg/dL Total Bilirubin 0.6 0.2-1.0 mg/dL Aspartate Amino Transf (AST/SGOT) 54 H 10-37 U/L Alanine Aminotransferase (ALT/SGPT) 57 12-78 U/L Alkaline Phosphatase 110 50-136 U/L Total Protein 5.7 L 6.0-8.3 g/dL Albumin 1.8 L 3.5-5.0 g/dL Coagulation Labs: Test 10/18/24 05:36 Range/Units Prothrombin Time 11.2 9.6-11.6 SEC Prothromb Time International Ratio 1.00 0.85-1.15 Activated Partial Thromboplast Time 32.8 26.3-35.5 SEC DIAGNOSTICS / RADIOLOGY: REASON: EVALUATION OF ABSCESS ORDERING PHYSICIAN: MICHEAL URRUTIA MD PROCEDURE: ABD PELWWO - CT ABDOMEN/PELVIS W/WO CONTRAS CT ABDOMEN/PELVIS W/WO CONTRAS REASON: EVALUATION OF ABSCESS COMPARISON: 10/07/2024 TECHNIQUE: Images are obtained from lung bases to the symphysis pubis before and after IV contrast, 100 cc Omnipaque 350. Oral contrast was administered as well. FINDINGS: Lung bases are clear. There are no focal liver lesions. There are normal-appearing kidneys.. Spleen and pancreas appear unremarkable. The gallbladder appears normal as well. There are moderately distended proximal small bowel loops. There is a transition zone in the mid abdomen, the distal small bowel loops are normal caliber. Findings are consistent with partial mechanical small bowel obstruction. There is a pigtail drainage catheter in the root of the mesentery to the left of midline. There is complete drainage of the associated abscess. There is a second abscess present just superiorly and anteriorly, this measures 3.1 x 2.1 x 3.1 cm. Colon appears unremarkable. There is no evidence of free fluid or intraperitoneal air. Aorta and retroperitoneum appear normal as do pelvic soft tissue structures. The anterior abdominal wall is intact. Osseous structures appear unremarkable. IMPRESSION: 1. Moderately dilated proximal and mid small bowel loops, there is a transition zone, findings are consistent with a partial mechanical obstruction. 2. There is a pigtail drainage catheter in place, the associated abscess has resolved completely. 3. There is a second small abscess just anterior and superior to the residual collection, measuring 2.1 x 3[address] was performed with one or more following dose reduction techniques: automated exposure control, adjustment of the mA and kv according to patient's size, or use of a iterative reconstruction technique. DICTATED BY: DI CONDE MD DATE: 10/17/24913 REASON: picc LINE PLACEMENT ORDERING PHYSICIAN: MICHEAL URRUTIA MD PROCEDURE: CXR1VW - CHEST 1VW CHEST 1VW HISTORY: PICC line placement COMPARISON: 10/05/2024 FINDINGS: A frontal projection of the chest was obtained. Mild bilateral pulmonary infiltrates are seen may be related to mild pulmonary vascular congestion with possible superimposed pneumonitis. The heart is borderline enlarged. Right venous catheter is seen with distal tip in the plane of the superior vena cava. No evidence of aortic calcification is seen. IMPRESSION: 1. Mild bilateral pulmonary infiltrates are seen may be related to mild pulmonary vascular congestion with possible superimposed pneumonitis. DICTATED BY: KIM MADSEN MD DATE: 10/11/24907 REASON: ABD DISTENTION ORDERING PHYSICIAN: EDUARDO ABERNATHY MD PROCEDURE: ABD PEL WO - CT ABDOMEN/PELVIS W/O CONTRAST CT ABDOMEN/PELVIS W/O CONTRAST HISTORY: Abdominal distention COMPARISON: 10/05/2024 TECHNIQUE: Multiple sequential axial images of the abdomen and pelvis were obtained from the dome of the diaphragm through symphysis pubis. Patient was not given contrast through intravenous route. Oral contrast was given. FINDINGS: There are bilateral interstitial fibrosis. Tiny pericardial effusion is seen. No pleural effusion is seen bilaterally. There is no evidence of parenchymal disease or pulmonary nodule of the visualized lower lungs. Degenerative changes of the thoracolumbar spine are present. The heart is not enlarged. The liver measured 20 cm. There is contrast material stomach and small bowel loops. There is sigmoid colon wall thickening with adjacent fat stranding consistent with acute sigmoid diverticulitis. Extensive adjacent mesenteric fat stranding is seen in the pelvis. There is small diverticular abscess in the left anterior pelvis measuring 3 x 3.5 cm. Amorphous air collection is seen consistent with walled off perforation. No definite free intraperitoneal air is seen. There is diverticulosis. The liver, spleen, adrenal glands and pancreas are unremarkable. There is no evidence of hydronephrosis bilaterally. No evidence of renal stone is seen. Fecal material is seen in the colon. There are normal size retroperitoneal and mesenteric lymph nodes. No ascites is seen. Atherosclerotic changes are present. Appendix is not well visualized. Pelvic sidewalls are symmetric bilaterally. Bladder is poorly distended. There is fluid-filled small bowel loops and colon. IMPRESSION: 1. There is contrast material stomach and small bowel loops. There is sigmoid colon wall thickening with adjacent fat stranding consistent with acute sigmoid diverticulitis. Extensive adjacent mesenteric fat stranding is seen in the pelvis. There is small diverticular abscess in the left anterior pelvis measuring 3 x 3.5 cm. Amorphous air collection is seen consistent with walled off perforation. No definite free intraperitoneal air is seen. There is diverticulosis. CT was performed with one or more following dose reduction techniques: automated exposure control, adjustment of the mA and kv according to patient's size, or use of a iterative reconstruction technique. DICTATED BY: KIM MADSEN MD DATE: 10/07/242152 REASON: peritoneum ORDERING PHYSICIAN: LIDIA BUTLER PROCEDURE: ABD 1VW - ABD 1VW ABD 1VW HISTORY: Peritoneal COMPARISON: None FINDINGS: A frontal projection of the abdomen was obtained. Small bowel dilatation is seen. Fecal material is seen in the colon. Degenerative changes of the thoracolumbar spine are noted. IMPRESSION: 1. Small bowel dilatation. DICTATED BY: KIM MADSEN MD DATE: 10/07/242005 REASON: PERFORATED BOWEL/DISTENDED ABD ORDERING PHYSICIAN: VICKIE MONTGOMERY MD PROCEDURE: ABD 1VW - ABD 1VW ABD 1VW CLINICAL HISTORY: PERFORATED BOWEL/DISTENDED ABD COMPARISON: None FINDINGS: Single view of the abdomen was obtained. There are multiple air-filled loops of bowel. Free air is not definitely identified but could likely not be excluded on this exam. IMPRESSION: Ileus versus small bowel obstruction DICTATED BY: MISSY FALK DO DATE: 10/06/24 165 REASON: renal failue ORDERING PHYSICIAN: KATH ALEMAN PROCEDURE: RENAL - US RENAL SONOGRAM ULTRASOUND RENAL COMPLETE INDICATION: Renal failure TECHNIQUE: Routine ultrasound of the kidneys and urinary bladder with grayscale and color Doppler imaging was performed in real-time, and subsequently made available for review. COMPARISON: No prior studies available for comparison. FINDINGS: The right kidney measures 9.3 x 5.7 x 5.7 cm. No abnormal mass demonstrated. No evidence for hydronephrosis or shadowing stone. The left kidney measures 10.9 x 6.3 x 5.1 cm. No abnormal mass demonstrated. No evidence for hydronephrosis or shadowing stone. Empty urinary bladder secondary to Ni catheter placement. No free fluid demonstrated. IMPRESSION: Normal sonographic appearance of the kidneys. DICTATED BY: WILTON ZAVALA MD DATE: 10/06/24 1006 REASON: R/O dvt OF THE LOWER EXTREMITIES ORDERING PHYSICIAN: EDUARDO ABERNATHY MD PROCEDURE: VENOUS SYL - US VENOUS DOPPLER BILATERAL ULTRASOUND VENOUS DOPPLER, BILATERAL LOWER EXTREMITIES INDICATION: Bilateral lower extremity pain and swelling TECHNIQUE: Routine grayscale and color Doppler ultrasound of the bilateral lower extremity veins performed. COMPARISON: No priors. FINDINGS: The demonstrated veins of the bilateral lower extremity including the common femoral vein, femoral vein, and popliteal vein are associated with normal compressibility, augmentation, and flow. Normal respiratory variation was identified. No evidence for echogenic intraluminal thrombus formation. IMPRESSION: No sonographic evidence for deep venous thrombosis within the bilateral lower extremity veins. DICTATED BY: WILTON ZAVALA MD DATE: 10/05/24 1826 REASON: ABD PAIN ORDERING PHYSICIAN: MIRIAM RICE NP PROCEDURE: ABD PEL WO - CT ABDOMEN/PELVIS W/O CONTRAST CT ABDOMEN WITHOUT CONTRAST. CT PELVIS WITHOUT CONTRAST. INDICATION: Abdominal pain; No relevant information related to this study was provided in patient's history by the ordering service. TECHNIQUE: Routine transaxial imaging using 5 mm slice thickness through the abdomen and pelvis without the administration of IV contrast. Thin slice reconstructions are also provided. Coronal and sagittal reformatted images acquired for interpretation. CT was performed with one or more of the following dose reduction techniques: Automated exposure control, adjustment of the mA and/or kV according to patient size, or use of iterative reconstruction technique. COMPARISON: None FINDINGS: ON NONCONTRAST IMAGING: ABDOMEN: Examination provided for interpretation at 4:13 PM on 10/05/2024. Heart size is normal. Scarring at both lung bases. No abnormal renal calcifications, hydronephrosis, perinephric inflammation, or proximal hydroureter detected. The liver is normal in size and smooth in contour without biliary duct dilation. The spleen is normal in size and attenuation. The gallbladder appears normal. The pancreas appears normal without pancreatic duct dilation. The adrenal glands appear normal. No significant abdominal, retrocrural or retroperitoneal adenopathy noted. No evidence for intra-abdominal free air or organized fluid collection. No aortic aneurysmal dilation identified. PELVIS: No abnormal calcifications within the urinary bladder or distal ureters. No evidence for free air or organized pelvic fluid collection. No significant pelvic adenopathy detected. Several diverticula along the distal colon and mild to moderate pericolonic inflammatory fat stranding associated, including 3.5 cm aggregate of air and trace fluid along the mesenteric wall of the far proximal sigmoid colon with additional scattered air densities throughout the anterior mid to upper abdomen. Several diverticula along the proximal colon. Terminal ileum appears unremarkable. The appendix appears normal. Visible osseous structures are intact. IMPRESSION: Perforated sigmoid diverticulitis as described, including findings suggesting potential evolving abscess. DICTATED BY: WILTON ZAVALA MD DATE: 10/05/24 1611 REASON: COUGH ORDERING PHYSICIAN: UBALDO MCBRIDE MD PROCEDURE: CXR1VW - CHEST 1VW PORTABLE CHEST RADIOGRAPH INDICATION: COUGH COMPARISON: 05/16/2017 FINDINGS: clinical research monitor leads overlie the field of view. Heart size is normal. The pulmonary vascularity and jeannie appear normal. No abnormal pulmonary parenchymal opacity or consolidation identified. Bibasilar lung linear scarring. No significant pleural effusion noted. No pneumothorax detected. IMPRESSION: No radiographic evidence for any acute cardiopulmonary process. DICTATED BY: WILTON ZAVALA MD DATE: 10/05/24 1640 ASSESSMENT: Acute kidney injury Severe sepsis, 2/2 perforated sigmoid diverticulitis Perforated sigmoid diverticulitis with developing abscess Moderate lactic acidosis Hypokalemia Mild urinary tract infection Alcohol use disorder Morbid obesity Underlying history of hypertension Hyperlipidemia Suspected GREG PLAN: Labs, diagnostic, radiologic exams reviewed and interpreted by myself and supervising physician. We have reviewed external records in detail We will continue to monitor the patient closely Continue with the renally dose antibiotics as per ID Require close monitoring of renal function and electrolytes Order CBC, CMP, and electrolytes in am BiPAP as necessary, for respiratory distress Monitor blood pressure adjust medication doses as needed Avoid hypotensive episodes May use Dilaudid 0.5 mg IV every 6 hours as needed for severe pain Monitor blood sugars Strict intake, output, and daily weight should be monitored Please renally adjust medications Avoid nephrotoxic and nonsteroidal drugs Avoid contrast if possible Will continue to monitor renal function, anemia, electrolytes Treatment plan discussed with patient Questions were answered We have discussed with the other team physicians in detail about the care plan We will continue to monitor the patient closely ATTESTATION BY PHYSICIAN I have seen and examined the patient. I reviewed the documentation, medical decision making, and treatment plan as noted by the mid-level provider above. I agree with the findings and plan of care. CAMILA CLEMENS MD, ELIZABETH FNP Oct 18, 2024 13:07
[2024-10-18] MEDS ORDERED: ACET-2247 PO (15:40)
[2024-10-18] MEDS ORDERED: doCUSate SODIUM 100 MG CAP PO (15:40)
--- NOTE | 2024-10-18 15:46 | DS ---
Discharge Summary Hospital Course Summary: Patient was admitted for severe sepsis due to perforated sigmoid diverticulitis with abscess formation. He was febrile tachycardia and hypotensive upon presentation and requiring fluid resuscitation and broad-spectrum IV antibiotics. IR performed percutaneous drainage for primary diverticular abscess. Cultures grew E coli and prevotella oralis and he was managed with Zosyn, linezolid and fluconazole per ID recommendation. Patient remained on pigtail catheter, patient remained clinically stable, tolerating diet and was noted to have decreasing drain output from the pigtail drain. Repeated CT scan of the abdomen and pelvis show resolution of primary abscess. However a 2nd fluid collection of 2.1 x3.1x1.6 cm was identified. Surgical team evaluated the patient and determine no safe access for IR drainage of the 2nd collection. As it is surrounded by bowel loops. Plan was long-term IV antibiotics and close outpatient follow-up. Pigtail drain was removed, patient remained clinically stable, ambulating and tolerating regular diet. Cleared by surgery and ID teams for discharge and 3 weeks of outpatient IV Zosyn therapy at [facility], which is approved by insurance. On discharge condition he is hemodynamically stable, afebrile, no leukocytosis. Pain-free and tolerating diet well. Ambulating independently with a good functional status. No signs of worsening infection or bowel obstruction. [employer] Intern(s): SALES OPERATIONS ANALYST(S) : Infectious disease, general surgery, intervention Radiology, Nephrology Primary care physician :Jamie Quezada MD Admitting : Andrew Najera MD Attending : Brigido Whittaker MD Procedure(s): DIAGNOSTICS / RADIOLOGY: REASON: EVALUATION OF ABSCESS ORDERING PHYSICIAN: MICHEAL URRUTIA MD PROCEDURE: ABD PELWWO - CT ABDOMEN/PELVIS W/WO CONTRAS CT ABDOMEN/PELVIS W/WO CONTRAS REASON: EVALUATION OF ABSCESS COMPARISON: 10/07/2024 TECHNIQUE: Images are obtained from lung bases to the symphysis pubis before and after IV contrast, 100 cc Omnipaque 350. Oral contrast was administered as well. FINDINGS: Lung bases are clear. There are no focal liver lesions. There are normal-appearing kidneys.. Spleen and pancreas appear unremarkable. The gallbladder appears normal as well. There are moderately distended proximal small bowel loops. There is a transition zone in the mid abdomen, the distal small bowel loops are normal caliber. Findings are consistent with partial mechanical small bowel obstruction. There is a pigtail drainage catheter in the root of the mesentery to the left of midline. There is complete drainage of the associated abscess. There is a second abscess present just superiorly and anteriorly, this measures 3.1 x 2.1 x 3.1 cm. Colon appears unremarkable. There is no evidence of free fluid or intraperitoneal air. Aorta and retroperitoneum appear normal as do pelvic soft tissue structures. The anterior abdominal wall is intact. Osseous structures appear unremarkable. IMPRESSION: 1. Moderately dilated proximal and mid small bowel loops, there is a transition zone, findings are consistent with a partial mechanical obstruction. 2. There is a pigtail drainage catheter in place, the associated abscess has resolved completely. 3. There is a second small abscess just anterior and superior to the residual collection, measuring 2.1 x 3[address] was performed with one or more following dose reduction techniques: automated exposure control, adjustment of the mA and kv according to patient's size, or use of a iterative reconstruction technique. DICTATED BY: DI CONDE MD DATE: 10/17/24913 REASON: picc LINE PLACEMENT ORDERING PHYSICIAN: MICHEAL URRUTIA MD PROCEDURE: CXR1VW - CHEST 1VW CHEST 1VW HISTORY: PICC line placement COMPARISON: 10/05/2024 FINDINGS: A frontal projection of the chest was obtained. Mild bilateral pulmonary infiltrates are seen may be related to mild pulmonary vascular congestion with possible superimposed pneumonitis. The heart is borderline enlarged. Right venous catheter is seen with distal tip in the plane of the superior vena cava. No evidence of aortic calcification is seen. IMPRESSION: 1. Mild bilateral pulmonary infiltrates are seen may be related to mild pulmonary vascular congestion with possible superimposed pneumonitis. DICTATED BY: KIM MADSEN MD DATE: 10/11/24907 REASON: ABD DISTENTION ORDERING PHYSICIAN: ANDREW NAJERA MD PROCEDURE: ABD PEL WO - CT ABDOMEN/PELVIS W/O CONTRAST CT ABDOMEN/PELVIS W/O CONTRAST HISTORY: Abdominal distention COMPARISON: 10/05/2024 TECHNIQUE: Multiple sequential axial images of the abdomen and pelvis were obtained from the dome of the diaphragm through symphysis pubis. Patient was not given contrast through intravenous route. Oral contrast was given. FINDINGS: There are bilateral interstitial fibrosis. Tiny pericardial effusion is seen. No pleural effusion is seen bilaterally. There is no evidence of parenchymal disease or pulmonary nodule of the visualized lower lungs. Degenerative changes of the thoracolumbar spine are present. The heart is not enlarged. The liver measured 20 cm. There is contrast material stomach and small bowel loops. There is sigmoid colon wall thickening with adjacent fat stranding consistent with acute sigmoid diverticulitis. Extensive adjacent mesenteric fat stranding is seen in the pelvis. There is small diverticular abscess in the left anterior pelvis measuring 3 x 3.5 cm. Amorphous air collection is seen consistent with walled off perforation. No definite free intraperitoneal air is seen. There is diverticulosis. The liver, spleen, adrenal glands and pancreas are unremarkable. There is no evidence of hydronephrosis bilaterally. No evidence of renal stone is seen. Fecal material is seen in the colon. There are normal size retroperitoneal and mesenteric lymph nodes. No ascites is seen. Atherosclerotic changes are present. Appendix is not well visualized. Pelvic sidewalls are symmetric bilaterally. Bladder is poorly distended. There is fluid-filled small bowel loops and colon. IMPRESSION: 1. There is contrast material stomach and small bowel loops. There is sigmoid colon wall thickening with adjacent fat stranding consistent with acute sigmoid diverticulitis. Extensive adjacent mesenteric fat stranding is seen in the pelvis. There is small diverticular abscess in the left anterior pelvis measuring 3 x 3.5 cm. Amorphous air collection is seen consistent with walled off perforation. No definite free intraperitoneal air is seen. There is diverticulosis. CT was performed with one or more following dose reduction techniques: automated exposure control, adjustment of the mA and kv according to patient's size, or use of a iterative reconstruction technique. DICTATED BY: KIM MADSEN MD DATE: 10/07/242152 REASON: peritoneum ORDERING PHYSICIAN: LIDIA BUTLER PROCEDURE: ABD 1VW - ABD 1VW ABD 1VW HISTORY: Peritoneal COMPARISON: None FINDINGS: A frontal projection of the abdomen was obtained. Small bowel dilatation is seen. Fecal material is seen in the colon. Degenerative changes of the thoracolumbar spine are noted. IMPRESSION: 1. Small bowel dilatation. DICTATED BY: KIM MADSEN MD DATE: 10/07/242005 REASON: PERFORATED BOWEL/DISTENDED ABD ORDERING PHYSICIAN: VICKIE MONTGOMERY MD PROCEDURE: ABD 1VW - ABD 1VW ABD 1VW CLINICAL HISTORY: PERFORATED BOWEL/DISTENDED ABD COMPARISON: None FINDINGS: Single view of the abdomen was obtained. There are multiple air-filled loops of bowel. Free air is not definitely identified but could likely not be excluded on this exam. IMPRESSION: Ileus versus small bowel obstruction DICTATED BY: MISSY FALK DO DATE: 10/06/24 1653 REASON: renal failue ORDERING PHYSICIAN: KATH ALEMAN [employer]IONAL TRAINING MANAGER PROCEDURE: RENAL - US RENAL SONOGRAM ULTRASOUND RENAL COMPLETE INDICATION: Renal failure TECHNIQUE: Routine ultrasound of the kidneys and urinary bladder with grayscale and color Doppler imaging was performed in real-time, and subsequently made available for review. COMPARISON: No prior studies available for comparison. FINDINGS: The right kidney measures 9.3 x 5.7 x 5.7 cm. No abnormal mass demonstrated. No evidence for hydronephrosis or shadowing stone. The left kidney measures 10.9 x 6.3 x 5.1 cm. No abnormal mass demonstrated. No evidence for hydronephrosis or shadowing stone. Empty urinary bladder secondary to Ni catheter placement. No free fluid demonstrated. IMPRESSION: Normal sonographic appearance of the kidneys. DICTATED BY: WILTON ZAVALA MD DATE: 10/06/24 1006 REASON: R/O dvt OF THE LOWER EXTREMITIES ORDERING PHYSICIAN: ANDREW NAJERA MD PROCEDURE: VENOUS SYL - US VENOUS DOPPLER BILATERAL ULTRASOUND VENOUS DOPPLER, BILATERAL LOWER EXTREMITIES INDICATION: Bilateral lower extremity pain and swelling TECHNIQUE: Routine grayscale and color Doppler ultrasound of the bilateral lower extremity veins performed. COMPARISON: No priors. FINDINGS: The demonstrated veins of the bilateral lower extremity including the common femoral vein, femoral vein, and popliteal vein are associated with normal compressibility, augmentation, and flow. Normal respiratory variation was identified. No evidence for echogenic intraluminal thrombus formation. IMPRESSION: No sonographic evidence for deep venous thrombosis within the bilateral lower extremity veins. DICTATED BY: WILTON ZAVALA MD DATE: 10/05/24 1826 REASON: ABD PAIN ORDERING PHYSICIAN: MIRIAM RICE NP PROCEDURE: ABD PEL WO - CT ABDOMEN/PELVIS W/O CONTRAST CT ABDOMEN WITHOUT CONTRAST. CT PELVIS WITHOUT CONTRAST. INDICATION: Abdominal pain; No relevant information related to this study was provided in patient's history by the ordering service. TECHNIQUE: Routine transaxial imaging using 5 mm slice thickness through the abdomen and pelvis without the administration of IV contrast. Thin slice reconstructions are also provided. Coronal and sagittal reformatted images acquired for interpretation. CT was performed with one or more of the following dose reduction techniques: Automated exposure control, adjustment of the mA and/or kV according to patient size, or use of iterative reconstruction technique. COMPARISON: None FINDINGS: ON NONCONTRAST IMAGING: ABDOMEN: Examination provided for interpretation at 4:13 PM on 10/05/2024. Heart size is normal. Scarring at both lung bases. No abnormal renal calcifications, hydronephrosis, perinephric inflammation, or proximal hydroureter detected. The liver is normal in size and smooth in contour without biliary duct dilation. The spleen is normal in size and attenuation. The gallbladder appears normal. The pancreas appears normal without pancreatic duct dilation. The adrenal glands appear normal. No significant abdominal, retrocrural or retroperitoneal adenopathy noted. No evidence for intra-abdominal free air or organized fluid collection. No aortic aneurysmal dilation identified. PELVIS: No abnormal calcifications within the urinary bladder or distal ureters. No evidence for free air or organized pelvic fluid collection. No significant pelvic adenopathy detected. Several diverticula along the distal colon and mild to moderate pericolonic inflammatory fat stranding associated, including 3.5 cm aggregate of air and trace fluid along the mesenteric wall of the far proximal sigmoid colon with additional scattered air densities throughout the anterior mid to upper abdomen. Several diverticula along the proximal colon. Terminal ileum appears unremarkable. The appendix appears normal. Visible osseous structures are intact. IMPRESSION: Perforated sigmoid diverticulitis as described, including findings suggesting potential evolving abscess. DICTATED BY: WILTON ZAVALA MD DATE: 10/05/24 1611 REASON: COUGH ORDERING PHYSICIAN: UBALDO MCBRIDE MD PROCEDURE: CXR1VW - CHEST 1VW PORTABLE CHEST RADIOGRAPH INDICATION: COUGH COMPARISON: 05/16/2017 FINDINGS: wood mill supervisor leads overlie the field of view. Heart size is normal. The pulmonary vascularity and jeannie appear normal. No abnormal pulmonary parenchymal opacity or consolidation identified. Bibasilar lung linear scarring. No significant pleural effusion noted. No pneumothorax detected. IMPRESSION: No radiographic evidence for any acute cardiopulmonary process. Assessment/Plan: ASSESSMENT: Severe sepsis, POA, 2/2 perforated sigmoid diverticulitis Perforated sigmoid diverticulitis with developing abscess, POA Moderate lactic acidosis, POA Acute kidney injury, POA Hypokalemia, POA Mild urinary tract infection, POA Alcohol use disorder, POA Morbid obesity, POA Underlying history of hypertension, POA Hyperlipidemia, POA Status post percutaneous drain placement by IR Suspected GREG, POA Discharge Instructions: ADMISSION DATE : 10/05/2024 DISCHARGE DATE : 0 10/18/2024 DISPOSITION : Home CONDITION : Stable SALES OPERATIONS ANALYST(S) : Infectious disease, general surgery, intervention Radiology, Nephrology Primary care physician :Jamie Quezada MD Admitting : Andrew Najera MD Attending : Brigido Whittaker MD FOLLOW UP APPOINTMENT(s): FOLLOW-UP WITH INFECTIOUS DISEASE SPECIALIST IN ID CLINIC WITHIN 1 DAY FOR IV ANTIBIOTICS ADMINISTRATION. CONTINUE ZOSYN IV 3.375 G Q.8H FOR 3 WEEKS. PRIMARY CARE PHYSICIAN APPOINTMENT WITHIN1 WEEK POST DISCHARGE. GASTROENTEROLOGY FOLLOW-UP WITHIN 6-8 WEEKS FOLLOWING ANTIBIOTIC THERAPY COMPLETION FOR COLONOSCOPY PER SURGICAL TEAM RECOMMENDATION. GENERAL SURGERY FOLLOW-UP WITHIN 2 WEEKS. IMAGING(S) : Reports attached to summary. MICROBIOLOGY : Reports attached to summary. ACTIVITY : AD [facility] HOME MEDICATION : Continued TEACHING : Reinforced the importance of medication compliance and follow-up appointments. Home Medications: Reported Medications Rosuvastatin Calcium (Rosuvastatin Calcium) 10 Mg Tablet, 20 MG PO HS, TAB 10/05/24 Losartan/Hydrochlorothiazide (Losartan-Hctz 100-12.5 mg Tab) 100 Mg-12.5 Mg Tablet, 1 EACH PO DAILY, TAB 10/05/24 Ezetimibe (Ezetimibe) 10 Mg Tablet, 10 MG PO DAILY, TAB 10/05/24 New Medications: Acetaminophen (Tylenol) 325 Mg Tablet 650 MG PO Q6H PRN for MILD PAIN (1-3) for 30 Days, #60 TAB [doCUSate SODIUM 100 MG CAP] () 100 MG CAPSULE 100 MG PO BID PRN for CONSTIPATION for 30 Days, #30 - 0 Refills Continued Medications: Ezetimibe (Ezetimibe) 10 Mg Tablet 10 MG PO DAILY, TAB Losartan/Hydrochlorothiazide (Losartan-Hctz 100-12.5 mg Tab) 100 Mg-12.5 Mg Tablet 1 EACH PO DAILY, TAB Rosuvastatin Calcium (Rosuvastatin Calcium) 10 Mg Tablet 20 MG PO HS, TAB Time spent arranging discharge: 1-30 minutes ATTESTATION BY PHYSICIAN I have seen and examined the patient. I reviewed the documentation, medical decision making, and treatment plan as noted by the resident above. I agree with the findings and plan of care. Andrew Collier MD, RAGHAVA R MD Oct 18, 2024 15:46
--- NOTE | 2024-10-18 17:12 | NUR ---
DISCHARGE PICC LINE DRESSING CHANGED PRIOR TO DISCHARGE PATIENT AND SPOUSE AWARE OF FOLLOW UP APPOINTMENTS PATIENT AND SPOUSE AWARE OF DIRECTIONS TO [facility] AND APPOINTMENT TIME ALL QUESTIONS ANSWERED PRIOR TO DISCHARGE
--- NOTE | 2024-10-18 19:06 | PN ---
INFECTIOUS DISEASE PROGRESS NOTE Date of Service: Oct 18, 2024 SUBJECTIVE: This is a 64-year-old male patient who was admitted to the hospital for evaluation of lower abdominal pain. Patient had a CT of the abdomen and pelvis and was found with perforated sigmoid diverticulitis with intra-abdominal abscess. General surgery was consulted. Patient underwent a percutaneous drainage catheter placement on 10/09/2024 by IR. Patient was seen and examined at bedside in room 321. Patient is awake, alert and oriented x3. Patient is status post left percu taneous drain placement on 10/09/2024, yesterday however a CT of the abdomen/pelvis was repeated to re-evaluate abscess and it showed that the previous abscess has completely resolved, therefore the drain was removed. The CT scan however also showed a 2nd small abscess measuring 2.1 cm x 3.1cm and patient was referred to [facility] for outpatient IV Zosyn x 3 weeks. Patient was approved today and will be discharged. PHYSICAL EXAM EYES: Anicteric. Pupils equal and reactive. HENT: No oral thrush seen, moist Oral mucosa. NECK: Supple, no JVD or thyromegaly. LUNGS: Good air entry. No rales, no rhonchi. CARDIOVASCULAR: S1, S2 regular. No murmur heard. ABDOMEN: bowel sounds present, no organomegaly. Abdominal pain POA, resolved. CENTRAL NERVOUS SYSTEM: Awake, alert, oriented x 3. SKIN: No rashes, no swelling. LYMPHATICS: No peripheral lymphadenopathy. MUSCULOSKELETAL: No joint swelling, erythema or tenderness. EXTREMITIES: No cyanosis or clubbing. BACK: No deformity, no pressure ulcer. GENITOURINARY: No dysuria or hematuria. Vital Sign (Last 12 Hours) 10/18/24 10/18/24 10/18/24 10/18/24 07:20 07:23 08:00 09:47 Temp 97.5 Pulse 89 89 90 Resp 16 18 18 B/P (MAP) 144/90 Pulse Ox 96 96 O2 Delivery N/A Room Air Room Air Room Air* O2 Flow Rate 0 FiO2 10/18/24 12:00 Temp 98.1 Pulse 100 Resp 20 B/P (MAP) 142/91 Pulse Ox 97 O2 Delivery Room Air LABS: Laboratory: Test 10/18/24 11:05 10/18/24 05:36 Range/Units Whole Blood Glucose 113 H 70-110 MG/DL White Blood Count 6.9 4.8-10.8 K/uL Red Blood Count 2.82 L 4.50-6.20 MIL/uL Hemoglobin 8.9 L 14.0-18.0 g/dL Hematocrit 26.6 L 42-54 % Mean Corpuscular Volume 94.3 79-99 fL Mean Corpuscular Hemoglobin 31.6 27.0-33.0 pg Mean Corpuscular Hemoglobin Concent 33.5 32.0-36.0 g/dL Red Cell Distribution Width 15.4 11.0-15.5 % Platelet Count 445 H 130-400 K/uL Mean Platelet Volume 8.3 7.5-10.5 fL Nucleated Red Blood Cells 0.0 0.0-0.19 % Prothrombin Time 11.2 9.6-11.6 SEC Prothromb Time International Ratio 1.00 0.85-1.15 Activated Partial Thromboplast Time 32.8 26.3-35.5 SEC Sodium Level 136 136-145 mmol/L Potassium Level 3.4 L 3.5-5.1 mmol/L Chloride Level 104 101-111 mmol/L Carbon Dioxide Level 23 21-32 mmol/L Blood Urea Nitrogen 5 L 7-18 mg/dL Creatinine 1.0 0.5-1.3 mg/dL Glomerular Filtration Rate Calc 83 >90 mL/min Random Glucose 99 70-105 mg/dL Total Calcium 7.5 L 8.5-10.1 mg/dL Phosphorus Level 3.5 2.5-4.9 mg/dL Magnesium Level 1.60 L 1.80-2.40 mg/dL Total Bilirubin 0.6 0.2-1.0 mg/dL Aspartate Amino Transf (AST/SGOT) 54 H 10-37 U/L Alanine Aminotransferase (ALT/SGPT) 57 12-78 U/L Alkaline Phosphatase 110 50-136 U/L Total Protein 5.7 L 6.0-8.3 g/dL Albumin 1.8 L 3.5-5.0 g/dL ASSESSMENT: Acute hypoxic respiratory failure, resolved. Intra-abdominal abscess, with Escherichia coli infection, s/p percutaneous drainage catheter placement on 10/09/2024, status post removal on 10/17/2024. Perforated sigmoid diverticulitis. Septic shock, resolved. Morbid obesity. Leukocytosis resolved. Acute renal failure, improving PLAN: Patient was referred to [facility] for outpatient IV antibiotics with Zosyn IV every 8 hours x 3 weeks and has been approved. Patient will be discharged to home today. This case was reviewed and discussed with my supervising physician and the above assessment and plan was formulated and agreed upon. ATTESTATION BY PHYSICIAN I have seen and examined the patient. I reviewed the documentation, medical d ecision making, and treatment plan as noted by the mid-level provider above. I agree with the findings and plan of care. MICHEAL URRUTIA MD, MIRTA L SYSTEMS PROGRAMMER ANALYST Oct 18, 2024 19:06
== END 2024-10-18 17:45 | disposition home or self-care (01) | DRG 871 ==
LOC: EDH 15:05 → EDHIP 17:43 → 2AH 10-07 23:44 → 3DH 10-10 04:00
PROVIDERS: ADMIT Internal Medicine; ATTEND Internal Medicine
PROC: 5A09357 Assistance with Respiratory Ventilation, Less than 24 Consecutive Hours, Continuous Positive Airway Pressure (ICD-10-PCS; 2024-10-06)
PROC: 0D9 Gastrointestinal System, Drainage (ICD-10-PCS; principal; 2024-10-09)
PROC: 5A09357 Assistance with Respiratory Ventilation, Less than 24 Consecutive Hours, Continuous Positive Airway Pressure (ICD-10-PCS; 2024-10-12)
PROC: 02HV33Z Insertion of Infusion Device into Superior Vena Cava, Percutaneous Approach (ICD-10-PCS; 2024-10-12)
DX: A41.9 Sepsis, unspecified organism (principal); J96.01 Acute respiratory failure with hypoxia; R65.21 Severe sepsis with septic shock; N30.00 Acute cystitis without hematuria; K57.20 Diverticulitis of large intestine with perforation and abscess without bleeding; N17.9 Acute kidney failure, unspecified; E87.20 Acidosis, unspecified; Z20.822 Contact with and (suspected) exposure to COVID-19; I12.9 Hypertensive chronic kidney disease with stage 1 through stage 4 chronic kidney disease, or unspecified chronic kidney disease; E66.01 Morbid (severe) obesity due to excess calories; E87.6 Hypokalemia; N18.9 Chronic kidney disease, unspecified; E78.00 Pure hypercholesterolemia, unspecified; D64.9 Anemia, unspecified; E11.22 Type 2 diabetes mellitus with diabetic chronic kidney disease; E78.5 Hyperlipidemia, unspecified; E86.0 Dehydration; F10.20 Alcohol dependence, uncomplicated; B96.20 Unspecified Escherichia coli [E. coli] as the cause of diseases classified elsewhere; G47.33 Obstructive sleep apnea (adult) (pediatric); Z72.0 Tobacco use; Z80.0 Family history of malignant neoplasm of digestive organs; Z86.718 Personal history of other venous thrombosis and embolism; Z79.899 Other long term (current) drug therapy; Z68.38 Body mass index [BMI] 38.0-38.9, adult
CPT/HCPCS: 10030; 36415; 36600; 71045; 74018; 74176; 74178; 76770; 77012; 80048; 80051; 80053; 80061; 80076; 81001; 82010; 82306; 82435; 82570; 82607; 82803; 82947; 82948; 83036; 83605; 83690; 83735; 83880; 83935; 84100; 84132; 84145; 84156; 84295; 84443; 84484; 84540; 85018; 85025; 85027; 85610; 85730; 87040; 87071; 87086; 87186; 87205; 87635; 87804; 93005; 93970; 94640; 94660; 94664; 99152; 99153; 99285; G0378; J1171; J1450; J1644; J1815; J2020; J2250; J2405; J2470; J2543; J3010; J3411; J3475; J3480; J3490; J7030; J7120; P9046; Q9963; Q9967; A4215; C1729; C1769; G0500

== ENCOUNTER → 2024-12-09 | Outpatient (CLI) | payer MEDICARE ==
[~2024-12-09] MED LIST changes: +ACET-2247 PO; -AMOX-427 PO; +EZET10TA48 PO; -LACT1CAP58 PO; +LOSA1TAB42 PO; +ROSU10TA72 PO; +doCUSate SODIUM 100 MG CAP PO
== END | disposition home or self-care (01) ==
LOC: LAB 08:50
PROVIDERS: ATTEND Surgery
DX: R10.9 Unspecified abdominal pain (principal)
CPT/HCPCS: 36415; 82565; 84520

== ENCOUNTER → 2024-12-11 | Outpatient (CLI) | payer MEDICARE ==
[~2024-12-11] MED LIST changes: +IOHEXOL-350 75 ML VIAL IV ONE
--- NOTE | 2024-12-11 11:08 | HMCIMG ---
CT ABDOMEN WITH CONTRAST. CT PELVIS WITH CONTRAST INDICATION: Unspecified abdominal pain; no other history provided. TECHNIQUE: Routine transaxial images using 5 mm slice thickness were obtained after the intravenous infusion of 100 mL of Omnipaque 350 without adverse effects. Oral contrast was administered. Rectal contrast was not administered. Coronal and sagittal reformatted images acquired for interpretation. CT was performed with one or more of the following dose reduction techniques: Automated exposure control, adjustment of the mA and/or kV according to patient size, or use of iterative reconstruction technique. COMPARISON: 10/17/2024 FINDINGS: ABDOMEN: Heart size is normal. Coronary arterial wall calcific plaque noted. Visible lung bases are clear. The liver is normal in size and smooth in contour without lesions or biliary duct dilation. The spleen is normal in size without lesions. The gallbladder appears normal. The pancreas appears normal without pancreatic duct dilation. The adrenal glands appear normal. Both kidneys appear unremarkable. Cortical nephrograms are symmetric and normal in appearance bilaterally. No evidence for intra-abdominal free air or organized fluid collection. No retrocrural, intraabdominal, or retroperitoneal lymphadenopathy identified. No aortic aneurysmal dilation or dissection identified. PELVIS: No evidence for free air or organized pelvic fluid collection. No significant pelvic adenopathy detected. Several diverticula along the colon. Mild pericolonic infiltrate fat stranding along the proximal sigmoid colon, and 3.7 cm non-drainable aggregate of air and miniscule amount of fluid identified arises off the mesenteric wall of the proximal sigmoid colon at the same level on axial images 45-53 of series 6. Terminal ileum appears normal. The appendix appears normal. The urinary bladder appears unremarkable. Visible osseous structures are intact. IMPRESSION: Limited history provided. Acute proximal sigmoid diverticulitis with contained/localized perforation as described, but no evidence for drainable fluid collection/abscess at this juncture.
== END | disposition home or self-care (01) ==
LOC: RAH 09:30
PROVIDERS: ATTEND Surgery
DX: K57.20 Diverticulitis of large intestine with perforation and abscess without bleeding (principal); K57.30 Diverticulosis of large intestine without perforation or abscess without bleeding; K63.89 Other specified diseases of intestine; I25.10 Atherosclerotic heart disease of native coronary artery without angina pectoris; R10.9 Unspecified abdominal pain
CPT/HCPCS: 74177; Q9967